=== PATIENT | male | born 1940 | race Caucasian/White ===

== ENCOUNTER 2017-10-28 17:22 | Inpatient (IN) ==
[2017-10-28 17:43] LABS: Basophils # 0.1 K/mm3 (0-0.2); Basophils % 0.8 % (0.1-2.0); Eosinophils # 0.2 K/mm3 (0.0-0.4); Eosinophils % 1.4 % (0.1-12.0); Hematocrit 46.1 % (42.0-52.0); Hemoglobin 15.2 g/dL (14.1-18.0); Lymphocytes # 3.6 K/mm3 (0.7-4.5); Lymphocytes % 32.1 K/mm3 (10-50); Mean Corpuscular Hemoglobin 30.9 pg (27.0-31.2); Mean Corpuscular Volume 93.7 fl (80-94); Mean Platelet Volume 8.3 fl (7.4-10.4); Monocytes # 0.7 K/mm3 (0.1-1.0); Neutrophils # 6.6 K/mm3 (1.8-7.8); Neutrophils % 59.7 % (37.0-80.0); Platelet Count 271 K/mm3 (142-424); Red Blood Count 4.91 M/mm3 (4.60-6.20); Red Cell Distribution Width 12.7 % (11.5-17.5); White Blood Count 11.1 K/mm3 (4.8-10.8)
[2017-10-28 18:14] LABS: Albumin Level 3.7 gm/dL (3.4-5.0); Albumin/Globulin Ratio 1.1 (1.1-1.8); Anion Gap 9.9 mEq/L (5-15); Bilirubin,Total 0.5 mg/dL (0.2-1.0); Calcium 8.4 mg/dL (8.5-10.1); Globulin 3.3 gm/dl (1.3-3.2); Potassium 3.9 mmoL/L (3.5-5.1)
--- NOTE | 2017-10-28 18:57 | Emergency Department Note ---
ED Disposition Clinical Impression: NSTEMI (non-ST elevated myocardial infarction), Hemoptysis, Hypertension, Pulmonary edema cardiac cause Disposition: Still a Patient Condition on Discharge: Fair Referrals: Galindo Cueva [Primary Care Provider] - - Critical Care Critical Care Time: No Attestation: On 10/28/17, the high probability of a clinically significant, sudden or life threatening deterioration of the following system(s) required my full and direct attention, intervention and personal management. The time I documented below is in addition to time spent performing reported procedures but includes the following listed in this critical care notation. Medical Decision Making - Medical Records Medical records reviewed: Yes: I reviewed the patient's medical records. - Bartolo Inquiry Pt receiving controlled substance: No Bartolo was queried for this patient: No Vital Signs: 10/28/17 17:22 Temperature 97.9 F Temperature Source Oral Pulse Rate [Right Brachial] 89 Respiratory Rate 20 Blood Pressure [Right Arm] 105/71 Blood Pressure Mean [Right Arm] 82 Blood Pressure Source [Right Arm] Automatic Cuff Blood Pressure Position [Right Arm] Sitting 02 Sat by Pulse Oximetry 97 Oxygen Delivery Method Room Air - Lab Data Lab Results 10/28/17 17:30: WBC 11.1 H, RBC 4.91, Hgb 15.2, Hct 46.1, MCV 93.7, MCH 30.9, MCHC 33.0, RDW 12.7, Plt Count 271, MPV 8.3, Neut % (Auto) 59.7, Lymph % (Auto) 32.1, Bollinger % (Auto) 6.0, Eos % (Auto) 1.4, Baso % (Auto) 0.8, Neut # (Auto) 6.6 , Lymph # (Auto) 3.6, Bollinger # (Auto) 0.7, Eos # (Auto) 0.2, Baso # (Auto) 0.1 10/28/17 17:30: Sodium 134 L, Potassium 3.9, Chloride 102, Carbon Dioxide 26, Anion Gap 9.9, BUN 20 H, Creatinine 1.02, Estimated Creat Clear 68, Estimated GFR 71, Est GFR ( Amer) 86, Glucose 146 H, Calcium 8.4 L, Total Bilirubin 0.5, AST 33, ALT 29, Alkaline Phosphatase 77, Total Creatine Kinase 183, CK-MB (CK-2) 7.8 H, CK-MB (CK-2) Rel Index 4.3 H, Troponin I 1.14 H, Total Protein 7.0, Albumin 3.7, Globulin 3.3 H, Albumin/Globulin Ratio 1.1 10/28/17 17:30: D-Dimer < 100 Result diagrams: 10/28/17 17:30 10/28/17 17:30 Orders (Tests/Meds): ED MEDICATIONS Generic Name Dose Route Start Last Admin Trade Name Reta PRN Reason Stop Dose Admin Aspirin 81 mg 10/29/17 09:00 Aspirin 81mg Chewable Tablet PO 11/28/17 08:59 DAILY URIAH Nitroglycerin/Dextrose 250 mls @ 1.5 mls/hr 10/28/17 20:15 10/28/17 20:19 Nitroglycerin 50mg/250ml D5w IV 11/27/17 20:14 5 mcg/min .Q24H URIAH 1.5 mls/hr Protocol Administration 5 MCG/MIN Nitroglycerin/Dextrose 250 mls @ 1.5 mls/hr 10/28/17 20:30 Nitroglycerin 50mg/250ml D5w IV 11/27/17 20:29 .Q24H URIAH Protocol 5 MCG/MIN Metoprolol Tartrate 50 mg 10/29/17 21:00 Lopressor 50mg Tablet PO 11/28/17 20:59 BID URIAH Discontinued Medications Generic Name Dose Route Start Last Admin Trade Name Reta PRN Reason Stop Dose Admin Aspirin 243 mg 10/28/17 18:46 10/28/17 18:47 Aspirin 81mg Chewable Tablet PO 10/28/17 18:47 243 mg ONCE ONE Administration Sodium Chloride 500 mls @ 999 mls/hr 10/28/17 19:00 10/28/17 19:05 Sod Chlor 0.9% 1000ml Bag IV 10/28/17 19:30 999 mls/hr .Q31M URIAH Administration Iopamidol 75 ml 10/28/17 20:36 10/28/17 20:37 [id number]; 75ml Vial IV 10/28/17 20:37 75 ml ONCE ONE Administration Metoprolol Tartrate 25 mg 10/29/17 09:00 Lopressor 25mg Tablet PO 11/28/17 08:59 DAILY URIAH Metoprolol Tartrate 25 mg 10/28/17 19:44 Lopressor 50mg Tablet PO 10/28/17 19:45 ONCE ONE Metoprolol Tartrate 50 mg 10/28/17 21:00 Lopressor 50mg Tablet PO 11/27/17 20:59 BID URIAH Metoprolol Tartrate 50 mg 10/28/17 20:26 Lopressor 50mg Tablet PO 10/28/17 20:27 ONCE ONE Sodium Chloride 10 ml 10/28/17 20:36 10/28/17 20:37 Rad-Saline Flush 10ml Syringe IV 10/28/17 20:37 10 ml ONCE ONE Administration Sodium Chloride 50 ml 10/28/17 20:36 10/28/17 20:37 Rad-Ns 50ml Vial IV 10/28/17 20:37 50 ml ONCE ONE Administration Ticagrelor 180 mg 10/28/17 19:00 10/28/17 19:15 Brilinta 90mg Tablet PO 10/28/17 19:01 180 mg ONCE ONE Administration Ticagrelor 90 mg 10/28/17 21:00 Brilinta 90mg Tablet PO 11/27/17 20:59 Q12 URIAH ORDERS Category Date Time Status CT Chest w/PE protocol [CT angio chest] Stat Cat Scan 10/28/17 19:02 Taken - ECG Data Tracing #1 Normal sinus rhythm LVH changes 96/min baseline artifact no ST elevation. I texted to Dr. Tovar for evaluation recommended aspirin Brilinta and Lopressor. ECG initial impression date: 10/28/17 ECG initial impression time: 18:58 Medical Decision Narrative: I called Dr. Tovar who recommended aspirin Brilinta 180 Lopressor 50 twice daily and to be admitted for catheterization in the morning. Prior to transfer to the floor the patient could chest pain 2/[address] Tovar who recommended not to drip. I contacted Dr. Mcneal and the patient was admitted to a stepdown on a nitro drip with a consult to Dr. Tovar. 2039 patient chest pain was down to1/10. She remained hemodynamically stable and communicative with the staff and his . I received a CT report with pulmonary edema most likely secondary to cardiac cause I called Dr. Tovar and discussed with him. The patient will be given morphine IV to help with pulmonary edema. Patient will be admitted to stepdown will obtain another troponin and 2 hours to be called to Dr. Tovar Chest Pain HPI - General Chief Complaint: Chest Pain Stated Complaint: chest pain Time Seen by Provider: 10/28/17 17:30 Mode of Arrival: Ambulatory Limitations: No Limitations Description of Symptoms (Recalled from ER Triage Doc. by RN): Pt reports began having chest pain at 0800 this morning. Pt reports anytime he has tried to do anything strenous today he has felt like wanting to pass out. States a few mins [employer] coughed up blood. Pt also report his BP has been low today - History of Present Illness HPI narrative: 77 years old white male with hypertension and hyperlipidemia. 9 AM this morning , he started experiencing burning pain in the chest, this pain was worse with exertion and relieved by rest. Currently it is 1/10. At 4 PM he had one episode of hemoptysis. He denies shortness of breath or palpitations. MD complaint: chest pain indicative of cardiac Onset (ago): hour(s) (9 hour.) Duration: constant Activity at onset: during rest Pain location: substernal Severity: mild Severity scale (1-10): 1 Quality: other (Burning.) Pain radiation: none Relieving factors: nothing Exacerbating factors: exertion Associated symptoms: other (hemoptysis. ) Risk Factors for CAD: Hypertension, Hypercholesterolemia Treatments prior to or on arrival for Cardiac Chest Pain: aspirin - Related Data Home Medications Medication Instructions Recorded Confirmed Aspirin 81 mg PO DAILY 10/28/17 10/28/17 Lisinopril [Lisinopril 5mg Tablet] 5 mg PO DAILY 10/28/17 10/28/17 Metoprolol Succinate 25 mg PO DAILY 10/28/17 10/28/17 Pravastatin Sodium [Pravachol] 20 mg PO DAILY 10/28/17 10/28/17 Allergies Allergy/AdvReac Type Severity Reaction Status Date / Time Penicillins [PENICILLINS] Allergy Unknown I-RASH Verified 10/28/17 19:[address] [facility] History I have reviewed the patient's past medical history: Yes Medical History: Denies:: Diabetes Mellitus Type 1, Diabetes Mellitus Type 2 Amputation: No - Social History Smoking Status: Former smoker Tobacco Type: cigarettes Alcohol Intake: never - Psychiatric History Expresses thoughts of harming self/others: None Suicide Plan Description: No Plan ROS Obtained: Yes All systems reviewed & no additional complaints Physical Exam - General General appearance: alert, in no apparent distress - Head Head exam: atraumatic, normocephalic, normal inspection - Eye Eye exam: Present: normal appearance, PERRL, EOMI - ENT ENT exam: Present: normal exam, normal oropharynx, mucous membranes moist, TM's normal bilaterally, normal external ear exam - Neck Neck exam: Present: normal inspection, full ROM, trachea midline. Absent: meningismus, lymphadenopathy - Chest Chest inspection: Present: normal inspection, symmetric chest wall rise. Absent : tenderness - Respiratory Respiratory exam: Present: normal lung sounds bilaterally. Absent: respiratory distress - Cardiovascular Cardiovascular exam: Present: regular rate, normal rhythm, systolic murmur. Absent: JVD - Abdominal Exam Abdominal exam: Present: soft, normal bowel sounds. Absent: distention, tenderness, guarding, rebound, rigidity - Extremities Exam Extremities exam: Present: normal inspection, full ROM, normal capillary refill. Absent: calf tenderness - Back Exam Back exam: Present: normal inspection. Absent: tenderness - Neurological Exam Neurological exam: Present: alert, oriented X3, CN II-XII intact, motor sensory deficit, reflexes normal - Psychiatric Psychiatric exam: Present: normal affect, normal mood - Skin Skin exam: Present: warm, dry, intact, normal color - Lymphatic Lymphatic Findings: no adenopathy
[2017-10-29 00:14] LABS: Activated Partial Thrombo Time 29.2 seconds (23.6-34.0); INR 0.99 (0.9-1.1); Prothrombin Time 10.7 seconds (9.4-11.8)
[2017-10-29 06:18] LABS: Basophils # 0.1 K/mm3 (0-0.2); Basophils % 0.7 % (0.1-2.0); Eosinophils # 0.1 K/mm3 (0.0-0.4); Eosinophils % 1.6 % (0.1-12.0); Hematocrit 44.5 % (42.0-52.0); Hemoglobin 14.7 g/dL (14.1-18.0); Lymphocytes # 2.4 K/mm3 (0.7-4.5); Lymphocytes % 27.2 K/mm3 (10-50); Mean Corpuscular HGB Conc 33.1 g/dL (31.8-35.4); Mean Corpuscular Hemoglobin 31.4 pg (27.0-31.2); Mean Corpuscular Volume 95.1 fl (80-94); Mean Platelet Volume 8.4 fl (7.4-10.4); Monocytes # 0.5 K/mm3 (0.1-1.0); Monocytes % 5.3 % (1.7-9.3); Neutrophils # 5.8 K/mm3 (1.8-7.8); Neutrophils % 65.2 % (37.0-80.0); Platelet Count 184 K/mm3 (142-424); Red Blood Count 4.68 M/mm3 (4.60-6.20); White Blood Count 8.9 K/mm3 (4.8-10.8)
[2017-10-29 06:30] LABS: Albumin Level 3.2 gm/dL (3.4-5.0); Anion Gap 13.3 mEq/L (5-15); Bilirubin,Total 0.7 mg/dL (0.2-1.0); Calcium 8.4 mg/dL (8.5-10.1); Chol/HDL Ratio 3.6 (1-3.5); Globulin 3.3 gm/dl (1.3-3.2); Potassium 4.3 mmoL/L (3.5-5.1); Total Protein,Serum 6.5 gm/dL (6.4-8.2)
--- NOTE | 2017-10-29 07:45 | History & Physical Report ---
*Admission Date: 10/28/17 *Chief complaint: Chest pain *History of present illness: 77 [address] old patient of [address] Galindo Cueva in [place], [place], presented to [facility] ER yesterday complaining of a 1 day history of chest pain. The patient describes the pain as burning in the middle of his chest associated with some chest pressure and shortness of breath with any exertion. He took an aspirin yesterday morning at the time of pain onset but did not get relief. Later in the day his spit up some blood. At that point he came to the ER for further evaluation. Patient was evaluated in the ER and found to have an elevated Troponin I, so he was admitted with a non ST elevation NC. Patient's pain persisted despite NTG drip so later in the evening Dr. Tovar took patient to the microbiology lab analyst. 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 Patient has a history of HTN and hyperlipidemia. He had a left heart cath 10 to 15 years ago that was reportedly normal. [facility] History Medical History: Reports:: BPH (followed at Urology clinic), Hyperlipidemia, Hypertension Denies:: Cancer, Diabetes Mellitus Type 1, Diabetes Mellitus Type 2, Lung Disease, MRSA Other Medical History: Reports: Other (impaired fasting glucose) Other Surgeries: Yes: Sinus Surgery, Other (pilonidal cyst removal) Amputation: No Fractures: No - *Social History Educational Level: Completed GED/General Educational Development Smoking Status: Former smoker Tobacco Type: cigarettes Alcohol Intake: never Occupational Status: retired - Psychiatric History Expresses thoughts of harming self/others: None Suicide Plan Description: No Plan *Family Hx:: Diabetes, Heart Attack Review of Systems - Constitutional Denies chills, Denies weight loss - Eyes Denies change in vision - ENT Denies difficulty swallowing - *Respiratory Denies cough - *Gastrointestinal Denies abdominal pain - *Genitourinary Denies painful urination - *Musculoskeletal Denies joint pain - Integumentary/Breasts Denies rash - *Neurologic Denies dizziness - Psychiatric Denies anxiety, Denies depression Meds Home Medications Medication Instructions Recorded Confirmed Type Aspirin 81 mg PO DAILY 10/28/17 10/28/17 History Lisinopril [Lisinopril 5mg Tablet] 5 mg PO DAILY 10/28/17 10/28/17 History Metoprolol Succinate 25 mg PO DAILY 10/28/17 10/28/17 History Pravastatin Sodium [Pravachol] 20 mg PO DAILY 10/28/17 10/28/17 History Allergies Allergy/AdvReac Type Severity Reaction Status Date / Time Penicillins [PENICILLINS] Allergy Unknown I-RASH Verified 10/28/17 19:15 Exam Vital signs and Labs for Last 24 Hours: Temp Pulse Resp BP Pulse Ox 97.4 F L 81 16 105/60 95 10/29/17 04:00 10/29/17 07:05 10/29/17 02:20 10/29/17 07:05 10/29/17 07:05 Vital Signs Temp Pulse Pulse Pulse Resp BP BP 10/29/17 07:05 81 105/60 10/29/17 06:05 81 87/62 10/29/17 05:05 63 108/58 10/29/17 04:35 82 119/65 10/29/17 04:05 80 93/61 10/29/17 04:00 97.4 F L 80 10/29/17 03:35 80 96/50 10/29/17 03:05 81 105/65 10/29/17 02:50 80 102/63 10/29/17 02:35 78 114/58 10/29/17 02:20 97.9 F 80 16 92/60 10/29/17 02:18 90 10/29/17 02:05 88 16 10/29/17 02:00 90 90 18 10/29/17 01:55 92 H 18 10/29/17 01:50 87 18 10/29/17 00:00 80 10/28/17 23:30 76 10/28/17 22:00 67 10/28/17 21:46 10/28/17 21:26 97.5 F L 78 20 10/28/17 21:21 80 10/28/17 21:20 77 10/28/17 21:15 98.4 F 76 18 105/74 10/28/17 17:22 97.9 F 89 20 BP Pulse Ox 10/29/17 07:05 95 10/29/17 06:05 95 10/29/17 05:05 97 10/29/17 04:35 95 10/29/17 04:05 92 L 10/29/17 04:00 96 10/29/17 03:35 92 L 10/29/17 03:05 95 10/29/17 02:50 93 L 10/29/17 02:35 94 L 10/29/17 02:20 90 L 10/29/17 02:18 10/29/17 02:05 105/42 95 10/29/17 02:00 130/49 94 L 10/29/17 01:55 101/64 92 L 10/29/17 01:50 117/61 94 L 10/29/17 00:00 10/28/17 23:30 119/51 93 L 10/28/17 22:00 99/47 95 10/28/17 21:46 97 10/28/17 21:26 107/70 97 10/28/17 21:21 10/28/17 21:20 107/70 96 10/28/17 21:15 10/28/17 17:22 105/71 97 Intake and Output 10/28/17 10/29/17 10/29/17 19:59 03:59 11:59 Intake Total 240 / 240 265 / 265 Output Total 350 / 350 600 / 600 Balance -110 / -110 -335 / -335 Intake: Intake, Oral Amount 240 / 240 240 / 240 Intake, Other Amount 25 / 25 Output: Output, Urine Amount 350 / 350 600 / 600 Other: Number of Voids 1 Number of Bowel Movements 0 Weight 170 lb 175 lb 4 oz 176 lb 6 oz Patient Weight 10/29/17 11:59 Weight 176 lb 6 oz I & O for Last 24 hours: Intake & Output 10/26/17 10/27/17 10/28/17 10/29/17 11:59 11:59 11:59 11:59 Intake Total 505 / 505 Output Total 950 / 950 Balance -445 / -445 Weight 176 lb 6 oz - Constitutional no acute distress - *Routine HEENT Exam Head: Present: normocephalic, atraumatic ENT: Present: mucous membranes moist - *Routine Neck Exam Present: supple - *Routine Respiratory Exam Present: crackles (rare in the bases) - *Routine Cardiovascular Exam Present: RRR. Absent: murmur - *Routine Abdominal Exam Present: soft, normoactive bowel sounds. Absent: tenderness - *Routine Extremities Exam Absent: cyanosis, clubbing, edema H&P: Result - Labs Labs: Short CBC 10/29/17 Range/Units 05:55 WBC 8.9 (4.8-10.8) K/mm3 Hgb 14.7 (14.1-18.0) g/dL Hct 44.5 (42.0-52.0) % Plt Count 184 D (142-424) K/mm3 BMP 10/29/17 05:55 Sodium 137 Potassium 4.3 Chloride 104 Carbon Dioxide 24 BUN 16 Creatinine 0.88 Glucose 101 D Calcium 8.4 L Cardiac Enzymes 10/28/17 Range/Units 23:45 Troponin I 1.09 H (0.00-0.06) ng/ml Liver Function 10/29/17 Range/Units 05:55 Total Bilirubin 0.7 (0.2-1.0) mg/dL AST 32 (15-37) U/L ALT 24 (12-78) U/L Alkaline Phosphatase 70 (46-116) U/L Albumin 3.2 L D (3.4-5.0) gm/dL Laboratory Results - last 24 hr 10/28/17 17:30: WBC 11.1 H, RBC 4.91, Hgb 15.2, Hct 46.1, MCV 93.7, MCH 30.9, MCHC 33.0, RDW 12.7, Plt Count 271, MPV 8.3, Neut % (Auto) 59.7, Lymph % (Auto) 32.1, Henry % (Auto) 6.0, Eos % (Auto) 1.4, Baso % (Auto) 0.8, Neut # (Auto) 6.6 , Lymph # (Auto) 3.6, Henry # (Auto) 0.7, Eos # (Auto) 0.2, Baso # (Auto) 0.1 10/28/17 17:30: Sodium 134 L, Potassium 3.9, Chloride 102, Carbon Dioxide 26, Anion Gap 9.9, BUN 20 H, Creatinine 1.02, Estimated Creat Clear 68, Estimated GFR 71, Est GFR ( Amer) 86, Glucose 146 H, Calcium 8.4 L, Total Bilirubin 0.5, AST 33, ALT 29, Alkaline Phosphatase 77, Total Creatine Kinase 183, CK-MB (CK-2) 7.8 H, CK-MB (CK-2) Rel Index 4.3 H, Troponin I 1.14 H, Total Protein 7.0, Albumin 3.7, Globulin 3.3 H, Albumin/Globulin Ratio 1.1 10/28/17 17:30: D-Dimer < 100 10/28/17 17:30: B-Natriuretic Peptide 417 H 10/28/17 17:30: PT 10.7, INR 0.99, APTT 29.2 10/28/17 20:50: Troponin I 1.16 H 10/28/17 23:45: Troponin I 1.09 H 10/29/17 05:55: WBC 8.9, RBC 4.68, Hgb 14.7, Hct 44.5, MCV 95.1 H, MCH 31.4 H, MCHC 33.1, RDW 13.0, Plt Count 184 D, MPV 8.4, Neut % (Auto) 65.2, Lymph % ( Auto) 27.2, Henry % (Auto) 5.3, Eos % (Auto) 1.6, Baso % (Auto) 0.7, Neut # (Auto ) 5.8, Lymph # (Auto) 2.4, Henry # (Auto) 0.5, Eos # (Auto) 0.1, Baso # (Auto) 0.1 10/29/17 05:55: Sodium 137, Potassium 4.3, Chloride 104, Carbon Dioxide 24, Anion Gap 13.3, BUN 16, Creatinine 0.88, Estimated Creat Clear 72, Estimated GFR 84, Est GFR ( Amer) 102, Glucose 101 D, Calcium 8.4 L, Total Bilirubin 0.7, AST 32, ALT 24, Alkaline Phosphatase 70, Total Protein 6.5, Albumin 3.2 L D, Globulin 3.3 H, Albumin/Globulin Ratio 1.0 L, Triglycerides 119 , Cholesterol 145, LDL Cholesterol 81, VLDL Cholesterol 24, HDL Cholesterol 40, Cholesterol/HDL Ratio 3.6 H - Imaging and Cardiology CT scan - chest Status: Preliminary report (pulmonary edema) Additional comments: Left heart cath report reviewed Assessment and Plan (1) NSTEMI (non-ST elevated myocardial infarction) Current visit: Yes Status: Acute Category: Medical Code(s): I21.4 - Non- ST elevation (NSTEMI) myocardial infarction (2) Non-ischemic cardiomyopathy Current visit: Yes Status: Acute Category: Medical Code(s): I42.8 - Other cardiomyopathies (3) Pulmonary edema cardiac cause Current visit: Yes Status: Acute Category: Medical Code(s): I50.1 - Left ventricular failure, unspecified (4) Hyperlipidemia Current visit: Yes Status: Acute Category: Medical Code(s): E78.5 - Hyperlipidemia, unspecified (5) Hemoptysis Current visit: Yes Status: Acute Category: Medical Code(s): R04.2 - Hemoptysis (6) Hypertension Current visit: Yes Status: Acute Category: Medical Code(s): I10 - Essential (primary) hypertension - Assessment and plan all Dx Assessment and Plan for all problems:: Will continue medical management for non ischemic cardiomyopathy and order ECHO for tomorrow
--- NOTE | 2017-10-29 12:04 | Pharmacy Consult Notes ---
[facility] Pharmacy VTE Monitoring - Patient Demographics Admission date: 10/29/17 Report Date: 10/29/17 Time: 12:04 Allergies/Adverse Reactions: Patient Allergies Penicillins [PENICILLINS] Allergy (Unknown, Verified 10/28/17 19:15) I-RASH Height: 1.78 m Weight: 80.002 kg Patient Problems: Current Active Problems NSTEMI (non-ST elevated myocardial infarction) (Acute) Hemoptysis (Acute) Hypertension (Acute) Pulmonary edema cardiac cause (Acute) Hyperlipidemia (Acute) Non-ischemic cardiomyopathy (Acute) - VTE Risk Labs: VTE Related Lab Results Hgb 14.7 g/dL (14.1-18.0) 10/29/17 05:55 Hct 44.5 % (42.0-52.0) 10/29/17 05:55 Plt Count 184 K/mm3 (142-424) D 10/29/17 05:55 PT 10.7 seconds (9.4-11.8) 10/28/17 17:30 INR 0.99 (0.9-1.1) 10/28/17 17:30 APTT 29.2 seconds (23.6-34.0) 10/28/17 17:30 BUN 16 mg/dL (7-18) 10/29/17 05:55 Creatinine 0.88 mg/dL (0.70-1.30) 10/29/17 05:55 Estimated Creat Clear 72 mL/min (0-300) 10/29/17 05:55 Was VTE Risk Assessment Performed: No VTE Score: 0 VTE Risk Level: Very Low Risk - Prophylaxis Location of Applied Device: Bilateral Lower Extremeties - VTE Diagnosis Confirmed Comment: RASHEEDA WAN ORDERED
[2017-10-30 07:30] LABS: Basophils # 0.1 K/mm3 (0-0.2); Basophils % 0.5 % (0.1-2.0); Eosinophils # 0.1 K/mm3 (0.0-0.4); Eosinophils % 0.7 % (0.1-12.0); Hematocrit 42.2 % (42.0-52.0); Hemoglobin 14.3 g/dL (14.1-18.0); Lymphocytes # 2.1 K/mm3 (0.7-4.5); Lymphocytes % 18.3 K/mm3 (10-50); Mean Corpuscular Hemoglobin 31.7 pg (27.0-31.2); Mean Corpuscular Volume 93.3 fl (80-94); Mean Platelet Volume 8.9 fl (7.4-10.4); Monocytes # 0.9 K/mm3 (0.1-1.0); Monocytes % 7.5 % (1.7-9.3); Neutrophils # 8.3 K/mm3 (1.8-7.8); Neutrophils % 72.9 % (37.0-80.0); Platelet Count 189 K/mm3 (142-424); Red Blood Count 4.52 M/mm3 (4.60-6.20); Red Cell Distribution Width 12.8 % (11.5-17.5); White Blood Count 11.4 K/mm3 (4.8-10.8)
[2017-10-30 08:02] LABS: Albumin Level 3.1 gm/dL (3.4-5.0); Bilirubin,Total 1.1 mg/dL (0.2-1.0); Calcium 8.1 mg/dL (8.5-10.1); Globulin 3.1 gm/dl (1.3-3.2); Total Protein,Serum 6.2 gm/dL (6.4-8.2)
--- NOTE | 2017-10-30 08:56 | Progress Note ---
<Leelee Whalen - Last Filed: 10/30/17 08:52> Internal Medicine - PN: Subj *Date: 10/30/17 *Time: 08:52 Interval history: Patient is hungry and would like something to eat. Biggest complaints are his weakness and coughing up blood. He denies shortness of breath while lying in the bed. He denies chest pain at this point. Denies any melena hematochezia or hematemesis. He does have some nausea. Exam Vital signs and Labs for Last 24 Hours: Temp Pulse Resp BP Pulse Ox 98.6 F 110 H 20 133/76 95 10/30/17 04:00 10/30/17 07:00 10/30/17 07:00 10/30/17 07:00 10/30/17 07:00 Laboratory Results - last 24 hr 10/30/17 07:03: WBC 11.4 H D, RBC 4.52 L, Hgb 14.3, Hct 42.2, MCV 93.3, MCH 31.7 H, MCHC 34.0, RDW 12.8, Plt Count 189, MPV 8.9, Neut % (Auto) 72.9, Lymph % (Auto) 18.3, [place] % (Auto) 7.5, Eos % (Auto) 0.7, Baso % (Auto) 0.5, Neut # ( Auto) 8.3 H, Lymph # (Auto) 2.1, [place] # (Auto) 0.9, Eos # (Auto) 0.1, Baso # ( Auto) 0.1 10/30/17 07:03: Sodium 137, Potassium 4.0, Chloride 102, Carbon Dioxide 23, Anion Gap 16.0 H, BUN 16, Creatinine 0.85, Estimated Creat Clear 70, Estimated GFR 88, Est GFR ( Amer) 106, Glucose 123 H, Calcium 8.1 L, Total Bilirubin 1.1 H, AST 32, ALT 22, Alkaline Phosphatase 66, Total Protein 6.2 L, Albumin 3.1 L, Globulin 3.1, Albumin/Globulin Ratio 1.0 L I & O for Last 24 hours: Intake & Output 10/27/17 10/28/17 10/29/17 10/30/17 11:59 11:59 11:59 11:59 Intake Total 745 / 745 20 / 20 Output Total 950 / 950 1200 / 1200 Balance -205 / -205 -1180 / -1180 Weight 176 lb 6 oz 171 lb 8 oz Radiology Reports for the Last 24 Hours: 10/29/2017 CTA of chest IMPRESSION 1. No pulmonary emboli evident 2. Extensive Bilateral low-density infiltrates. Diffuse groundglass opacities seen throughout the posterior aspect of the lower lobes and upper lobes bilaterally, Also infiltrate throughout the lingula and less evident scattered infiltrates RML. 3. . Clearly enlarged lower mediastinal lymph node.-This paraEsophageal/ Retrocrural node 13 cm diameter x 2.3 cm height 4. Additional soft tissue density right damaris suggesting early developing right hilar adenopathy most evident on right,. Only slight kody enlargement left damaris 5.. Developing Mediastinal adenopathy.: Noting prominent grouping of nodes subcarinal region. Enlarged node or collection collection nodes precarinal. Slight increased number of axillary nodes observed but these are not enlarged by CT criteria. 6. . 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 Absent: tenderness - *Routine Extremities Exam Absent: edema, calf tenderness - *Routine Neurological Exam Present: alert, oriented X3 Assessment and Plan (1) NSTEMI (non-ST elevated myocardial infarction) Current visit: Yes Status: Acute Category: Medical Code(s): I21.4 - Non- ST elevation (NSTEMI) myocardial infarction (2) Non-ischemic cardiomyopathy Current visit: Yes Status: Acute Category: Medical Code(s): I42.8 - Other cardiomyopathies (3) Pulmonary edema cardiac cause Current visit: Yes Status: Acute Category: Medical Code(s): I50.1 - Left ventricular failure, unspecified (4) Hyperlipidemia Current visit: Yes Status: Acute Category: Medical Code(s): E78.5 - Hyperlipidemia, unspecified (5) Hemoptysis Current visit: Yes Status: Acute Category: Medical Code(s): R04.2 - Hemoptysis (6) Hypertension Current visit: Yes Status: Acute Category: Medical Code(s): I10 - Essential (primary) hypertension (7) Mediastinal adenopathy Current visit: Yes Status: Acute Category: Medical Code(s): R59.0 - Localized enlarged lymph nodes - Assessment and plan all Dx Assessment and Plan for all problems:: Has been seen by cardiology today. We will do an echocardiogram. <Pavan Mcneal - Last Filed: 10/30/17 09:21> Internal Medicine - PN: Subj *Date: 10/30/17 *Time: 09:21 Exam Vital signs and Labs for Last 24 Hours: Temp Pulse Resp BP Pulse Ox 98.6 F 110 H 20 133/76 95 10/30/17 04:00 10/30/17 07:00 10/30/17 07:00 10/30/17 07:00 10/30/17 07:00 Laboratory Results - last 24 hr 10/30/17 07:03: WBC 11.4 H D, RBC 4.52 L, Hgb 14.3, Hct 42.2, MCV 93.3, MCH 31.7 H, MCHC 34.0, RDW 12.8, Plt Count 189, MPV 8.9, Neut % (Auto) 72.9, Lymph % (Auto) 18.3, [place] % (Auto) 7.5, Eos % (Auto) 0.7, Baso % (Auto) 0.5, Neut # ( Auto) 8.3 H, Lymph # (Auto) 2.1, [place] # (Auto) 0.9, Eos # (Auto) 0.1, Baso # ( Auto) 0.1 10/30/17 07:03: Sodium 137, Potassium 4.0, Chloride 102, Carbon Dioxide 23, Anion Gap 16.0 H, BUN 16, Creatinine 0.85, Estimated Creat Clear 70, Estimated GFR 88, Est GFR ( Amer) 106, Glucose 123 H, Calcium 8.1 L, Total Bilirubin 1.1 H, AST 32, ALT 22, Alkaline Phosphatase 66, Total Protein 6.2 L, Albumin 3.1 L, Globulin 3.1, Albumin/Globulin Ratio 1.0 L I & O for Last 24 hours: Intake & Output 10/27/17 10/28/17 10/29/17 04/02/18 11:59 11:59 11:59 11:59 Intake Total 745 / 745 Output Total 950 / 950 1200 / 1200 Balance -205 / -205 -1180 / -1180 Weight 176 lb 6 oz 171 lb 8 oz Assessment and Plan (1) NSTEMI (non-ST elevated myocardial infarction) Current visit: Yes Status: Acute Category: Medical Code(s): I21.4 - Non- ST elevation (NSTEMI) myocardial infarction (2) Non-ischemic cardiomyopathy Current visit: Yes Status: Acute Category: Medical Code(s): I42.8 - Other cardiomyopathies (3) Pulmonary edema cardiac cause Current visit: Yes Status: Acute Category: Medical Code(s): I50.1 - Left ventricular failure, unspecified (4) Hyperlipidemia Current visit: Yes Status: Acute Category: Medical Code(s): E78.5 - Hyperlipidemia, unspecified (5) Hemoptysis Current visit: Yes Status: Acute Category: Medical Code(s): R04.2 - Hemoptysis (6) Hypertension Current visit: Yes Status: Acute Category: Medical Code(s): I10 - Essential (primary) hypertension (7) Mediastinal adenopathy Current visit: Yes Status: Acute Category: Medical Code(s): R59.0 - Localized enlarged lymph nodes - Assessment and plan all Dx Assessment and Plan for all problems:: Saw patient, agree with above note.
--- NOTE | 2017-10-30 09:05 | Consult Report ---
History of Present Illness Consult date: 10/29/17 Requesting physician: Pavan Mcneal Consult reason: chest pain Chief complaint: Chest pain Additional Medical History:: 1. Ex-smoker, discontinued approximately 2006. Previously smoked at least a pack a day for about 40 years. 2. History of hypertension, improved after weight loss 3. History of diabetes, discontinued medication after 40 pound weight loss 4. History of nodule in the paraspinal area reportedly stable per patient. Sees a Dr. Mcgraw in [facility] for follow-up with reported CAT scan of the chest last year. History of present illness: 77-year-old white male admitted for recurrent chest pain with elevated troponin. Patient was taken to the cardiac [facility] yesterday with cardiac cath showing [id number] coronary artery disease, reduced ejection fraction of 40% and aortic gradient of 30 mm with concern for aortic stenosis versus evidence of HOCM. Patient's chest burning sensation has improved. Echocardiogram has been performed today results pending at this time. Patient does complain of coughing up some blood. Nursing relates blood-tinged frothy sputum. Patient has had some frequent PVCs and rare couplets and triplets. CT of the chest reveals evidence of pulmonary nodules, emphysema and infiltrates. [facility] History Medical History: Reports:: BPH (followed at Urology clinic), Hyperlipidemia, Hypertension Denies:: Cancer, Diabetes Mellitus Type 1, Diabetes Mellitus Type 2, Lung Disease, MRSA Other Medical History: Reports: Other (impaired fasting glucose) Other Surgeries: Yes: Sinus Surgery, Other (pilonidal cyst removal) Amputation: No Fractures: No - *Social History Educational Level: Completed GED/General Educational Development Smoking Status: Former smoker Tobacco Type: cigarettes Alcohol Intake: never Occupational Status: retired - Psychiatric History Expresses thoughts of harming self/others: None Suicide Plan Description: No Plan *Family Hx:: Diabetes, Heart Attack Meds Home Medications Medication Instructions Recorded Confirmed Type Aspirin 81 mg PO DAILY 10/28/17 10/28/17 History Lisinopril [Lisinopril 5mg Tablet] 5 mg PO DAILY 10/28/17 10/28/17 History Metoprolol Succinate 25 mg PO DAILY 10/28/17 10/28/17 History Pravastatin Sodium [Pravachol] 20 mg PO DAILY 10/28/17 10/28/17 History Allergies Allergy/AdvReac Type Severity Reaction Status Date / Time Penicillins [PENICILLINS] Allergy Unknown I-RASH Verified 10/28/17 19:15 Review of Systems - *Cardiovascular Reports chest pain, Reports shortness of breath - *Respiratory Reports cough, Reports coughing up blood - *Gastrointestinal Denies abdominal pain - *Genitourinary Denies difficulty urinating - *Neurologic Denies dizziness Exam Vital signs and Labs for Last 24 Hours: Temp Pulse Resp BP Pulse Ox 98.6 F 110 H 20 133/76 95 10/30/17 04:00 10/30/17 07:00 10/30/17 07:00 10/30/17 07:00 10/30/17 07:00 Laboratory Results - last 24 hr 10/30/17 07:03: WBC 11.4 H D, RBC 4.52 L, Hgb 14.3, Hct 42.2, MCV 93.3, MCH 31.7 H, MCHC 34.0, RDW 12.8, Plt Count 189, MPV 8.9, Neut % (Auto) 72.9, Lymph % (Auto) 18.3, [place] % (Auto) 7.5, Eos % (Auto) 0.7, Baso % (Auto) 0.5, Neut # ( Auto) 8.3 H, Lymph # (Auto) 2.1, [place] # (Auto) 0.9, Eos # (Auto) 0.1, Baso # ( Auto) 0.1 10/30/17 07:03: Sodium 137, Potassium 4.0, Chloride 102, Carbon Dioxide 23, Anion Gap 16.0 H, BUN 16, Creatinine 0.85, Estimated Creat Clear 70, Estimated GFR 88, Est GFR ( Amer) 106, Glucose 123 H, Calcium 8.1 L, Total Bilirubin 1.1 H, AST 32, ALT 22, Alkaline Phosphatase 66, Total Protein 6.2 L, Albumin 3.1 L, Globulin 3.1, Albumin/Globulin Ratio 1.0 L I & O for Last 24 hours: Intake & Output 10/27/17 10/28/17 10/29/17 10/30/17 11:59 11:59 11:59 11:59 Intake Total 745 / 745 20 Output Total 950 / 950 1200 / 1200 Balance -205 / -205 -1180 / -1180 Weight 176 lb 6 oz 171 lb 8 oz - *Routine Neck Exam Absent: JVD, carotid bruit - *Routine Respiratory Exam Present: decreased breath sounds - *Routine Cardiovascular Exam Present: murmur, gallop, tachycardia Comments: Harsh systolic ejection murmur grade 2/6 to 3/6 best heard at the apex with accentuation upon vagal maneuver. - *Routine Extremities Exam Absent: edema - *Routine Neurological Exam Present: alert, oriented X3, moving all extremities Assessment and Plan (1) NSTEMI (non-ST elevated myocardial infarction) Current visit: Yes Status: Acute Category: Medical Code(s): I21.4 - Non- ST elevation (NSTEMI) myocardial infarction (2) Non-ischemic cardiomyopathy Current visit: Yes Status: Acute Category: Medical Code(s): I42.8 - Other cardiomyopathies (3) Pulmonary edema cardiac cause Current visit: Yes Status: Acute Category: Medical Code(s): I50.1 - Left ventricular failure, unspecified (4) Hyperlipidemia Current visit: Yes Status: Acute Category: Medical Code(s): E78.5 - Hyperlipidemia, unspecified (5) Hemoptysis Current visit: Yes Status: Acute Category: Medical Code(s): R04.2 - Hemoptysis (6) Hypertension Current visit: Yes Status: Acute Category: Medical Code(s): I10 - Essential (primary) hypertension - Assessment and plan all Dx Assessment and Plan for all problems:: 1. Will await echo results but continue Beta elaine therapy. Will increase to 50 mg due to tachycardia. 2. Workup of hemoptysis per Dr. Mcneal.
[2017-10-30 12:12] VITALS: BP 132/61
--- NOTE | 2017-10-30 19:34 | Discharge Summary ---
General - General Admission date: 10/29/17 Discharge date: 10/30/17 HPI HPI: 77 year old patient of Dr. Galindo Cueva in [place], [place], presented to [facility] ER yesterday complaining of a 1 day history of chest pain. The patient describes the pain as burning in the middle of his chest associated with some chest pressure and shortness of breath with any exertion. He took an aspirin yesterday morning at the time of pain onset but did not get relief. Later in the day his spit up some blood. At that point he came to the ER for further evaluation. Patient was evaluated in the ER and found to have an elevated Troponin I, so he was admitted with a non ST elevation GA. Patient's pain persisted despite NTG drip so later in the evening Dr. Tovar took patient to the powerhouse laborer. 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 Patient has a history of HTN and hyperlipidemia. He had a left heart cath 10 to 15 years ago that was reportedly normal. Hospital Course Hospital Course: The patient was started on medical management for non ischemic cardiomyopathy and an ECHO was ordered. His biggest complaints were of weakness and coughing up blood. He had a CTA to r/o a PE. There was no PE, but it did show extensive bilateral low-density infiltrates, diffuse groundglass opacities throughout the posterior aspect of the lower lobes and upper lobes, an enlarged lower mediastinal lymph node, right hilar adenopathy, mediastinal adenopathy, and a right paraspinal mass lesion most likely a neurofibroma or schwannoma at T10-11. The patient had an echo and it showed evidence of critical HOCM. He was transferred to CV surgeon (Dr. Shaw) in [place] for further treatment. Objective Vital signs: Temp Pulse Resp BP Pulse Ox 97.4 F L 128 H 22 132/61 95 10/30/17 12:00 10/30/17 14:00 10/30/17 14:00 10/30/17 12:00 10/30/17 14:00 Narrative: - Constitutional no acute distress - *Routine HEENT Exam Head: Present: normocephalic, atraumatic ENT: Present: mucous membranes moist - *Routine Neck Exam Present: supple - *Routine Respiratory Exam Present: crackles (rare in the bases) - *Routine Cardiovascular Exam Present: RRR. Absent: murmur - *Routine Abdominal Exam Present: soft, normoactive bowel sounds. Absent: tenderness - *Routine Extremities Exam Absent: cyanosis, clubbing, edema Results Labs on day of discharge: Labs from last 24 hours 10/30/17 10/30/17 07:03 07:03 WBC 11.4 H D RBC 4.52 L Hgb 14.3 Hct 42.2 MCV 93.3 MCH 31.7 H MCHC 34.0 RDW 12.8 Plt Count 189 MPV 8.9 Neut % (Auto) 72.9 Lymph % (Auto) 18.3 [place] % (Auto) 7.5 Eos % (Auto) 0.7 Baso % (Auto) 0.5 Neut # (Auto) 8.3 H Lymph # (Auto) 2.1 [place] # (Auto) 0.9 Eos # (Auto) 0.1 Baso # (Auto) 0.1 Sodium 137 Potassium 4.0 Chloride 102 Carbon Dioxide 23 Anion Gap 16.0 H BUN 16 Creatinine 0.85 Estimated Creat Clear 70 Estimated GFR 88 Est GFR ( Amer) 106 Glucose 123 H Calcium 8.1 L Total Bilirubin 1.1 H AST 32 ALT 22 Alkaline Phosphatase 66 Total Protein 6.2 L Albumin 3.1 L Globulin 3.1 Albumin/Globulin Ratio 1.0 L DS: Diagnosis - Discharge Diagnosis (1) HOCM (hypertrophic obstructive cardiomyopathy) Status: Acute (2) Hemoptysis Status: Acute (3) Hyperlipidemia Status: Acute (4) Hypertension Status: Acute (5) Mediastinal adenopathy Status: Acute (6) NSTEMI (non-ST elevated myocardial infarction) Status: Acute (7) Non-ischemic cardiomyopathy Status: Acute (8) Pulmonary edema cardiac cause Status: Acute Discharge Plan - Patient Discharge Instructions ACTIVITY: Continue current activity DIET: continue same diet Patient Instructions: High Triglycerides, Heart Attack, Cardiac Catheterization , Surgical Site Infection, DI for Hemoptysis Forms: Transfer Record - Follow up Plan Disposition: Xfer Short-Term Hosp Home Medications: Home Medications Medication Instructions Recorded Confirmed Type Aspirin 81 mg PO DAILY 10/28/17 10/28/17 History Lisinopril [Lisinopril 5mg Tablet] 5 mg PO DAILY 10/28/17 10/28/17 History Metoprolol Succinate 25 mg PO DAILY 10/28/17 10/28/17 History Pravastatin Sodium [Pravachol] 20 mg PO DAILY 10/28/17 10/28/17 History Prescriptions/Medication Reconciliation: Continue Lisinopril [Lisinopril 5mg Tablet] 5 mg PO DAILY Pravastatin Sodium [Pravachol] 20 mg PO DAILY Metoprolol Succinate 25 mg PO DAILY Aspirin 81 mg PO DAILY
--- NOTE | 2017-10-30 21:27 | Cardiology Report ---
PROCEDURE: 2-D M-mode and color Doppler study INDICATIONS FOR THE TEST: Chest pain X COPD Heart Murmur Tobacco SmokingX Palpitations Fatigue Syncope Edema HypertensionXDiabetes Mellitus Rheumatic Fever SOBXDOE Obesity HyperlipidemiaX Family History HD Additional History NSTEMI,PUL EDEMA,CHF ?HOCM/ ON CATH EF 40% CATH 10/28/17 PATIENT INFORMATION HEIGHT: 70 WEIGHT:176 GENDER: Male B/P:105/60 2-D/M-MODE INTERPRETATION: 2-D MEASUREMENTS OBSERVED VALUES IN CMS Right Ventricular Dimension (RVDd) 1.9 Interventricular Septum (Thickness)(IVsd) 1.0 Left Ventricular Internal Dimensions(LVIDd) 6.2 Left Ventricular Posterior Wall (Thickness)(LVPWd) 1.1 Aortic Root 3.6 Aortic Cusp Separation 2.4 Left Atrial Dimensions (LAD) 3.2 2D 1. Left atrium is qualitatively moderately enlarged, left ventricle is mildly dilated, there is severely reduced left ventricular systolic function, visually estimated ejection fraction of 20-25%, there is marked hypokinesis involving mid to distal septum, anterior, anteroapical wall the basal septum and inferobasal wall hyperdynamic, the basal septum has sigmoid configuration. 2. The right atrium and right ventricle are normal size and contractility. 3. The aortic valve is thickened and is trileaflet continue to display mobility. 4. The mitral valve leaflets are minimally thickened, there is mild systolic anterior motion of the mitral valve leaflets towards the left ventricular outflow tract with septal mitral contact . 5. The tricuspid valve is structurally normal. 6. Pulmonic valve is poorly visualized 7. No significant pericardial effusion noted. DOPPLER INTERROGATION: 1. 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 2. The mitral inflow velocity within normal range, there is no mitral stenosis, there is moderate to severe mitral regurgitation. 3. There is mild tricuspid regurgitation noted tricuspid and jet velocity insufficient for calculation of the right ventricular systolic pressure. CONCLUSION: 1. The left atrium is moderately enlarged, left ventricle is mildly dilated, there is severely reduced left ventricular systolic function visually estimated ejection fraction of 20-25% with multiple segmental wall motion abnormality described above, the basal septum and inferobasal wall hyperdynamic. 2. Systolic anterior motion of the mitral valve leaflets, creating resting gradient of 85 mmHg which increased to 144mm Hg suggestive of dynamic obstruction. There is moderate to severe mitral regurgitation. 3. Mild tricuspid regurgitation 4. No significant pericardial effusion noted.
== END 2017-10-30 15:30 | disposition short-term general hospital (02) ==
LOC: 2ND 17:22 → ER 17:22 → OBSVTOIN 21:24 → 2ND 21:25
PROVIDERS: ADMIT Family Medicine; ATTEND Family Medicine

== ENCOUNTER → 2017-11-30 10:24 | Outpatient (CLI) | payer MEDICARE, SELFPAY ==
--- NOTE | 2017-11-30 10:26 | CA_ITS ---
PROCEDURE: 2-D M-mode and color Doppler study INDICATIONS FOR THE TEST: Chest painx COPD Heart Murmur Tobacco Smokingx Palpitations Fatiguex Syncope Edema HypertensionxDiabetes Mellitus Rheumatic Fever SOB DOExObesity Hyperlipidemiax Family History HD Additional History Dizziness, Hypertrophic Cardiomyopathy, History of 20-25% EF PATIENT INFORMATION HEIGHT: 5'11'' WEIGHT: 172 GENDER: Male B/P: 150/69 2-D/M-MODE INTERPRETATION: 2-D MEASUREMENTS OBSERVED VALUES IN CMS Right Ventricular Dimension (RVDd) 2.2 Interventricular Septum (Thickness)(IVsd) 1.6 Left Ventricular Internal Dimensions(LVIDd) 4.3 Left Ventricular Posterior Wall (Thickness)(LVPWd) 1.4 Aortic Root 2.9 Aortic Cusp Separation 2.1 Left Atrial Dimensions (LAD) 4.1 2D 1. Left atrium is mildly enlarged, left ventricle is normal size, there is mild concentric left ventricular hypertrophy, septum has sigmoid configuration, visually estimated ejection fraction 55% with no obvious regional wall motion abnormality. 2. The right atrium and right ventricle are normal size and contractility. 3. The aortic valve is thickened and calcified leaflet continue to display good mobility, morphologically there is no aortic stenosis. 4. The mitral valve leaflets are minimally thickened, there is mild systolic atrium motion of the mitral valve leaflets seen. 5. The tricuspid valve is grossly normal. 6. The pulmonic valve is poorly visualized. 7. No significant pericardial effusion noted. DOPPLER INTERROGATION: Doppler interrogation of the aortic, mitral and tricuspid valvular presence of mild mitral and tricuspid regurgitation, Doppler evidence of impaired LV relaxation seen, there is no resting gradient or provocable gradient has been recorded in this study. CONCLUSION: 1. Mildly enlarged left atrium, normal left ventricular size, mild concentric left ventricular hypertrophy, septum has sigmoid configuration, visually estimated ejection fraction 55-60% with no obvious regional wall motion abnormality, Doppler evidence of impaired LV relaxation seen. 2. Systolic atrium motion of the mitral valve leaflets, there is no resting or provocable gradient has been recorded in this study. 3. Mild mitral and tricuspid regurgitation.
== END ==
PROVIDERS: Family Provider Family Medicine; PCP Family Medicine; Visit Provider Internal Medicine
DX: I42.8 Other cardiomyopathies; I42.1 Obstructive hypertrophic cardiomyopathy; E78.5 Hyperlipidemia, unspecified; I10 Essential (primary) hypertension
CPT/HCPCS: 93306

== ENCOUNTER → 2019-09-05 09:15 | Outpatient (CLI) | payer MEDICARE, SELFPAY ==
[2019-09-20 19:03] LABS: Miscellaneous Test SEE LABCORP REPORT
== END ==
PROVIDERS: Visit Provider Internal Medicine Medical Oncology
DX: D64.9 Anemia, unspecified (principal)
CPT/HCPCS: 36415

== ENCOUNTER → 2019-09-20 09:11 | Outpatient (CLI) | payer MEDICARE, SELFPAY ==
[2019-09-20 11:24] LABS: Basophils # 0.1 K/mm3 (0-0.2); Basophils % 0.6 % (0.1-2.0); Eosinophils # 0.2 K/mm3 (0.0-0.4); Eosinophils % 0.8 % (0.1-12.0); Hematocrit 44.9 % (42.0-52.0); Hemoglobin 14.3 g/dL (14.1-18.0); Lymphocytes # 17.6 K/mm3 (0.7-4.5); Lymphocytes % 73.5 % (10-50); Mean Corpuscular HGB Conc 31.8 g/dL (31.8-35.4); Mean Corpuscular Hemoglobin 28.6 pg (27.0-31.2); Mean Platelet Volume 8.2 fl (7.4-10.4); Monocytes # 0.6 K/mm3 (0.1-1.0); Monocytes % 2.4 % (1.7-9.3); Neutrophils # 5.4 K/mm3 (1.8-7.8); Neutrophils % 22.7 % (37.0-80.0); Platelet Count 292 K/mm3 (142-424); Red Blood Count 4.99 M/mm3 (4.60-6.20); Red Cell Distribution Width 13.3 % (11.5-17.5); White Blood Count 23.9 K/mm3 (4.8-10.8)
[2019-09-20 11:26] LABS: MANUAL DIFFERENTIAL MANUAL DIFFERENTIAL (MANUAL DIFF)
[2019-09-20 13:51] LABS: Lymphocytes % 69 % (10-50); Monocytes % 6 % (2-9); Neutrophils % 20 % (42-76); Total Cells Counted 100
[2019-09-20 13:52] LABS: Platelet Estimate Normal; RBC Morphology Normal
== END ==
PROVIDERS: Visit Provider Internal Medicine Medical Oncology
DX: D64.9 Anemia, unspecified (principal)
CPT/HCPCS: 36415; 85007; 85025

== ENCOUNTER → 2019-12-26 08:25 | Outpatient (CLI) | payer MEDICARE, SELFPAY ==
[2019-12-26 09:09] LABS: Basophils # 0.1 K/mm3 (0-0.2); Basophils % 0.7 % (0.1-2.0); Eosinophils # 0.3 K/mm3 (0.0-0.4); Hematocrit 39.2 % (42.0-52.0); Hemoglobin 13.4 g/dL (14.1-18.0); Lymphocytes # 8.2 K/mm3 (0.7-4.5); Lymphocytes % 62.1 % (10-50); Mean Corpuscular HGB Conc 34.2 g/dL (31.8-35.4); Mean Corpuscular Hemoglobin 30.5 pg (27.0-31.2); Mean Corpuscular Volume 89.4 fl (80-94); Mean Platelet Volume 8.2 fl (7.4-10.4); Monocytes # 0.6 K/mm3 (0.1-1.0); Monocytes % 4.5 % (1.7-9.3); Neutrophils # 4.1 K/mm3 (1.8-7.8); Neutrophils % 30.7 % (37.0-80.0); Platelet Count 249 K/mm3 (142-424); Red Blood Count 4.38 M/mm3 (4.60-6.20); Red Cell Distribution Width 13.8 % (11.5-17.5); White Blood Count 13.3 K/mm3 (4.8-10.8)
[2019-12-26 09:12] LABS: MANUAL DIFFERENTIAL MANUAL DIFFERENTIAL (MANUAL DIFF)
[2019-12-26 09:46] LABS: Lymphocytes % 52 % (10-50); Monocytes % 2 % (2-9); Neutrophils % 44 % (42-76); Platelet Estimate Normal; RBC Morphology Normal; Total Cells Counted 100
[2019-12-26 10:22] LABS: Chloride 106 mmol/L (98-107); Sodium 140 mmol/L (136-145)
[2019-12-26 10:23] LABS: Potassium 4.5 mmoL/L (3.5-5.1)
[2019-12-26 10:25] LABS: Alanine Aminotransferase 25 U/L (12-78); Albumin Level 3.9 g/dl (3.5-5.0); Albumin/Globulin Ratio 1.3 (1.1-1.8); Alkaline Phosphatase 78 U/L (38-126); Anion Gap 11.5 mEq/L (5-15); Aspartate Amino Transferase 36 U/L (17-59); Bilirubin,Total 0.8 mg/dl (0.2-1.3); Blood Urea Nitrogen 18 mg/dl (9-20); Calcium 8.9 mg/dl (8.4-10.2); Carbon Dioxide 27 mmol/L (22.0-30.0); Estimated Glomerular Filt Rate 82 ml/min (>60); GFR (African American) 99 ML/MIN (>60); Globulin 2.9 g/dL (1.3-3.2); Glucose 87 mg/dl (74-100); Total Protein,Serum 6.8 g/dl (6.3-8.2)
== END ==
PROVIDERS: Visit Provider Internal Medicine Medical Oncology
DX: D64.9 Anemia, unspecified (principal)
CPT/HCPCS: 36415; 80053; 85007; 85025

== ENCOUNTER → 2020-08-26 08:17 | Outpatient (CLI) | payer MEDICARE, SELFPAY ==
[2020-08-26 08:57] LABS: Basophils # 0.3 K/mm3 (0-0.2); Basophils % 0.7 % (0.1-2.0); Eosinophils # 0.3 K/mm3 (0.0-0.4); Eosinophils % 0.6 % (0.1-12.0); Hematocrit 38.2 % (42.0-52.0); Hemoglobin 12.1 g/dL (14.1-18.0); Lymphocytes # 36.8 K/mm3 (0.7-4.5); Lymphocytes % 85.3 % (10-50); Mean Corpuscular HGB Conc 31.6 g/dL (31.8-35.4); Mean Corpuscular Hemoglobin 27.1 pg (27.0-31.2); Mean Corpuscular Volume 85.9 fl (80-94); Mean Platelet Volume 8.4 fl (7.4-10.4); Monocytes # 0.8 K/mm3 (0.1-1.0); Monocytes % 1.8 % (1.7-9.3); Platelet Count 230 K/mm3 (142-424); Red Blood Count 4.45 M/mm3 (4.60-6.20); Red Cell Distribution Width 13.6 % (11.5-17.5)
[2020-08-26 09:26] LABS: Alanine Aminotransferase 22 U/L (12-78); Albumin/Globulin Ratio 1.4 (1.1-1.8); Alkaline Phosphatase 80 U/L (38-126); Anion Gap 13.7 mEq/L (5-15); Aspartate Amino Transferase 33 U/L (17-59); Bilirubin,Total 0.4 mg/dl (0.2-1.3); Blood Urea Nitrogen 17 mg/dl (9-20); Calcium 8.8 mg/dl (8.4-10.2); Carbon Dioxide 25 mmol/L (22.0-30.0); Chloride 103 mmol/L (98-107); Estimated Glomerular Filt Rate 59 ml/min (>60); GFR (African American) 71 ML/MIN (>60); Globulin 2.8 g/dL (1.3-3.2); Glucose 147 mg/dl (74-100); Potassium 4.7 mmoL/L (3.5-5.1); Sodium 137 mmol/L (136-145); Total Protein,Serum 6.8 g/dl (6.3-8.2)
[2020-08-26 09:47] LABS: Neutrophils % 11.5 % (37.0-80.0)
[2020-08-26 09:51] LABS: MANUAL DIFFERENTIAL MANUAL DIFFERENTIAL (MANUAL DIFF)
[2020-08-26 13:04] LABS: Lymphocytes % 58 % (10-50); Monocytes % 4 % (2-9); Neutrophils % 28 % (42-76); Total Cells Counted 100
[2020-08-26 13:06] LABS: RBC Morphology Normal
[2020-08-26 13:07] LABS: Platelet Estimate Normal
[2020-08-28 08:22] LABS: Peripheral Smear Review Scanned Result
== END ==
PROVIDERS: Visit Provider Internal Medicine Medical Oncology
DX: D64.9 Anemia, unspecified (principal)
CPT/HCPCS: 36415; 80053; 85007; 85025

== ENCOUNTER → 2020-09-24 08:12 | Outpatient (CLI) | payer MEDICARE, SELFPAY ==
[2020-09-24 08:41] LABS: Basophils # 0.8 K/mm3 (0-0.2); Basophils % 1.2 % (0.1-2.0); Eosinophils # 0.3 K/mm3 (0.0-0.4); Eosinophils % 0.4 % (0.1-12.0); Hematocrit 38.2 % (42.0-52.0); Lymphocytes # 55.9 K/mm3 (0.7-4.5); Lymphocytes % 89.4 % (10-50); Mean Corpuscular HGB Conc 31.3 g/dL (31.8-35.4); Mean Corpuscular Hemoglobin 26.8 pg (27.0-31.2); Mean Corpuscular Volume 85.5 fl (80-94); Mean Platelet Volume 8.4 fl (7.4-10.4); Monocytes # 0.9 K/mm3 (0.1-1.0); Monocytes % 1.4 % (1.7-9.3); Neutrophils # 4.8 K/mm3 (1.8-7.8); Platelet Count 238 K/mm3 (142-424); Red Blood Count 4.46 M/mm3 (4.60-6.20); Red Cell Distribution Width 14.4 % (11.5-17.5)
[2020-09-24 09:28] LABS: Neutrophils % 7.6 % (37.0-80.0)
[2020-09-24 09:30] LABS: MANUAL DIFFERENTIAL MANUAL DIFFERENTIAL (MANUAL DIFF); White Blood Count 62.6 K/mm3 (4.8-10.8)
[2020-09-24 10:27] LABS: Hypochromasia 1+; Lymphocytes % 72 % (10-50); Monocytes % 1 % (2-9); Neutrophils % 11 % (42-76); Platelet Estimate Normal; Total Cells Counted 100
== END ==
PROVIDERS: Visit Provider Internal Medicine Medical Oncology
DX: C91.10 Chronic lymphocytic leukemia of B-cell type not having achieved remission (principal)
CPT/HCPCS: 36415; 85007; 85025

== ENCOUNTER → 2020-10-15 09:10 | Outpatient (CLI) | payer MEDICARE, SELFPAY ==
[2020-10-15 10:27] LABS: Basophils % 3.3 % (0.1-2.0); Eosinophils # 0.1 K/mm3 (0.0-0.4); Eosinophils % 0.1 % (0.1-12.0); Hematocrit 35.1 % (42.0-52.0); Hemoglobin 11.1 g/dL (14.1-18.0); Lymphocytes # 136.5 K/mm3 (0.7-4.5); Lymphocytes % 88.7 % (10-50); Mean Corpuscular HGB Conc 31.5 g/dL (31.8-35.4); Mean Corpuscular Hemoglobin 26.5 pg (27.0-31.2); Mean Platelet Volume 10.2 fl (7.4-10.4); Monocytes # 1.6 K/mm3 (0.1-1.0); Monocytes % 1.1 % (1.7-9.3); Neutrophils # 10.6 K/mm3 (1.8-7.8); Platelet Count 293 K/mm3 (142-424); Red Blood Count 4.18 M/mm3 (4.60-6.20); Red Cell Distribution Width 14.5 % (11.5-17.5)
[2020-10-15 10:51] LABS: Neutrophils % 6.9 % (37.0-80.0)
[2020-10-15 10:54] LABS: MANUAL DIFFERENTIAL MANUAL DIFFERENTIAL (MANUAL DIFF)
[2020-10-15 10:59] LABS: White Blood Count 153.9 K/mm3 (4.8-10.8)
[2020-10-15 11:05] LABS: Chloride 101 mmol/L (98-107); Sodium 137 mmol/L (136-145)
[2020-10-15 11:06] LABS: Potassium 4.8 mmoL/L (3.5-5.1)
[2020-10-15 11:08] LABS: Alanine Aminotransferase 19 U/L (12-78); Albumin Level 3.5 g/dl (3.5-5.0); Albumin/Globulin Ratio 1.1 (1.1-1.8); Alkaline Phosphatase 74 U/L (38-126); Anion Gap 14.8 mEq/L (5-15); Aspartate Amino Transferase 25 U/L (17-59); Bilirubin,Total 0.7 mg/dl (0.2-1.3); Blood Urea Nitrogen 19 mg/dl (9-20); Calcium 9.3 mg/dl (8.4-10.2); Carbon Dioxide 26 mmol/L (22.0-30.0); Estimated Glomerular Filt Rate 65 ml/min (>60); GFR (African American) 78 ML/MIN (>60); Globulin 3.2 g/dL (1.3-3.2); Glucose 108 mg/dl (74-100); Total Protein,Serum 6.7 g/dl (6.3-8.2)
[2020-10-15 12:46] LABS: Lymphocytes % 87 % (10-50); Monocytes % 2 % (2-9); Neutrophils % 11 % (42-76); Platelet Estimate Normal; RBC Morphology Normal; Total Cells Counted 100
== END ==
PROVIDERS: Visit Provider Internal Medicine Medical Oncology
DX: C91.10 Chronic lymphocytic leukemia of B-cell type not having achieved remission (principal)
CPT/HCPCS: 36415; 80053; 85007; 85025

== ENCOUNTER 2020-10-23 09:17 | Outpatient (CLI) | payer MEDICARE, SELFPAY ==
[2020-10-23] VITALS (11 sets, daily range): BP systolic 122–150; BP diastolic 51–72; PULSE 61–71; RESP 16–18; TEMP 36.3–36.6; O2SAT 96–98; BMI 27.8
[2020-10-23 10:06] LABS: Alanine Aminotransferase 11 U/L (12-78); Albumin Level 3.1 g/dl (3.5-5.0); Albumin/Globulin Ratio 1.1 (1.1-1.8); Alkaline Phosphatase 55 U/L (38-126); Anion Gap 13.6 mEq/L (5-15); Aspartate Amino Transferase 23 U/L (17-59); Bilirubin,Total 0.4 mg/dl (0.2-1.3); Blood Urea Nitrogen 53 mg/dl (9-20); Calcium 8.3 mg/dl (8.4-10.2); Carbon Dioxide 19 mmol/L (22.0-30.0); Chloride 106 mmol/L (98-107); Creatinine Clearance Estimated 76 mL/min (50-200); Estimated Glomerular Filt Rate 72 ml/min (>60); GFR (African American) 87 ML/MIN (>60); Globulin 2.7 g/dL (1.3-3.2); Glucose 140 mg/dl (74-100); Potassium 5.6 mmoL/L (3.5-5.1); Sodium 133 mmol/L (136-145); Total Protein,Serum 5.8 g/dl (6.3-8.2)
[2020-10-23 10:08] LABS: Basophils # 4.7 K/mm3 (0-0.2); Basophils % 2.4 % (0.1-2.0); Eosinophils # 0.1 K/mm3 (0.0-0.4); Lymphocytes # 165.8 K/mm3 (0.7-4.5); Lymphocytes % 86.9 % (10-50); Mean Corpuscular HGB Conc 31.6 g/dL (31.8-35.4); Mean Corpuscular Hemoglobin 26.5 pg (27.0-31.2); Mean Platelet Volume 9.8 fl (7.4-10.4); Monocytes # 2.3 K/mm3 (0.1-1.0); Monocytes % 1.2 % (1.7-9.3); Neutrophils # 18.2 K/mm3 (1.8-7.8); Platelet Count 392 K/mm3 (142-424); Red Blood Count 2.72 M/mm3 (4.60-6.20); Red Cell Distribution Width 15.8 % (11.5-17.5)
[2020-10-23 10:10] LABS: Neutrophils % 9.5 % (37.0-80.0)
[2020-10-23 10:12] LABS: White Blood Count 190.9 K/mm3 (4.8-10.8)
[2020-10-23 10:13] LABS: Hematocrit 22.8 % (42.0-52.0); Hemoglobin 7.2 g/dL (14.1-18.0); MANUAL DIFFERENTIAL MANUAL DIFFERENTIAL (MANUAL DIFF)
[2020-10-23 10:35] LABS: Lymphocytes % 95 % (10-50); Neutrophils % 5 % (42-76); Total Cells Counted 100
[2020-10-23 10:41] LABS: Platelet Estimate Normal
[2020-10-23 10:42] LABS: Hypochromasia 1+
[2020-10-23 10:54] LABS: Lactate Dehydrogenase 138 U/L (313-618); Uric Acid 5.5 mg/dl (3.5-8.5)
--- NOTE | 2020-10-23 13:00 | PC.NURSE ---
1045 Patient receiving 500ml NS IV as ordered per Dr. Rodrigues for elevated BUN 53, creatinine is WNL at 1.00. 1228 Transfusion of one unit PRBC initiated at this time. Resp easy/reg, lungs CTA. IV patent. Vital signs stable. Patient educated regarding s/s of blood transfusion reaction/intolerance, with patient verbalizing understanding of all instruction. 1258 Patient tolerating blood well with no s/s transfusion reaction or problems noted. Denies complaints. Resp easy/reg. Patient talking/laughing with staff. VSS.
--- NOTE | 2020-10-23 14:50 | PC.NURSE ---
1328 Patient continues to tolerate blood well with no s/s transfusion reaction or problems noted. Patient denies complaints. Resp easy/reg. IV patent. VSS. Has dozed at intervals. Up to bathroom. 1428 Patient denies complaints. Tolerating blood well with no problems noted. 1440 Blood complete at this time. VSS. Lungs consistent with baseline assessment. Resp easy/reg. Patient is talkative and pleasant with staff/denies complaints. Up to bathroom. Skin warm/dry to touch. No s/s transfusion reaction or problems noted.
[2020-10-23 15:51] LABS: Hematocrit 25.3 % (42.0-52.0)
[2020-10-23 15:52] LABS: Hemoglobin 8.3 g/dL (14.1-18.0)
--- NOTE | 2020-10-23 15:53 | PC.NURSE ---
1540 One hour post transfusion vital signs stable/ Patient denies complaints. No s/s transfusion reaction or problems noted. Resp easy/reg. One hour post transfusion H&H collected and sent to lab. 1546 Patient discharged home/stable.
[2020-10-24 10:27] LABS: Haptoglobin 245 mg/dL (34-355)
== END 2020-10-23 15:45 | disposition home or self-care (01) ==
LOC: INF 09:17
PROVIDERS: PCP Family Medicine; Visit Provider Internal Medicine Medical Oncology
DX: C91.10 Chronic lymphocytic leukemia of B-cell type not having achieved remission (principal)
CPT/HCPCS: 36415; 36430; 80053; 83010; 83615; 84550; 85007; 85014; 85018; 85025; 86850; P9016

== ENCOUNTER 2020-10-26 10:00 | Outpatient (CLI) | payer MEDICARE, SELFPAY ==
[2020-10-26 09:54] VITALS: BMI 27.8
--- NOTE | 2020-10-26 10:19 | PC.NURSE ---
1005 CBC/CMP drawn per MD order.
[2020-10-26 10:29] LABS: Chloride 107 mmol/L (98-107); Potassium 4.6 mmoL/L (3.5-5.1); Sodium 137 mmol/L (136-145)
[2020-10-26 10:32] LABS: Alanine Aminotransferase 14 U/L (12-78); Albumin Level 3.4 g/dl (3.5-5.0); Albumin/Globulin Ratio 1.2 (1.1-1.8); Alkaline Phosphatase 63 U/L (38-126); Anion Gap 11.6 mEq/L (5-15); Aspartate Amino Transferase 20 U/L (17-59); Bilirubin,Total 0.6 mg/dl (0.2-1.3); Blood Urea Nitrogen 17 mg/dl (9-20); Calcium 8.2 mg/dl (8.4-10.2); Carbon Dioxide 23 mmol/L (22.0-30.0); Creatinine Clearance Estimated 76 mL/min (50-200); Estimated Glomerular Filt Rate 72 ml/min (>60); GFR (African American) 87 ML/MIN (>60); Globulin 2.9 g/dL (1.3-3.2); Glucose 136 mg/dl (74-100); Total Protein,Serum 6.3 g/dl (6.3-8.2)
[2020-10-26 10:39] LABS: Basophils # 2.7 K/mm3 (0-0.2); Basophils % 1.8 % (0.1-2.0); Eosinophils # 0.1 K/mm3 (0.0-0.4); Eosinophils % 0.1 % (0.1-12.0); Hematocrit 26.3 % (42.0-52.0); Hemoglobin 8.3 g/dL (14.1-18.0); Lymphocytes # 136.7 K/mm3 (0.7-4.5); Lymphocytes % 90.3 % (10-50); Mean Corpuscular HGB Conc 31.4 g/dL (31.8-35.4); Mean Corpuscular Hemoglobin 27.3 pg (27.0-31.2); Mean Corpuscular Volume 87.1 fl (80-94); Mean Platelet Volume 9.9 fl (7.4-10.4); Monocytes # 1.3 K/mm3 (0.1-1.0); Monocytes % 0.9 % (1.7-9.3); Neutrophils # 10.6 K/mm3 (1.8-7.8); Platelet Count 304 K/mm3 (142-424); Red Blood Count 3.02 M/mm3 (4.60-6.20)
[2020-10-26 10:44] LABS: White Blood Count 151.4 K/mm3 (4.8-10.8)
[2020-10-26 10:45] LABS: MANUAL DIFFERENTIAL MANUAL DIFFERENTIAL (MANUAL DIFF)
[2020-10-26 11:20] LABS: Lymphocytes % 70 % (10-50); Monocytes % 3 % (2-9); Neutrophils % 12 % (42-76); Total Cells Counted 100
[2020-10-26 11:21] LABS: Anisocytosis 1+; Hypochromasia 2+; Platelet Estimate Normal
== END 2020-10-26 10:15 | disposition home or self-care (01) ==
LOC: INF 10:00
PROVIDERS: Visit Provider Internal Medicine Medical Oncology
DX: C91.10 Chronic lymphocytic leukemia of B-cell type not having achieved remission (principal)
CPT/HCPCS: 80053; 85007; 85025

== ENCOUNTER 2020-10-27 08:31 | Outpatient (CLI) | payer MEDICARE, SELFPAY ==
[2020-10-27] VITALS (11 sets, daily range): BP systolic 120–156; BP diastolic 46–75; PULSE 63–77; RESP 18; TEMP 36.1–36.5; O2SAT 99–100; BMI 27.8
[2020-10-27 13:27] LABS: Hematocrit 25.7 % (42.0-52.0); Hemoglobin 8.4 g/dL (14.1-18.0)
== END 2020-10-27 13:20 | disposition home or self-care (01) ==
LOC: INF 08:31
PROVIDERS: Visit Provider Internal Medicine Medical Oncology
DX: D64.9 Anemia, unspecified (principal); C91.10 Chronic lymphocytic leukemia of B-cell type not having achieved remission
CPT/HCPCS: 36430; 85014; 85018; 86850; P9016

== ENCOUNTER 2020-10-29 14:16 | Outpatient (CLI) | payer MEDICARE, SELFPAY ==
[2020-10-29 14:18] VITALS: BMI 27.9
--- NOTE | 2020-10-29 14:30 | PC.NURSE ---
pt seen in outpt infusion to have blood drawn for labs. blood drawn via butterfly needle via venipuncture to rt ac. site secured with 2x2 gauze and coban after needle withdrawn. pt sent back to oncology clinic to see
[2020-10-29 14:32] LABS: Basophils # 0.7 K/mm3 (0-0.2); Basophils % 0.5 % (0.1-2.0); Eosinophils # 0.1 K/mm3 (0.0-0.4); Eosinophils % 0.1 % (0.1-12.0); Hematocrit 27.6 % (42.0-52.0); Hemoglobin 8.8 g/dL (14.1-18.0); Lymphocytes # 117.5 K/mm3 (0.7-4.5); Lymphocytes % 89.1 % (10-50); Mean Corpuscular HGB Conc 31.9 g/dL (31.8-35.4); Mean Corpuscular Volume 84.5 fl (80-94); Mean Platelet Volume 10.5 fl (7.4-10.4); Monocytes # 1.5 K/mm3 (0.1-1.0); Monocytes % 1.1 % (1.7-9.3); Neutrophils # 12.9 K/mm3 (1.8-7.8); Platelet Count 255 K/mm3 (142-424); Red Blood Count 3.26 M/mm3 (4.60-6.20); Red Cell Distribution Width 17.8 % (11.5-17.5)
[2020-10-29 14:33] LABS: Neutrophils % 9.7 % (37.0-80.0)
[2020-10-29 14:34] LABS: MANUAL DIFFERENTIAL MANUAL DIFFERENTIAL (MANUAL DIFF); White Blood Count 132.1 K/mm3 (4.8-10.8)
[2020-10-29 14:35] LABS: Chloride 107 mmol/L (98-107); Potassium 4.2 mmoL/L (3.5-5.1); Sodium 136 mmol/L (136-145)
[2020-10-29 14:37] LABS: Blood Urea Nitrogen 11 mg/dl (9-20); Creatinine Clearance Estimated 76 mL/min (50-200); Estimated Glomerular Filt Rate 109 ml/min (>60); GFR (African American) 132 ML/MIN (>60)
[2020-10-29 14:38] LABS: Alanine Aminotransferase 17 U/L (12-78); Albumin Level 3.4 g/dl (3.5-5.0); Albumin/Globulin Ratio 1.2 (1.1-1.8); Alkaline Phosphatase 70 U/L (38-126); Anion Gap 11.2 mEq/L (5-15); Aspartate Amino Transferase 22 U/L (17-59); Bilirubin,Total 0.5 mg/dl (0.2-1.3); Calcium 8.2 mg/dl (8.4-10.2); Carbon Dioxide 22 mmol/L (22.0-30.0); Globulin 2.8 g/dL (1.3-3.2); Glucose 202 mg/dl (74-100); Total Protein,Serum 6.2 g/dl (6.3-8.2)
[2020-10-29 14:44] LABS: Hypochromasia 1+; Lymphocytes % 85 % (10-50); Monocytes % 2 % (2-9); Neutrophils % 13 % (42-76); Platelet Estimate Normal; Total Cells Counted 100
== END 2020-10-29 14:30 | disposition still patient (30) ==
LOC: INF 14:16
PROVIDERS: PCP Family Medicine; Visit Provider Internal Medicine Medical Oncology
DX: C91.10 Chronic lymphocytic leukemia of B-cell type not having achieved remission
CPT/HCPCS: 80053; 85007; 85025; G0463

== ENCOUNTER 2020-11-05 12:25 | Outpatient (CLI) | payer MEDICARE, SELFPAY ==
[2020-11-05 12:28] VITALS: BMI 27.9
--- NOTE | 2020-11-05 12:35 | PC.NURSE ---
1235-pt here for lab draw cbc and cmp; pt to md lyons
[2020-11-05 12:44] LABS: Eosinophils % 0.3 % (0.1-12.0); Monocytes % 1.6 % (1.7-9.3)
[2020-11-05 12:48] LABS: Basophils # 1.2 K/mm3 (0-0.2); Basophils % 1.6 % (0.1-2.0); Chloride 106 mmol/L (98-107); Eosinophils # 0.3 K/mm3 (0.0-0.4); Hematocrit 25.7 % (42.0-52.0); Hemoglobin 8.1 g/dL (14.1-18.0); Lymphocytes % 87.6 % (10-50); Mean Corpuscular HGB Conc 31.7 g/dL (31.8-35.4); Mean Corpuscular Hemoglobin 26.6 pg (27.0-31.2); Mean Platelet Volume 8.8 fl (7.4-10.4); Monocytes # 1.2 K/mm3 (0.1-1.0); Neutrophils # 6.9 K/mm3 (1.8-7.8); Platelet Count 326 K/mm3 (142-424); Potassium 4.4 mmoL/L (3.5-5.1); Red Blood Count 3.06 M/mm3 (4.60-6.20); Red Cell Distribution Width 16.9 % (11.5-17.5); Sodium 135 mmol/L (136-145)
[2020-11-05 12:49] LABS: Neutrophils % 8.9 % (37.0-80.0)
[2020-11-05 12:50] LABS: Alanine Aminotransferase 18 U/L (12-78); Aspartate Amino Transferase 31 U/L (17-59); Blood Urea Nitrogen 12 mg/dl (9-20); Creatinine Clearance Estimated 76 mL/min (50-200); Estimated Glomerular Filt Rate 93 ml/min (>60); GFR (African American) 113 ML/MIN (>60); White Blood Count 77.6 K/mm3 (4.8-10.8)
[2020-11-05 12:51] LABS: Albumin Level 3.5 g/dl (3.5-5.0); Albumin/Globulin Ratio 1.3 (1.1-1.8); Alkaline Phosphatase 87 U/L (38-126); Anion Gap 11.4 mEq/L (5-15); Bilirubin,Total 0.5 mg/dl (0.2-1.3); Calcium 8.3 mg/dl (8.4-10.2); Carbon Dioxide 22 mmol/L (22.0-30.0); Globulin 2.7 g/dL (1.3-3.2); Glucose 115 mg/dl (74-100); MANUAL DIFFERENTIAL MANUAL DIFFERENTIAL (MANUAL DIFF); Total Protein,Serum 6.2 g/dl (6.3-8.2)
[2020-11-05 12:55] LABS: Hypochromasia 2+; Lymphocytes % 91 % (10-50); Monocytes % 1 % (2-9); Neutrophils % 8 % (42-76); Platelet Estimate Normal; Total Cells Counted 100
== END 2020-11-05 12:37 | disposition home or self-care (01) ==
LOC: INF 12:49
PROVIDERS: PCP Family Medicine; Visit Provider Internal Medicine Medical Oncology
DX: C91.10 Chronic lymphocytic leukemia of B-cell type not having achieved remission (principal)
CPT/HCPCS: 80053; 85007; 85025

== ENCOUNTER 2020-11-10 10:31 | Outpatient (CLI) | payer MEDICARE, SELFPAY ==
[2020-11-10 10:33] VITALS: BMI 28.7
--- NOTE | 2020-11-10 10:38 | PC.NURSE ---
1038-collected labs per md mendieta
[2020-11-10 10:56] LABS: Basophils # 0.9 K/mm3 (0-0.2); Basophils % 1.4 % (0.1-2.0); Eosinophils # 0.2 K/mm3 (0.0-0.4); Eosinophils % 0.3 % (0.1-12.0); Hematocrit 29.2 % (42.0-52.0); Hemoglobin 8.9 g/dL (14.1-18.0); Lymphocytes % 85.2 % (10-50); Mean Corpuscular HGB Conc 30.6 g/dL (31.8-35.4); Mean Corpuscular Hemoglobin 26.5 pg (27.0-31.2); Mean Corpuscular Volume 86.5 fl (80-94); Mean Platelet Volume 8.4 fl (7.4-10.4); Monocytes # 0.8 K/mm3 (0.1-1.0); Monocytes % 1.4 % (1.7-9.3); Neutrophils # 7.3 K/mm3 (1.8-7.8); Platelet Count 330 K/mm3 (142-424); Red Blood Count 3.37 M/mm3 (4.60-6.20); Red Cell Distribution Width 18.3 % (11.5-17.5)
[2020-11-10 11:02] LABS: Chloride 103 mmol/L (98-107)
[2020-11-10 11:03] LABS: Potassium 4.3 mmoL/L (3.5-5.1); Sodium 135 mmol/L (136-145)
[2020-11-10 11:05] LABS: Alanine Aminotransferase 18 U/L (12-78); Aspartate Amino Transferase 28 U/L (17-59); Blood Urea Nitrogen 12 mg/dl (9-20); Creatinine Clearance Estimated 78 mL/min (50-200); Estimated Glomerular Filt Rate 93 ml/min (>60); GFR (African American) 113 ML/MIN (>60); Neutrophils % 11.7 % (37.0-80.0)
[2020-11-10 11:06] LABS: Albumin Level 3.6 g/dl (3.5-5.0); Albumin/Globulin Ratio 1.3 (1.1-1.8); Alkaline Phosphatase 84 U/L (38-126); Anion Gap 14.3 mEq/L (5-15); Bilirubin,Total 0.5 mg/dl (0.2-1.3); Calcium 8.4 mg/dl (8.4-10.2); Carbon Dioxide 22 mmol/L (22.0-30.0); Globulin 2.8 g/dL (1.3-3.2); Glucose 186 mg/dl (74-100); Iron 31 ug/dL (49-181); Total Protein,Serum 6.4 g/dl (6.3-8.2); White Blood Count 62.2 K/mm3 (4.8-10.8)
[2020-11-10 11:09] LABS: MANUAL DIFFERENTIAL MANUAL DIFFERENTIAL (MANUAL DIFF)
[2020-11-10 11:15] LABS: Total Iron Binding Capacity 440 ug/dL (261-462)
--- NOTE | 2020-11-10 11:15 | PC.NURSE ---
1115-pt in infusion for lab check to make sure he didn't need a blood transfusion; hgb 8.9 hct 29.2; per standing order pt doesn;t need blood transfusion unless hgb <8; pt to return for md appointment on 11/12/20
[2020-11-10 11:44] LABS: Ferritin 39.7 ng/ml (17.9-464)
[2020-11-10 12:07] LABS: Anisocytosis 1+; Hypochromasia 2+; Lymphocytes % 66 % (10-50); Macrocytosis 1+; Monocytes % 6 % (2-9); Neutrophils % 18 % (42-76); Total Cells Counted 100
[2020-11-10 12:08] LABS: Platelet Estimate Normal
== END 2020-11-10 11:15 | disposition home or self-care (01) ==
LOC: INF 10:31
PROVIDERS: PCP Family Medicine; Visit Provider Internal Medicine Medical Oncology
DX: C91.10 Chronic lymphocytic leukemia of B-cell type not having achieved remission (principal)
CPT/HCPCS: 80053; 82728; 83540; 83550; 85007; 85025

== ENCOUNTER 2020-11-19 13:02 | Outpatient (CLI) | payer MEDICARE, SELFPAY ==
[2020-11-19 13:05] VITALS: BMI 28.4
[2020-11-19 13:26] LABS: Basophils # 0.5 K/mm3 (0-0.2); Basophils % 1.2 % (0.1-2.0); Eosinophils # 0.2 K/mm3 (0.0-0.4); Eosinophils % 0.4 % (0.1-12.0); Hematocrit 36.2 % (42.0-52.0); Hemoglobin 11.1 g/dL (14.1-18.0); Lymphocytes # 37.8 K/mm3 (0.7-4.5); Lymphocytes % 83.6 % (10-50); Mean Corpuscular HGB Conc 30.6 g/dL (31.8-35.4); Mean Corpuscular Hemoglobin 27.5 pg (27.0-31.2); Monocytes # 0.7 K/mm3 (0.1-1.0); Monocytes % 1.5 % (1.7-9.3); Platelet Count 281 K/mm3 (142-424); Red Blood Count 4.02 M/mm3 (4.60-6.20); Red Cell Distribution Width 18.7 % (11.5-17.5)
[2020-11-19 13:28] LABS: Neutrophils % 13.3 % (37.0-80.0)
[2020-11-19 13:29] LABS: White Blood Count 45.2 K/mm3 (4.8-10.8)
[2020-11-19 13:30] LABS: MANUAL DIFFERENTIAL MANUAL DIFFERENTIAL (MANUAL DIFF)
[2020-11-19 13:34] LABS: Alanine Aminotransferase 18 U/L (12-78); Albumin Level 3.8 g/dl (3.5-5.0); Albumin/Globulin Ratio 1.4 (1.1-1.8); Alkaline Phosphatase 79 U/L (38-126); Anion Gap 14.7 mEq/L (5-15); Aspartate Amino Transferase 29 U/L (17-59); Bilirubin,Total 0.2 mg/dl (0.2-1.3); Blood Urea Nitrogen 16 mg/dl (9-20); Calcium 8.6 mg/dl (8.4-10.2); Carbon Dioxide 20 mmol/L (22.0-30.0); Chloride 105 mmol/L (98-107); Creatinine Clearance Estimated 70 mL/min (50-200); Estimated Glomerular Filt Rate 65 ml/min (>60); GFR (African American) 78 ML/MIN (>60); Globulin 2.7 g/dL (1.3-3.2); Glucose 242 mg/dl (74-100); Lactate Dehydrogenase 164 U/L (313-618); Potassium 4.7 mmoL/L (3.5-5.1); Sodium 135 mmol/L (136-145); Total Protein,Serum 6.5 g/dl (6.3-8.2)
[2020-11-19 13:36] LABS: Eosinophils % 2 % (0-3); Hypochromasia 1+; Lymphocytes % 80 % (10-50); Monocytes % 2 % (2-9); Neutrophils % 16 % (42-76); Platelet Estimate Normal; Total Cells Counted 100
== END 2020-11-19 15:30 | disposition home or self-care (01) ==
LOC: INF 13:02
PROVIDERS: Visit Provider Internal Medicine Medical Oncology
DX: C92.10 Chronic myeloid leukemia, BCR/ABL-positive, not having achieved remission (principal)
CPT/HCPCS: 80053; 83615; 84550; 85007; 85025

== ENCOUNTER 2020-11-27 12:14 | Outpatient (CLI) | payer MEDICARE, SELFPAY ==
[2020-11-27 12:14] VITALS: BMI 28.5
[2020-11-27 12:32] LABS: Basophils # 0.3 K/mm3 (0-0.2); Eosinophils # 0.2 K/mm3 (0.0-0.4); Eosinophils % 0.7 % (0.1-12.0); Hematocrit 36.1 % (42.0-52.0); Hemoglobin 11.5 g/dL (14.1-18.0); Lymphocytes # 23.9 K/mm3 (0.7-4.5); Lymphocytes % 79.3 % (10-50); Mean Corpuscular HGB Conc 31.9 g/dL (31.8-35.4); Mean Corpuscular Volume 87.7 fl (80-94); Mean Platelet Volume 8.3 fl (7.4-10.4); Monocytes # 0.8 K/mm3 (0.1-1.0); Monocytes % 2.6 % (1.7-9.3); Neutrophils % 16.4 % (37.0-80.0); Platelet Count 203 K/mm3 (142-424); Red Blood Count 4.12 M/mm3 (4.60-6.20); Red Cell Distribution Width 17.6 % (11.5-17.5); White Blood Count 30.1 K/mm3 (4.8-10.8)
[2020-11-27 12:33] LABS: MANUAL DIFFERENTIAL MANUAL DIFFERENTIAL (MANUAL DIFF)
[2020-11-27 12:38] LABS: Chloride 105 mmol/L (98-107); Sodium 134 mmol/L (136-145)
--- NOTE | 2020-11-27 12:40 | PC.NURSE ---
11/27/20-1230, pt here today for oncologist appt with Dr. Rodrigues. pt came to outpt unit for bloodwork/labs as ordered per md. accessed pt's lt ac through venipuncture/butterfly needle, blood drawn and 2x2 gauze and coban applied once needle is withdrawn.
[2020-11-27 12:41] LABS: Alanine Aminotransferase 19 U/L (12-78); Albumin Level 3.6 g/dl (3.5-5.0); Albumin/Globulin Ratio 1.3 (1.1-1.8); Alkaline Phosphatase 72 U/L (38-126); Aspartate Amino Transferase 31 U/L (17-59); Bilirubin,Total 0.5 mg/dl (0.2-1.3); Blood Urea Nitrogen 14 mg/dl (9-20); Calcium 8.6 mg/dl (8.4-10.2); Carbon Dioxide 23 mmol/L (22.0-30.0); Creatinine Clearance Estimated 78 mL/min (50-200); Estimated Glomerular Filt Rate 93 ml/min (>60); GFR (African American) 113 ML/MIN (>60); Globulin 2.7 g/dL (1.3-3.2); Glucose 166 mg/dl (74-100); Total Protein,Serum 6.3 g/dl (6.3-8.2)
[2020-11-27 12:42] LABS: Lymphocytes % 83 % (10-50); Monocytes % 3 % (2-9); Neutrophils % 14 % (42-76); Platelet Estimate Normal; RBC Morphology Normal; Total Cells Counted 100
== END 2020-11-27 12:15 | disposition home or self-care (01) ==
LOC: INF 12:14
PROVIDERS: Visit Provider Internal Medicine Medical Oncology
DX: C91.10 Chronic lymphocytic leukemia of B-cell type not having achieved remission (principal)
CPT/HCPCS: 80053; 85007; 85025

== ENCOUNTER 2020-12-10 11:44 | Outpatient (CLI) | payer MEDICARE, SELFPAY ==
[2020-12-10 11:46] VITALS: BMI 29.0
[2020-12-10 11:55] LABS: Basophils # 0.3 K/mm3 (0-0.2); Eosinophils # 0.3 K/mm3 (0.0-0.4); Eosinophils % 1.2 % (0.1-12.0); Hematocrit 38.9 % (42.0-52.0); Hemoglobin 12.4 g/dL (14.1-18.0); Lymphocytes # 21.3 K/mm3 (0.7-4.5); Lymphocytes % 75.5 % (10-50); Mean Corpuscular HGB Conc 31.8 g/dL (31.8-35.4); Mean Corpuscular Hemoglobin 27.6 pg (27.0-31.2); Mean Platelet Volume 8.4 fl (7.4-10.4); Monocytes # 0.7 K/mm3 (0.1-1.0); Monocytes % 2.6 % (1.7-9.3); Neutrophils # 5.5 K/mm3 (1.8-7.8); Neutrophils % 19.7 % (37.0-80.0); Platelet Count 223 K/mm3 (142-424); Red Blood Count 4.47 M/mm3 (4.60-6.20); Red Cell Distribution Width 16.5 % (11.5-17.5); White Blood Count 28.2 K/mm3 (4.8-10.8)
[2020-12-10 12:01] LABS: MANUAL DIFFERENTIAL MANUAL DIFFERENTIAL (MANUAL DIFF)
[2020-12-10 12:10] LABS: Chloride 104 mmol/L (98-107); Potassium 4.2 mmoL/L (3.5-5.1); Sodium 136 mmol/L (136-145)
[2020-12-10 12:12] LABS: Blood Urea Nitrogen 12 mg/dl (9-20); Creatinine Clearance Estimated 79 mL/min (50-200); Estimated Glomerular Filt Rate 82 ml/min (>60); GFR (African American) 99 ML/MIN (>60)
[2020-12-10 12:13] LABS: Alanine Aminotransferase 23 U/L (12-78); Albumin/Globulin Ratio 1.4 (1.1-1.8); Alkaline Phosphatase 76 U/L (38-126); Anion Gap 12.2 mEq/L (5-15); Aspartate Amino Transferase 42 U/L (17-59); Bilirubin,Total 0.5 mg/dl (0.2-1.3); Calcium 8.9 mg/dl (8.4-10.2); Carbon Dioxide 24 mmol/L (22.0-30.0); Globulin 2.9 g/dL (1.3-3.2); Glucose 158 mg/dl (74-100); Total Protein,Serum 6.9 g/dl (6.3-8.2)
[2020-12-10 12:33] LABS: Lymphocytes % 65 % (10-50); Monocytes % 3 % (2-9); Neutrophils % 32 % (42-76); Total Cells Counted 100
[2020-12-10 12:34] LABS: Microcytosis 1+; Platelet Estimate Normal
== END 2020-12-10 11:51 | disposition home or self-care (01) ==
LOC: INF 11:44
PROVIDERS: Visit Provider Internal Medicine Medical Oncology
DX: C91.10 Chronic lymphocytic leukemia of B-cell type not having achieved remission (principal)
CPT/HCPCS: 80053; 85007; 85025

== ENCOUNTER 2020-12-31 08:58 | Outpatient (CLI) | payer MEDICARE, SELFPAY ==
[2020-12-31 09:10] VITALS: BP 140/74; PULSE 61; RESP 17; TEMP 36.4; O2SAT 97; BMI 23.0
[2020-12-31 09:41] LABS: Chloride 105 mmol/L (98-107); Potassium 4.7 mmoL/L (3.5-5.1); Sodium 136 mmol/L (136-145)
[2020-12-31 09:43] LABS: Alanine Aminotransferase 29 U/L (12-78); Aspartate Amino Transferase 50 U/L (17-59); Blood Urea Nitrogen 15 mg/dl (9-20); Creatinine Clearance Estimated 63 mL/min (50-200); Estimated Glomerular Filt Rate 72 ml/min (>60); GFR (African American) 87 ML/MIN (>60)
[2020-12-31 09:44] LABS: Albumin/Globulin Ratio 1.4 (1.1-1.8); Alkaline Phosphatase 73 U/L (38-126); Anion Gap 12.7 mEq/L (5-15); Bilirubin,Total 0.5 mg/dl (0.2-1.3); Calcium 8.6 mg/dl (8.4-10.2); Carbon Dioxide 23 mmol/L (22.0-30.0); Globulin 2.9 g/dL (1.3-3.2); Glucose 121 mg/dl (74-100); Total Protein,Serum 6.9 g/dl (6.3-8.2)
[2020-12-31 09:45] LABS: Basophils # 0.3 K/mm3 (0-0.2); Basophils % 1.1 % (0.1-2.0); Eosinophils # 0.3 K/mm3 (0.0-0.4); Eosinophils % 1.2 % (0.1-12.0); Hematocrit 37.1 % (42.0-52.0); Hemoglobin 12.5 g/dL (14.1-18.0); Lymphocytes # 21.7 K/mm3 (0.7-4.5); Lymphocytes % 77.9 % (10-50); Mean Corpuscular HGB Conc 33.7 g/dL (31.8-35.4); Mean Corpuscular Hemoglobin 27.8 pg (27.0-31.2); Mean Corpuscular Volume 82.4 fl (80-94); Mean Platelet Volume 8.3 fl (7.4-10.4); Monocytes # 0.7 K/mm3 (0.1-1.0); Monocytes % 2.4 % (1.7-9.3); Neutrophils # 4.9 K/mm3 (1.8-7.8); Neutrophils % 17.5 % (37.0-80.0); Platelet Count 246 K/mm3 (142-424); Red Cell Distribution Width 15.4 % (11.5-17.5); White Blood Count 27.8 K/mm3 (4.8-10.8)
[2020-12-31 09:47] LABS: MANUAL DIFFERENTIAL MANUAL DIFFERENTIAL (MANUAL DIFF)
--- NOTE | 2020-12-31 09:52 | PC.NURSE ---
0907- pt labs drawn per order with a butterfly needle to the Left AC. pt tolerated well.
[2020-12-31 10:08] LABS: Lymphocytes % 66 % (10-50); Monocytes % 2 % (2-9); Neutrophils % 32 % (42-76); Platelet Estimate Normal; RBC Morphology Normal; Total Cells Counted 100
== END 2020-12-31 09:11 | disposition home or self-care (01) ==
LOC: INF 08:58
PROVIDERS: Visit Provider Internal Medicine Medical Oncology
DX: C91.10 Chronic lymphocytic leukemia of B-cell type not having achieved remission (principal)
CPT/HCPCS: 80053; 85007; 85025

== ENCOUNTER 2021-01-22 08:31 | Outpatient (CLI) | payer MEDICARE, SELFPAY ==
[2021-01-22 08:32] VITALS: BMI 27.5
[2021-01-22 08:48] LABS: Basophils # 0.3 K/mm3 (0-0.2); Eosinophils # 0.5 K/mm3 (0.0-0.4); Eosinophils % 1.5 % (0.1-12.0); Hematocrit 34.8 % (42.0-52.0); Hemoglobin 11.6 g/dL (14.1-18.0); Lymphocytes # 24.7 K/mm3 (0.7-4.5); Lymphocytes % 79.9 % (10-50); Mean Corpuscular HGB Conc 33.2 g/dL (31.8-35.4); Mean Corpuscular Hemoglobin 27.2 pg (27.0-31.2); Mean Corpuscular Volume 81.9 fl (80-94); Mean Platelet Volume 8.6 fl (7.4-10.4); Monocytes # 0.6 K/mm3 (0.1-1.0); Neutrophils # 4.8 K/mm3 (1.8-7.8); Neutrophils % 15.5 % (37.0-80.0); Platelet Count 229 K/mm3 (142-424); Red Blood Count 4.25 M/mm3 (4.60-6.20); Red Cell Distribution Width 15.6 % (11.5-17.5); White Blood Count 30.9 K/mm3 (4.8-10.8)
[2021-01-22 08:50] LABS: MANUAL DIFFERENTIAL MANUAL DIFFERENTIAL (MANUAL DIFF)
[2021-01-22 08:57] LABS: Lymphocytes % 73 % (10-50); Monocytes % 3 % (2-9); Neutrophils % 24 % (42-76); Platelet Estimate Normal; RBC Morphology Normal; Total Cells Counted 100
[2021-01-22 08:59] LABS: Chloride 106 mmol/L (98-107)
[2021-01-22 09:00] LABS: Potassium 4.4 mmoL/L (3.5-5.1); Sodium 139 mmol/L (136-145)
[2021-01-22 09:02] LABS: Alanine Aminotransferase 22 U/L (12-78); Alkaline Phosphatase 74 U/L (38-126); Aspartate Amino Transferase 39 U/L (17-59); Bilirubin,Total 0.5 mg/dl (0.2-1.3); Blood Urea Nitrogen 12 mg/dl (9-20); Creatinine Clearance Estimated 75 mL/min (50-200); Estimated Glomerular Filt Rate 82 ml/min (>60); GFR (African American) 99 ML/MIN (>60)
[2021-01-22 09:03] LABS: Albumin Level 3.9 g/dl (3.5-5.0); Albumin/Globulin Ratio 1.3 (1.1-1.8); Anion Gap 12.4 mEq/L (5-15); Calcium 8.6 mg/dl (8.4-10.2); Carbon Dioxide 25 mmol/L (22.0-30.0); Globulin 2.9 g/dL (1.3-3.2); Glucose 113 mg/dl (74-100); Total Protein,Serum 6.8 g/dl (6.3-8.2)
== END 2021-01-22 10:30 | disposition home or self-care (01) ==
LOC: INF 08:31
PROVIDERS: Visit Provider Internal Medicine Medical Oncology
DX: C91.10 Chronic lymphocytic leukemia of B-cell type not having achieved remission (principal)
CPT/HCPCS: 80053; 85007; 85025

== ENCOUNTER 2021-01-28 08:15 | Outpatient (CLI) | payer MEDICARE, OTHER, SELFPAY ==
[2021-01-28] VITALS (17 sets, daily range): BP systolic 112–167; BP diastolic 46–104; PULSE 56–86; RESP 16–18; TEMP 35.8; BMI 28.1
[2021-01-29 11:33] LABS: Hep A Ab, IgM Negative (Negative); Hepatitis B Core Antibody IgM Negative (Negative); Hepatitis B Surface Antigen Negative (Negative); Hepatitis C Antibody <0.1 s/co ratio (0.0-0.9)
--- NOTE | 2021-01-29 14:28 | DIET.NUTRFU ---
Pt contacted for nutrition counseling rt receiving first dose chemotherapy. Pt states he is doing well and did not have any nutritional side effects from his first infusion and does not report any cancer related nutritional concerns. He did report he is working towards a more balanced diet with goals of weight loss and lowering his cholesterol. Diet education provided for balanced diet and oncology nutrition. Pt made aware of nutritional services available and encouraged to reach out with questions/concerns at any time.
== END 2021-01-28 14:00 | disposition home or self-care (01) ==
LOC: INF 08:28
PROVIDERS: Visit Provider Internal Medicine Medical Oncology
DX: Z51.11 Encounter for antineoplastic chemotherapy (principal); C91.10 Chronic lymphocytic leukemia of B-cell type not having achieved remission; R53.83 Other fatigue
CPT/HCPCS: 80074; 96413; 96415; J9312

== ENCOUNTER 2021-02-04 08:15 | Outpatient (CLI) | payer MEDICARE, OTHER, SELFPAY ==
[2021-02-04] VITALS (13 sets, daily range): BP systolic 113–144; BP diastolic 49–65; PULSE 58–77; RESP 16–18; TEMP 35.9; O2SAT 98; BMI 28.1
[2021-02-04 08:50] LABS: Basophils # 0.1 K/mm3 (0-0.2); Basophils % 1.2 % (0.1-2.0); Eosinophils # 0.3 K/mm3 (0.0-0.4); Eosinophils % 3.7 % (0.1-12.0); Hematocrit 36.4 % (42.0-52.0); Hemoglobin 12.1 g/dL (14.1-18.0); Lymphocytes # 3.7 K/mm3 (0.7-4.5); Lymphocytes % 41.2 % (10-50); Mean Corpuscular HGB Conc 33.3 g/dL (31.8-35.4); Mean Corpuscular Hemoglobin 26.8 pg (27.0-31.2); Mean Corpuscular Volume 80.3 fl (80-94); Mean Platelet Volume 8.8 fl (7.4-10.4); Monocytes # 0.5 K/mm3 (0.1-1.0); Monocytes % 6.1 % (1.7-9.3); Neutrophils # 4.2 K/mm3 (1.8-7.8); Neutrophils % 47.7 % (37.0-80.0); Platelet Count 216 K/mm3 (142-424); Red Blood Count 4.53 M/mm3 (4.60-6.20); Red Cell Distribution Width 15.2 % (11.5-17.5); White Blood Count 8.9 K/mm3 (4.8-10.8)
[2021-02-04 08:56] LABS: Chloride 105 mmol/L (98-107); Potassium 4.6 mmoL/L (3.5-5.1); Sodium 138 mmol/L (136-145)
[2021-02-04 08:58] LABS: Blood Urea Nitrogen 17 mg/dl (9-20); Creatinine Clearance Estimated 77 mL/min (50-200); Estimated Glomerular Filt Rate 72 ml/min (>60); GFR (African American) 87 ML/MIN (>60)
[2021-02-04 08:59] LABS: Alanine Aminotransferase 24 U/L (12-78); Albumin Level 4.1 g/dl (3.5-5.0); Albumin/Globulin Ratio 1.5 (1.1-1.8); Alkaline Phosphatase 76 U/L (38-126); Anion Gap 14.6 mEq/L (5-15); Aspartate Amino Transferase 37 U/L (17-59); Bilirubin,Total 0.5 mg/dl (0.2-1.3); Calcium 8.5 mg/dl (8.4-10.2); Carbon Dioxide 23 mmol/L (22.0-30.0); Globulin 2.8 g/dL (1.3-3.2); Glucose 158 mg/dl (74-100); Total Protein,Serum 6.9 g/dl (6.3-8.2)
== END 2021-02-04 13:50 | disposition home or self-care (01) ==
LOC: INF 08:21
PROVIDERS: Visit Provider Internal Medicine Medical Oncology
DX: Z51.11 Encounter for antineoplastic chemotherapy (principal); C91.10 Chronic lymphocytic leukemia of B-cell type not having achieved remission
CPT/HCPCS: 80053; 85025; 96413; 96415; J9312

== ENCOUNTER 2021-02-10 08:50 | Outpatient (CLI) | payer MEDICARE, OTHER, SELFPAY ==
[2021-02-10] VITALS (11 sets, daily range): BP systolic 114–138; BP diastolic 51–68; PULSE 54–78; RESP 18; TEMP 36.4; O2SAT 96–97
== END 2021-02-10 13:07 | disposition home or self-care (01) ==
LOC: INF 08:59
PROVIDERS: Visit Provider Internal Medicine Medical Oncology
DX: C91.10 Chronic lymphocytic leukemia of B-cell type not having achieved remission (principal); Z51.11 Encounter for antineoplastic chemotherapy
CPT/HCPCS: 96413; 96415; J9312

== ENCOUNTER 2021-02-18 08:16 | Outpatient (CLI) | payer MEDICARE, OTHER, SELFPAY ==
[2021-02-18] VITALS (11 sets, daily range): BP systolic 107–136; BP diastolic 53–62; PULSE 61–69; RESP 18; TEMP 36.6; O2SAT 97–99; BMI 28.0
[2021-02-18 08:34] LABS: Basophils # 0.2 K/mm3 (0-0.2); Basophils % 1.5 % (0.1-2.0); Eosinophils # 0.3 K/mm3 (0.0-0.4); Eosinophils % 2.6 % (0.1-12.0); Hematocrit 33.4 % (42.0-52.0); Hemoglobin 10.9 g/dL (14.1-18.0); Lymphocytes % 28.8 % (10-50); Mean Corpuscular HGB Conc 32.6 g/dL (31.8-35.4); Mean Corpuscular Hemoglobin 26.4 pg (27.0-31.2); Mean Corpuscular Volume 80.8 fl (80-94); Mean Platelet Volume 9.2 fl (7.4-10.4); Monocytes # 0.7 K/mm3 (0.1-1.0); Monocytes % 6.3 % (1.7-9.3); Neutrophils # 6.4 K/mm3 (1.8-7.8); Neutrophils % 60.7 % (37.0-80.0); Platelet Count 208 K/mm3 (142-424); Red Blood Count 4.13 M/mm3 (4.60-6.20); Red Cell Distribution Width 16.6 % (11.5-17.5); White Blood Count 10.5 K/mm3 (4.8-10.8)
[2021-02-18 08:39] LABS: Alanine Aminotransferase 20 U/L (12-78); Albumin Level 3.7 g/dl (3.5-5.0); Albumin/Globulin Ratio 1.4 (1.1-1.8); Alkaline Phosphatase 67 U/L (38-126); Anion Gap 11.5 mEq/L (5-15); Aspartate Amino Transferase 26 U/L (17-59); Bilirubin,Total 0.6 mg/dl (0.2-1.3); Blood Urea Nitrogen 13 mg/dl (9-20); Calcium 8.2 mg/dl (8.4-10.2); Carbon Dioxide 25 mmol/L (22.0-30.0); Chloride 105 mmol/L (98-107); Creatinine Clearance Estimated 69 mL/min (50-200); Estimated Glomerular Filt Rate 65 ml/min (>60); GFR (African American) 78 ML/MIN (>60); Globulin 2.6 g/dL (1.3-3.2); Glucose 120 mg/dl (74-100); Potassium 4.5 mmoL/L (3.5-5.1); Sodium 137 mmol/L (136-145); Total Protein,Serum 6.3 g/dl (6.3-8.2)
== END 2021-02-18 13:18 | disposition home or self-care (01) ==
LOC: INF 08:16
PROVIDERS: Visit Provider Internal Medicine Medical Oncology
DX: C91.10 Chronic lymphocytic leukemia of B-cell type not having achieved remission (principal)
CPT/HCPCS: 80053; 85025; 96413; 96415; J9312

== ENCOUNTER 2021-02-19 09:49 | Observation (INO) | payer MEDICARE, SELFPAY ==
[2021-02-19] VITALS (33 sets, daily range): BP systolic 80–142; BP diastolic 43–74; PULSE 73–110; RESP 14–20; TEMP 36.3–37.3; O2SAT 91–99; BMI 27.9; BMI 27.3; BMI 27.8
[2021-02-19 09:23] LABS: Basophils # 0.1 K/mm3 (0-0.2); Basophils % 0.4 % (0.1-2.0); Lymphocytes # 7.8 K/mm3 (0.7-4.5); Lymphocytes % 32.4 % (10-50); Mean Corpuscular HGB Conc 31.9 g/dL (31.8-35.4); Mean Corpuscular Hemoglobin 26.8 pg (27.0-31.2); Mean Corpuscular Volume 84.1 fl (80-94); Mean Platelet Volume 9.3 fl (7.4-10.4); Monocytes % 4.3 % (1.7-9.3); Neutrophils # 15.2 K/mm3 (1.8-7.8); Platelet Count 292 K/mm3 (142-424); Red Cell Distribution Width 17.1 % (11.5-17.5); White Blood Count 24.1 K/mm3 (4.8-10.8)
[2021-02-19 09:32] LABS: Hematocrit 23.5 % (42.0-52.0); Hemoglobin 7.5 g/dL (14.1-18.0)
[2021-02-19 09:34] LABS: MANUAL DIFFERENTIAL MANUAL DIFFERENTIAL (MANUAL DIFF)
[2021-02-19 09:42] LABS: Lymphocytes % 32 % (10-50); Monocytes % 2 % (2-9); Neutrophils % 66 % (42-76); Total Cells Counted 100
[2021-02-19 09:43] LABS: Anisocytosis 1+; Hypochromasia 2+; Microcytosis 1+; Platelet Estimate Normal
--- NOTE | 2021-02-19 10:25 | PC.NURSE ---
COVID swab being sent to lab by Kyra Peoples RN
--- NOTE | 2021-02-19 10:26 | HMH.EDGENADL ---
ED Disposition Clinical Impression: Acute on chronic anemia, Lower GI bleed, CLL (chronic lymphocytic leukemia) Disposition: Admitted As Inpatient Condition on Discharge: Fair Referrals: Galindo Cueva [Primary Care Provider] - - Critical Care Critical Care Time: No Attestation: On 02/19/21, the high probability of a clinically significant, sudden or life threatening deterioration of the following system(s) required my full and direct attention, intervention and personal management. The time I documented below is in addition to time spent performing reported procedures but includes the following listed in this critical care notation. Medical Decision Making - Medical Records Medical records reviewed: Yes: I reviewed the patient's medical records. - [place] Inquiry Pt receiving controlled substance: No Vital Signs: 02/19/21 09:50 02/19/21 10:00 02/19/21 10:30 Temperature 98.1 F Temperature Source Oral Pulse Rate 90 91 H Pulse Rate [Right] 91 H Respiratory Rate 18 17 19 Blood Pressure 120/60 125/61 Blood Pressure [Right Arm] 120/60 Blood Pressure Mean 67 70 Blood Pressure Mean [Right Arm] 80 02 Sat by Pulse Oximetry 97 98 96 Oxygen Delivery Method Room Air 02/19/21 11:00 02/19/21 11:30 Temperature Temperature Source Pulse Rate 93 H Pulse Rate [Right] Respiratory Rate 18 14 Blood Pressure 110/54 L 124/62 Blood Pressure [Right Arm] Blood Pressure Mean 64 82 Blood Pressure Mean [Right Arm] 02 Sat by Pulse Oximetry 94 L 94 L Oxygen Delivery Method - Lab Data Lab Results 02/19/21 09:52: WBC 26.7 H*, RBC 2.77 L, Hgb 7.4 L*, Hct 23.1 L*, MCV 83.6, MCH 26.9 L, MCHC 32.1, RDW 17.1, Plt Count 291, MPV 9.3, Neut % (Auto) 67.7, Lymph % (Auto) 27.0, [place] % (Auto) 4.8, Eos % (Auto) 0.0 L, Baso % (Auto) 0.5, Neut # (Auto) 18.1 H, Lymph # (Auto) 7.2 H, [place] # (Auto) 1.3 H, Eos # (Auto) 0.0, Baso # (Auto) 0.1 02/19/21 09:52: PT 12.3, INR 1.05, APTT 20.5 L 02/19/21 09:52: Sodium 137, Potassium 5.0, Chloride 107, Carbon Dioxide 21 L, Anion Gap 14.0, BUN 52 H D, Creatinine 1.00, Estimated Creat Clear 75, Estimated GFR 72, Est GFR ( Amer) 87, Glucose 280 H, Calcium 8.1 L, Total Bilirubin 0.3, AST 19 D, ALT 18, Alkaline Phosphatase 47, Total Protein 5.4 L, Albumin 3.0 L D, Globulin 2.4, Albumin/Globulin Ratio 1.3, Lipase 39 02/19/21 10:23: SARS-CoV-2 (PCR) Not detected, Influenza A Untype (PCR) Not detected, Influenza Type B (PCR) Not detected 02/19/21 10:29: Urine Color Yellow, Urine Appearance Clear, Urine pH 5.0, Ur Specific [place] >= 1.030, Urine Protein Negative, Urine Glucose (UA) 1+, Urine Ketones Trace, Urine Blood Negative, Urine Nitrate Negative, Urine Bilirubin Negative, Urine Urobilinogen 0.2, Ur Leukocyte Esterase Negative, Urine RBC None, Urine WBC 3-5, Ur Squamous Epith Cells 3-5, Urine Bacteria None Result diagrams: 02/19/21 09:52 02/19/21 09:52 - Reevaluation(s) Time: 11:39 Reevaluation #1: Patient does have evidence of low hemoglobin. He was occult positive. Patient does take Plavix. Concern for occult GI bleed. Gastroenterology was notified. Patient will require endoscopy. Admitted to hospital for further evaluation and treatment. Medical Decision Narrative: 80-year-old male presenting with some abdominal cramping and weakness. Patient has had some dark stools. Apparently patient's hemoglobin was 7 earlier today. Work-up will be initiated. General Adult HPI - General Chief complaint: Weakness Stated complaint: Weakness Time Seen by Provider: 02/19/21 10:00 Mode of Arrival: Family Vehicle Limitations: No Limitations Description of Symptoms (Recalled from ER Triage Doc. by RN): Patient c/o general weakness since 0300 this AM. Patient sent from chemo infusion clinic due to patient report of two episodes of black tarry stools this AM. Chemo infusion nurse reports lowered hemoglobin. Patient denies any pain but reports nausea. - History of Present Illn
[2021-02-19 10:32] LABS: Coronavirus 19, PCR Not Detected (NotDetected); Influenza A, PCR Not Detected (NotDetected); Influenza B, PCR Not Detected (NotDetected)
[2021-02-19 10:35] LABS: Basophils # 0.1 K/mm3 (0-0.2); Basophils % 0.5 % (0.1-2.0); Lymphocytes # 7.2 K/mm3 (0.7-4.5); Mean Corpuscular HGB Conc 32.1 g/dL (31.8-35.4); Mean Corpuscular Hemoglobin 26.9 pg (27.0-31.2); Mean Corpuscular Volume 83.6 fl (80-94); Mean Platelet Volume 9.3 fl (7.4-10.4); Monocytes # 1.3 K/mm3 (0.1-1.0); Monocytes % 4.8 % (1.7-9.3); Neutrophils # 18.1 K/mm3 (1.8-7.8); Neutrophils % 67.7 % (37.0-80.0); Platelet Count 291 K/mm3 (142-424); Red Blood Count 2.77 M/mm3 (4.60-6.20); Red Cell Distribution Width 17.1 % (11.5-17.5); White Blood Count 26.7 K/mm3 (4.8-10.8)
[2021-02-19 10:36] LABS: Microscopic, Urine URINE MICROSCOPIC (MICROSCOPIC)
[2021-02-19 10:37] LABS: Chloride 107 mmol/L (98-107); Sodium 137 mmol/L (136-145)
[2021-02-19 10:38] LABS: Appearance,Urine CLEAR (Clear); Bilirubin,Urine Negative (Negative); Blood, Urine Negative (Negative); Color,Urine YELLOW (Yellow); Glucose,Urine (UA) 1+ (Negative); Ketones,Urine TRACE (Negative); Leukocyte Esterase,Urine Negative (Negative); Nitrate,Urine Negative (Negative); Protein,Urine Negative (Negative); Specific Gravity, Urine >= 1.030 (1.005-1.030); Urobilinogen,Urine 0.2 EU/dl (0.2)
[2021-02-19 10:40] LABS: Alanine Aminotransferase 18 U/L (12-78); Albumin/Globulin Ratio 1.3 (1.1-1.8); Alkaline Phosphatase 47 U/L (38-126); Aspartate Amino Transferase 19 U/L (17-59); Bilirubin,Total 0.3 mg/dl (0.2-1.3); Blood Urea Nitrogen 52 mg/dl (9-20); Calcium 8.1 mg/dl (8.4-10.2); Carbon Dioxide 21 mmol/L (22.0-30.0); Creatinine Clearance Estimated 75 mL/min (50-200); Estimated Glomerular Filt Rate 72 ml/min (>60); GFR (African American) 87 ML/MIN (>60); Globulin 2.4 g/dL (1.3-3.2); Glucose 280 mg/dl (74-100); Hematocrit 23.1 % (42.0-52.0); Hemoglobin 7.4 g/dL (14.1-18.0); Lipase 39 U/L (23-300); Total Protein,Serum 5.4 g/dl (6.3-8.2)
[2021-02-19 10:42] LABS: Prothrombin Time 12.3 seconds (10.1-12.5)
--- NOTE | 2021-02-19 10:43 | PC.NURSE ---
Took Critical lab values: WBC 26.7, Hemoglobin 7.4, Hemat 23.1
[2021-02-19 10:52] LABS: INR 1.05 (0.9-1.1)
[2021-02-19 11:10] LABS: Activated Partial Thrombo Time 20.5 seconds (22.8-30.6)
--- NOTE | 2021-02-19 11:13 | PC.NURSE ---
Called for lab to come down and do type and screen.
--- NOTE | 2021-02-19 11:23 | PC.NURSE ---
speaking with Syeda at this time.
--- NOTE | 2021-02-19 11:37 | PC.NURSE ---
speaking with Dr Jiang at this time.
--- NOTE | 2021-02-19 11:42 | PC.NURSE ---
notified care management of admission, spoke with derrick
--- NOTE | 2021-02-19 11:49 | PC.NURSE ---
notified registration of admission staff
--- NOTE | 2021-02-19 12:13 | PC.NURSE ---
Surgery packet complete to the extent of ER nurse capability. Patient will be admitted to floor prior to going to get colonoscopy.
--- NOTE | 2021-02-19 12:16 | PC.NURSE ---
patient placed his belongings in a patient belonging bag in anticipation of admission
--- NOTE | 2021-02-19 12:29 | HMH.PHAVTE ---
[facility] Pharmacy VTE Monitoring - Patient Demographics Admission date: 02/19/21 Report Date: 02/19/21 Time: 12:29 Allergies/Adverse Reactions: Patient Allergies Penicillins [PENICILLINS] Allergy (Unknown, Verified 02/18/21 09:03) I-RASH Height: 1.78 m Weight: 86.581 kg Patient Problems: Current Active Problems CLL (chronic lymphocytic leukemia) (Acute) Acute on chronic anemia (Acute) Lower GI bleed (Acute) - VTE Risk Labs: VTE Related Lab Results Hgb 7.4 g/dL (14.1-18.0) L* 02/19/21 09:52 Hct 23.1 % (42.0-52.0) L* 02/19/21 09:52 Plt Count 291 K/mm3 (142-424) 02/19/21 09:52 PT 12.3 seconds (10.1-12.5) 02/19/21 09:52 INR 1.05 (0.9-1.1) 02/19/21 09:52 APTT 20.5 seconds (22.8-30.6) L 02/19/21 09:52 BUN 52 mg/dl (9-20) H D 02/19/21 09:52 Creatinine 1.00 mg/dl (0.66-1.25) 02/19/21 09:52 Estimated Creat Clear 75 mL/min (50-200) 02/19/21 09:52 Clinical Trial Participant: No - Prophylaxis VTE Prophylaxis Ordered?: Yes Types of VTE Prophylaxis: TEDS Knee High
--- NOTE | 2021-02-19 12:33 | PC.NURSE ---
Pre-op called and stated they are ready for patient to come to pre-op. Report called to second floor RNMartha at this time
--- NOTE | 2021-02-19 12:47 | PC.NURSE ---
0929- Brit Shah from lab called a critical lab values to this nurse on Yogesh Matson 44. pt hgb is 7.5 and his hct is 23.5. pt information repeated and verified at this time. lab report printed and placed in critical lab folder at this time
--- NOTE | 2021-02-19 12:53 | PC.NURSE ---
0932- reported critical lab values to GAYE Mccormack who reported them to Dr. Rodrigues.
--- NOTE | 2021-02-19 12:57 | PC.NURSE ---
0933- per pt is to go to the ER for further evaluation.
--- NOTE | 2021-02-19 12:57 | PC.NURSE ---
0935- pt transported to ER at this time via wheelchair. report given to GAYE Feldman
[2021-02-19 13:25] LABS: POC Glucose,Bedside 277 (70-110)
--- NOTE | 2021-02-19 13:35 | HMH.HP ---
*Admission Date: 02/19/21 *Chief complaint: anemia, GI bleed *History of present illness: Mr. Matson is a 80-year-old gentleman who present to the ER due to having a melenic stool and dizziness when going to the bathroom this morning. Bowel movement was approximately 3 AM the second episode at 7 AM. When he got up after his bowel movement he felt fatigued, short of breath, dizzy. Came to the ER for further assessment. On arrival remarked for marked weakness, malaise, dizziness. On arrival he was noted to have hemoglobin of 7.5, positive guaiac stool, and leukocytosis consistent with his history of CLL. Currently on Plavix and aspirin along with taking NSAIDs yesterday after his chemotherapy infusion. Admitted to medicine for further management. On assessment this afternoon, patient denies any abdominal pain. Feeling better after initiating blood transfusion. GI consulted, assisting in management of patient. No further melenic or bright red stools. Denies any vomiting or bloody emesis. [facility] History I have reviewed the patient's past medical history: Yes Medical History: Reports:: BPH, Cancer, Cardiomyopathy, Coronary Artery Disease, Diabetes Mellitus Type 2, Heart Murmur, Hyperlipidemia, Hypertension, Myocardial Infarction Denies:: Diabetes Mellitus Type 1, Lung Disease, MRSA *Have you ever received a pneumonia vaccine?: Yes *Have you received a flu vaccine this season?: Yes Other Medical History: Reports: Chemotherapy, Sinus Problems, Other Other Surgeries: Yes: Cardiac Catheterization, Colonoscopy, Sinus Surgery, Other Amputation: No Fractures: No - *Social History Smoking Status: Former smoker Tobacco Type: cigarettes Alcohol Intake: never Alcohol Intake Frequency:: other Substance Use Type: denies use *Occupational Status:: retired Housing: house Household Members: significant other *Travel in the last 8 weeks: None Family Hx:: Diabetes Review of Systems - Review of Systems Review of systems:: pertinent systems reviewed and negative unless documented below (Systems) - *Neurologic Reports weakness, Denies headache(s) Meds Home Medications Medication Instructions Recorded Confirmed Type Metoprolol Tartrate [Lopressor 100 100 mg PO BID 09/04/19 02/19/21 History mg Tablets] Omeprazole [Omeprazole 40mg 40 mg PO DAILY 09/04/19 02/19/21 History Capsule] amlodipine 10 mg tablet 10 mg PO DAILY 09/05/19 02/19/21 History clopidogrel 75 mg tablet 75 mg PO DAILY 12/27/19 02/19/21 History losartan 25 mg tablet 25 mg PO DAILY 12/27/19 02/19/21 History metformin 500 mg tablet 500 mg PO BID 12/27/19 02/19/21 History rosuvastatin 10 mg tablet 5 mg PO DAILY 12/27/19 02/19/21 History ezetimibe 10 mg tablet 10 mg PO DAILY 08/27/20 02/19/21 History docusate sodium 250 mg capsule 250 mg PO DAILY 09/25/20 02/19/21 History Aspirin [Adult Aspirin Regimen] 81 mg PO Q48H PRN 01/28/21 02/19/21 History Rituximab [Rituxan] See Protocol IV DIRECTED 02/19/21 02/19/21 History Allergies Allergy/AdvReac Type Severity Reaction Status Date / Time Penicillins [PENICILLINS] Allergy Unknown I-RASH Verified 02/18/21 09:03 Exam Vital signs and Labs for Last 24 Hours: Temp Pulse Resp BP Pulse Ox 98.1 F 96 H 20 109/51 L 96 02/19/21 12:15 02/19/21 12:30 02/19/21 12:30 02/19/21 12:30 02/19/21 12:30 Laboratory Results - last 24 hr 02/19/21 09:01: WBC 24.1 H* D, RBC 2.80 L D, Hgb 7.5 L*, Hct 23.5 L*, MCV 84.1, MCH 26.8 L, MCHC 31.9, RDW 17.1, Plt Count 292 D, MPV 9.3, Neut % (Auto) 63.0, Lymph % (Auto) 32.4, [place] % (Auto) 4.3, Eos % (Auto) 0.0 L, Baso % (Auto) 0.4, Neut # (Auto) 15.2 H, Lymph # (Auto) 7.8 H, [place] # (Auto) 1.0, Eos # (Auto) 0.0, Baso # (Auto) 0.1, Total Counted 100, Neutrophils % (Manual) 66, Lymphocytes % (Manual) 32, Monocytes % (Manual) 2, Platelet Estimate Normal, Hypochromasia 2+, Anisocytosis 1+, Microcytosis 1+ 02/19/21 09:52: WBC 26.7 H*, RBC 2.77 L, Hgb 7.4 L*, Hct 23.1 L*, MCV 83.6, MCH 26.9
--- NOTE | 2021-02-19 13:49 | PC.NURSE ---
0801- pt arrived at infusion department complaining of SOA,weakness, dizziness and reported tarry looking stool last night during two bowel movements.pt denies any cough or chest pain at this time. on assessment pt was a&o x 4, slightly pale in color and was able to transfer from wheelchair to chair x 1 assist. pt had normal respirations and vitals were as follows BP 147/76 HR 83 O2 Sat 96% on room air. CBC to be drawn per Dr. Rodrigues/GAYE Mccormack (telephone order)
--- NOTE | 2021-02-19 14:15 | HMH.PROC ---
[facility] Procedure Note Procedure Note:: Upper Endoscopy Procedure Report: Esophagogastroduodenoscopy with cold biopsies Endoscopost: Linus Landa II, MD Referring Physician: Galindo Cueva MD/Irineo Jiang MD Date of Procedure: February 19, 2021 Equipment: Olympus GIF 190 standard upper endoscope Sedation: MAC sedation Indications: Mr. Matson is a 80-year-old gentleman who presents with melanotic stools that occurred 1 time at 3 AM and a second time at 7 AM. The patient did come to the emergency department he has had significant weakness, malaise and lightheadedness. His hemoglobin was 7.5 and hematocrit 23.5. The patient's white blood cell count was 24.1. He does have chronic lymphocytic leukemia. He is on Plavix and aspirin. He was given Aleve yesterday. He also is on Rituxan. He does state that he had a prior EGD at the [facility] in 2018. He had a colonoscopy with ks around 5 years ago. He reports no abdominal pain. Procedure: Prior to the procedure, a history and physical exam was performed, and patient's medications and allergies were reviewed. The risks, benefits and alternatives of the sedation and procedure were discussed with the patient. All questions were answered and informed consent was obtained. The patient was brought to the procedure room. Patient identification and proposed procedure were verified by the physician and the nurse. The patient was placed in a left lateral decubitus position and the scope was passed under direct vision. Throughout the procedure, the patient's blood pressure, pulse, and oxygen saturations were monitored continuously. The upper GI endoscopy was accomplished without difficulty. The patient tolerated the procedure well. Findings: The scope was passed directly into the upper esophagus and advanced to the third portion of the duodenum. The post bulbar duodenum and duodenal bulb were normal with normal mucosa and conniventes. The scope was withdrawn through a normal duodenal bulb and pylorus into the stomach. There was a marked amount of greenish-brown liquid and solid exudate. The entire fundus and most of the body the stomach was full of solid food content impairing visualization. Some of the liquid was suctioned. There was no evidence of any fresh or old blood (no bright red blood or maroon blood or coffee ground). Biopsies were taken along the lesser curvature to rule out H. pylori. The antrum did not show any ulcerations or erosions. There were no ulcerations along the lesser curvature. Upon retroflexion there was a small 2 cm hiatal hernia. The scope was then withdrawn into the esophagus. There was no Maria Ines-Valderrama tear. There was no evidence of reflux esophagitis or Cartwright's. There were no esophageal varices. The remainder of the esophageal mucosa was normal. Impression: 1. No active upper GI tract bleeding but endoscopic study impaired because of a marked amount of solid food content within the body and fundus of the stomach impairing visualization Plan: There is no bleeding from the distal esophagus, lower stomach and duodenum. There is no active bleeding in the body or fundus of the stomach. The study was marred by the amount of digestive solid content within the stomach. I would continue n.p.o. today with advancement to clear liquids for 24 hours. I would recommend IV PPI therapy. If he shows continued signs of bleeding I would consider doing repeat an EGD through the weekend. He will likely remain stable. If indeed he does continue to remain hemodynamically stable, we could repeat EGD on Monday or just treat empirically. I will follow-up the biopsies. Certainly if the bleeding is ongoing but he remains hemodynamically stable, we will need to look again and possibly do RBC tagged bleeding scan.
[2021-02-20] VITALS (9 sets, daily range): BP systolic 117–139; BP diastolic 50–68; PULSE 64–88; RESP 16–18; TEMP 36.5–37; O2SAT 94–98; BMI 27.2
--- NOTE | 2021-02-20 02:49 | PC.NURSE ---
shift summary pt is alert and oriented X4. lung sounds are clear with sats maintained 90% or above on room air. pt received a unit of blood this shift and tolerated it well. pt voids per bedside urinal urine is clear and yellow in color. pt has had no complaints and has rested comfortably for most of the night. pt denies any pain, nausea, vomiting, or diarrhea. no acute changes will continue to monitor.
[2021-02-20 02:54] LABS: Hemoglobin 8.8 g/dL (14.1-18.0)
[2021-02-20 07:12] LABS: Basophils # 0.1 K/mm3 (0-0.2); Eosinophils # 0.1 K/mm3 (0.0-0.4); Eosinophils % 0.4 % (0.1-12.0); Hematocrit 26.5 % (42.0-52.0); Hemoglobin 8.8 g/dL (14.1-18.0); Lymphocytes # 2.8 K/mm3 (0.7-4.5); Lymphocytes % 23.9 % (10-50); Mean Corpuscular HGB Conc 33.1 g/dL (31.8-35.4); Mean Corpuscular Hemoglobin 27.6 pg (27.0-31.2); Mean Corpuscular Volume 83.6 fl (80-94); Mean Platelet Volume 9.1 fl (7.4-10.4); Monocytes # 0.6 K/mm3 (0.1-1.0); Monocytes % 5.3 % (1.7-9.3); Neutrophils # 8.2 K/mm3 (1.8-7.8); Neutrophils % 69.4 % (37.0-80.0); Platelet Count 172 K/mm3 (142-424); Red Blood Count 3.17 M/mm3 (4.60-6.20); White Blood Count 11.8 K/mm3 (4.8-10.8)
[2021-02-20 07:31] LABS: Alanine Aminotransferase 14 U/L (12-78); Albumin Level 2.8 g/dl (3.5-5.0); Albumin/Globulin Ratio 1.2 (1.1-1.8); Alkaline Phosphatase 46 U/L (38-126); Anion Gap 8.2 mEq/L (5-15); Aspartate Amino Transferase 20 U/L (17-59); Bilirubin,Total 0.6 mg/dl (0.2-1.3); Blood Urea Nitrogen 33 mg/dl (9-20); Calcium 7.8 mg/dl (8.4-10.2); Carbon Dioxide 24 mmol/L (22.0-30.0); Chloride 109 mmol/L (98-107); Creatinine Clearance Estimated 74 mL/min (50-200); Estimated Glomerular Filt Rate 93 ml/min (>60); GFR (African American) 113 ML/MIN (>60); Globulin 2.3 g/dL (1.3-3.2); Glucose 130 mg/dl (74-100); Potassium 4.2 mmoL/L (3.5-5.1); Sodium 137 mmol/L (136-145); Total Protein,Serum 5.1 g/dl (6.3-8.2)
--- NOTE | 2021-02-20 09:06 | HMH.ACPN2 ---
Internal Medicine - PN: Subj *Date: 02/20/21 *Time: 09:57 Interval history: Patient did well overnight. Tolerating regular diet. Complains of some mild nausea this morning but no significant abdominal pain. Had 1 bowel movement this morning that is still dark, no vomiting however. Afebrile, hemodynamically stable. Received transfusion last night, hemoglobin after transfusion was 8.8, repeat hemoglobin this morning 8.8. Showing stability at this time. Discussed plan of care with patient this morning on rounds. Sitting upright in bed on interview. Exam Vital signs and Labs for Last 24 Hours: Temp Pulse Resp BP Pulse Ox 98.3 F 64 16 128/65 95 02/20/21 07:45 02/20/21 07:45 02/20/21 07:45 02/20/21 07:45 02/20/21 07:45 Laboratory Results - last 24 hr 02/19/21 09:01: WBC 24.1 H* D, RBC 2.80 L D, Hgb 7.5 L*, Hct 23.5 L*, MCV 84.1, MCH 26.8 L, MCHC 31.9, RDW 17.1, Plt Count 292 D, MPV 9.3, Neut % (Auto) 63.0, Lymph % (Auto) 32.4, [place] % (Auto) 4.3, Eos % (Auto) 0.0 L, Baso % (Auto) 0.4, Neut # (Auto) 15.2 H, Lymph # (Auto) 7.8 H, [place] # (Auto) 1.0, Eos # (Auto) 0.0, Baso # (Auto) 0.1, Total Counted 100, Neutrophils % (Manual) 66, Lymphocytes % (Manual) 32, Monocytes % (Manual) 2, Platelet Estimate Normal, Hypochromasia 2+, Anisocytosis 1+, Microcytosis 1+ 02/19/21 09:52: WBC 26.7 H*, RBC 2.77 L, Hgb 7.4 L*, Hct 23.1 L*, MCV 83.6, MCH 26.9 L, MCHC 32.1, RDW 17.1, Plt Count 291, MPV 9.3, Neut % (Auto) 67.7, Lymph % (Auto) 27.0, [place] % (Auto) 4.8, Eos % (Auto) 0.0 L, Baso % (Auto) 0.5, Neut # (Auto) 18.1 H, Lymph # (Auto) 7.2 H, [place] # (Auto) 1.3 H, Eos # (Auto) 0.0, Baso # (Auto) 0.1 02/19/21 09:52: PT 12.3, INR 1.05, APTT 20.5 L 02/19/21 09:52: Sodium 137, Potassium 5.0, Chloride 107, Carbon Dioxide 21 L, Anion Gap 14.0, BUN 52 H D, Creatinine 1.00, Estimated Creat Clear 75, Estimated GFR 72, Est GFR ( Amer) 87, Glucose 280 H, Calcium 8.1 L, Total Bilirubin 0.3, AST 19 D, ALT 18, Alkaline Phosphatase 47, Total Protein 5.4 L, Albumin 3.0 L D, Globulin 2.4, Albumin/Globulin Ratio 1.3, Lipase 39 02/19/21 10:23: SARS-CoV-2 (PCR) Not detected, Influenza A Untype (PCR) Not detected, Influenza Type B (PCR) Not detected 02/19/21 10:29: Urine Color Yellow, Urine Appearance Clear, Urine pH 5.0, Ur Specific [place] >= 1.030, Urine Protein Negative, Urine Glucose (UA) 1+, Urine Ketones Trace, Urine Blood Negative, Urine Nitrate Negative, Urine Bilirubin Negative, Urine Urobilinogen 0.2, Ur Leukocyte Esterase Negative, Urine RBC None, Urine WBC 3-5, Ur Squamous Epith Cells 3-5, Urine Bacteria None 02/19/21 12:49: Blood Type A Negative, Antibody Screen Negative, Crossmatch (AHG) See Detail 02/19/21 13:16: POC Glucose 277 H 02/20/21 02:30: Hgb 8.8 L D, Hct 26.0 L 02/20/21 06:53: WBC 11.8 H D, RBC 3.17 L, Hgb 8.8 L, Hct 26.5 L, MCV 83.6, MCH 27.6, MCHC 33.1, RDW 17.0, Plt Count 172 D, MPV 9.1, Neut % (Auto) 69.4, Lymph % (Auto) 23.9, [place] % (Auto) 5.3, Eos % (Auto) 0.4, Baso % (Auto) 1.0, Neut # (Auto) 8.2 H, Lymph # (Auto) 2.8, [place] # (Auto) 0.6, Eos # (Auto) 0.1, Baso # (Auto) 0.1 02/20/21 06:53: Sodium 137, Potassium 4.2, Chloride 109 H, Carbon Dioxide 24, Anion Gap 8.2, BUN 33 H D, Creatinine 0.80, Estimated Creat Clear 74, Estimated GFR 93, Est GFR ( Amer) 113 D, Glucose 130 H D, Calcium 7.8 L, Total Bilirubin 0.6, AST 20, ALT 14, Alkaline Phosphatase 46, Total Protein 5.1 L, Albumin 2.8 L, Globulin 2.3, Albumin/Globulin Ratio 1.2 I & O for Last 24 hours: Intake & Output 02/17/21 02/18/21 02/19/21 02/20/21 23:59 23:59 23:59 23:59 Intake Total 250 / 250 730 / 730 Output Total 450 / 1450 1700 / 1700 Balance -200 / -1200 -970 / -970 Weight 88.054 kg 86.353 kg Narrative: - Constitutional no acute distress - *Routine HEENT Exam Head: Present: normocephalic Eye: Present: EOMI, PERRL ENT: Present: mucous membranes moist - *Routine Neck Exam Present: supple. Absent: lymphadenopathy - *Routine Respiratory E
--- NOTE | 2021-02-20 11:00 | P.CONPHA_ITS ---
[facility] Pharmacy VTE Monitoring - Patient Demographics Admission date: 02/20/21 Report Date: 02/20/21 Time: 11:00 Allergies/Adverse Reactions: Patient Allergies Penicillins [PENICILLINS] Allergy (Unknown, Verified 02/18/21 09:03) I-RASH Height: 1.78 m Weight: 86.353 kg Patient Problems: Current Active Problems CLL (chronic lymphocytic leukemia) (Chronic) Acute on chronic anemia (Acute) Lower GI bleed (Acute) Hypertension (Chronic) - VTE Risk Labs: VTE Related Lab Results Hgb 8.8 g/dL (14.1-18.0) L 02/20/21 06:53 Hct 26.5 % (42.0-52.0) L 02/20/21 06:53 Plt Count 172 K/mm3 (142-424) D 02/20/21 06:53 PT 12.3 seconds (10.1-12.5) 02/19/21 09:52 INR 1.05 (0.9-1.1) 02/19/21 09:52 APTT 20.5 seconds (22.8-30.6) L 02/19/21 09:52 BUN 33 mg/dl (9-20) H D 02/20/21 06:53 Creatinine 0.80 mg/dl (0.66-1.25) 02/20/21 06:53 Estimated Creat Clear 74 mL/min (50-200) 02/20/21 06:53 VTE Score: 4 VTE Risk Level: Low Risk Clinical Trial Participant: No - Prophylaxis Types of VTE Prophylaxis: TEDS Knee High (RASHEEDA HOSE ORDERED)
--- NOTE | 2021-02-20 14:02 | HMH.DCSUM ---
General - General Admission date:: 02/19/21 Discharge date: 02/21/21 HPI HPI: Mr. Matson is a 80-year-old gentleman who present to the ER due to having a melenic stool and dizziness when going to the bathroom this morning. Bowel movement was approximately 3 AM the second episode at 7 AM. When he got up after his bowel movement he felt fatigued, short of breath, dizzy. Came to the ER for further assessment. On arrival remarked for marked weakness, malaise, dizziness. On arrival he was noted to have hemoglobin of 7.5, positive guaiac stool, and leukocytosis consistent with his history of CLL. Currently on Plavix and aspirin along with taking NSAIDs yesterday after his chemotherapy infusion. Admitted to medicine for further management. On assessment this afternoon, patient denies any abdominal pain. Feeling better after initiating blood transfusion. GI consulted, assisting in management of patient. No further melenic or bright red stools. Denies any vomiting or bloody emesis. Hospital Course Hospital Course: 80-year-old male with history of CLL, chronic anticoagulation, chronic anemia, who presents with suspected GI bleed and acute on chronic anemia. GI consulted, patient taken for EGD, no overt bleeding identified. No further bleeding during hospitalization. Hemoglobin remained stable after transfusion of 1 unit of red blood cells.. Required no further transfusions. Stools transition to brown. Treated with Protonix IV during admission. Will transition to oral Protonix at discharge in place of his home omeprazole. Anticoagulation held during hospitalization. We will continue to hold Plavix and aspirin. Has been at least a year since his last stent, per our hospital records last stent I can identify was in 2018. He will need to discuss resumption with his primary care after getting home. Medically stable for discharge home. Examined on day of discharge. Patient still feeling weak but overall feeling better. No overt bleeding, hematemesis, melenic stools, nausea or vomiting. Objective Vital signs: Temp Pulse Resp BP Pulse Ox 98.3 F 64 16 128/65 95 02/20/21 07:45 02/20/21 07:45 02/20/21 07:45 02/20/21 07:45 02/20/21 07:45 Narrative: - Constitutional no acute distress on RA - *Routine HEENT Exam Head: Present: normocephalic Eye: Present: EOMI, PERRL ENT: Present: mucous membranes moist - *Routine Neck Exam Present: supple. Absent: lymphadenopathy - *Routine Respiratory Exam Present: CTA bilaterally - *Routine Cardiovascular Exam Present: RRR, 2+ systolic murmur - *Routine Abdominal Exam Present: soft, normoactive bowel sounds. Absent: tenderness - *Routine Extremities Exam Present: edema (trace to knees). Absent: cyanosis, clubbing - *Routine Skin Exam Present: pallor, warm. Absent: rash - *Routine Neurological Exam Present: alert, oriented X3 Results Labs on day of discharge: Labs from last 24 hours 02/20/21 02/20/21 02/20/21 06:53 06:53 02:30 WBC 11.8 H D RBC 3.17 L Hgb 8.8 L 8.8 L D Hct 26.5 L 26.0 L MCV 83.6 MCH 27.6 MCHC 33.1 RDW 17.0 Plt Count 172 D MPV 9.1 Neut % (Auto) 69.4 Lymph % (Auto) 23.9 [place] % (Auto) 5.3 Eos % (Auto) 0.4 Baso % (Auto) 1.0 Neut # (Auto) 8.2 H Lymph # (Auto) 2.8 [place] # (Auto) 0.6 Eos # (Auto) 0.1 Baso # (Auto) 0.1 Sodium 137 Potassium 4.2 Chloride 109 H Carbon Dioxide 24 Anion Gap 8.2 BUN 33 H D Creatinine 0.80 Estimated Creat Clear 74 Estimated GFR 93 Est GFR ( Amer) 113 D Glucose 130 H D Calcium 7.8 L Total Bilirubin 0.6 AST 20 ALT 14 Alkaline Phosphatase 46 Total Protein 5.1 L Albumin 2.8 L Globulin 2.3 Albumin/Globulin Ratio 1.2 Blood Type Antibody Screen Crossmatch (AH) 02/19/21 12:49 WBC RBC Hgb Hct MCV MCH MCHC RDW Plt Count
--- NOTE | 2021-02-20 17:51 | PC.NURSE ---
Pt has done well this shift. No c/o pain or N/V. Pt did report x1 loose black stool this shift. Pt has ambulated to and from the restroom multiple times this shift w/ steady gait and balance. No other acute changes or complaints at this time. Will continue to monitor.
--- NOTE | 2021-02-21 03:45 | PC.NURSE ---
shift summary pt is alert and oriented X4. lung sounds are clear with sats maintained 90% or above on room air. pt voids per bedside urinal urine is clear and yellow in color. pt is able to ambulate around his room unassisted with no issues. pt has had no complaints and has rested comfortably for most of the night. pt denies any pain, nausea, vomiting, or diarrhea. no acute changes will continue to monitor.
[2021-02-21 04:00] VITALS: BP 135/90; PULSE 84; RESP 18; TEMP 37.2; O2SAT 96
[2021-02-21 07:38] LABS: Basophils # 0.1 K/mm3 (0-0.2); Basophils % 0.7 % (0.1-2.0); Eosinophils # 0.1 K/mm3 (0.0-0.4); Eosinophils % 0.9 % (0.1-12.0); Hematocrit 26.4 % (42.0-52.0); Hemoglobin 9.2 g/dL (14.1-18.0); Lymphocytes # 2.6 K/mm3 (0.7-4.5); Lymphocytes % 26.2 % (10-50); Mean Corpuscular Hemoglobin 28.6 pg (27.0-31.2); Mean Corpuscular Volume 81.8 fl (80-94); Mean Platelet Volume 9.2 fl (7.4-10.4); Monocytes # 0.5 K/mm3 (0.1-1.0); Monocytes % 5.5 % (1.7-9.3); Neutrophils # 6.6 K/mm3 (1.8-7.8); Neutrophils % 66.7 % (37.0-80.0); Platelet Count 169 K/mm3 (142-424); Red Blood Count 3.23 M/mm3 (4.60-6.20); Red Cell Distribution Width 17.4 % (11.5-17.5); White Blood Count 9.9 K/mm3 (4.8-10.8)
[2021-02-21 07:47] LABS: Alanine Aminotransferase 13 U/L (12-78); Albumin Level 3.2 g/dl (3.5-5.0); Albumin/Globulin Ratio 1.3 (1.1-1.8); Alkaline Phosphatase 55 U/L (38-126); Anion Gap 9.9 mEq/L (5-15); Aspartate Amino Transferase 20 U/L (17-59); Bilirubin,Total 0.6 mg/dl (0.2-1.3); Blood Urea Nitrogen 12 mg/dl (9-20); Calcium 7.9 mg/dl (8.4-10.2); Carbon Dioxide 24 mmol/L (22.0-30.0); Chloride 106 mmol/L (98-107); Creatinine Clearance Estimated 74 mL/min (50-200); Estimated Glomerular Filt Rate 109 ml/min (>60); GFR (African American) 132 ML/MIN (>60); Globulin 2.4 g/dL (1.3-3.2); Glucose 166 mg/dl (74-100); Magnesium 1.6 mg/dl (1.6-2.3); Potassium 3.9 mmoL/L (3.5-5.1); Sodium 136 mmol/L (136-145); Total Protein,Serum 5.6 g/dl (6.3-8.2)
[2021-02-21 08:00] VITALS: BP 133/76; PULSE 93; RESP 18; TEMP 36.4; O2SAT 96
== END 2021-02-21 10:49 | disposition home or self-care (01) ==
LOC: ER 11:41 → 2ND 12:24
PROVIDERS: Internal Medicine Gastroenterology; Internal Medicine Medical Oncology; Admitting Provider Internal Medicine Adolescent Medicine; Emergency Provider Emergency Medicine; PCP Family Medicine; Visit Provider Internal Medicine Adolescent Medicine
PROC: 0DJ08ZZ Inspection of Upper Intestinal Tract, Via Natural or Artificial Opening Endoscopic (ICD-10-PCS; CPT 43235; principal; 2021-02-19 13:30)
DX: K92.1 Melena (principal); C91.10 Chronic lymphocytic leukemia of B-cell type not having achieved remission; D64.9 Anemia, unspecified; I10 Essential (primary) hypertension; Z79.01 Long term (current) use of anticoagulants; Z87.891 Personal history of nicotine dependence; Z79.84 Long term (current) use of oral hypoglycemic drugs; Z79.82 Long term (current) use of aspirin; I42.9 Cardiomyopathy, unspecified; N40.0 Benign prostatic hyperplasia without lower urinary tract symptoms; I25.10 Atherosclerotic heart disease of native coronary artery without angina pectoris; E11.9 Type 2 diabetes mellitus without complications; E78.5 Hyperlipidemia, unspecified; I25.2 Old myocardial infarction; Z20.822 Contact with and (suspected) exposure to COVID-19
CPT/HCPCS: 43239; 36415; 80053; 81001; 82962; 83690; 83735; 85007; 85014; 85018; 85025; 85610; 85730; 86850; 88305; 96413; 96415; 99284; G0378; J9312; P9016; U0003

== ENCOUNTER 2021-03-12 08:20 | Outpatient (CLI) | payer MEDICARE, SELFPAY ==
[2021-03-12 08:24] VITALS: BMI 27.3
[2021-03-12 08:43] LABS: Basophils # 0.1 K/mm3 (0-0.2); Basophils % 1.7 % (0.1-2.0); Eosinophils # 0.1 K/mm3 (0.0-0.4); Eosinophils % 1.8 % (0.1-12.0); Hematocrit 35.3 % (42.0-52.0); Hemoglobin 11.5 g/dL (14.1-18.0); Lymphocytes # 2.3 K/mm3 (0.7-4.5); Lymphocytes % 33.4 % (10-50); Mean Corpuscular HGB Conc 32.5 g/dL (31.8-35.4); Mean Corpuscular Hemoglobin 28.8 pg (27.0-31.2); Mean Corpuscular Volume 88.6 fl (80-94); Mean Platelet Volume 9.1 fl (7.4-10.4); Monocytes # 0.5 K/mm3 (0.1-1.0); Monocytes % 6.9 % (1.7-9.3); Neutrophils # 3.9 K/mm3 (1.8-7.8); Neutrophils % 56.3 % (37.0-80.0); Platelet Count 241 K/mm3 (142-424); Red Blood Count 3.98 M/mm3 (4.60-6.20); Red Cell Distribution Width 17.5 % (11.5-17.5); White Blood Count 6.9 K/mm3 (4.8-10.8)
[2021-03-12 08:50] LABS: Chloride 108 mmol/L (98-107)
[2021-03-12 08:51] LABS: Potassium 4.5 mmoL/L (3.5-5.1); Sodium 138 mmol/L (136-145)
[2021-03-12 08:53] LABS: Alanine Aminotransferase 20 U/L (12-78); Alkaline Phosphatase 66 U/L (38-126); Anion Gap 13.5 mEq/L (5-15); Aspartate Amino Transferase 27 U/L (17-59); Bilirubin,Total 0.5 mg/dl (0.2-1.3); Blood Urea Nitrogen 15 mg/dl (9-20); Carbon Dioxide 21 mmol/L (22.0-30.0); Creatinine Clearance Estimated 75 mL/min (50-200); Estimated Glomerular Filt Rate 82 ml/min (>60); GFR (African American) 99 ML/MIN (>60)
[2021-03-12 08:54] LABS: Albumin Level 3.8 g/dl (3.5-5.0); Albumin/Globulin Ratio 1.5 (1.1-1.8); Calcium 8.4 mg/dl (8.4-10.2); Globulin 2.6 g/dL (1.3-3.2); Glucose 175 mg/dl (74-100); Total Protein,Serum 6.4 g/dl (6.3-8.2)
== END 2021-03-12 08:30 | disposition home or self-care (01) ==
LOC: INF 08:24
PROVIDERS: Visit Provider Internal Medicine Medical Oncology
DX: C91.10 Chronic lymphocytic leukemia of B-cell type not having achieved remission (principal); Z45.2 Encounter for adjustment and management of vascular access device
CPT/HCPCS: 80053; 85025

== ENCOUNTER → 2021-04-15 08:05 | Outpatient (CLI) | payer MEDICARE, SELFPAY ==
[2021-04-15 08:14] VITALS: BMI 27.5
[2021-04-15 08:28] LABS: Basophils # 0.1 K/mm3 (0-0.2); Basophils % 1.5 % (0.1-2.0); Eosinophils # 0.2 K/mm3 (0.0-0.4); Eosinophils % 3.1 % (0.1-12.0); Hematocrit 37.3 % (42.0-52.0); Hemoglobin 12.1 g/dL (14.1-18.0); Lymphocytes # 1.7 K/mm3 (0.7-4.5); Lymphocytes % 31.6 % (10-50); Mean Corpuscular HGB Conc 32.6 g/dL (31.8-35.4); Mean Corpuscular Hemoglobin 31.5 pg (27.0-31.2); Mean Corpuscular Volume 96.7 fl (80-94); Mean Platelet Volume 9.2 fl (7.4-10.4); Monocytes # 0.4 K/mm3 (0.1-1.0); Monocytes % 6.6 % (1.7-9.3); Neutrophils % 57.2 % (37.0-80.0); Platelet Count 213 K/mm3 (142-424); Red Blood Count 3.86 M/mm3 (4.60-6.20); Red Cell Distribution Width 14.8 % (11.5-17.5); White Blood Count 5.3 K/mm3 (4.8-10.8)
[2021-04-15 08:33] LABS: Chloride 105 mmol/L (98-107); Sodium 139 mmol/L (136-145)
[2021-04-15 08:34] LABS: Potassium 4.3 mmoL/L (3.5-5.1)
[2021-04-15 08:36] LABS: Alanine Aminotransferase 19 U/L (12-78); Alkaline Phosphatase 67 U/L (38-126); Aspartate Amino Transferase 32 U/L (17-59); Bilirubin,Total 0.3 mg/dl (0.2-1.3); Blood Urea Nitrogen 16 mg/dl (9-20); Creatinine Clearance Estimated 75 mL/min (50-200); Estimated Glomerular Filt Rate 82 ml/min (>60); GFR (African American) 99 ML/MIN (>60)
[2021-04-15 08:37] LABS: Albumin/Globulin Ratio 1.5 (1.1-1.8); Anion Gap 14.3 mEq/L (5-15); Calcium 8.5 mg/dl (8.4-10.2); Carbon Dioxide 24 mmol/L (22.0-30.0); Globulin 2.6 g/dL (1.3-3.2); Glucose 111 mg/dl (74-100); Total Protein,Serum 6.6 g/dl (6.3-8.2)
== END ==
PROVIDERS: PCP Family Medicine; Visit Provider Internal Medicine Medical Oncology
DX: C91.10 Chronic lymphocytic leukemia of B-cell type not having achieved remission (principal); Z45.2 Encounter for adjustment and management of vascular access device
CPT/HCPCS: 80053; 85025

== ENCOUNTER 2021-05-27 08:03 | Outpatient (CLI) | payer MEDICARE, SELFPAY ==
[2021-05-27 08:10] VITALS: BMI 28.1
[2021-05-27 08:29] LABS: Basophils # 0.1 K/mm3 (0-0.2); Basophils % 1.2 % (0.1-2.0); Eosinophils # 0.2 K/mm3 (0.0-0.4); Eosinophils % 1.5 % (0.1-12.0); Hematocrit 43.3 % (42.0-52.0); Hemoglobin 14.2 g/dL (14.1-18.0); Lymphocytes % 37.3 % (10-50); Mean Corpuscular HGB Conc 32.8 g/dL (31.8-35.4); Mean Corpuscular Volume 94.3 fl (80-94); Mean Platelet Volume 8.8 fl (7.4-10.4); Monocytes # 0.7 K/mm3 (0.1-1.0); Monocytes % 6.2 % (1.7-9.3); Neutrophils # 5.8 K/mm3 (1.8-7.8); Neutrophils % 53.8 % (37.0-80.0); Platelet Count 218 K/mm3 (142-424); Red Blood Count 4.59 M/mm3 (4.60-6.20); Red Cell Distribution Width 13.5 % (11.5-17.5); White Blood Count 10.7 K/mm3 (4.8-10.8)
[2021-05-27 08:33] LABS: Chloride 103 mmol/L (98-107); Potassium 4.4 mmoL/L (3.5-5.1); Sodium 139 mmol/L (136-145)
[2021-05-27 08:36] LABS: Alanine Aminotransferase 25 U/L (12-78); Albumin Level 3.8 g/dl (3.5-5.0); Albumin/Globulin Ratio 1.5 (1.1-1.8); Alkaline Phosphatase 68 U/L (38-126); Anion Gap 14.4 mEq/L (5-15); Aspartate Amino Transferase 32 U/L (17-59); Bilirubin,Total 0.3 mg/dl (0.2-1.3); Blood Urea Nitrogen 15 mg/dl (9-20); Calcium 8.4 mg/dl (8.4-10.2); Carbon Dioxide 26 mmol/L (22.0-30.0); Creatinine Clearance Estimated 75 mL/min (50-200); Estimated Glomerular Filt Rate 72 ml/min (>60); GFR (African American) 87 ML/MIN (>60); Globulin 2.6 g/dL (1.3-3.2); Glucose 237 mg/dl (74-100); Total Protein,Serum 6.4 g/dl (6.3-8.2)
== END 2021-05-27 08:12 | disposition home or self-care (01) ==
LOC: INF 08:05
PROVIDERS: PCP Family Medicine; Visit Provider Internal Medicine Medical Oncology
DX: C91.10 Chronic lymphocytic leukemia of B-cell type not having achieved remission (principal); Z45.2 Encounter for adjustment and management of vascular access device
CPT/HCPCS: 80053; 85025

== ENCOUNTER 2021-06-21 07:54 | Outpatient (CLI) | payer MEDICARE, SELFPAY ==
[2021-06-21 08:04] VITALS: BMI 28.5
--- NOTE | 2021-06-21 08:10 | PC.NURSE ---
0805-collected labs via peripheral stick; pt to oncology appointment.
[2021-06-21 08:16] LABS: Basophils # 0.2 K/mm3 (0-0.2); Basophils % 1.4 % (0.1-2.0); Eosinophils # 0.2 K/mm3 (0.0-0.4); Eosinophils % 1.7 % (0.1-12.0); Hematocrit 42.6 % (42.0-52.0); Hemoglobin 14.7 g/dL (14.1-18.0); Lymphocytes # 5.2 K/mm3 (0.7-4.5); Lymphocytes % 47.5 % (10-50); Mean Corpuscular HGB Conc 34.4 g/dL (31.8-35.4); Mean Corpuscular Hemoglobin 30.6 pg (27.0-31.2); Mean Corpuscular Volume 89.1 fl (80-94); Mean Platelet Volume 9.3 fl (7.4-10.4); Monocytes # 0.5 K/mm3 (0.1-1.0); Monocytes % 4.4 % (1.7-9.3); Neutrophils # 4.9 K/mm3 (1.8-7.8); Neutrophils % 45.1 % (37.0-80.0); Platelet Count 214 K/mm3 (142-424); Red Blood Count 4.78 M/mm3 (4.60-6.20); Red Cell Distribution Width 13.7 % (11.5-17.5); White Blood Count 10.9 K/mm3 (4.8-10.8)
[2021-06-21 08:30] LABS: Alanine Aminotransferase 24 U/L (12-78); Albumin Level 4.2 g/dl (3.5-5.0); Albumin/Globulin Ratio 1.6 (1.1-1.8); Alkaline Phosphatase 58 U/L (38-126); Anion Gap 8.5 mEq/L (5-15); Aspartate Amino Transferase 35 U/L (17-59); Bilirubin,Total 0.5 mg/dl (0.2-1.3); Blood Urea Nitrogen 11 mg/dl (9-20); Carbon Dioxide 32 mmol/L (22.0-30.0); Chloride 104 mmol/L (98-107); Creatinine Clearance Estimated 76 mL/min (50-200); Estimated Glomerular Filt Rate 72 ml/min (>60); GFR (African American) 87 ML/MIN (>60); Globulin 2.7 g/dL (1.3-3.2); Glucose 123 mg/dl (74-100); Potassium 4.5 mmoL/L (3.5-5.1); Sodium 140 mmol/L (136-145); Total Protein,Serum 6.9 g/dl (6.3-8.2)
== END 2021-06-21 08:10 | disposition home or self-care (01) ==
LOC: INF 07:55
PROVIDERS: PCP Family Medicine; Visit Provider Internal Medicine Medical Oncology
DX: C91.10 Chronic lymphocytic leukemia of B-cell type not having achieved remission (principal)
CPT/HCPCS: 80053; 85025

== ENCOUNTER 2021-07-22 07:51 | Outpatient (CLI) | payer MEDICARE, SELFPAY ==
[2021-07-22 08:12] VITALS: BMI 28.4
[2021-07-22 08:25] LABS: Basophils # 0.2 K/mm3 (0-0.2); Eosinophils # 0.2 K/mm3 (0.0-0.4); Eosinophils % 1.4 % (0.1-12.0); Hematocrit 42.7 % (42.0-52.0); Hemoglobin 14.1 g/dL (14.1-18.0); Lymphocytes # 8.5 K/mm3 (0.7-4.5); Lymphocytes % 56.9 % (10-50); Mean Corpuscular HGB Conc 33.1 g/dL (31.8-35.4); Mean Corpuscular Hemoglobin 30.6 pg (27.0-31.2); Mean Corpuscular Volume 92.5 fl (80-94); Mean Platelet Volume 8.6 fl (7.4-10.4); Monocytes # 0.5 K/mm3 (0.1-1.0); Monocytes % 3.4 % (1.7-9.3); Neutrophils # 5.6 K/mm3 (1.8-7.8); Neutrophils % 37.3 % (37.0-80.0); Platelet Count 202 K/mm3 (142-424); Red Blood Count 4.62 M/mm3 (4.60-6.20); Red Cell Distribution Width 13.7 % (11.5-17.5)
[2021-07-22 08:31] LABS: MANUAL DIFFERENTIAL MANUAL DIFFERENTIAL (MANUAL DIFF)
[2021-07-22 08:32] LABS: Chloride 103 mmol/L (98-107)
[2021-07-22 08:33] LABS: Potassium 4.5 mmoL/L (3.5-5.1); Sodium 137 mmol/L (136-145)
[2021-07-22 08:35] LABS: Alanine Aminotransferase 31 U/L (12-78); Alkaline Phosphatase 57 U/L (38-126); Aspartate Amino Transferase 42 U/L (17-59); Bilirubin,Total 0.6 mg/dl (0.2-1.3); Blood Urea Nitrogen 17 mg/dl (9-20); Creatinine Clearance Estimated 76 mL/min (50-200); Estimated Glomerular Filt Rate 72 ml/min (>60); GFR (African American) 87 ML/MIN (>60)
[2021-07-22 08:36] LABS: Albumin Level 3.9 g/dl (3.5-5.0); Albumin/Globulin Ratio 1.5 (1.1-1.8); Anion Gap 9.5 mEq/L (5-15); Calcium 8.4 mg/dl (8.4-10.2); Carbon Dioxide 29 mmol/L (22.0-30.0); Globulin 2.6 g/dL (1.3-3.2); Glucose 125 mg/dl (74-100); Total Protein,Serum 6.5 g/dl (6.3-8.2)
[2021-07-22 08:50] LABS: Eosinophils % 3 % (0-3); Lymphocytes % 60 % (10-50); Monocytes % 1 % (2-9); Neutrophils % 36 % (42-76); Total Cells Counted 100
[2021-07-22 08:51] LABS: Platelet Estimate Normal; RBC Morphology Normal
--- NOTE | 2021-07-22 12:25 | PC.NURSE ---
0816 CBC/CMP drawn per peripheral stick to L AC. Patient has appointment with Dr. Rodrigues/Maikol this am.
== END 2021-07-22 09:20 | disposition home or self-care (01) ==
LOC: INF 07:52
PROVIDERS: PCP Family Medicine; Visit Provider Internal Medicine Medical Oncology
DX: C92.10 Chronic myeloid leukemia, BCR/ABL-positive, not having achieved remission (principal)
CPT/HCPCS: 80053; 85007; 85025

== ENCOUNTER 2021-08-23 07:48 | Outpatient (CLI) | payer MEDICARE, SELFPAY ==
[2021-08-23 08:10] VITALS: BMI 28.7
[2021-08-23 08:32] LABS: Basophils # 0.2 K/mm3 (0-0.2); Eosinophils # 0.2 K/mm3 (0.0-0.4); Eosinophils % 1.2 % (0.1-12.0); Hematocrit 43.2 % (42.0-52.0); Hemoglobin 14.3 g/dL (14.1-18.0); Lymphocytes # 11.4 K/mm3 (0.7-4.5); Lymphocytes % 62.3 % (10-50); Mean Corpuscular Hemoglobin 30.6 pg (27.0-31.2); Mean Corpuscular Volume 92.6 fl (80-94); Monocytes # 0.6 K/mm3 (0.1-1.0); Monocytes % 3.3 % (1.7-9.3); Neutrophils # 5.9 K/mm3 (1.8-7.8); Neutrophils % 32.1 % (37.0-80.0); Platelet Count 239 K/mm3 (142-424); Red Blood Count 4.67 M/mm3 (4.60-6.20); Red Cell Distribution Width 13.9 % (11.5-17.5); White Blood Count 18.2 K/mm3 (4.8-10.8)
[2021-08-23 08:38] LABS: Chloride 103 mmol/L (98-107)
[2021-08-23 08:39] LABS: Potassium 4.3 mmoL/L (3.5-5.1); Sodium 138 mmol/L (136-145)
[2021-08-23 08:41] LABS: Alanine Aminotransferase 30 U/L (12-78); Albumin Level 4.1 g/dl (3.5-5.0); Albumin/Globulin Ratio 1.5 (1.1-1.8); Alkaline Phosphatase 62 U/L (38-126); Anion Gap 11.3 mEq/L (5-15); Aspartate Amino Transferase 48 U/L (17-59); Bilirubin,Total 0.8 mg/dl (0.2-1.3); Blood Urea Nitrogen 17 mg/dl (9-20); Calcium 8.7 mg/dl (8.4-10.2); Carbon Dioxide 28 mmol/L (22.0-30.0); Creatinine Clearance Estimated 77 mL/min (50-200); Estimated Glomerular Filt Rate 72 ml/min (>60); GFR (African American) 87 ML/MIN (>60); Globulin 2.7 g/dL (1.3-3.2); Glucose 132 mg/dl (74-100); Total Protein,Serum 6.8 g/dl (6.3-8.2)
[2021-08-23 08:46] LABS: MANUAL DIFFERENTIAL MANUAL DIFFERENTIAL (MANUAL DIFF)
--- NOTE | 2021-08-23 08:49 | PC.NURSE ---
0810 CBC/CMP collected via L AC x1 stick. Patient has appointment this am with Dr. Rodrigues.
[2021-08-23 09:14] LABS: Eosinophils % 3 % (0-3); Lymphocytes % 58 % (10-50); Monocytes % 5 % (2-9); Neutrophils % 34 % (42-76); Total Cells Counted 100
[2021-08-23 09:15] LABS: Platelet Estimate Normal; RBC Morphology Normal
== END 2021-08-23 09:30 | disposition home or self-care (01) ==
LOC: INF 07:49
PROVIDERS: PCP Family Medicine; Visit Provider Internal Medicine Medical Oncology
DX: C91.10 Chronic lymphocytic leukemia of B-cell type not having achieved remission (principal)
CPT/HCPCS: 80053; 85007; 85025

== ENCOUNTER 2021-09-17 07:48 | Outpatient (CLI) | payer MEDICARE, SELFPAY ==
[2021-09-17 08:07] VITALS: BMI 28.8
[2021-09-17 08:32] LABS: Basophils # 0.2 K/mm3 (0-0.2); Basophils % 1.1 % (0.1-2.0); Eosinophils # 0.2 K/mm3 (0.0-0.4); Eosinophils % 0.9 % (0.1-12.0); Hematocrit 39.4 % (42.0-52.0); Hemoglobin 13.2 g/dL (14.1-18.0); Lymphocytes # 12.3 K/mm3 (0.7-4.5); Lymphocytes % 66.9 % (10-50); Mean Corpuscular HGB Conc 33.5 g/dL (31.8-35.4); Mean Corpuscular Hemoglobin 30.7 pg (27.0-31.2); Mean Corpuscular Volume 91.7 fl (80-94); Mean Platelet Volume 8.4 fl (7.4-10.4); Monocytes # 0.5 K/mm3 (0.1-1.0); Monocytes % 2.9 % (1.7-9.3); Neutrophils # 5.2 K/mm3 (1.8-7.8); Neutrophils % 28.3 % (37.0-80.0); Platelet Count 205 K/mm3 (142-424); White Blood Count 18.3 K/mm3 (4.8-10.8)
[2021-09-17 08:33] LABS: Chloride 104 mmol/L (98-107); Potassium 4.6 mmoL/L (3.5-5.1); Sodium 133 mmol/L (136-145)
--- NOTE | 2021-09-17 08:35 | PC.NURSE ---
0812 CBC/CMP collected per MD order/L AC x1 stick. Patient has appointment this am with Dr. Rodrigues.
[2021-09-17 08:36] LABS: Alanine Aminotransferase 33 U/L (12-78); Albumin/Globulin Ratio 1.6 (1.1-1.8); Alkaline Phosphatase 64 U/L (38-126); Anion Gap 8.6 mEq/L (5-15); Aspartate Amino Transferase 55 U/L (17-59); Bilirubin,Total 0.9 mg/dl (0.2-1.3); Blood Urea Nitrogen 15 mg/dl (9-20); Carbon Dioxide 25 mmol/L (22.0-30.0); Creatinine Clearance Estimated 77 mL/min (50-200); Estimated Glomerular Filt Rate 72 ml/min (>60); GFR (African American) 87 ML/MIN (>60); Globulin 2.5 g/dL (1.3-3.2); Total Protein,Serum 6.5 g/dl (6.3-8.2)
[2021-09-17 08:37] LABS: Glucose 118 mg/dl (74-100); MANUAL DIFFERENTIAL MANUAL DIFFERENTIAL (MANUAL DIFF)
[2021-09-17 09:17] LABS: Hypochromasia 1+; Lymphocytes % 62 % (10-50); Macrocytosis 1+; Monocytes % 7 % (2-9); Neutrophils % 31 % (42-76); Platelet Estimate Normal; Total Cells Counted 100
== END 2021-09-17 09:20 | disposition home or self-care (01) ==
LOC: INF 07:49
PROVIDERS: PCP Family Medicine; Visit Provider Internal Medicine Medical Oncology
DX: C91.10 Chronic lymphocytic leukemia of B-cell type not having achieved remission (principal)
CPT/HCPCS: 80053; 85007; 85025

== ENCOUNTER 2021-10-15 08:13 | Outpatient (CLI) | payer MEDICARE, SELFPAY ==
[2021-10-15 08:18] VITALS: BMI 29.0
[2021-10-15 08:36] LABS: Basophils # 0.3 K/mm3 (0-0.2); Basophils % 0.9 % (0.1-2.0); Eosinophils # 0.2 K/mm3 (0.0-0.4); Eosinophils % 0.8 % (0.1-12.0); Hematocrit 40.8 % (42.0-52.0); Hemoglobin 13.4 g/dL (14.1-18.0); Lymphocytes % 74.6 % (10-50); Mean Corpuscular HGB Conc 32.9 g/dL (31.8-35.4); Mean Corpuscular Hemoglobin 30.8 pg (27.0-31.2); Mean Corpuscular Volume 93.5 fl (80-94); Mean Platelet Volume 8.7 fl (7.4-10.4); Monocytes # 0.5 K/mm3 (0.1-1.0); Monocytes % 1.9 % (1.7-9.3); Neutrophils # 5.8 K/mm3 (1.8-7.8); Neutrophils % 21.7 % (37.0-80.0); Platelet Count 228 K/mm3 (142-424); Red Blood Count 4.36 M/mm3 (4.60-6.20); Red Cell Distribution Width 14.4 % (11.5-17.5); White Blood Count 26.8 K/mm3 (4.8-10.8)
[2021-10-15 08:46] LABS: MANUAL DIFFERENTIAL MANUAL DIFFERENTIAL (MANUAL DIFF)
[2021-10-15 08:48] LABS: Alanine Aminotransferase 31 U/L (12-78); Albumin Level 4.2 g/dl (3.5-5.0); Albumin/Globulin Ratio 1.5 (1.1-1.8); Alkaline Phosphatase 66 U/L (38-126); Anion Gap 12.2 mEq/L (5-15); Aspartate Amino Transferase 44 U/L (17-59); Bilirubin,Total 0.9 mg/dl (0.2-1.3); Blood Urea Nitrogen 10 mg/dl (9-20); Calcium 8.5 mg/dl (8.4-10.2); Carbon Dioxide 25 mmol/L (22.0-30.0); Chloride 105 mmol/L (98-107); Creatinine Clearance Estimated 78 mL/min (50-200); Estimated Glomerular Filt Rate 93 ml/min (>60); GFR (African American) 113 ML/MIN (>60); Globulin 2.8 g/dL (1.3-3.2); Glucose 130 mg/dl (74-100); Potassium 4.2 mmoL/L (3.5-5.1); Sodium 138 mmol/L (136-145)
[2021-10-15 09:51] LABS: Lymphocytes % 81 % (10-50); Monocytes % 4 % (2-9); Neutrophils % 15 % (42-76); Nucleated Red Blood Cells 2; Platelet Estimate Normal; Total Cells Counted 100
== END 2021-10-15 08:26 | disposition home or self-care (01) ==
LOC: INF 08:14
PROVIDERS: PCP Family Medicine; Visit Provider Internal Medicine Medical Oncology
DX: C91.10 Chronic lymphocytic leukemia of B-cell type not having achieved remission (principal)
CPT/HCPCS: 80053; 85007; 85025

== ENCOUNTER 2021-11-01 07:35 | Outpatient (CLI) | payer MEDICARE, SELFPAY ==
[2021-11-01 08:07] VITALS: BMI 29.0
--- NOTE | 2021-11-01 08:10 | PC.NURSE ---
0810-pt here for lab draw via peripheral stick; pt to oncology appointment.
[2021-11-01 08:24] LABS: Basophils # 0.6 K/mm3 (0-0.2); Basophils % 1.8 % (0.1-2.0); Eosinophils # 0.2 K/mm3 (0.0-0.4); Eosinophils % 0.7 % (0.1-12.0); Hematocrit 41.5 % (42.0-52.0); Hemoglobin 13.7 g/dL (14.1-18.0); Lymphocytes # 24.8 K/mm3 (0.7-4.5); Lymphocytes % 76.6 % (10-50); Mean Corpuscular HGB Conc 33.1 g/dL (31.8-35.4); Mean Corpuscular Hemoglobin 31.1 pg (27.0-31.2); Mean Corpuscular Volume 93.8 fl (80-94); Mean Platelet Volume 8.7 fl (7.4-10.4); Monocytes # 0.6 K/mm3 (0.1-1.0); Monocytes % 1.8 % (1.7-9.3); Neutrophils # 6.2 K/mm3 (1.8-7.8); Neutrophils % 19.1 % (37.0-80.0); Platelet Count 224 K/mm3 (142-424); Red Blood Count 4.42 M/mm3 (4.60-6.20); White Blood Count 32.4 K/mm3 (4.8-10.8)
[2021-11-01 08:32] LABS: Chloride 105 mmol/L (98-107); Potassium 4.5 mmoL/L (3.5-5.1); Sodium 137 mmol/L (136-145)
[2021-11-01 08:34] LABS: Blood Urea Nitrogen 14 mg/dl (9-20); Creatinine Clearance Estimated 78 mL/min (50-200); Estimated Glomerular Filt Rate 72 ml/min (>60); GFR (African American) 87 ML/MIN (>60); MANUAL DIFFERENTIAL MANUAL DIFFERENTIAL (MANUAL DIFF)
[2021-11-01 08:35] LABS: Alanine Aminotransferase 26 U/L (12-78); Albumin Level 3.8 g/dl (3.5-5.0); Albumin/Globulin Ratio 1.6 (1.1-1.8); Alkaline Phosphatase 65 U/L (38-126); Anion Gap 9.5 mEq/L (5-15); Aspartate Amino Transferase 44 U/L (17-59); Bilirubin,Total 0.8 mg/dl (0.2-1.3); Calcium 8.1 mg/dl (8.4-10.2); Carbon Dioxide 27 mmol/L (22.0-30.0); Globulin 2.4 g/dL (1.3-3.2); Glucose 131 mg/dl (74-100); Total Protein,Serum 6.2 g/dl (6.3-8.2)
[2021-11-01 08:58] LABS: Lymphocytes % 69 % (10-50); Monocytes % 2 % (2-9); Neutrophils % 25 % (42-76); Total Cells Counted 100
[2021-11-01 09:02] LABS: Platelet Estimate Normal; RBC Morphology Normal
== END 2021-11-01 08:15 | disposition home or self-care (01) ==
LOC: INF 07:36
PROVIDERS: PCP Family Medicine; Visit Provider Internal Medicine Medical Oncology
DX: C91.10 Chronic lymphocytic leukemia of B-cell type not having achieved remission (principal)
CPT/HCPCS: 80053; 85007; 85025

== ENCOUNTER 2021-11-18 07:58 | Outpatient (CLI) | payer MEDICARE, SELFPAY ==
[2021-11-18 08:13] VITALS: BMI 28.7
--- NOTE | 2021-11-18 08:28 | PC.NURSE ---
0820 CBC/CMP drawn per L AC x 1 stick/ patient here only for appointment with Dr. Rodrigues this am.
[2021-11-18 08:33] LABS: Basophils # 0.7 K/mm3 (0-0.2); Basophils % 2.4 % (0.1-2.0); Eosinophils # 0.2 K/mm3 (0.0-0.4); Eosinophils % 0.5 % (0.1-12.0); Hemoglobin 13.9 g/dL (14.1-18.0); Lymphocytes # 21.7 K/mm3 (0.7-4.5); Lymphocytes % 76.9 % (10-50); Mean Corpuscular HGB Conc 32.3 g/dL (31.8-35.4); Mean Corpuscular Hemoglobin 31.5 pg (27.0-31.2); Mean Corpuscular Volume 97.5 fl (80-94); Mean Platelet Volume 9.5 fl (7.4-10.4); Monocytes # 0.7 K/mm3 (0.1-1.0); Monocytes % 2.3 % (1.7-9.3); Neutrophils # 5.1 K/mm3 (1.8-7.8); Neutrophils % 17.9 % (37.0-80.0); Platelet Count 202 K/mm3 (142-424); Red Blood Count 4.41 M/mm3 (4.60-6.20); Red Cell Distribution Width 14.2 % (11.5-17.5); White Blood Count 28.3 K/mm3 (4.8-10.8)
[2021-11-18 08:34] LABS: Chloride 105 mmol/L (98-107); Potassium 4.1 mmoL/L (3.5-5.1); Sodium 137 mmol/L (136-145)
[2021-11-18 08:37] LABS: Alanine Aminotransferase 25 U/L (12-78); Albumin Level 3.7 g/dl (3.5-5.0); Albumin/Globulin Ratio 1.5 (1.1-1.8); Alkaline Phosphatase 62 U/L (38-126); Anion Gap 9.1 mEq/L (5-15); Aspartate Amino Transferase 37 U/L (17-59); Bilirubin,Total 0.8 mg/dl (0.2-1.3); Blood Urea Nitrogen 12 mg/dl (9-20); Calcium 7.8 mg/dl (8.4-10.2); Carbon Dioxide 27 mmol/L (22.0-30.0); Creatinine Clearance Estimated 77 mL/min (50-200); Estimated Glomerular Filt Rate 81 ml/min (>60); GFR (African American) 98 ML/MIN (>60); Globulin 2.4 g/dL (1.3-3.2); Glucose 117 mg/dl (74-100); Total Protein,Serum 6.1 g/dl (6.3-8.2)
[2021-11-18 08:45] LABS: MANUAL DIFFERENTIAL MANUAL DIFFERENTIAL (MANUAL DIFF)
[2021-11-18 09:12] LABS: Lymphocytes % 79 % (10-50); Macrocytosis 1+; Monocytes % 3 % (2-9); Neutrophils % 18 % (42-76); Platelet Estimate Normal; Total Cells Counted 100
== END 2021-11-18 08:40 | disposition home or self-care (01) ==
LOC: INF 07:59
PROVIDERS: PCP Family Medicine; Visit Provider Internal Medicine Medical Oncology
DX: C91.10 Chronic lymphocytic leukemia of B-cell type not having achieved remission (principal); D64.9 Anemia, unspecified
CPT/HCPCS: 80053; 85007; 85025

== ENCOUNTER 2021-12-02 11:31 | Outpatient (CLI) | payer MEDICARE, SELFPAY ==
[2021-12-02 11:35] VITALS: BMI 28.4
--- NOTE | 2021-12-02 11:37 | PC.NURSE ---
pt presents to day as an add on visit for Dr. Rodrigues in oncology clinic. Pt here to have blood drawn for labs as ordered prior to appt. Pt accessed per venipuncture by Lucila De La Torre RN to [facility] with a butterfly needle. Blood obtained for specimens needed-spec sent to lab for analysis. Site secured with 2x2 gauze and coban after needle withdrawl. pt sent to oncology clinic for appt.
[2021-12-02 11:49] LABS: Basophils # 0.6 K/mm3 (0-0.2); Basophils % 1.8 % (0.1-2.0); Eosinophils # 0.2 K/mm3 (0.0-0.4); Eosinophils % 0.7 % (0.1-12.0); Hematocrit 42.4 % (42.0-52.0); Hemoglobin 14.4 g/dL (14.1-18.0); Lymphocytes # 27.6 K/mm3 (0.7-4.5); Lymphocytes % 75.9 % (10-50); Mean Corpuscular Hemoglobin 31.7 pg (27.0-31.2); Mean Corpuscular Volume 93.3 fl (80-94); Mean Platelet Volume 8.9 fl (7.4-10.4); Monocytes # 0.6 K/mm3 (0.1-1.0); Monocytes % 1.6 % (1.7-9.3); Neutrophils # 7.3 K/mm3 (1.8-7.8); Neutrophils % 20.1 % (37.0-80.0); Platelet Count 222 K/mm3 (142-424); Red Blood Count 4.54 M/mm3 (4.60-6.20); Red Cell Distribution Width 14.2 % (11.5-17.5); White Blood Count 36.4 K/mm3 (4.8-10.8)
[2021-12-02 11:51] LABS: MANUAL DIFFERENTIAL MANUAL DIFFERENTIAL (MANUAL DIFF)
[2021-12-02 11:54] LABS: Chloride 107 mmol/L (98-107); Potassium 4.5 mmoL/L (3.5-5.1); Sodium 137 mmol/L (136-145)
[2021-12-02 11:57] LABS: Alanine Aminotransferase 32 U/L (12-78); Albumin Level 3.8 g/dl (3.5-5.0); Albumin/Globulin Ratio 1.5 (1.1-1.8); Alkaline Phosphatase 60 U/L (38-126); Anion Gap 11.5 mEq/L (5-15); Aspartate Amino Transferase 43 U/L (17-59); Bilirubin,Total 0.7 mg/dl (0.2-1.3); Blood Urea Nitrogen 17 mg/dl (9-20); Calcium 9.2 mg/dl (8.4-10.2); Carbon Dioxide 23 mmol/L (22.0-30.0); Creatinine Clearance Estimated 76 mL/min (50-200); Estimated Glomerular Filt Rate 81 ml/min (>60); GFR (African American) 98 ML/MIN (>60); Globulin 2.5 g/dL (1.3-3.2); Glucose 120 mg/dl (74-100); Total Protein,Serum 6.3 g/dl (6.3-8.2)
[2021-12-02 12:17] LABS: Lymphocytes % 77 % (10-50); Monocytes % 1 % (2-9); Neutrophils % 19 % (42-76); Total Cells Counted 100
[2021-12-02 12:20] LABS: Platelet Estimate Normal; RBC Morphology Normal
[2021-12-02 13:50] VITALS: BP 127/62; PULSE 60; RESP 16; O2SAT 99
[2021-12-02 14:09] VITALS: BP 131/64; PULSE 62; O2SAT 99
== END 2021-12-02 14:09 | disposition home or self-care (01) ==
LOC: INF 11:32
PROVIDERS: PCP Family Medicine; Visit Provider Internal Medicine Medical Oncology
DX: C91.10 Chronic lymphocytic leukemia of B-cell type not having achieved remission (principal)
CPT/HCPCS: 80053; 85007; 85025; 96360; 96374; J2405

== ENCOUNTER 2021-12-16 08:48 | Outpatient (CLI) | payer MEDICARE, SELFPAY ==
[2021-12-16 09:03] VITALS: BMI 27.8
--- NOTE | 2021-12-16 09:08 | PC.NURSE ---
0908-collected labs via peripheral stick; pt to oncology appointment.
[2021-12-16 09:16] LABS: Basophils # 0.9 K/mm3 (0-0.2); Basophils % 1.9 % (0.1-2.0); Eosinophils # 0.3 K/mm3 (0.0-0.4); Eosinophils % 0.6 % (0.1-12.0); Hematocrit 42.7 % (42.0-52.0); Hemoglobin 14.5 g/dL (14.1-18.0); Lymphocytes # 39.3 K/mm3 (0.7-4.5); Lymphocytes % 83.8 % (10-50); Mean Corpuscular Hemoglobin 31.4 pg (27.0-31.2); Mean Corpuscular Volume 92.4 fl (80-94); Mean Platelet Volume 9.1 fl (7.4-10.4); Monocytes # 0.7 K/mm3 (0.1-1.0); Monocytes % 1.5 % (1.7-9.3); Neutrophils # 5.7 K/mm3 (1.8-7.8); Platelet Count 223 K/mm3 (142-424); Red Blood Count 4.62 M/mm3 (4.60-6.20); Red Cell Distribution Width 14.1 % (11.5-17.5)
[2021-12-16 09:17] LABS: Chloride 106 mmol/L (98-107); Neutrophils % 12.1 % (37.0-80.0); Sodium 135 mmol/L (136-145); White Blood Count 46.8 K/mm3 (4.8-10.8)
[2021-12-16 09:18] LABS: MANUAL DIFFERENTIAL MANUAL DIFFERENTIAL (MANUAL DIFF); Potassium 5.3 mmoL/L (3.5-5.1)
--- NOTE | 2021-12-16 09:19 | PC.NURSE ---
0917 Katelyn Syed called GAYE Edmond at 0917 to report WBC 46.8. RN repeated and verified patient name, date of , and lab value. Result called to Dr. Rodrigues and now new orders received at this time/patient to see Dr. Rodrigues this am.
[2021-12-16 09:20] LABS: Alanine Aminotransferase 29 U/L (12-78); Albumin Level 3.9 g/dl (3.5-5.0); Albumin/Globulin Ratio 1.6 (1.1-1.8); Alkaline Phosphatase 65 U/L (38-126); Anion Gap 12.3 mEq/L (5-15); Aspartate Amino Transferase 42 U/L (17-59); Bilirubin,Total 0.7 mg/dl (0.2-1.3); Blood Urea Nitrogen 17 mg/dl (9-20); Calcium 8.9 mg/dl (8.4-10.2); Carbon Dioxide 22 mmol/L (22.0-30.0); Creatinine Clearance Estimated 57 mL/min (50-200); Estimated Glomerular Filt Rate 53 ml/min (>60); GFR (African American) 64 ML/MIN (>60); Globulin 2.5 g/dL (1.3-3.2); Glucose 143 mg/dl (74-100); Total Protein,Serum 6.4 g/dl (6.3-8.2)
[2021-12-16 09:33] LABS: Lymphocytes % 70 % (10-50); Monocytes % 6 % (2-9); Neutrophils % 24 % (42-76); Total Cells Counted 100
[2021-12-16 09:34] LABS: Platelet Estimate Normal; RBC Morphology Normal
== END 2021-12-16 09:10 | disposition home or self-care (01) ==
LOC: INF 08:49
PROVIDERS: PCP Family Medicine; Visit Provider Internal Medicine Medical Oncology
DX: C91.10 Chronic lymphocytic leukemia of B-cell type not having achieved remission (principal)
CPT/HCPCS: 36415; 80053; 85007; 85025

== ENCOUNTER 2021-12-20 07:42 | Outpatient (CLI) | payer MEDICARE, SELFPAY ==
[2021-12-20] VITALS (16 sets, daily range): BP systolic 134–167; BP diastolic 52–73; PULSE 51–79; RESP 18; TEMP 35.6; O2SAT 97
== END 2021-12-20 12:45 | disposition home or self-care (01) ==
LOC: INF 07:43
PROVIDERS: PCP Family Medicine; Visit Provider Internal Medicine Medical Oncology
DX: Z51.11 Encounter for antineoplastic chemotherapy (principal); C91.10 Chronic lymphocytic leukemia of B-cell type not having achieved remission
CPT/HCPCS: 96413; 96415; J9312

== ENCOUNTER 2021-12-27 22:51 | Emergency (ER) | payer MEDICARE, SELFPAY ==
--- NOTE | 2021-12-27 22:57 | ECG_ITS ---
APPROVED REPORT Exam: Resting ECG HR:87 bpm ECG Measurements Heart Rate 87 AXES MN 187 P 66 QRSd 105 QRS -8 QT 368 T 87 QTc 413 Conclusion SINUS RHYTHM LEFT VENTRICULAR HYPERTROPHY AND ST-T CHANGE [VOLTAGE CRITERIA PLUS ST/T ABNORMALITY] ABNORMAL ECG UNCONFIRMED REPORT Electronically signed by : Gil Millan MD 12/28/2021 21:13:30
[2021-12-27 23:02] VITALS: BP 166/84; PULSE 87; RESP 10; O2SAT 89
[2021-12-27 23:06] VITALS: BP 178/82; PULSE 90; RESP 18; TEMP 36.3; O2SAT 97; BMI 27.5
--- NOTE | 2021-12-27 23:15 | XR_ITS ---
PROCEDURE INFORMATION: Exam: XR Chest Exam date and time: 12/27/2021 11:28 PM Age: 81 years old Clinical indication: Shortness of breath; Additional info: SOA TECHNIQUE: Imaging protocol: XR of the chest. Views: 2 views. COMPARISON: CR XR CHEST PORTABLE 09/04/2019 6:31 AM FINDINGS: Lungs: Coarse interstitial lung markings likely chronic. No consolidation. Pleural spaces: Unremarkable. No pleural effusion. No pneumothorax. Heart/Mediastinum: Unremarkable. No cardiomegaly. Bones/joints: Unremarkable. IMPRESSION: No acute findings.
[2021-12-27 23:26] LABS: Basophils # 0.4 K/mm3 (0-0.2); Basophils % 1.9 % (0.1-2.0); Eosinophils # 0.3 K/mm3 (0.0-0.4); Eosinophils % 1.3 % (0.1-12.0); Hematocrit 47.1 % (42.0-52.0); Hemoglobin 16.4 g/dL (14.1-18.0); Lymphocytes # 11.4 K/mm3 (0.7-4.5); Lymphocytes % 54.3 % (10-50); Mean Corpuscular HGB Conc 34.9 g/dL (31.8-35.4); Mean Corpuscular Hemoglobin 31.3 pg (27.0-31.2); Mean Corpuscular Volume 89.8 fl (80-94); Mean Platelet Volume 8.8 fl (7.4-10.4); Monocytes # 0.9 K/mm3 (0.1-1.0); Monocytes % 4.5 % (1.7-9.3); Platelet Count 252 K/mm3 (142-424); Red Blood Count 5.24 M/mm3 (4.60-6.20)
[2021-12-27 23:27] LABS: MANUAL DIFFERENTIAL MANUAL DIFFERENTIAL (MANUAL DIFF)
[2021-12-27 23:30] VITALS: BP 145/62; PULSE 77; RESP 9; O2SAT 91
[2021-12-27 23:30] LABS: Anion Gap 13.4 mEq/L (5-15); Blood Urea Nitrogen 25 mg/dl (9-20); Calcium 9.1 mg/dl (8.4-10.2); Carbon Dioxide 23 mmol/L (22.0-30.0); Chloride 105 mmol/L (98-107); Creatinine Clearance Estimated 74 mL/min (50-200); Estimated Glomerular Filt Rate 72 ml/min (>60); GFR (African American) 87 ML/MIN (>60); Glucose 150 mg/dl (74-100); Magnesium 1.5 mg/dl (1.6-2.3); Potassium 4.4 mmoL/L (3.5-5.1); Sodium 137 mmol/L (136-145)
[2021-12-27 23:35] LABS: C-Reactive Protein 0.7 mg/L (0-4)
--- NOTE | 2021-12-27 23:41 | HMH.EDSOB ---
ED Disposition Clinical Impression: CLL (chronic lymphocytic leukemia) Dyspnea Qualifiers: Dyspnea type: unspecified Qualified Code(s): R06.00 - Dyspnea, unspecified Disposition: Home, Self-Care Condition on Discharge: Good Instructions: DI for Shortness of Breath Additional Instructions: fluids and see pcp for follow up Referrals: Galindo Cueva [Primary Care Provider] - - Critical Care Critical Care Time: No Attestation: On 12/27/21, the high probability of a clinically significant, sudden or life threatening deterioration of the following system(s) required my full and direct attention, intervention and personal management. The time I documented below is in addition to time spent performing reported procedures but includes the following listed in this critical care notation. Medical Decision Making - Medical Records Medical records reviewed: Yes: I reviewed the patient's medical records. - Bartolo Inquiry Pt receiving controlled substance: No Vital Signs: 12/27/21 23:06 Temperature 97.4 F L Temperature Source Oral Pulse Rate [Apical] 90 Respiratory Rate 18 Blood Pressure [Right Arm] 178/82 H Blood Pressure Mean [Right Arm] 114 Blood Pressure Source [Right Arm] Automatic Cuff Blood Pressure Position [Right Arm] Sitting 02 Sat by Pulse Oximetry 97 Oxygen Delivery Method Room Air - Lab Data Lab results reviewed: Yes: I reviewed the patient's lab results. Lab Results 12/27/21 23:04: WBC 21.0 H*, RBC 5.24, Hgb 16.4, Hct 47.1, MCV 89.8, MCH 31.3 H, MCHC 34.9, RDW 14.0, Plt Count 252, MPV 8.8, Neut % (Auto) 38.0, Lymph % (Auto) 54.3 H, [place] % (Auto) 4.5, Eos % (Auto) 1.3, Baso % (Auto) 1.9, Neut # (Auto) 8.0 H, Lymph # (Auto) 11.4 H, [place] # (Auto) 0.9, Eos # (Auto) 0.3, Baso # (Auto) 0.4 H, Total Counted 100, Neutrophils % (Manual) 41 L, Lymphocytes % (Manual) 56 H, Monocytes % (Manual) 2, Eosinophils % (Manual) 1, Platelet Estimate Normal, RBC Morphology Normal, ESR 4 12/27/21 23:04: Sodium 137, Potassium 4.4, Chloride 105, Carbon Dioxide 23, Anion Gap 13.4, BUN 25 H, Creatinine 1.00, Estimated Creat Clear 74, Estimated GFR 72, Est GFR ( Amer) 87, Glucose 150 H, Calcium 9.1, Magnesium 1.5 L, Troponin I < 0.01, C-Reactive Protein 0.7, Procalcitonin 0.095 Result diagrams: 12/27/21 23:04 12/27/21 23:04 Orders (Tests/Meds): ED MEDICATIONS Generic Name Dose Route Start Last Admin Trade Name Freq PRN Reason Stop Dose Admin Sodium Chloride 1,000 mls @ 999 mls/hr 12/27/21 23:30 12/27/21 23:19 Sod Chlor 0.9% 1000ml Bag IV 12/28/21 00:30 999 mls/hr .Q1H1M URIAH Administration Discontinued Medications Generic Name Dose Route Start Last Admin Trade Name Freq PRN Reason Stop Dose Admin Ondansetron HCl 4 mg 12/27/21 23:17 12/27/21 23:19 Ondansetron 4mg/2ml Vial IV 12/27/21 23:18 4 mg ONCE ONE Administration ORDERS Category Date Time Status Troponin I Q3H Lab 12/28/21 02:30 Ordered Troponin I Q3H Lab 12/28/21 05:30 Ordered - Radiology Data #1 Image(s): Chest Image Reviewed: Yes I have reviewed radiologist's interpretation Preliminary Findings: Normal/NAD - ECG Data Tracing #1 Normal Sinus Rhythm: Yes Ischemic changes: non-specific ST-T wave changes Medical Decision Narrative: has stable exam and labs and will call pcp and crd in am Resp/SOB HPI - General Chief Complaint: Shortness of Breath/Dyspnea Stated Complaint: SOB.Luekemia Time Seen by Provider: 12/27/21 23:41 Mode of Arrival: Ambulatory Source of Information: Patient, Medical Record Limitations: No Limitations Description of Symptoms (Recalled from ER Triage Doc. by RN): Patient c/o soa with nausea and feeling flush for the prior two days. Denies any vomiting or diarrhea. - History of Present Illness pt with feeling flush and sob over the last 2 days - hx of cll- no chest pain MD Complaint: shortness of breath Onset (ago): day(s) Severity: moderate Known history of: o
[2021-12-27 23:44] LABS: Troponin I < 0.01 ng/ml (0.00-0.034)
[2021-12-27 23:49] LABS: Procalcitonin 0.095 ng/mL (0.0-2.0)
[2021-12-27 23:50] LABS: Erythrocyte Sedimentation Rate 4 mm/hr (0-20)
[2021-12-28] VITALS: BP 145/65; PULSE 76; RESP 10; O2SAT 95
[2021-12-28 00:02] LABS: Eosinophils % 1 % (0-3); Lymphocytes % 56 % (10-50); Monocytes % 2 % (2-9); Neutrophils % 41 % (42-76); Total Cells Counted 100
[2021-12-28 00:03] LABS: Platelet Estimate Normal; RBC Morphology Normal
[2021-12-28 00:30] VITALS: BP 128/63; PULSE 73; RESP 13; O2SAT 95
[2021-12-28 01:06] VITALS: BP 123/67; PULSE 83; RESP 16; TEMP 36.7; O2SAT 95
== END 2021-12-28 01:13 | disposition home or self-care (01) ==
PROVIDERS: Emergency Provider Emergency Medicine; PCP Family Medicine
DX: R06.02 Shortness of breath (principal); R11.0 Nausea; I10 Essential (primary) hypertension; I25.2 Old myocardial infarction; I25.10 Atherosclerotic heart disease of native coronary artery without angina pectoris; R01.1 Cardiac murmur, unspecified; E11.9 Type 2 diabetes mellitus without complications; E78.5 Hyperlipidemia, unspecified; M19.90 Unspecified osteoarthritis, unspecified site; N40.0 Benign prostatic hyperplasia without lower urinary tract symptoms; Z79.84 Long term (current) use of oral hypoglycemic drugs; Z79.899 Other long term (current) drug therapy; Z88.0 Allergy status to penicillin; Z85.6 Personal history of leukemia; Z92.21 Personal history of antineoplastic chemotherapy; Z87.891 Personal history of nicotine dependence
CPT/HCPCS: 71046; 80048; 83735; 84145; 84484; 85007; 85025; 85651; 86140; 93005; 96361; 96374; 99285; J2405

== ENCOUNTER 2021-12-28 07:54 | Outpatient (CLI) | payer MEDICARE, SELFPAY ==
[2021-12-28] VITALS (15 sets, daily range): BP systolic 126–165; BP diastolic 57–85; PULSE 55–80; RESP 18; TEMP 36.6; O2SAT 97; BMI 27.9
--- NOTE | 2021-12-28 08:39 | PC.NURSE ---
0839-notified md about pt's er visit yesterday for hypotension and dyspnea; md ok to continue with treatment.
== END 2021-12-28 13:50 | disposition home or self-care (01) ==
LOC: INF 07:56
PROVIDERS: PCP Family Medicine; Visit Provider Internal Medicine Medical Oncology
DX: C91.10 Chronic lymphocytic leukemia of B-cell type not having achieved remission (principal); Z51.11 Encounter for antineoplastic chemotherapy; R06.00 Dyspnea, unspecified
CPT/HCPCS: 96413; 96415; J9312

== ENCOUNTER 2022-01-06 09:40 | Outpatient (CLI) | payer MEDICARE, SELFPAY ==
[2022-01-06 09:47] VITALS: BMI 27.5
[2022-01-06 10:11] LABS: Chloride 105 mmol/L (98-107); Potassium 4.4 mmoL/L (3.5-5.1); Sodium 136 mmol/L (136-145)
[2022-01-06 10:14] LABS: Alanine Aminotransferase 37 U/L (12-78); Albumin Level 3.6 g/dl (3.5-5.0); Albumin/Globulin Ratio 1.2 (1.1-1.8); Alkaline Phosphatase 68 U/L (38-126); Anion Gap 12.4 mEq/L (5-15); Aspartate Amino Transferase 36 U/L (17-59); Bilirubin,Total 0.6 mg/dl (0.2-1.3); Blood Urea Nitrogen 50 mg/dl (9-20); Calcium 8.8 mg/dl (8.4-10.2); Carbon Dioxide 23 mmol/L (22.0-30.0); Creatinine Clearance Estimated 61 mL/min (50-200); Estimated Glomerular Filt Rate 58 ml/min (>60); GFR (African American) 71 ML/MIN (>60); Globulin 2.9 g/dL (1.3-3.2); Glucose 181 mg/dl (74-100); Total Protein,Serum 6.5 g/dl (6.3-8.2)
[2022-01-06 10:15] LABS: Basophils # 0.2 K/mm3 (0-0.2); Basophils % 1.2 % (0.1-2.0); Eosinophils # 0.1 K/mm3 (0.0-0.4); Eosinophils % 0.7 % (0.1-12.0); Hematocrit 37.9 % (42.0-52.0); Hemoglobin 12.6 g/dL (14.1-18.0); Lymphocytes # 11.2 K/mm3 (0.7-4.5); Lymphocytes % 61.7 % (10-50); Mean Corpuscular HGB Conc 33.1 g/dL (31.8-35.4); Mean Corpuscular Hemoglobin 30.9 pg (27.0-31.2); Mean Corpuscular Volume 93.5 fl (80-94); Mean Platelet Volume 9.4 fl (7.4-10.4); Monocytes # 0.5 K/mm3 (0.1-1.0); Monocytes % 2.7 % (1.7-9.3); Neutrophils # 6.1 K/mm3 (1.8-7.8); Neutrophils % 33.7 % (37.0-80.0); Platelet Count 257 K/mm3 (142-424); Red Blood Count 4.06 M/mm3 (4.60-6.20); Red Cell Distribution Width 13.9 % (11.5-17.5); White Blood Count 18.1 K/mm3 (4.8-10.8)
[2022-01-06 10:17] LABS: MANUAL DIFFERENTIAL MANUAL DIFFERENTIAL (MANUAL DIFF)
[2022-01-06 10:33] LABS: Eosinophils % 1 % (0-3); Lymphocytes % 60 % (10-50); Monocytes % 2 % (2-9); Neutrophils % 37 % (42-76); Total Cells Counted 100
[2022-01-06 10:34] LABS: Platelet Estimate Normal
== END 2022-01-06 12:02 | disposition home or self-care (01) ==
LOC: INF 09:41
PROVIDERS: PCP Family Medicine; Visit Provider Internal Medicine Medical Oncology
DX: C91.10 Chronic lymphocytic leukemia of B-cell type not having achieved remission (principal)
CPT/HCPCS: 36415; 80053; 85007; 85025

== ENCOUNTER 2022-01-07 07:11 | Inpatient (IN) | payer MEDICARE, SELFPAY ==
[2022-01-07] VITALS (42 sets, daily range): BP systolic 88–157; BP diastolic 21–97; PULSE 82–136; RESP 14–22; TEMP 36.1–37.1; O2SAT 91–100; BMI 27.9; BMI 29.9
--- NOTE | 2022-01-07 07:06 | ECG_ITS ---
APPROVED REPORT Exam: Resting ECG HR:110 bpm ECG Measurements Heart Rate 110 AXES NE 164 P 61 QRSd 100 QRS -14 QT 321 T 136 QTc 386 Conclusion SINUS TACHYCARDIA LEFT VENTRICULAR HYPERTROPHY AND ST-T CHANGE [VOLTAGE CRITERIA PLUS ST/T ABNORMALITY] ABNORMAL ECG UNCONFIRMED REPORT Electronically signed by : Gil Millan MD 01/08/2022 20:20:27
--- NOTE | 2022-01-07 07:12 | XR_ITS ---
FINAL REPORT CLINICAL HISTORY: WEAKNESS COMPARISON: 12/27/2021 FINDINGS: A single view of the chest was obtained. The heart is normal in size. The mediastinum is unremarkable. There are worsening right base opacities which may represent atelectasis or pneumonia. There is no pleural effusion. There is no pneumothorax. There is no acute osseous abnormality. IMPRESSION: Worsening right base opacities may represent atelectasis or pneumonia. Reviewed, Interpreted and Dictated by Jasiel Whittaker III, MD Transcribed by Perla Anderson Authenticated and [facility]
[2022-01-07 07:31] LABS: Basophils # 0.4 K/mm3 (0-0.2); Basophils % 1.1 % (0.1-2.0); Eosinophils # 0.1 K/mm3 (0.0-0.4); Eosinophils % 0.2 % (0.1-12.0); Hematocrit 27.8 % (42.0-52.0); Lymphocytes # 23.3 K/mm3 (0.7-4.5); Lymphocytes % 67.9 % (10-50); Mean Corpuscular HGB Conc 33.6 g/dL (31.8-35.4); Mean Corpuscular Hemoglobin 31.4 pg (27.0-31.2); Mean Corpuscular Volume 93.4 fl (80-94); Mean Platelet Volume 9.7 fl (7.4-10.4); Monocytes # 0.7 K/mm3 (0.1-1.0); Monocytes % 1.9 % (1.7-9.3); Platelet Count 326 K/mm3 (142-424); Red Blood Count 2.98 M/mm3 (4.60-6.20); Red Cell Distribution Width 13.9 % (11.5-17.5); White Blood Count 34.4 K/mm3 (4.8-10.8)
[2022-01-07 07:35] LABS: MANUAL DIFFERENTIAL MANUAL DIFFERENTIAL (MANUAL DIFF)
[2022-01-07 07:36] LABS: Hemoglobin 9.4 g/dL (14.1-18.0)
[2022-01-07 07:37] LABS: Chloride 106 mmol/L (98-107); Potassium 4.8 mmoL/L (3.5-5.1); Sodium 137 mmol/L (136-145)
[2022-01-07 07:39] LABS: Blood Urea Nitrogen 70 mg/dl (9-20); Creatinine Clearance Estimated 75 mL/min (50-200); Estimated Glomerular Filt Rate 72 ml/min (>60); GFR (African American) 87 ML/MIN (>60)
[2022-01-07 07:40] LABS: Alanine Aminotransferase 31 U/L (12-78); Albumin Level 3.2 g/dl (3.5-5.0); Albumin/Globulin Ratio 1.3 (1.1-1.8); Alkaline Phosphatase 48 U/L (38-126); Anion Gap 16.8 mEq/L (5-15); Aspartate Amino Transferase 30 U/L (17-59); Bilirubin,Total 0.4 mg/dl (0.2-1.3); Calcium 8.5 mg/dl (8.4-10.2); Carbon Dioxide 19 mmol/L (22.0-30.0); Globulin 2.5 g/dL (1.3-3.2); Glucose 239 mg/dl (74-100); Total Protein,Serum 5.7 g/dl (6.3-8.2)
[2022-01-07 07:42] LABS: POC Glucose,Bedside 241 (70-110)
[2022-01-07 07:52] LABS: Troponin I < 0.01 ng/ml (0.00-0.034)
[2022-01-07 08:00] LABS: Lymphocytes % 71 % (10-50); Monocytes % 4 % (2-9); Neutrophils % 25 % (42-76); Total Cells Counted 100
[2022-01-07 08:01] LABS: Microcytosis 1+; Platelet Estimate Normal
--- NOTE | 2022-01-07 08:25 | PC.NURSE ---
Dr. Deidre ricardo. Waiting on callback
--- NOTE | 2022-01-07 08:27 | HMH.EDGENADL ---
ED Disposition Clinical Impression: Acute blood loss anemia GI bleed Qualifiers: GI bleed type/associated pathology: melena Qualified Code(s): K92.1 - Melena Disposition: Admitted As Inpatient Condition on Discharge: Good - Critical Care Critical Care Time: No Attestation: On 01/07/22, the high probability of a clinically significant, sudden or life threatening deterioration of the following system(s) required my full and direct attention, intervention and personal management. The time I documented below is in addition to time spent performing reported procedures but includes the following listed in this critical care notation. Medical Decision Making - Bartolo Inquiry Pt receiving controlled substance: No Vital Signs: 01/07/22 06:53 Temperature 98 F Temperature Source Oral Pulse Rate [Radial] 129 H Respiratory Rate 20 Blood Pressure [Right Arm] 116/65 Blood Pressure Mean [Right Arm] 82 Blood Pressure Position [Right Arm] Sitting 02 Sat by Pulse Oximetry 99 Oxygen Delivery Method Room Air - Lab Data Lab Results 01/07/22 07:00: Crossmatch (AHG) See Detail 01/07/22 07:15: WBC 34.4 H* D, RBC 2.98 L D, Hgb 9.4 L D, Hct 27.8 L, MCV 93.4, MCH 31.4 H, MCHC 33.6, RDW 13.9, Plt Count 326 D, MPV 9.7, Neut % (Auto) 29.0 L, Lymph % (Auto) 67.9 H, [place] % (Auto) 1.9, Eos % (Auto) 0.2, Baso % (Auto) 1.1, Neut # (Auto) 10.0 H, Lymph # (Auto) 23.3 H, [place] # (Auto) 0.7, Eos # (Auto) 0.1, Baso # (Auto) 0.4 H, Total Counted 100, Neutrophils % (Manual) 25 L, Lymphocytes % (Manual) 71 H, Monocytes % (Manual) 4, Differential Comment , Platelet Estimate Normal, RBC Morphology Not Reportable, Microcytosis 1+ 01/07/22 07:15: Sodium 137, Potassium 4.8, Chloride 106, Carbon Dioxide 19 L, Anion Gap 16.8 H, BUN 70 H D, Creatinine 1.00, Estimated Creat Clear 75, Estimated GFR 72, Est GFR ( Amer) 87 D, Glucose 239 H D, Calcium 8.5, Total Bilirubin 0.4, AST 30, ALT 31, Alkaline Phosphatase 48, Troponin I < 0.01, Total Protein 5.7 L, Albumin 3.2 L D, Globulin 2.5, Albumin/Globulin Ratio 1.3 01/07/22 07:35: POC Glucose 241 H Result diagrams: 01/07/22 07:15 01/07/22 07:15 Orders (Tests/Meds): ED MEDICATIONS Generic Name Dose Route Start Last Admin Trade Name Freq PRN Reason Stop Dose Admin Pantoprazole Sodium 40 mg 01/07/22 09:00 01/07/22 08:37 Pantoprazole 40mg Vial IV 02/06/22 08:59 40 mg BID URIAH Administration Sodium Chloride 10 ml 01/07/22 08:32 01/07/22 08:38 Sodium Chloride 0.9% 10ml Flush Syringe IV 02/06/22 08:31 10 ml BIDP PRN Administration to Dilute Pantoprazole inj Discontinued Medications Generic Name Dose Route Start Last Admin Trade Name Freq PRN Reason Stop Dose Admin Lactated Ringer's 1,000 mls @ 999 mls/hr 01/07/22 07:15 01/07/22 07:27 Lactated Ringer's 1000 Ml Bag IV 01/07/22 08:15 999 mls/hr .Q1H1M URIAH Administration ORDERS Category Date Time Status PRBC [Red Blood Cells] Stat K 01/07/22 07:00 Ordered Type and Screen Stat K 01/07/22 07:00 Ordered Rapid PCR Covid and Flu A/B Stat Lab 01/07/22 08:36 Received Troponin I Q3H Lab 01/07/22 10:15 Ordered Troponin I Q3H Lab 01/07/22 13:15 Ordered Medical Decision Narrative: The patient is a 81 year old male with a history of CLL, GI bleed, CAD who presents to the ED with generalized weakness and melena. On arrival he is awake and alert. He is tachycardic to the 110s and his normotensive (SBP 100s). Labs including CBC, CMP, troponin were obtained as well as CXR. EKG shows sinus tachycardia, no evidence of ischemia - troponin negative and patient has had negative cath recently. Hemoglobin was 9.6 down from 12.4 yesterday - otherwise unremarkable. Likely with GI bleed. Type and screen was ordered and he was crossmatched for 2 units. CXR showed opacities - atelectasis vs infeciton - patient without fever or productive cough so will hold off on abx at the moment. WBC 34 which is consistent with CLL. Pat
[2022-01-07 08:41] LABS: Coronavirus 19, PCR Not Detected (NotDetected); Influenza A, PCR Not Detected (NotDetected); Influenza B, PCR Not Detected (NotDetected)
--- NOTE | 2022-01-07 08:45 | PC.NURSE ---
PT SITTING ON SIDE OF BED TO URINATE. PT C/O WEAKNESS, SOB WHILE SITTING UP. PT PALE, HR 136 PT LAID BACK IN BED STATES FEELING IMPROVED
--- NOTE | 2022-01-07 08:46 | PC.NURSE ---
Dr Joshi paged Dr Leos on phone with him.
--- NOTE | 2022-01-07 08:49 | PC.NURSE ---
notified care managment of admission, spoke with barb joseph, states pt is an obs admit
--- NOTE | 2022-01-07 09:29 | PC.NURSE ---
spoke with lab staff at this time, she was calling to confirm that pt will need irradiated PRBCs. confirmed with AG KESSLER, yes pt does need irradiated PRBCs r/t pt is on chemo. Lab staff states she will order blood products, they will have to come from AG celis MD notified
--- NOTE | 2022-01-07 09:47 | PC.NURSE ---
ATTEMPTED TO CALL REPORT
--- NOTE | 2022-01-07 10:09 | HMH.PHAINT ---
MEDICATION RECONCILIATION COMPLETED ON PATIENT USING EXTERNAL FILL HISTORY FROM PHARMACY. -NATHALY SANDY, KIMD
[2022-01-07 10:12] LABS: INR 1.03 (0.9-1.1); Prothrombin Time 11.6 seconds (10.1-12.5)
[2022-01-07 10:20] LABS: Hematocrit 25.4 % (42.0-52.0)
--- NOTE | 2022-01-07 10:20 | PC.NURSE ---
Veronique HUIZAR helping to pt to restroom
--- NOTE | 2022-01-07 10:27 | PC.NURSE ---
REPORT CALLED TO FLOOR
--- NOTE | 2022-01-07 10:32 | PC.NURSE ---
transported pt via wheelchair to second floor at this time
[2022-01-07 10:33] LABS: Troponin I < 0.01 ng/ml (0.00-0.034)
[2022-01-07 10:34] LABS: Hemoglobin 8.4 g/dL (14.1-18.0)
--- NOTE | 2022-01-07 10:58 | HMH.GSCON ---
*Admission Date: 01/07/22 *Reason for consult:: Anemia; melena *History of present illness: This is a 81-year-old gentleman with a known history of CLL who presented to the emergency department after an episode of significant black stool . Laboratory evaluation earlier this morning revealed a hemoglobin of 9.4. Hemoglobin repeated 1 hour ago noted to be 8.4. Baseline labs had been drawn yesterday as part of his ongoing follow-up with regard to history of CLL. Hemoglobin yesterday was 12.6. No hematemesis. No bright red blood per rectum. On February 19 of last year the patient underwent an esophagogastroduodenoscopy by Dr. Linus Ladna secondary to concerns for anemia/melena. No active source of bleeding was noted; however, the procedure was limited secondary to food particles within the gastric lumen. Review of Systems - Constitutional Denies chills - *Cardiovascular Denies chest pain - *Respiratory Denies cough - *Gastrointestinal Reports black, tarry stools - *Neurologic Reports weakness, Denies abnormal walking, Denies unsteadiness, Denies dizziness, Denies headache(s) [facility] History Medical History: Reports:: BPH, Cancer, Cardiomyopathy, Coronary Artery Disease, Diabetes Mellitus Type 2, Heart Murmur, Hyperlipidemia, Hypertension, Myocardial Infarction Denies:: Diabetes Mellitus Type 1, Lung Disease, MRSA *Have you ever received a pneumonia vaccine?: Yes *Have you received a flu vaccine this season?: Yes Other Medical History: Reports: Anemia, Chemotherapy, Sinus Problems, Other Other Surgeries: Yes: Cardiac Catheterization, Colonoscopy, Sinus Surgery, Other Amputation: No Fractures: No - *Social History Smoking Status: Former smoker Tobacco Type: cigarettes Alcohol Intake: never Alcohol Intake Frequency:: other Substance Use Type: denies use *Occupational Status:: retired Housing: house Household Members: significant other *Travel in the last 8 weeks: None Family Hx:: No significant family history Meds Home Medications Medication Instructions Recorded Confirmed Type Metoprolol Tartrate [Lopressor 100 100 mg PO BID 09/04/19 01/07/22 History mg Tablets] ezetimibe 10 mg tablet 10 mg PO DAILY 08/27/20 01/07/22 History Metformin HCl 500 mg PO BIDWMEAL 02/20/21 01/07/22 History Rosuvastatin Calcium 5 mg PO DAILY 02/20/21 01/07/22 History isosorbide mononitrate 60 mg 60 mg PO DAILY tab 11/18/21 01/07/22 History tablet,extended release 24 hr Pantoprazole Sodium [Protonix 40mg 40 mg PO DAILY 12/02/21 01/07/22 History tablet] NIFEdipine [Nifedipine ER] 60 mg PO HS 12/27/21 01/07/22 History losartan 100 mg tablet 100 mg PO HS tab 01/06/22 01/07/22 History nitroglycerin 0.4 mg sublingual 0.4 mg SL Q5MINP PRN tab 01/06/22 01/07/22 History tablet Allergies Allergy/AdvReac Type Severity Reaction Status Date / Time Penicillins [PENICILLINS] Allergy Unknown I-RASH Verified 01/06/22 12:02 Exam Vital signs and Labs for Last 24 Hours: Temp Pulse Resp BP Pulse Ox 98 F 116 H 20 141/63 H 98 01/07/22 06:53 01/07/22 09:50 01/07/22 09:50 01/07/22 09:50 01/07/22 09:50 Laboratory Results - last 24 hr 01/07/22 07:15: WBC 34.4 H* D, RBC 2.98 L D, Hgb 9.4 L D, Hct 27.8 L, MCV 93.4, MCH 31.4 H, MCHC 33.6, RDW 13.9, Plt Count 326 D, MPV 9.7, Neut % (Auto) 29.0 L, Lymph % (Auto) 67.9 H, [place] % (Auto) 1.9, Eos % (Auto) 0.2, Baso % (Auto) 1.1, Neut # (Auto) 10.0 H, Lymph # (Auto) 23.3 H, [place] # (Auto) 0.7, Eos # (Auto) 0.1, Baso # (Auto) 0.4 H, Total Counted 100, Neutrophils % (Manual) 25 L, Lymphocytes % (Manual) 71 H, Monocytes % (Manual) 4, Differential Comment , Platelet Estimate Normal, RBC Morphology Not Reportable, Microcytosis 1+ 01/07/22 07:15: Sodium 137, Potassium 4.8, Chloride 106, Carbon Dioxide 19 L, Anion Gap 16.8 H, BUN 70 H D, Creatinine 1.00, Estimated Creat Clear 75, Estimated GFR 72, Est GFR ( Amer) 87 D, Glucose 239 H D, Calcium 8.5, Total Bilirubin 0.4, AST 30, AL
--- NOTE | 2022-01-07 11:18 | P.CONPHA_ITS ---
[facility] Pharmacy VTE Monitoring - Patient Demographics Admission date: 01/07/22 Report Date: 01/07/22 Time: 11:18 Allergies/Adverse Reactions: Patient Allergies Penicillins [PENICILLINS] Allergy (Unknown, Verified 01/06/22 12:02) I-RASH Height: 1.78 m Weight: 88.451 kg Patient Problems: Current Active Problems Acute on chronic anemia (Acute) GI bleed (Acute) Acute blood loss anemia (Acute) Melena (Acute) - VTE Risk Labs: VTE Related Lab Results Hgb 8.4 g/dL (14.1-18.0) L D 01/07/22 10:00 Hct 25.4 % (42.0-52.0) L 01/07/22 10:00 Plt Count 326 K/mm3 (142-424) D 01/07/22 07:15 PT 11.6 seconds (10.1-12.5) 01/07/22 07:15 INR 1.03 (0.9-1.1) 01/07/22 07:15 BUN 70 mg/dl (9-20) H D 01/07/22 07:15 Creatinine 1.00 mg/dl (0.66-1.25) 01/07/22 07:15 Estimated Creat Clear 75 mL/min (50-200) 01/07/22 07:15 - Prophylaxis VTE Prophylaxis Ordered?: Yes Types of VTE Prophylaxis: TEDS Knee High Location of Applied Device: Bilateral Lower Extremeties
--- NOTE | 2022-01-07 11:24 | PC.NURSE ---
Pt ulises at this time for surgery
--- NOTE | 2022-01-07 11:47 | P.PN_ITS ---
[facility] [place] Anesthesia Checklist - Patient Identification Patient Identification: Arm Band - Structural Data Admitted From: Inpatient Planned Operative Procedure/s: EGD Consent for Planned Operative Procedure(s) Verified: Yes - NPO Status Verified Time NPO: 00:00 - Airway Assessment C-Spine Mobility Assessed: Yes TMJ Mobility Assessed: Yes Dentition: Poor Dentition - Neurological Assessment Level of Consciousness: Awake Hx Seizures: No Numbness or tingling in extremities: No - Anesthesia Plan Anesthesia Risk discussed: Yes Anesthesia Plan: Verified ASA Class: III Anesthesia Type: MAC [facility] [place] History Medical History: Reports:: BPH, Cancer, Cardiomyopathy, Coronary Artery Disease, Diabetes Mellitus Type 2, Heart Murmur, Hyperlipidemia, Hypertension, Myocardial Infarction Denies:: Diabetes Mellitus Type 1, Lung Disease, MRSA *Have you ever received a pneumonia vaccine?: Yes *Have you received a flu vaccine this season?: Yes Other Medical History: Reports: Anemia, Chemotherapy, Sinus Problems, Other Anesthesia experience/problems:: None Other Surgeries: Yes: Cardiac Catheterization, Colonoscopy, Sinus Surgery, Other Amputation: No Fractures: No - *Social History Smoking Status: Former smoker Tobacco Type: cigarettes Alcohol Intake: never Alcohol Intake Frequency:: other Substance Use Type: denies use *Occupational Status:: retired Housing: house Household Members: significant other *Travel in the last 8 weeks: None Family Hx:: No significant family history
--- NOTE | 2022-01-07 12:38 | XR_ITS ---
FINAL REPORT CLINICAL HISTORY: Possible aspiration COMPARISON: 5 hours earlier FINDINGS: A single portable view of the chest was obtained. The heart size and pulmonary vascularity are within normal limits. The mediastinum is within normal limits. There is mild left base atelectasis or pneumonia. The bony thorax is intact. IMPRESSION: Mild left base atelectasis or pneumonia. Reviewed, Interpreted and Dictated by Jasiel Whittaker III, MD Transcribed by Madai Jones Authenticated and [facility]
--- NOTE | 2022-01-07 12:46 | P.PCN_ITS ---
- Procedure: Date: 01/07/22 Patient Date of :: 1940 Procedure Performed:: Esophagogastroduodenoscopy with Hemoclip placement and epinephrine injection Indications:: Upper gastrointestinal hemorrhage Performing Provider:: James Malhotra MD Referring Provider:: Dr. Jiang Sedation:: Monitored anesthesia care Procedure:: After informed consent was obtained the patient was taken to the endoscopy suite. Sedation ensued after the patient was transferred to the left lateral decubitus position. Pulse, blood pressure, and oxygen saturation were monitored throughout the procedure. The endoscope was advanced beyond the duodenal bulb. Retroflexion within the gastric lumen was accomplished. The gastroscope was carefully removed and the patient was transferred to recovery in stable condition. Please see findings and specimens below for detail. Findings:: Large volume of blood clot throughout gastric lumen with increased volume at gastroesophageal junction and gastric cardia Sanguinous ooze from gastric cardia (Pj lesion vs. Dieulafoy lesion) - visualization limited secondary to blood clot Epinephrine injection (19 mL) and Hemoclip placement at site of sanguinous ooze Sanguinous ooze with apparent control after clip/epinephrine Specimens:: None Recommendations:: Continue proton pump inhibition Clear liquids (NPO p MN for possible repeat EGD) Continue transfusions as necessary Continue serial hemoglobin/hematocrit Consider transfer to tertiary care center secondary to patient's need for specialized blood products and limited resources Consider transfer to tertiary care center where large-volume gastric clot evacuation available Complications:: No immediate Estimated blood obtained (mL): 0 Comment:: Blood loss from procedure is 0; however, ongoing sanguinous ooze noted
--- NOTE | 2022-01-07 13:14 | PC.NURSE ---
Pt arrived back from at this time
--- NOTE | 2022-01-07 17:35 | HMH.HP ---
*Admission Date: 01/07/22 *Chief complaint: melenic stool, weakness *History of present illness: Mr. Matson is a 81-year-old gentleman who presented to the ER for waking up this morning drenched in sweat states he felt fatigued, and weak. He went to the bathroom soon thereafter and had very large melenic stool. Denies any jacky syncope. No nausea or vomiting. No coffee-ground emesis. He had a similar episode last year about the same time. This prompted him to go to the emergency room. On arrival he was found to be tachycardic, afebrile, alert and oriented. Labs obtained showing hemoglobin in the 9 range. Of note yesterday on labs his hemoglobin was approximately 12. 10 days ago his hemoglobin was 16. He notes having been admitted this past weekend at [facility] where he had a left heart cath. No stents were placed. No new anticoagulants were started however he does take aspirin daily. Of note he has marked leukocytosis on labs consistent with his history of CLL. Surgery consulted for EGD. Blood transfusion ordered. Patient admitted to medicine for further management. On evaluation this afternoon after arriving to the floor, he states he is feeling quite fatigued. He is dizzy when he stands. Short of breath with any exertion. Denies any abdominal pain, emesis, chest pain. Has already gone to the OR for an EGD. No further bowel movements though he states he feels like he needs to have one at this time. Is pleasant and oriented. Remains tachycardic. [facility] History I have reviewed the patient's past medical history: Yes Medical History: Reports:: BPH, Cancer, Cardiomyopathy, Coronary Artery Disease, Diabetes Mellitus Type 2, Heart Murmur, Hyperlipidemia, Hypertension, Myocardial Infarction Denies:: Diabetes Mellitus Type 1, Lung Disease, MRSA, Seizures *Have you ever received a pneumonia vaccine?: Yes *Have you received a flu vaccine this season?: Yes Other Medical History: Reports: Anemia, Chemotherapy, Sinus Problems, Other Anesthesia experience/problems:: None Other Surgeries: Yes: Cardiac Catheterization, Colonoscopy, Sinus Surgery, Other Amputation: No Fractures: No - *Social History Smoking Status: Former smoker Tobacco Type: cigarettes Alcohol Intake: never Alcohol Intake Frequency:: other Substance Use Type: denies use *Occupational Status:: retired Housing: house Household Members: significant other *Travel in the last 8 weeks: None Family Hx:: No significant family history Review of Systems - Review of Systems Review of systems:: pertinent systems reviewed and negative unless documented below (14 point review of systems performed, pertinent positives and negatives as per HPI) - *Neurologic Reports weakness, Denies abnormal walking, Denies unsteadiness, Denies dizziness, Denies headache(s) Meds Home Medications Medication Instructions Recorded Confirmed Type Metoprolol Tartrate [Lopressor 100 100 mg PO BID 09/04/19 01/07/22 History mg Tablets] ezetimibe 10 mg tablet 10 mg PO DAILY 08/27/20 01/07/22 History Metformin HCl 500 mg PO BIDWMEAL 02/20/21 01/07/22 History Rosuvastatin Calcium 5 mg PO DAILY 02/20/21 01/07/22 History isosorbide mononitrate 60 mg 60 mg PO DAILY tab 11/18/21 01/07/22 History tablet,extended release 24 hr Pantoprazole Sodium [Protonix 40mg 40 mg PO DAILY 12/02/21 01/07/22 History tablet] NIFEdipine [Nifedipine ER] 60 mg PO HS 12/27/21 01/07/22 History losartan 100 mg tablet 100 mg PO HS tab 01/06/22 01/07/22 History nitroglycerin 0.4 mg sublingual 0.4 mg SL Q5MINP PRN tab 01/06/22 01/07/22 History tablet Allergies Allergy/AdvReac Type Severity Reaction Status Date / Time Penicillins [PENICILLINS] Allergy Unknown I-RASH Verified 01/06/22 12:02 Exam Vital signs and Labs for Last 24 Hours: Temp Pulse Resp BP Pulse Ox 97 F L 111 H 20 124/62 94 L 01/07/22 13:10 01/07/22 13:10 01/07/22 13:10 01/07/22 13:10 01/07/22 13:10 Laboratory Res
[2022-01-07 17:44] LABS: POC Glucose,Bedside 272 (70-110)
[2022-01-07 18:22] LABS: Hematocrit 25.6 % (42.0-52.0); Hemoglobin 8.9 g/dL (14.1-18.0)
--- NOTE | 2022-01-07 18:34 | PC.NURSE ---
patient heart rate 122-137 provider notified and gave v.o. order for Metoprolol Tartrate 100mg BID starting at 1745
[2022-01-07 22:29] LABS: POC Glucose,Bedside 172 (70-110)
[2022-01-08] VITALS (16 sets, daily range): BP systolic 98–146; BP diastolic 52–77; PULSE 86–109; RESP 14–20; TEMP 36.4–37.2; O2SAT 91–100
[2022-01-08 00:49] LABS: Hematocrit 24.9 % (42.0-52.0); Hemoglobin 8.7 g/dL (14.1-18.0)
--- NOTE | 2022-01-08 03:18 | PC.NURSE ---
Spoke with MD wine consultant regarding 2 hour post H & H. MD orders to give 2nd bag of blood that is ordered.
[2022-01-08 06:36] LABS: POC Glucose,Bedside 159 (70-110)
--- NOTE | 2022-01-08 07:40 | HMH.ACPN2 ---
Internal Medicine - PN: Subj *Date: 01/08/22 *Time: 12:02 Interval history: Mr. Matson did well overnight. Had a single melenic stool. Minimal abdominal discomfort this morning. No significant shortness of breath. No oxygen requirement. No fever. Still dizzy when he gets up. Receiving second unit of packed red blood cells on exam this morning. Hemoglobin remained stable. No vomiting or hematemesis. Tolerating clear liquids. Surgery has seen him this morning, no plans for further EGD. Exam Vital signs and Labs for Last 24 Hours: Temp Pulse Resp BP Pulse Ox 97.9 F 98 H 14 116/64 100 01/08/22 06:30 01/08/22 06:30 01/08/22 06:30 01/08/22 06:30 01/08/22 06:30 Laboratory Results - last 24 hr 01/07/22 07:15: Total Counted 100, Neutrophils % (Manual) 25 L, Lymphocytes % (Manual) 71 H, Monocytes % (Manual) 4, Differential Comment , Platelet Estimate Normal, RBC Morphology Not Reportable, Microcytosis 1+ 01/07/22 07:15: Carbon Dioxide 19 L, Anion Gap 16.8 H, BUN 70 H D, Creatinine 1.00, Estimated Creat Clear 75, Estimated GFR 72, Est GFR ( Amer) 87 D, Glucose 239 H D, Calcium 8.5, Total Bilirubin 0.4, AST 30, ALT 31, Alkaline Phosphatase 48, Troponin I < 0.01, Total Protein 5.7 L, Albumin 3.2 L D, Globulin 2.5, Albumin/Globulin Ratio 1.3 01/07/22 07:15: PT 11.6, INR 1.03 01/07/22 07:35: POC Glucose 241 H 01/07/22 08:36: SARS-CoV-2 (PCR) Not detected, Influenza A Untype (PCR) Not detected, Influenza Type B (PCR) Not detected 01/07/22 08:55: Blood Type A Negative, Antibody Screen Negative, Crossmatch (AHG) See Detail 01/07/22 10:00: Troponin I < 0.01 01/07/22 10:00: Hgb 8.4 L D, Hct 25.4 L 01/07/22 17:20: POC Glucose 272 H 01/07/22 18:15: Hgb 8.9 L, Hct 25.6 L 01/07/22 22:13: POC Glucose 172 H 01/08/22 00:26: Hgb 8.7 L, Hct 24.9 L 01/08/22 06:02: POC Glucose 159 H I & O for Last 24 hours: Intake & Output 01/05/22 01/06/22 01/07/22 01/08/22 23:59 23:59 23:59 23:59 Intake Total 1330 / 1330 0 / 0 Output Total 600 / 600 150 / 150 Balance 730 / 730 -150 / -150 Weight 88.45 kg Narrative: - Constitutional NAD on RA, average body habitus - *Routine HEENT Exam Head: Present: normocephalic Eye: Present: EOMI, PERRL ENT: Present: mucous membranes moist - *Routine Neck Exam Present: supple. Absent: lymphadenopathy - *Routine Respiratory Exam Present: CTA bilaterally - *Routine Cardiovascular Exam Present: tachycardia - *Routine Abdominal Exam Present: soft, normoactive bowel sounds. No tenderness - *Routine Extremities Exam Absent: cyanosis, clubbing, edema - *Routine Skin Exam Present: pallor, warm. Absent: rash - *Routine Neurological Exam Present: alert, oriented X3 Assessment and Plan (1) GI bleed Status: Acute Qualifiers: GI bleed type/associated pathology: melena Qualified Code(s): K92.1 - Melena Category: Medical Code(s): K92.2 - Gastrointestinal hemorrhage, unspecified (2) Melena Status: Acute Category: Medical Code(s): K92.1 - Melena (3) Acute blood loss anemia Status: Acute Category: Medical Code(s): D62 - Acute posthemorrhagic anemia (4) Acute on chronic anemia Status: Acute Category: Medical Code(s): D64.9 - Anemia, unspecified (5) CLL (chronic lymphocytic leukemia) Status: Chronic Category: Medical Code(s): C91.10 - Chronic lymphocytic leukemia of B-cell type not having achieved remission (6) Hypertension Status: Chronic Qualifiers: Hypertension type: essential hypertension Category: Medical Code(s): I10 - Essential (primary) hypertension - Assessment and plan all Dx Assessment and Plan for all problems:: 81-year-old male with history of coronary artery disease, hypertension, CLL. Presented to the ER with upper GI bleed. Significant change in hemoglobin over the past week and a half, and noted change just in the past few days. EGD performed urgently after admission, noted to have sig
[2022-01-08 07:41] LABS: Chloride 108 mmol/L (98-107); Sodium 137 mmol/L (136-145)
[2022-01-08 07:42] LABS: Potassium 3.8 mmoL/L (3.5-5.1)
[2022-01-08 07:44] LABS: Alanine Aminotransferase 25 U/L (12-78); Albumin Level 2.9 g/dl (3.5-5.0); Albumin/Globulin Ratio 1.2 (1.1-1.8); Alkaline Phosphatase 48 U/L (38-126); Anion Gap 10.8 mEq/L (5-15); Aspartate Amino Transferase 30 U/L (17-59); Bilirubin,Total 0.8 mg/dl (0.2-1.3); Blood Urea Nitrogen 33 mg/dl (9-20); Calcium 8.4 mg/dl (8.4-10.2); Carbon Dioxide 22 mmol/L (22.0-30.0); Creatinine Clearance Estimated 75 mL/min (50-200); Estimated Glomerular Filt Rate 109 ml/min (>60); GFR (African American) 132 ML/MIN (>60); Globulin 2.5 g/dL (1.3-3.2); Glucose 160 mg/dl (74-100); Total Protein,Serum 5.4 g/dl (6.3-8.2)
--- NOTE | 2022-01-08 07:44 | HMH.GSPN ---
Subjective Narrative: Mr. Matson is a 81-year-old male with GI bleed. Underwent EGD approximately 24 hours ago. Isolated lesion responsible for bleeding identified. Injected with epinephrine and Hemoclip placement. This morning, reports feeling relatively well. Small amount of melena evening prior. Transfusion and process; additional unit currently infusing. Progress Note: A&P (1) GI bleed Status: Acute (2) Melena Status: Acute (3) Acute blood loss anemia Status: Acute (4) Acute on chronic anemia Status: Acute (5) CLL (chronic lymphocytic leukemia) Status: Chronic (6) Hypertension Status: Chronic Assessment and Plan for All Diagnoses:: 1. Upper GI bleeding. Melena reported. Not unexpected. Currently NPO. Advance to clear liquids. Additional EGD not immediately indicated. Await further hemoglobin trend. Occasional melena over the next 48 to 72 hours as expected. Exam Vital signs and Labs for Last 24 Hours: Temp Pulse Resp BP Pulse Ox 97.9 F 98 H 14 116/64 100 01/08/22 06:30 01/08/22 06:30 01/08/22 06:30 01/08/22 06:30 01/08/22 06:30 Laboratory Results - last 24 hr 01/07/22 07:15: Total Counted 100, Neutrophils % (Manual) 25 L, Lymphocytes % (Manual) 71 H, Monocytes % (Manual) 4, Differential Comment , Platelet Estimate Normal, RBC Morphology Not Reportable, Microcytosis 1+ 01/07/22 07:15: Troponin I < 0.01 01/07/22 07:15: PT 11.6, INR 1.03 01/07/22 08:36: SARS-CoV-2 (PCR) Not detected, Influenza A Untype (PCR) Not detected, Influenza Type B (PCR) Not detected 01/07/22 08:55: Blood Type A Negative, Antibody Screen Negative, Crossmatch (AHG) See Detail 01/07/22 10:00: Troponin I < 0.01 01/07/22 10:00: Hgb 8.4 L D, Hct 25.4 L 01/07/22 17:20: POC Glucose 272 H 01/07/22 18:15: Hgb 8.9 L, Hct 25.6 L 01/07/22 22:13: POC Glucose 172 H 01/08/22 00:26: Hgb 8.7 L, Hct 24.9 L 01/08/22 06:02: POC Glucose 159 H 01/08/22 06:30: Sodium 137, Potassium 3.8 D, Chloride 108 H I & O for Last 24 hours: Intake & Output 01/05/22 01/06/22 01/07/22 01/08/22 11:59 11:59 11:59 11:59 Intake Total 1330 / 1330 Output Total 750 / 750 Balance 580 / 580 Weight 94.517 kg 88.45 kg - *Routine Abdominal Exam Present: soft
[2022-01-08 08:02] LABS: Basophils # 0.2 K/mm3 (0-0.2); Basophils % 1.2 % (0.1-2.0); Eosinophils # 0.1 K/mm3 (0.0-0.4); Eosinophils % 0.4 % (0.1-12.0); Hematocrit 25.5 % (42.0-52.0); Hemoglobin 8.8 g/dL (14.1-18.0); Lymphocytes # 7.2 K/mm3 (0.7-4.5); Lymphocytes % 46.4 % (10-50); Mean Corpuscular HGB Conc 34.4 g/dL (31.8-35.4); Mean Corpuscular Hemoglobin 30.2 pg (27.0-31.2); Mean Corpuscular Volume 87.7 fl (80-94); Mean Platelet Volume 9.9 fl (7.4-10.4); Monocytes # 0.5 K/mm3 (0.1-1.0); Neutrophils # 7.5 K/mm3 (1.8-7.8); Neutrophils % 48.9 % (37.0-80.0); Platelet Count 186 K/mm3 (142-424); Red Blood Count 2.91 M/mm3 (4.60-6.20); Red Cell Distribution Width 15.9 % (11.5-17.5); White Blood Count 15.4 K/mm3 (4.8-10.8)
[2022-01-08 08:06] LABS: MANUAL DIFFERENTIAL MANUAL DIFFERENTIAL (MANUAL DIFF)
[2022-01-08 11:27] LABS: Eosinophils % 1 % (0-3); Lymphocytes % 18 % (10-50); Monocytes % 2 % (2-9); Neutrophils % 79 % (42-76); Platelet Estimate Normal; Total Cells Counted 100
[2022-01-08 11:29] LABS: RBC Morphology Normal
--- NOTE | 2022-01-08 16:18 | PC.NURSE ---
No change since last assessment. Will continue to monitor.
[2022-01-08 17:16] LABS: POC Glucose,Bedside 136 (70-110)
[2022-01-08 18:11] LABS: Hematocrit 26.7 % (42.0-52.0); Hemoglobin 9.3 g/dL (14.1-18.0)
[2022-01-08 21:45] LABS: POC Glucose,Bedside 150 (70-110)
[2022-01-09 04:00] VITALS: BP 140/62; PULSE 78; RESP 20; TEMP 36.6; O2SAT 94
[2022-01-09 05:36] LABS: POC Glucose,Bedside 154 (70-110)
--- NOTE | 2022-01-09 06:34 | PC.NURSE ---
Pt rested intermittently t/o shift. Pt voiced no c/o of pain, N/V. Pt's HR has been 78-93. Pt remains on room air with O2 sats 94-97%. Pt reports no BM's this shift.
[2022-01-09 08:00] VITALS: BP 129/61; PULSE 84; RESP 12; TEMP 36.9; O2SAT 96
[2022-01-09 08:24] LABS: Basophils # 0.1 K/mm3 (0-0.2); Basophils % 0.7 % (0.1-2.0); Eosinophils # 0.1 K/mm3 (0.0-0.4); Eosinophils % 0.8 % (0.1-12.0); Hematocrit 26.2 % (42.0-52.0); Hemoglobin 9.3 g/dL (14.1-18.0); Lymphocytes # 7.4 K/mm3 (0.7-4.5); Lymphocytes % 53.6 % (10-50); Mean Corpuscular HGB Conc 35.6 g/dL (31.8-35.4); Mean Corpuscular Hemoglobin 30.4 pg (27.0-31.2); Mean Corpuscular Volume 85.5 fl (80-94); Mean Platelet Volume 9.6 fl (7.4-10.4); Monocytes # 0.5 K/mm3 (0.1-1.0); Monocytes % 3.2 % (1.7-9.3); Neutrophils # 5.8 K/mm3 (1.8-7.8); Neutrophils % 41.7 % (37.0-80.0); Platelet Count 169 K/mm3 (142-424); Red Blood Count 3.06 M/mm3 (4.60-6.20); Red Cell Distribution Width 16.5 % (11.5-17.5); White Blood Count 13.8 K/mm3 (4.8-10.8)
[2022-01-09 08:27] LABS: MANUAL DIFFERENTIAL MANUAL DIFFERENTIAL (MANUAL DIFF)
[2022-01-09 08:32] LABS: Chloride 107 mmol/L (98-107)
[2022-01-09 08:33] LABS: Potassium 3.8 mmoL/L (3.5-5.1); Sodium 134 mmol/L (136-145)
[2022-01-09 08:35] LABS: Alanine Aminotransferase 26 U/L (12-78); Anion Gap 8.8 mEq/L (5-15); Aspartate Amino Transferase 33 U/L (17-59); Carbon Dioxide 22 mmol/L (22.0-30.0)
[2022-01-09 08:36] LABS: Albumin Level 2.8 g/dl (3.5-5.0); Albumin/Globulin Ratio 1.1 (1.1-1.8); Alkaline Phosphatase 49 U/L (38-126); Bilirubin,Total 0.7 mg/dl (0.2-1.3); Calcium 8.1 mg/dl (8.4-10.2); Globulin 2.5 g/dL (1.3-3.2); Glucose 173 mg/dl (74-100); Magnesium 1.4 mg/dl (1.6-2.3); Total Protein,Serum 5.3 g/dl (6.3-8.2)
[2022-01-09 08:41] LABS: Blood Urea Nitrogen 12 mg/dl (9-20); Creatinine Clearance Estimated 75 mL/min (50-200); Estimated Glomerular Filt Rate 109 ml/min (>60); GFR (African American) 132 ML/MIN (>60)
--- NOTE | 2022-01-09 09:35 | HMH.ACPN2 ---
Internal Medicine - PN: Subj *Date: 01/09/22 *Time: 11:14 Interval history: Patient did well overnight acute events. Feeling somewhat better after receiving transfusions. Remains afebrile and hemodynamically stable. No active bleeding or bright red blood per rectum. Did have another dark stool yesterday. Tolerating clear liquids. Labs reviewed this morning, hemoglobin stable. Exam Vital signs and Labs for Last 24 Hours: Temp Pulse Resp BP Pulse Ox 98.4 F 84 12 129/61 96 01/09/22 08:00 01/09/22 08:00 01/09/22 08:00 01/09/22 08:00 01/09/22 08:00 Laboratory Results - last 24 hr 01/07/22 08:55: Crossmatch (AHG) See Detail 01/08/22 06:30: Total Counted 100, Neutrophils % (Manual) 79 H, Lymphocytes % (Manual) 18, Monocytes % (Manual) 2, Eosinophils % (Manual) 1, Differential Comment , Platelet Estimate Normal, RBC Morphology Normal 01/08/22 17:01: POC Glucose 136 H 01/08/22 18:00: Hgb 9.3 L, Hct 26.7 L 01/08/22 19:55: POC Glucose 150 H 01/09/22 05:26: POC Glucose 154 H 01/09/22 08:00: WBC 13.8 H, RBC 3.06 L, Hgb 9.3 L, Hct 26.2 L, MCV 85.5, MCH 30.4, MCHC 35.6 H, RDW 16.5, Plt Count 169, MPV 9.6, Neut % (Auto) 41.7, Lymph % (Auto) 53.6 H, [place] % (Auto) 3.2, Eos % (Auto) 0.8, Baso % (Auto) 0.7, Neut # (Auto) 5.8, Lymph # (Auto) 7.4 H, [place] # (Auto) 0.5, Eos # (Auto) 0.1, Baso # (Auto) 0.1 01/09/22 08:00: Sodium 134 L, Potassium 3.8, Chloride 107, Carbon Dioxide 22, Anion Gap 8.8, BUN 12 D, Creatinine 0.70, Estimated Creat Clear 75, Estimated GFR 109, Est GFR ( Amer) 132, Glucose 173 H, Calcium 8.1 L, Magnesium 1.4 L, Total Bilirubin 0.7, AST 33, ALT 26, Alkaline Phosphatase 49, Total Protein 5.3 L, Albumin 2.8 L, Globulin 2.5, Albumin/Globulin Ratio 1.1 I & O for Last 24 hours: Intake & Output 01/06/22 01/07/22 01/08/22 01/09/22 23:59 23:59 23:59 23:59 Intake Total 1330 / 1330 1810 / 1810 300 / 300 Output Total 600 / 600 150 / 150 200 / 200 Balance 730 / 730 1660 / 1660 100 / 100 Weight 88.45 kg Narrative: - Constitutional NAD on RA, average body habitus - *Routine HEENT Exam Head: Present: normocephalic Eye: Present: EOMI, PERRL ENT: Present: mucous membranes moist - *Routine Neck Exam Present: supple. Absent: lymphadenopathy - *Routine Respiratory Exam Present: CTA bilaterally - *Routine Cardiovascular Exam Present: RRR, no murmur - *Routine Abdominal Exam Present: soft, normoactive bowel sounds. No tenderness - *Routine Extremities Exam Absent: cyanosis, clubbing, edema - *Routine Skin Exam Present: pallor, warm. Absent: rash - *Routine Neurological Exam Present: alert, oriented X3 Assessment and Plan (1) GI bleed Status: Acute Qualifiers: GI bleed type/associated pathology: melena Qualified Code(s): K92.1 - Melena Category: Medical Code(s): K92.2 - Gastrointestinal hemorrhage, unspecified (2) Melena Status: Acute Category: Medical Code(s): K92.1 - Melena (3) Acute blood loss anemia Status: Acute Category: Medical Code(s): D62 - Acute posthemorrhagic anemia (4) Acute on chronic anemia Status: Acute Category: Medical Code(s): D64.9 - Anemia, unspecified (5) CLL (chronic lymphocytic leukemia) Status: Chronic Category: Medical Code(s): C91.10 - Chronic lymphocytic leukemia of B-cell type not having achieved remission (6) Hypertension Status: Chronic Qualifiers: Hypertension type: essential hypertension Category: Medical Code(s): I10 - Essential (primary) hypertension - Assessment and plan all Dx Assessment and Plan for all problems:: 81-year-old male with history of coronary artery disease, hypertension, CLL. Presented to the ER with upper GI bleed. Significant change in hemoglobin over the past week and a half, and noted change just in the past few days. EGD performed urgently after admission, noted to have significant clot in his stomach and visible source of bleed. Surgery placed
[2022-01-09 10:40] LABS: Lymphocytes % 36 % (10-50); Monocytes % 1 % (2-9); Neutrophils % 63 % (42-76); Platelet Estimate Normal; Total Cells Counted 100
[2022-01-09 10:41] LABS: RBC Morphology Normal
[2022-01-09 12:13] LABS: POC Glucose,Bedside 210 (70-110)
[2022-01-09 16:00] VITALS: BP 147/60; PULSE 73; RESP 14; TEMP 36.7; O2SAT 95
--- NOTE | 2022-01-09 17:30 | PC.NURSE ---
Pt has not changed from last assessment. Will continue to monitor.
[2022-01-09 18:46] LABS: POC Glucose,Bedside 143 (70-110)
--- NOTE | 2022-01-09 19:39 | HMH.GSPN ---
Subjective Narrative: Mr. Matson is a 81-year-old male with GI bleed. Underwent EGD with Hemoclip placement and epinephrine injection. Continues to do well. Two episodes of melena yesterday. Normal bowel movement earlier this morning. No abdominal pain. Overall, doing well. Hemoglobin hematocrit have remained stable. Progress Note: A&P (1) GI bleed Status: Acute (2) Melena Status: Acute (3) Acute blood loss anemia Status: Acute (4) Acute on chronic anemia Status: Acute (5) CLL (chronic lymphocytic leukemia) Status: Chronic (6) Hypertension Status: Chronic Assessment and Plan for All Diagnoses:: 1. Upper GI bleed. Hemoglobin and hematocrit stable. Melena reported yesterday. However, no further hematochezia or melena today. Diet as tolerated. No further endoscopic intervention indicated. Exam Vital signs and Labs for Last 24 Hours: Temp Pulse Resp BP Pulse Ox 98.0 F 73 14 147/60 H 95 01/09/22 16:00 01/09/22 16:00 01/09/22 16:00 01/09/22 16:00 01/09/22 16:00 Laboratory Results - last 24 hr 01/08/22 19:55: POC Glucose 150 H 01/09/22 05:26: POC Glucose 154 H 01/09/22 08:00: WBC 13.8 H, RBC 3.06 L, Hgb 9.3 L, Hct 26.2 L, MCV 85.5, MCH 30.4, MCHC 35.6 H, RDW 16.5, Plt Count 169, MPV 9.6, Neut % (Auto) 41.7, Lymph % (Auto) 53.6 H, [place] % (Auto) 3.2, Eos % (Auto) 0.8, Baso % (Auto) 0.7, Neut # (Auto) 5.8, Lymph # (Auto) 7.4 H, [place] # (Auto) 0.5, Eos # (Auto) 0.1, Baso # (Auto) 0.1, Total Counted 100, Neutrophils % (Manual) 63, Lymphocytes % (Manual) 36, Monocytes % (Manual) 1 L, Differential Comment , Platelet Estimate Normal, RBC Morphology Normal 01/09/22 08:00: Sodium 134 L, Potassium 3.8, Chloride 107, Carbon Dioxide 22, Anion Gap 8.8, BUN 12 D, Creatinine 0.70, Estimated Creat Clear 75, Estimated GFR 109, Est GFR ( Amer) 132, Glucose 173 H, Calcium 8.1 L, Magnesium 1.4 L, Total Bilirubin 0.7, AST 33, ALT 26, Alkaline Phosphatase 49, Total Protein 5.3 L, Albumin 2.8 L, Globulin 2.5, Albumin/Globulin Ratio 1.1 01/09/22 11:48: POC Glucose 210 H 01/09/22 17:07: POC Glucose 143 H I & O for Last 24 hours: Intake & Output 01/07/22 01/08/22 01/09/22 01/10/22 11:59 11:59 11:59 11:59 Intake Total 2180 / 2180 1260 / 1260 320 / 320 Output Total 750 / 750 200 / 200 Balance 1430 / 1430 1060 / 1060 320 / 320 Weight 94.517 kg 88.45 kg - Constitutional no acute distress - *Routine Respiratory Exam Present: CTA bilaterally - *Routine Abdominal Exam Comments: Soft. Nontender. Nondistended.
[2022-01-09 20:00] VITALS: BP 155/78; PULSE 100; PULSE 95; RESP 20; TEMP 36.6; O2SAT 94
[2022-01-09 20:17] LABS: POC Glucose,Bedside 193 (70-110)
[2022-01-10] VITALS: PULSE 70
[2022-01-10 03:06] VITALS: BP 146/73; PULSE 78; RESP 18; TEMP 36.8; O2SAT 93
[2022-01-10 04:00] VITALS: PULSE 80
--- NOTE | 2022-01-10 04:01 | PC.NURSE ---
No acute changes. Pt voiced no c/o of pain. Remains on room air with O2 sats >90%. Pt uses urinal independently. Pt has tolerated advanced diet, reports no BM this shift.
[2022-01-10 04:50] VITALS: BMI 29.3
[2022-01-10 05:19] LABS: POC Glucose,Bedside 158 (70-110)
[2022-01-10 07:01] LABS: Basophils # 0.1 K/mm3 (0-0.2); Basophils % 0.6 % (0.1-2.0); Eosinophils # 0.3 K/mm3 (0.0-0.4); Eosinophils % 1.6 % (0.1-12.0); Hematocrit 26.9 % (42.0-52.0); Hemoglobin 9.4 g/dL (14.1-18.0); Lymphocytes # 8.6 K/mm3 (0.7-4.5); Lymphocytes % 56.5 % (10-50); Mean Corpuscular HGB Conc 34.8 g/dL (31.8-35.4); Mean Corpuscular Hemoglobin 28.8 pg (27.0-31.2); Mean Corpuscular Volume 82.8 fl (80-94); Mean Platelet Volume 8.7 fl (7.4-10.4); Monocytes # 0.5 K/mm3 (0.1-1.0); Monocytes % 3.1 % (1.7-9.3); Neutrophils # 5.8 K/mm3 (1.8-7.8); Neutrophils % 38.1 % (37.0-80.0); Platelet Count 207 K/mm3 (142-424); Red Blood Count 3.25 M/mm3 (4.60-6.20); Red Cell Distribution Width 16.4 % (11.5-17.5); White Blood Count 15.2 K/mm3 (4.8-10.8)
[2022-01-10 07:03] LABS: MANUAL DIFFERENTIAL MANUAL DIFFERENTIAL (MANUAL DIFF)
[2022-01-10 07:05] LABS: Chloride 105 mmol/L (98-107); Potassium 3.7 mmoL/L (3.5-5.1); Sodium 135 mmol/L (136-145)
[2022-01-10 07:08] LABS: Anion Gap 9.7 mEq/L (5-15); Blood Urea Nitrogen 9 mg/dl (9-20); Carbon Dioxide 24 mmol/L (22.0-30.0); Creatinine Clearance Estimated 79 mL/min (50-200); Estimated Glomerular Filt Rate 93 ml/min (>60); GFR (African American) 113 ML/MIN (>60)
[2022-01-10 07:09] LABS: Calcium 8.2 mg/dl (8.4-10.2); Glucose 147 mg/dl (74-100)
[2022-01-10 07:42] LABS: Anisocytosis 1+; Eosinophils % 1 % (0-3); Lymphocytes % 28 % (10-50); Monocytes % 7 % (2-9); Neutrophils % 64 % (42-76); Platelet Estimate Normal; Poikilocytosis 1+; Total Cells Counted 100
[2022-01-10 08:00] VITALS: BP 137/70; PULSE 97; RESP 16; TEMP 36.4; O2SAT 98
--- NOTE | 2022-01-10 08:03 | HMH.DCSUM ---
General - General Admission date:: 01/07/22 Discharge date: 01/10/22 HPI HPI: Mr. Matson is a 81-year-old gentleman who presented to the ER for waking up this morning drenched in sweat states he felt fatigued, and weak. He went to the bathroom soon thereafter and had very large melenic stool. Denies any jacky syncope. No nausea or vomiting. No coffee-ground emesis. He had a similar episode last year about the same time. This prompted him to go to the emergency room. On arrival he was found to be tachycardic, afebrile, alert and oriented. Labs obtained showing hemoglobin in the 9 range. Of note yesterday on labs his hemoglobin was approximately 12. 10 days ago his hemoglobin was 16. He notes having been admitted this past weekend at [facility] where he had a left heart cath. No stents were placed. No new anticoagulants were started however he does take aspirin daily. Of note he has marked leukocytosis on labs consistent with his history of CLL. Surgery consulted for EGD. Blood transfusion ordered. Patient admitted to medicine for further management. On evaluation this afternoon after arriving to the floor, he states he is feeling quite fatigued. He is dizzy when he stands. Short of breath with any exertion. Denies any abdominal pain, emesis, chest pain. Has already gone to the OR for an EGD. No further bowel movements though he states he feels like he needs to have one at this time. Is pleasant and oriented. Remains tachycardic. Hospital Course Hospital Course: Patient was admitted, found to have significant GI bleeding. Surgery performed endoscopy, found to have bleeding site which was successfully clipped and treated with epinephrine. Patient did well with the procedure, and stabilized very nicely. His hemoglobin did not drop further, in fact has risen slightly up to 9.4 g this morning. Has had no clinical stigmata of upper GI bleeding. He is done well in regards to his cardiac medications and has had no angina or dyspnea. This morning he was feeling well, ate a full diet without swallowing problems or esophagitis type symptoms. Plan will be to discharge home on aggressive proton pump inhibitor. We will also use Carafate therapy. We have instructed him to stay off aspirin, which is certainly unfortunate given his cardiac disease but in the face of a couple of GI bleed episodes this seems to be the best of some bad options. He will see his snow maker Dr. Rodrigues here at [facility] in the next week or 2. He will see his coin purse framer Dr. Valencia as scheduled, and he will follow-up with surgery in the next 3 to 4 weeks for repeat endoscopy evaluation. Objective Vital signs: Temp Pulse Resp BP Pulse Ox 98.2 F 80 18 146/73 H 93 L 01/10/22 03:06 01/10/22 04:00 01/10/22 03:06 01/10/22 03:06 01/10/22 03:06 no acute distress - *Routine HEENT Exam Head: Present: normocephalic Eye: Present: EOMI, PERRL ENT: Present: mucous membranes moist - *Routine Neck Exam Present: supple - *Routine Respiratory Exam Present: CTA bilaterally - *Routine Cardiovascular Exam Present: RRR - *Routine Abdominal Exam Present: soft, normoactive bowel sounds. Absent: tenderness - *Routine Extremities Exam Absent: cyanosis, clubbing, edema - *Routine Skin Exam Present: warm. Absent: rash - Detailed Eye Exam Eyelids: Bilateral normal inspection Results Labs on day of discharge: Labs from last 24 hours 01/10/22 01/10/22 01/10/22 06:41 06:41 05:02 WBC 15.2 H RBC 3.25 L Hgb 9.4 L Hct 26.9 L MCV 82.8 MCH 28.8 MCHC 34.8 RDW 16.4 Plt Count 207 MPV 8.7 Neut % (Auto) 38.1 Lymph % (Auto) 56.5 H [place] % (Auto) 3.1 Eos % (Auto) 1.6 Baso % (Auto) 0.6 Neut # (Auto) 5.8 Lymph # (Auto) 8.6 H [place] # (Auto) 0.5 Eos # (Auto) 0.3 Baso # (Auto) 0.1 Total Counted 100 Neutrophils % (Manual) 64 Lymphocytes %
--- NOTE | 2022-01-10 09:15 | HMH.PHAINT ---
DISCHARGE MEDICATION COUNSELING COMPLETE. DISCUSSED WITH THE PATIENT THE CHANGE ON THE PROTONIX FROM DAILY TO BID, DISCUSSED TO TAKE IN THE MORNING AND EVENING. ALSO DISCUSSED THE NEW SUCRALFATE PRESCRIPTION AND HOW TO TAKE (BEFORE MEALS AND AT BEDTIME), TAKE WITH WATER AND WATCH FOR CONSTIPATION. THE PATIENT ASKED IF THIS WAS TAKEN FOUR TIMES A DAY, WHICH I EXPLAINED TO HIM IT WAS AND THAT THIS MEDICATION WAS USED TO PROTECT HIS STOMACH AND ALLOW IT TO HEAL FROM THE ULCERATION. PATIENT ENDORSED NO FURTHER QUESTIONS AT THIS TIME.
--- NOTE | 2022-01-11 17:17 | CARE MANAGER ---
Spoke with patient for post-discharge phone interview, he states that he is doing well and having some trouble with his medication I offered some home health for medication management and he declines at this time. I did give him my number to call if he changes his mind.
== END 2022-01-10 09:15 | disposition home or self-care (01) | DRG 378 ==
LOC: ER 08:07 → 2ND 08:58
PROVIDERS: Emergency Medicine; Surgery; Admitting Provider Internal Medicine Adolescent Medicine; Emergency Provider Emergency Medicine; PCP Family Medicine; Visit Provider Internal Medicine Adolescent Medicine
PROC: 0DJ08ZZ Inspection of Upper Intestinal Tract, Via Natural or Artificial Opening Endoscopic (ICD-10-PCS; CPT 43235; principal; 2022-01-07 11:00)
DX: K31.82 Dieulafoy lesion (hemorrhagic) of stomach and duodenum (principal); D62 Acute posthemorrhagic anemia; I42.9 Cardiomyopathy, unspecified; C91.10 Chronic lymphocytic leukemia of B-cell type not having achieved remission; I25.10 Atherosclerotic heart disease of native coronary artery without angina pectoris; N40.0 Benign prostatic hyperplasia without lower urinary tract symptoms; E11.9 Type 2 diabetes mellitus without complications; E78.5 Hyperlipidemia, unspecified; I10 Essential (primary) hypertension; Z87.891 Personal history of nicotine dependence; Z79.84 Long term (current) use of oral hypoglycemic drugs; Z20.822 Contact with and (suspected) exposure to COVID-19
CPT/HCPCS: 43255; 36415; 71045; 80048; 80053; 82962; 83735; 84484; 85007; 85014; 85018; 85025; 85610; 86850; 93005; 99285; C9803; J2405; J2704; P9016; U0003; U0005

== ENCOUNTER 2022-01-12 11:59 | Outpatient (CLI) | payer MEDICARE, SELFPAY ==
[2022-01-12 12:04] VITALS: BMI 27.9
[2022-01-12 12:20] LABS: Basophils # 0.2 K/mm3 (0-0.2); Basophils % 0.9 % (0.1-2.0); Eosinophils # 0.2 K/mm3 (0.0-0.4); Eosinophils % 0.9 % (0.1-12.0); Hematocrit 30.7 % (42.0-52.0); Hemoglobin 10.4 g/dL (14.1-18.0); Lymphocytes % 60.2 % (10-50); Mean Corpuscular HGB Conc 33.7 g/dL (31.8-35.4); Mean Corpuscular Hemoglobin 29.7 pg (27.0-31.2); Mean Corpuscular Volume 87.9 fl (80-94); Mean Platelet Volume 9.2 fl (7.4-10.4); Monocytes # 0.8 K/mm3 (0.1-1.0); Monocytes % 3.2 % (1.7-9.3); Neutrophils # 8.6 K/mm3 (1.8-7.8); Neutrophils % 34.7 % (37.0-80.0); Platelet Count 348 K/mm3 (142-424); Red Blood Count 3.49 M/mm3 (4.60-6.20); Red Cell Distribution Width 16.5 % (11.5-17.5); White Blood Count 24.8 K/mm3 (4.8-10.8)
[2022-01-12 12:22] LABS: MANUAL DIFFERENTIAL MANUAL DIFFERENTIAL (MANUAL DIFF)
[2022-01-12 12:50] LABS: Eosinophils % 1 % (0-3); Lymphocytes % 62 % (10-50); Monocytes % 6 % (2-9); Neutrophils % 30 % (42-76); Total Cells Counted 100
[2022-01-12 12:53] LABS: Platelet Estimate Normal; RBC Morphology Normal
== END 2022-01-12 12:04 | disposition home or self-care (01) ==
LOC: INF 12:00
PROVIDERS: PCP Family Medicine; Visit Provider Family Medicine
DX: C91.10 Chronic lymphocytic leukemia of B-cell type not having achieved remission (principal); D64.9 Anemia, unspecified; K92.2 Gastrointestinal hemorrhage, unspecified
CPT/HCPCS: 36415; 85007; 85025

== ENCOUNTER 2022-01-14 08:37 | Outpatient (CLI) | payer MEDICARE, SELFPAY ==
[2022-01-14 08:37] VITALS: BMI 27.9
[2022-01-14 09:06] LABS: Eosinophils % 0.7 % (0.1-12.0); Hematocrit 30.5 % (42.0-52.0); Hemoglobin 10.2 g/dL (14.1-18.0); Lymphocytes # 12.3 K/mm3 (0.7-4.5); Lymphocytes % 62.2 % (10-50); Mean Corpuscular HGB Conc 33.5 g/dL (31.8-35.4); Mean Corpuscular Hemoglobin 30.3 pg (27.0-31.2); Mean Corpuscular Volume 90.3 fl (80-94); Mean Platelet Volume 8.9 fl (7.4-10.4); Neutrophils # 6.5 K/mm3 (1.8-7.8); Platelet Count 362 K/mm3 (142-424); Red Blood Count 3.38 M/mm3 (4.60-6.20); Red Cell Distribution Width 16.4 % (11.5-17.5); White Blood Count 19.7 K/mm3 (4.8-10.8)
[2022-01-14 09:07] LABS: Basophils # 0.2 K/mm3 (0-0.2); Eosinophils # 0.2 K/mm3 (0.0-0.4); Monocytes # 0.6 K/mm3 (0.1-1.0)
[2022-01-14 09:11] LABS: MANUAL DIFFERENTIAL MANUAL DIFFERENTIAL (MANUAL DIFF)
[2022-01-14 09:30] LABS: Lymphocytes % 67 % (10-50); Monocytes % 1 % (2-9); Neutrophils % 32 % (42-76); Total Cells Counted 100
[2022-01-14 09:32] LABS: Giant Platelets 1+; Hypochromasia 1+; Platelet Estimate Normal
[2022-01-14 09:39] VITALS: BP 168/78; PULSE 68; RESP 20; TEMP 36.1; O2SAT 95
== END 2022-01-14 09:47 | disposition home or self-care (01) ==
LOC: INF 08:37
PROVIDERS: PCP Family Medicine; Visit Provider Family Medicine
DX: C91.10 Chronic lymphocytic leukemia of B-cell type not having achieved remission (principal)
CPT/HCPCS: 36415; 85007; 85025

== ENCOUNTER 2022-01-17 08:44 | Outpatient (CLI) | payer MEDICARE, SELFPAY ==
[2022-01-17 08:49] VITALS: BMI 27.9
--- NOTE | 2022-01-17 08:58 | PC.NURSE ---
pt here to day for lab check. pt s/p recovery from gi bleed 2 weeks ago. venipuncture performed using butterfly needle to lt ac, blood obtained for cbc as ordered per md. needle withdrawn and site secured with 2x2 gauze and coban. pt will await results of labs and determine next step in poc.
[2022-01-17 09:03] LABS: Basophils # 0.2 K/mm3 (0-0.2); Basophils % 0.9 % (0.1-2.0); Eosinophils # 0.3 K/mm3 (0.0-0.4); Eosinophils % 1.2 % (0.1-12.0); Hematocrit 31.4 % (42.0-52.0); Hemoglobin 10.6 g/dL (14.1-18.0); Lymphocytes # 17.1 K/mm3 (0.7-4.5); Lymphocytes % 67.6 % (10-50); Mean Corpuscular HGB Conc 33.7 g/dL (31.8-35.4); Mean Corpuscular Hemoglobin 30.1 pg (27.0-31.2); Mean Corpuscular Volume 89.2 fl (80-94); Monocytes # 0.6 K/mm3 (0.1-1.0); Monocytes % 2.5 % (1.7-9.3); Neutrophils % 27.9 % (37.0-80.0); Platelet Count 488 K/mm3 (142-424); Red Blood Count 3.52 M/mm3 (4.60-6.20); Red Cell Distribution Width 16.4 % (11.5-17.5); White Blood Count 25.3 K/mm3 (4.8-10.8)
[2022-01-17 09:05] LABS: MANUAL DIFFERENTIAL MANUAL DIFFERENTIAL (MANUAL DIFF)
[2022-01-17 09:30] LABS: Anisocytosis 1+; Hypochromasia 1+; Lymphocytes % 71 % (10-50); Monocytes % 4 % (2-9); Neutrophils % 25 % (42-76); Ovalocytes 1+; Total Cells Counted 100
[2022-01-17 09:31] LABS: Differential Comment Y; Platelet Estimate Slight Increase; Polychromasia 1+
== END 2022-01-17 09:13 | disposition home or self-care (01) ==
LOC: INF 08:45
PROVIDERS: PCP Family Medicine; Visit Provider Family Medicine
DX: C91.10 Chronic lymphocytic leukemia of B-cell type not having achieved remission (principal)
CPT/HCPCS: 36415; 85007; 85025

== ENCOUNTER 2022-01-20 08:13 | Outpatient (CLI) | payer MEDICARE, SELFPAY ==
[2022-01-20 08:16] VITALS: BMI 27.9
--- NOTE | 2022-01-20 08:22 | PC.NURSE ---
0810 Labs obtained as ordered/x1 stick L AC. Patient has appointment with this morning.
[2022-01-20 08:27] LABS: Chloride 105 mmol/L (98-107); Potassium 4.1 mmoL/L (3.5-5.1); Sodium 139 mmol/L (136-145)
[2022-01-20 08:29] LABS: Alanine Aminotransferase 22 U/L (12-78); Aspartate Amino Transferase 26 U/L (17-59); Blood Urea Nitrogen 13 mg/dl (9-20); Creatinine Clearance Estimated 62 mL/min (50-200); Estimated Glomerular Filt Rate 58 ml/min (>60); GFR (African American) 71 ML/MIN (>60)
[2022-01-20 08:30] LABS: Albumin Level 3.7 g/dl (3.5-5.0); Albumin/Globulin Ratio 1.3 (1.1-1.8); Alkaline Phosphatase 68 U/L (38-126); Anion Gap 15.1 mEq/L (5-15); Bilirubin,Total 0.8 mg/dl (0.2-1.3); Calcium 8.4 mg/dl (8.4-10.2); Carbon Dioxide 23 mmol/L (22.0-30.0); Globulin 2.8 g/dL (1.3-3.2); Glucose 198 mg/dl (74-100); Total Protein,Serum 6.5 g/dl (6.3-8.2)
[2022-01-20 09:02] LABS: Basophils # 0.4 K/mm3 (0-0.2); Basophils % 1.3 % (0.1-2.0); Eosinophils # 0.1 K/mm3 (0.0-0.4); Eosinophils % 0.5 % (0.1-12.0); Hematocrit 35.2 % (42.0-52.0); Hemoglobin 11.6 g/dL (14.1-18.0); Lymphocytes # 18.3 K/mm3 (0.7-4.5); Mean Corpuscular HGB Conc 32.8 g/dL (31.8-35.4); Mean Corpuscular Volume 91.5 fl (80-94); Mean Platelet Volume 8.9 fl (7.4-10.4); Monocytes # 0.7 K/mm3 (0.1-1.0); Monocytes % 2.7 % (1.7-9.3); Neutrophils # 7.4 K/mm3 (1.8-7.8); Neutrophils % 27.4 % (37.0-80.0); Platelet Count 484 K/mm3 (142-424); Red Blood Count 3.85 M/mm3 (4.60-6.20); Red Cell Distribution Width 16.4 % (11.5-17.5); White Blood Count 26.8 K/mm3 (4.8-10.8)
[2022-01-20 09:05] LABS: MANUAL DIFFERENTIAL MANUAL DIFFERENTIAL (MANUAL DIFF)
[2022-01-20 09:31] LABS: Eosinophils % 1 % (0-3); Lymphocytes % 59 % (10-50); Monocytes % 1 % (2-9); Neutrophils % 39 % (42-76); Total Cells Counted 100
[2022-01-20 09:36] LABS: Platelet Estimate Normal; RBC Morphology Normal
== END 2022-01-20 09:41 | disposition home or self-care (01) ==
LOC: INF 08:14
PROVIDERS: Visit Provider Internal Medicine Medical Oncology
DX: C91.10 Chronic lymphocytic leukemia of B-cell type not having achieved remission (principal)
CPT/HCPCS: 36415; 80053; 85007; 85025

== ENCOUNTER → 2022-01-26 09:32 | Outpatient (CLI) | payer MEDICARE, SELFPAY ==
[2022-01-26 10:20] LABS: Hematocrit 34.5 % (42.0-52.0); Hemoglobin 11.5 g/dL (14.1-18.0)
== END ==
PROVIDERS: PCP Family Medicine; Visit Provider Surgery
DX: D64.9 Anemia, unspecified (principal)
CPT/HCPCS: 36415; 85014; 85018

== ENCOUNTER → 2022-01-28 07:28 | Outpatient (CLI) | payer MEDICARE, SELFPAY ==
[2022-01-28 07:54] LABS: Basophils # 0.1 K/mm3 (0-0.2); Basophils % 0.7 % (0.1-2.0); Eosinophils # 0.1 K/mm3 (0.0-0.4); Eosinophils % 0.7 % (0.1-12.0); Hematocrit 37.6 % (42.0-52.0); Hemoglobin 12.4 g/dL (14.1-18.0); Lymphocytes # 13.6 K/mm3 (0.7-4.5); Lymphocytes % 64.7 % (10-50); Mean Corpuscular HGB Conc 33.1 g/dL (31.8-35.4); Mean Corpuscular Hemoglobin 29.2 pg (27.0-31.2); Mean Corpuscular Volume 88.3 fl (80-94); Monocytes # 0.7 K/mm3 (0.1-1.0); Monocytes % 3.4 % (1.7-9.3); Neutrophils # 6.4 K/mm3 (1.8-7.8); Neutrophils % 30.6 % (37.0-80.0); Platelet Count 287 K/mm3 (142-424); Red Blood Count 4.25 M/mm3 (4.60-6.20); Red Cell Distribution Width 14.9 % (11.5-17.5); White Blood Count 20.9 K/mm3 (4.8-10.8)
[2022-01-28 07:56] LABS: MANUAL DIFFERENTIAL MANUAL DIFFERENTIAL (MANUAL DIFF)
--- NOTE | 2022-01-28 07:56 | CT_ITS ---
FINAL REPORT TECHNIQUE: Axial images through the chest were performed by computed tomography before and after the administration of IV contrast. This study was performed with techniques to keep radiation doses as low as reasonably achievable, (ALARA). Individualized dose reduction techniques using automated exposure control or adjustment of mA and/or kV according to the patient's size were employed. CLINICAL HISTORY: LEUKEMIA COMPARISON: October 28, 2017 FINDINGS: There are multiple small borderline size mediastinal lymph nodes. One of the larger nodes in the right subcarinal area measures 21 mm and previously was 25 mm. There are multiple borderline sized and mildly enlarged axillary lymph nodes which appear similar to the prior exam. There is no hilar adenopathy. The heart size is normal. There is no pericardial or pleural effusion. Limited images of the upper abdomen are unremarkable. No suspicious infiltrate or nodule identified. There are mild changes of emphysema and mild pulmonary scarring. 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 IMPRESSION: Widespread mild adenopathy. No new abnormality. Reviewed, Interpreted and Dictated by Jasiel Whittaker III, MD Transcribed by Sabrina Beltran Authenticated and [facility]
--- NOTE | 2022-01-28 07:56 | CT_ITS ---
FINAL REPORT TECHNIQUE: Axial CT images of the abdomen and pelvis were obtained before and after the administration of IV contrast. Oral contrast was administered.This study was performed with techniques to keep radiation doses as low as reasonably achievable (ALARA). Individualized dose reduction techniques using automated exposure control or adjustment of mA and/or kV according to the patient''s size were employed. CLINICAL HISTORY: LEUKEMIA FINDINGS: Abdomen: The lung bases are clear. The heart is normal in size. The liver has an unremarkable appearance, without evidence of mass or biliary duct dilatation. The gallbladder is present. The spleen is mildly enlarged measuring 12.9 cm in length. No adrenal masses present. The pancreas has an unremarkable appearance. The kidneys enhance normally. The aorta is normal in caliber. There is no free fluid or adenopathy. No mass or abnormal fluid collection is seen. There are moderate vascular calcifications. Precontrast images demonstrate no evidence of nephrolithiasis. Pelvis: The appendix is normal. The urinary bladder is unremarkable. There is sigmoid diverticulosis without evidence of diverticulitis. There are bilateral inguinal hernias containing fat. There are borderline sized bilateral inguinal lymph nodes, nonspecific. There is no evidence of mass or adenopathy. There is no evidence of bowel obstruction. IMPRESSION: No evidence of acute intra-abdominal process. Reviewed, Interpreted and Dictated by Jasiel Whittaker III, MD Transcribed by Sabrina Beltran Authenticated and [facility]
[2022-01-28 08:03] LABS: Alanine Aminotransferase 24 U/L (12-78); Albumin Level 3.8 g/dl (3.5-5.0); Albumin/Globulin Ratio 1.3 (1.1-1.8); Alkaline Phosphatase 74 U/L (38-126); Anion Gap 12.2 mEq/L (5-15); Aspartate Amino Transferase 30 U/L (17-59); Bilirubin,Total 0.5 mg/dl (0.2-1.3); Blood Urea Nitrogen 13 mg/dl (9-20); Carbon Dioxide 26 mmol/L (22.0-30.0); Chloride 102 mmol/L (98-107); Estimated Glomerular Filt Rate 65 ml/min (>60); GFR (African American) 78 ML/MIN (>60); Globulin 2.9 g/dL (1.3-3.2); Glucose 141 mg/dl (74-100); Potassium 4.2 mmoL/L (3.5-5.1); Sodium 136 mmol/L (136-145); Total Protein,Serum 6.7 g/dl (6.3-8.2)
[2022-01-28 08:12] LABS: Lymphocytes % 68 % (10-50); Monocytes % 2 % (2-9); Neutrophils % 30 % (42-76); Total Cells Counted 100
[2022-01-28 08:13] LABS: Platelet Estimate Normal; RBC Morphology Normal
== END ==
PROVIDERS: PCP Family Medicine; Visit Provider Internal Medicine Medical Oncology
DX: C91.10 Chronic lymphocytic leukemia of B-cell type not having achieved remission (principal)
CPT/HCPCS: 36415; 71270; 74178; 80053; 85007; 85025; Q9967

== ENCOUNTER 2022-02-03 09:38 | Outpatient (CLI) | payer MEDICARE, SELFPAY ==
[2022-02-03] VITALS (14 sets, daily range): BP systolic 100–158; BP diastolic 49–67; PULSE 58–84; RESP 16–18; TEMP 36–36.5; O2SAT 98–100
== END 2022-02-03 14:15 | disposition home or self-care (01) ==
LOC: INF 09:40
PROVIDERS: PCP Internal Medicine; Visit Provider Internal Medicine Medical Oncology
DX: Z51.11 Encounter for antineoplastic chemotherapy (principal); C91.10 Chronic lymphocytic leukemia of B-cell type not having achieved remission
CPT/HCPCS: 96413; 96415; J9312

== ENCOUNTER → 2022-02-12 08:00 | Outpatient (CLI) | payer MEDICARE, SELFPAY | PROVIDERS: PCP Family Medicine; Visit Provider Surgery | DX: Z01.812 Encounter for preprocedural laboratory examination (principal); Z20.822 Contact with and (suspected) exposure to COVID-19; Z13.810 Encounter for screening for upper gastrointestinal disorder; D64.9 Anemia, unspecified | CPT/HCPCS: C9803; U0003; U0005 ==

== ENCOUNTER 2022-02-15 07:06 | Day surgery (SDC) | payer MEDICARE, SELFPAY ==
[2022-02-15 07:16] VITALS: BMI 27.2
[2022-02-15 07:29] VITALS: BP 155/70; PULSE 68; RESP 20; TEMP 36.5; O2SAT 94
[2022-02-15 07:37] LABS: POC Glucose,Bedside 122 (70-110)
--- NOTE | 2022-02-15 07:59 | HMH.ANESCL ---
[facility] Anesthesia Checklist - Patient Identification Patient Identification: Arm Band, Verbal (Name & ) - Structural Data Admitted From: Home Planned Operative Procedure/s: EGD Consent for Planned Operative Procedure(s) Verified: Yes Verified Documents: Surgical Consent - NPO Status Verified Time NPO: 00:00 - Airway Assessment C-Spine Mobility Assessed: Yes TMJ Mobility Assessed: Yes - Neurological Assessment Level of Consciousness: Awake, Alert, Appropriate - Anesthesia Plan Anesthesia Risk discussed: Yes ASA Class: III Anesthesia Type: MAC [facility] History I have reviewed the patient's past medical history: Yes Medical History: Reports:: BPH, Cancer (Leukemia), Cardiomyopathy, Coronary Artery Disease, Diabetes Mellitus Type 2, Heart Murmur, Hyperlipidemia, Hypertension, Myocardial Infarction (NSTEMI) Denies:: Diabetes Mellitus Type 1, Internal Pacemaker, Lung Disease, MRSA, Seizures *Have you ever received a pneumonia vaccine?: Yes *Have you received a flu vaccine this season?: Yes Other Medical History: Reports: Anemia, Chemotherapy, Sinus Problems, Other Anesthesia experience/problems:: none Other Surgeries: Yes: Cardiac Catheterization, Colonoscopy, Coronary Stent, EGD, Sinus Surgery, Other. No: Pacemaker Amputation: No Fractures: No - *Social History Last grade of school completed: High school graduate Smoking Status: Never smoker Tobacco Type: cigarettes Alcohol Intake: never Alcohol Intake Frequency:: other Substance Use Type: denies use *Occupational Status:: retired Housing: house Household Members: significant other *Travel in the last 8 weeks: None Family Hx:: Cancer, Diabetes
[2022-02-15 08:03] VITALS: O2SAT 94
[2022-02-15 08:19] VITALS: BP 83/47; PULSE 61; RESP 18; TEMP 36.1; O2SAT 92
--- NOTE | 2022-02-15 08:23 | HMH.SCOPE ---
- Procedure: Date: 02/15/22 Patient Date of :: 1940 Procedure Performed:: Esophagogastroduodenoscopy with biopsy Indications:: Recent gastrointestinal hemorrhage. NOTE: Recent inpatient esophagogastroduodenoscopy somewhat complicated by large volume of blood clot throughout gastric lumen. An area of sanguinous ooze in the gastric cardia was controlled with epinephrine injection and clip placement. He now returns for repeat esophagogastroduodenoscopy. Performing Provider:: James Malhotra MD Referring Provider:: . Sedation:: Monitored anesthesia care Procedure:: After informed consent was obtained the patient was taken to the endoscopy suite. Sedation ensued after the patient was transferred to the left lateral decubitus position. Pulse, blood pressure, and oxygen saturation were monitored throughout the procedure. The endoscope was advanced beyond the duodenal bulb. Retroflexion within the gastric lumen was accomplished. The gastroscope was carefully removed and the patient was transferred to recovery in stable condition. Please see findings and specimens below for detail. Findings:: Small sliding hiatal hernia No sign of active or recent hemorrhage Clip in good position and gastric cardia. Some inflammatory response at clip placement site but no sign of hemorrhage. Mild streaking gastritis distally Specimens:: Antral biopsy Recommendations:: Continue proton pump inhibition Likely repeat EGD in 3-6 months Note: Although other etiologies remain a possibility, the patient's lesion (site of clip placement for hemorrhage control) is most likely a Dieulafoy lesion. Although lesion (clip) located in the cardia, the overall small size of the patient's hiatal hernia makes Pj lesion less likely. Complications:: No immediate Estimated blood obtained (mL): 1
[2022-02-15 08:29] VITALS: BP 87/50; PULSE 56; RESP 18; O2SAT 93
[2022-02-15 08:39] VITALS: BP 104/55; PULSE 59; RESP 18; O2SAT 93
[2022-02-15 08:49] VITALS: BP 105/63; PULSE 59; RESP 18; O2SAT 94
== END 2022-02-15 08:49 | disposition home or self-care (01) ==
LOC: OUTP 07:07
PROVIDERS: PCP Internal Medicine; Visit Provider Surgery
PROC: 0DJ08ZZ Inspection of Upper Intestinal Tract, Via Natural or Artificial Opening Endoscopic (ICD-10-PCS; CPT 43235; principal; 2022-02-15 08:30)
DX: K92.2 Gastrointestinal hemorrhage, unspecified (principal); D64.9 Anemia, unspecified; E11.9 Type 2 diabetes mellitus without complications; I42.9 Cardiomyopathy, unspecified; E78.5 Hyperlipidemia, unspecified; I10 Essential (primary) hypertension; I25.2 Old myocardial infarction; I25.10 Atherosclerotic heart disease of native coronary artery without angina pectoris; Z79.84 Long term (current) use of oral hypoglycemic drugs; Z79.899 Other long term (current) drug therapy
CPT/HCPCS: 43239; 82962; 88305

== ENCOUNTER 2022-02-16 07:49 | Outpatient (CLI) | payer MEDICARE, SELFPAY ==
[2022-02-16] VITALS (16 sets, daily range): BP systolic 127–174; BP diastolic 49–81; PULSE 57–76; RESP 18; O2SAT 95–98; BMI 26.9
[2022-02-16 08:28] LABS: Basophils # 0.1 K/mm3 (0-0.2); Basophils % 1.1 % (0.1-2.0); Eosinophils # 0.1 K/mm3 (0.0-0.4); Eosinophils % 1.1 % (0.1-12.0); Hematocrit 37.7 % (42.0-52.0); Hemoglobin 12.8 g/dL (14.1-18.0); Lymphocytes # 6.2 K/mm3 (0.7-4.5); Lymphocytes % 49.8 % (10-50); Mean Corpuscular HGB Conc 34.1 g/dL (31.8-35.4); Mean Corpuscular Hemoglobin 30.1 pg (27.0-31.2); Mean Corpuscular Volume 88.2 fl (80-94); Mean Platelet Volume 8.2 fl (7.4-10.4); Monocytes # 0.5 K/mm3 (0.1-1.0); Monocytes % 3.7 % (1.7-9.3); Neutrophils # 5.5 K/mm3 (1.8-7.8); Neutrophils % 44.2 % (37.0-80.0); Platelet Count 222 K/mm3 (142-424); Red Blood Count 4.27 M/mm3 (4.60-6.20); Red Cell Distribution Width 14.5 % (11.5-17.5); White Blood Count 12.4 K/mm3 (4.8-10.8)
[2022-02-16 08:38] LABS: Alanine Aminotransferase 22 U/L (12-78); Albumin Level 3.5 g/dl (3.5-5.0); Albumin/Globulin Ratio 1.4 (1.1-1.8); Alkaline Phosphatase 55 U/L (38-126); Anion Gap 9.9 mEq/L (5-15); Aspartate Amino Transferase 29 U/L (17-59); Bilirubin,Total 0.4 mg/dl (0.2-1.3); Blood Urea Nitrogen 10 mg/dl (9-20); Calcium 8.2 mg/dl (8.4-10.2); Carbon Dioxide 25 mmol/L (22.0-30.0); Chloride 106 mmol/L (98-107); Creatinine Clearance Estimated 72 mL/min (50-200); Estimated Glomerular Filt Rate 81 ml/min (>60); GFR (African American) 98 ML/MIN (>60); Globulin 2.5 g/dL (1.3-3.2); Glucose 199 mg/dl (74-100); Potassium 3.9 mmoL/L (3.5-5.1); Sodium 137 mmol/L (136-145)
== END 2022-02-16 13:30 | disposition home or self-care (01) ==
LOC: INF 07:50
PROVIDERS: PCP Family Medicine; Visit Provider Internal Medicine Medical Oncology
DX: C91.10 Chronic lymphocytic leukemia of B-cell type not having achieved remission (principal); Z51.11 Encounter for antineoplastic chemotherapy
CPT/HCPCS: 80053; 85025; 96413; 96415; J9312

== ENCOUNTER 2022-03-03 08:57 | Outpatient (CLI) | payer MEDICARE, SELFPAY ==
[2022-03-03 09:02] VITALS: BMI 27.2
--- NOTE | 2022-03-03 09:08 | PC.NURSE ---
0908-collected cbc and cmp via peripheral stick;pt to oncology appointment;labs taken to lab.
[2022-03-03 09:19] LABS: Basophils # 0.2 K/mm3 (0-0.2); Basophils % 1.3 % (0.1-2.0); Eosinophils # 0.3 K/mm3 (0.0-0.4); Eosinophils % 2.3 % (0.1-12.0); Hematocrit 40.4 % (42.0-52.0); Hemoglobin 12.7 g/dL (14.1-18.0); Lymphocytes # 4.6 K/mm3 (0.7-4.5); Lymphocytes % 38.1 % (10-50); Mean Corpuscular HGB Conc 31.5 g/dL (31.8-35.4); Mean Corpuscular Hemoglobin 29.2 pg (27.0-31.2); Mean Platelet Volume 9.2 fl (7.4-10.4); Monocytes # 0.8 K/mm3 (0.1-1.0); Monocytes % 6.3 % (1.7-9.3); Neutrophils # 6.3 K/mm3 (1.8-7.8); Platelet Count 246 K/mm3 (142-424); Red Blood Count 4.34 M/mm3 (4.60-6.20); Red Cell Distribution Width 15.1 % (11.5-17.5); White Blood Count 12.1 K/mm3 (4.8-10.8)
[2022-03-03 09:33] LABS: Alanine Aminotransferase 23 U/L (12-78); Albumin Level 3.9 g/dl (3.5-5.0); Albumin/Globulin Ratio 1.5 (1.1-1.8); Alkaline Phosphatase 70 U/L (38-126); Anion Gap 13.7 mEq/L (5-15); Aspartate Amino Transferase 35 U/L (17-59); Bilirubin,Total 0.5 mg/dl (0.2-1.3); Blood Urea Nitrogen 13 mg/dl (9-20); Calcium 8.5 mg/dl (8.4-10.2); Carbon Dioxide 22 mmol/L (22.0-30.0); Chloride 107 mmol/L (98-107); Creatinine Clearance Estimated 66 mL/min (50-200); Estimated Glomerular Filt Rate 65 ml/min (>60); GFR (African American) 78 ML/MIN (>60); Globulin 2.6 g/dL (1.3-3.2); Glucose 109 mg/dl (74-100); Potassium 4.7 mmoL/L (3.5-5.1); Sodium 138 mmol/L (136-145); Total Protein,Serum 6.5 g/dl (6.3-8.2)
== END 2022-03-03 09:10 | disposition home or self-care (01) ==
LOC: INF 08:58
PROVIDERS: PCP Family Medicine; Visit Provider Internal Medicine Medical Oncology
DX: C91.10 Chronic lymphocytic leukemia of B-cell type not having achieved remission (principal)
CPT/HCPCS: 36415; 80053; 85025

== ENCOUNTER 2022-03-31 11:34 | Outpatient (CLI) | payer MEDICARE, SELFPAY ==
[2022-03-31 11:39] VITALS: BMI 27.5
[2022-03-31 11:52] LABS: Basophils # 0.2 K/mm3 (0-0.2); Basophils % 1.7 % (0.1-2.0); Eosinophils # 0.3 K/mm3 (0.0-0.4); Eosinophils % 3.7 % (0.1-12.0); Hematocrit 39.4 % (42.0-52.0); Hemoglobin 12.9 g/dL (14.1-18.0); Lymphocytes # 2.8 K/mm3 (0.7-4.5); Lymphocytes % 31.5 % (10-50); Mean Corpuscular HGB Conc 32.6 g/dL (31.8-35.4); Mean Corpuscular Hemoglobin 30.1 pg (27.0-31.2); Mean Corpuscular Volume 92.1 fl (80-94); Mean Platelet Volume 9.3 fl (7.4-10.4); Monocytes # 0.6 K/mm3 (0.1-1.0); Monocytes % 6.9 % (1.7-9.3); Neutrophils % 56.3 % (37.0-80.0); Platelet Count 236 K/mm3 (142-424); Red Blood Count 4.28 M/mm3 (4.60-6.20); Red Cell Distribution Width 14.4 % (11.5-17.5); White Blood Count 8.8 K/mm3 (4.8-10.8)
[2022-03-31 11:56] LABS: Chloride 110 mmol/L (98-107); Potassium 4.2 mmoL/L (3.5-5.1); Sodium 142 mmol/L (136-145)
[2022-03-31 11:59] LABS: Alanine Aminotransferase 23 U/L (12-78); Albumin Level 3.8 g/dl (3.5-5.0); Albumin/Globulin Ratio 1.4 (1.1-1.8); Alkaline Phosphatase 73 U/L (38-126); Anion Gap 12.2 mEq/L (5-15); Aspartate Amino Transferase 37 U/L (17-59); Bilirubin,Total 0.2 mg/dl (0.2-1.3); Blood Urea Nitrogen 18 mg/dl (9-20); Calcium 8.3 mg/dl (8.4-10.2); Carbon Dioxide 24 mmol/L (22.0-30.0); Creatinine Clearance Estimated 61 mL/min (50-200); Estimated Glomerular Filt Rate 58 ml/min (>60); GFR (African American) 71 ML/MIN (>60); Globulin 2.7 g/dL (1.3-3.2); Glucose 148 mg/dl (74-100); Total Protein,Serum 6.5 g/dl (6.3-8.2)
--- NOTE | 2022-03-31 12:12 | PC.NURSE ---
1140-BLOOD DRAWN USING BUTTERFLY NEEDLE TO CHECK LABS FOR DR SEALS APPT TOMORROW.
== END 2022-03-31 11:45 | disposition home or self-care (01) ==
LOC: INF 11:36
PROVIDERS: PCP Internal Medicine; Visit Provider Internal Medicine Medical Oncology
DX: C91.10 Chronic lymphocytic leukemia of B-cell type not having achieved remission (principal)
CPT/HCPCS: 36415; 80053; 85025

== ENCOUNTER 2022-04-27 10:03 | Outpatient (CLI) | payer MEDICARE, SELFPAY ==
[2022-04-27 10:08] VITALS: BMI 27.5
[2022-04-27 10:24] LABS: Basophils # 0.2 K/mm3 (0-0.2); Basophils % 1.8 % (0.1-2.0); Eosinophils # 0.3 K/mm3 (0.0-0.4); Eosinophils % 1.9 % (0.1-12.0); Hematocrit 44.7 % (42.0-52.0); Hemoglobin 14.8 g/dL (14.1-18.0); Lymphocytes # 6.5 K/mm3 (0.7-4.5); Lymphocytes % 49.7 % (10-50); Mean Corpuscular HGB Conc 33.2 g/dL (31.8-35.4); Mean Corpuscular Hemoglobin 29.4 pg (27.0-31.2); Mean Corpuscular Volume 88.5 fl (80-94); Mean Platelet Volume 9.1 fl (7.4-10.4); Monocytes # 0.7 K/mm3 (0.1-1.0); Monocytes % 5.1 % (1.7-9.3); Neutrophils # 5.4 K/mm3 (1.8-7.8); Neutrophils % 41.5 % (37.0-80.0); Platelet Count 227 K/mm3 (142-424); Red Blood Count 5.05 M/mm3 (4.60-6.20); Red Cell Distribution Width 14.4 % (11.5-17.5)
[2022-04-27 10:31] LABS: Alanine Aminotransferase 24 U/L (12-78); Albumin Level 3.9 g/dl (3.5-5.0); Albumin/Globulin Ratio 1.4 (1.1-1.8); Alkaline Phosphatase 76 U/L (38-126); Aspartate Amino Transferase 33 U/L (17-59); Bilirubin,Total 0.2 mg/dl (0.2-1.3); Blood Urea Nitrogen 20 mg/dl (9-20); Calcium 8.1 mg/dl (8.4-10.2); Carbon Dioxide 27 mmol/L (22.0-30.0); Chloride 103 mmol/L (98-107); Creatinine Clearance Estimated 74 mL/min (50-200); Estimated Glomerular Filt Rate 72 ml/min (>60); GFR (African American) 87 ML/MIN (>60); Globulin 2.8 g/dL (1.3-3.2); Glucose 116 mg/dl (74-100); Sodium 138 mmol/L (136-145); Total Protein,Serum 6.7 g/dl (6.3-8.2)
--- NOTE | 2022-04-27 11:19 | PC.NURSE ---
1010-pt here today to have blood taken to test labs as ordered per md prior to md appt tomorrow. venipuncture performed on pt to lt ac per butterfly needle-blood obtained for labs. specimen sent to lab for analysis. once needle withdrawn, site secured with 2x2 gauze and coban.
== END 2022-04-27 10:15 | disposition home or self-care (01) ==
LOC: INF 10:04
PROVIDERS: PCP Internal Medicine; Visit Provider Internal Medicine Medical Oncology
DX: C91.10 Chronic lymphocytic leukemia of B-cell type not having achieved remission (principal)
CPT/HCPCS: 36415; 80053; 85025

== ENCOUNTER 2022-05-20 07:57 | Outpatient (CLI) | payer MEDICARE, SELFPAY ==
[2022-05-20 08:10] VITALS: BMI 27.2
[2022-05-20 08:26] LABS: Basophils # 0.2 K/mm3 (0-0.2); Basophils % 1.5 % (0.1-2.0); Eosinophils # 0.2 K/mm3 (0.0-0.4); Eosinophils % 1.3 % (0.1-12.0); Hematocrit 43.2 % (42.0-52.0); Hemoglobin 14.5 g/dL (14.1-18.0); Lymphocytes # 7.7 K/mm3 (0.7-4.5); Lymphocytes % 55.7 % (10-50); Mean Corpuscular HGB Conc 33.5 g/dL (31.8-35.4); Mean Corpuscular Hemoglobin 29.5 pg (27.0-31.2); Mean Platelet Volume 8.9 fl (7.4-10.4); Monocytes # 0.5 K/mm3 (0.1-1.0); Monocytes % 3.9 % (1.7-9.3); Neutrophils # 5.2 K/mm3 (1.8-7.8); Neutrophils % 37.4 % (37.0-80.0); Platelet Count 225 K/mm3 (142-424); Red Blood Count 4.91 M/mm3 (4.60-6.20); Red Cell Distribution Width 14.6 % (11.5-17.5); White Blood Count 13.8 K/mm3 (4.8-10.8)
[2022-05-20 08:27] LABS: MANUAL DIFFERENTIAL MANUAL DIFFERENTIAL (MANUAL DIFF)
[2022-05-20 08:35] LABS: Lymphocytes % 49 % (10-50); Monocytes % 8 % (2-9); Neutrophils % 43 % (42-76); Platelet Estimate Normal; RBC Morphology Normal; Total Cells Counted 100
[2022-05-20 08:37] LABS: Alanine Aminotransferase 23 U/L (12-78); Albumin Level 3.9 g/dl (3.5-5.0); Albumin/Globulin Ratio 1.3 (1.1-1.8); Alkaline Phosphatase 74 U/L (38-126); Anion Gap 14.6 mEq/L (5-15); Aspartate Amino Transferase 32 U/L (17-59); Bilirubin,Total 0.5 mg/dl (0.2-1.3); Blood Urea Nitrogen 27 mg/dl (9-20); Calcium 8.6 mg/dl (8.4-10.2); Carbon Dioxide 29 mmol/L (22.0-30.0); Chloride 101 mmol/L (98-107); Creatinine Clearance Estimated 55 mL/min (50-200); Estimated Glomerular Filt Rate 53 ml/min (>60); GFR (African American) 64 ML/MIN (>60); Globulin 2.9 g/dL (1.3-3.2); Glucose 105 mg/dl (74-100); Potassium 4.6 mmoL/L (3.5-5.1); Sodium 140 mmol/L (136-145); Total Protein,Serum 6.8 g/dl (6.3-8.2)
--- NOTE | 2022-05-20 08:45 | PC.NURSE ---
0815 CBC/CMP collected via L AC x 1 stick with butterfly needle. Patient only here for labs prior to appointment with Dr. Rodrigues this am.
== END 2022-05-20 10:15 | disposition home or self-care (01) ==
LOC: RAD 07:58 → INF 08:12
PROVIDERS: PCP Internal Medicine; Visit Provider Internal Medicine Medical Oncology
DX: C91.10 Chronic lymphocytic leukemia of B-cell type not having achieved remission (principal)
CPT/HCPCS: 36415; 80053; 85007; 85025

== ENCOUNTER 2022-06-17 07:42 | Outpatient (CLI) | payer MEDICARE, SELFPAY ==
[2022-06-17 08:09] VITALS: BMI 27.2
--- NOTE | 2022-06-17 08:11 | PC.NURSE ---
0811-collected labs via peripheral stick; pt to oncology appointment at this time.
[2022-06-17 08:23] LABS: Basophils # 0.2 K/mm3 (0-0.2); Basophils % 1.1 % (0.1-2.0); Eosinophils # 0.2 K/mm3 (0.0-0.4); Eosinophils % 0.9 % (0.1-12.0); Hematocrit 41.3 % (42.0-52.0); Hemoglobin 13.4 g/dL (14.1-18.0); Lymphocytes # 8.9 K/mm3 (0.7-4.5); Lymphocytes % 55.9 % (10-50); Mean Corpuscular HGB Conc 32.4 g/dL (31.8-35.4); Mean Corpuscular Hemoglobin 29.7 pg (27.0-31.2); Mean Corpuscular Volume 91.6 fl (80-94); Mean Platelet Volume 9.1 fl (7.4-10.4); Monocytes # 0.6 K/mm3 (0.1-1.0); Monocytes % 3.8 % (1.7-9.3); Neutrophils # 6.1 K/mm3 (1.8-7.8); Neutrophils % 38.2 % (37.0-80.0); Platelet Count 221 K/mm3 (142-424); Red Blood Count 4.51 M/mm3 (4.60-6.20); White Blood Count 15.9 K/mm3 (4.8-10.8)
[2022-06-17 08:29] LABS: MANUAL DIFFERENTIAL MANUAL DIFFERENTIAL (MANUAL DIFF)
[2022-06-17 08:35] LABS: Alanine Aminotransferase 25 U/L (12-78); Albumin/Globulin Ratio 1.6 (1.1-1.8); Alkaline Phosphatase 70 U/L (38-126); Anion Gap 15.2 mEq/L (5-15); Aspartate Amino Transferase 32 U/L (17-59); Bilirubin,Total 0.5 mg/dl (0.2-1.3); Blood Urea Nitrogen 21 mg/dl (9-20); Calcium 8.6 mg/dl (8.4-10.2); Carbon Dioxide 25 mmol/L (22.0-30.0); Chloride 107 mmol/L (98-107); Creatinine Clearance Estimated 55 mL/min (50-200); Estimated Glomerular Filt Rate 53 ml/min (>60); GFR (African American) 64 ML/MIN (>60); Globulin 2.5 g/dL (1.3-3.2); Glucose 190 mg/dl (74-100); Potassium 4.2 mmoL/L (3.5-5.1); Sodium 143 mmol/L (136-145); Total Protein,Serum 6.5 g/dl (6.3-8.2)
[2022-06-17 09:30] LABS: Lymphocytes % 55 % (10-50); Monocytes % 4 % (2-9); Neutrophils % 38 % (42-76); Total Cells Counted 100
[2022-06-17 09:32] LABS: Platelet Estimate Normal; RBC Morphology Normal
== END 2022-06-17 08:20 | disposition home or self-care (01) ==
LOC: INF 07:43
PROVIDERS: PCP Internal Medicine; Visit Provider Internal Medicine Medical Oncology
DX: C91.10 Chronic lymphocytic leukemia of B-cell type not having achieved remission (principal)
CPT/HCPCS: 36415; 80053; 85007; 85025

== ENCOUNTER 2022-07-02 15:52 | Emergency (ER) | payer MEDICARE, SELFPAY ==
[2022-07-02 17:25] VITALS: BP 130/76; PULSE 77; RESP 16; TEMP 36.9; O2SAT 95; BMI 26.5
--- NOTE | 2022-07-02 17:29 | EXP.UTC ---
Discharge Plan Disposition Patient Disposition: Home, Self-Care Condition: Good Prescriptions Prescriptions: New azithromycin [Zithromax] 250 mg tablet 250 mg PO UD DOSE PK Qty: 6 0RF Rx Instructions: Take two (2) tablets today, then one (1) tablet days #2 thru #5 benzonatate [benzonatate] 100 mg capsule 100 mg PO TIDP PRN (Reason: Cough) Qty: 30 0RF oseltamivir [Tamiflu] 75 mg capsule 75 mg PO BID Qty: 10 0RF No Action ezetimibe [Zetia] 10 mg tablet 10 mg PO DAILY nitroglycerin 0.4 mg tablet, sublingual 0.4 mg SL Q5MINP PRN (Reason: Chest Pain) losartan 100 mg tablet 100 mg PO HS isosorbide mononitrate 30 mg tablet extended release 24 hr 30 mg PO DAILY Label Comments: TAKE 1 TABLET BY MOUTH ONCE DAILY metoprolol tartrate 100 MG tablet 100 mg PO BID metformin 500 MG tablet 500 mg PO BIDWMEAL rosuvastatin 5 MG tablet 5 mg PO DAILY pantoprazole 40 MG tablet,delayed release (DR/EC) 40 mg PO DAILY nifedipine 60 MG tablet extended release 24 hr 60 mg PO HS Referrals Follow up/Referrals: Marcelino Cueva [Primary Care Provider] - See instructions Activity Restrictions/Add. Instructions Additional Instructions/Restrictions: Drink plenty of fluids. Take tylenol or ibuprofen for pain or fever. Take the medications as directed. Follow up with your regular doctor. GO TO THE ER FOR ANY WORSENING SYMPTOMS Clinical Impressions Clinical Impression: Influenza A Instructions Patient Instructions: DI for Influenza -- Adult, Oseltamivir Discharge ED Provider: Irineo Iyer [facility] General Stated complaint: cough congestion Time Seen by Provider: 07/02/22 17:29 History of Present Illness Provider Complaint: For the past 2 days he has had cough, congestion, body aches, chills, and malaise. Related Data Home Medications Medication Instructions Recorded Confirmed metoprolol tartrate 100 mg tablet 100 mg PO BID Hypertension 09/04/19 06/17/22 ezetimibe 10 mg tablet (Zetia) 10 mg PO DAILY Cholesterol 08/27/20 06/17/22 metformin 500 mg tablet 500 mg PO BIDWMEAL Diabetes 02/20/21 06/17/22 rosuvastatin 5 mg tablet 5 mg PO DAILY Cholesterol 02/20/21 06/17/22 nifedipine 60 mg tablet,extended 60 mg PO HS Hypertension 12/27/21 06/17/22 release 24 hr losartan 100 mg tablet 100 mg PO HS Hypertension 01/06/22 06/17/22 nitroglycerin 0.4 mg sublingual 0.4 mg sublingual Q5MINP PRN Chest 01/06/22 06/17/22 tablet Pain isosorbide mononitrate 30 mg 30 mg PO DAILY BP 03/03/22 06/17/22 tablet,extended release 24 hr pantoprazole 40 mg tablet,delayed 40 mg PO DAILY Petic ulcer disease 05/20/22 06/17/22 release Previous Rx's Medication Instructions Recorded azithromycin 250 mg tablet 250 mg PO UD DOSE PK #6 tabs 07/02/22 (Zithromax) benzonatate 100 mg capsule 100 mg PO TIDP PRN Cough #30 caps 07/02/22 oseltamivir 75 mg capsule (Tamiflu) 75 mg PO BID #10 caps 07/02/22 Allergies Allergy/AdvReac Type Severity Reaction Status Date / Time Penicillins [PENICILLINS] Allergy Unknown I-RASH Verified 07/02/22 17:43 [facility] Disclaimer: The information contained in this section may have been updated after the patient was seen, as this information can be updated by other users. Medical History Anemia BPH (benign prostatic hyperplasia) BPH (benign prostatic hyperplasia) CAD (coronary artery disease) Cancer Cardiomegaly Cardiomyopathy CLL (chronic lymphocytic leukemia) Diabetes DM type 2 (diabetes mellitus, type 2) GI bleed Heart murmur Heart murmur Hyperlipidemia Hypertension Myocardial infarction Sinus problem Surgical History History of colonoscopy Hx of cardiac cath Family History Other Cancer Diabetes Social History (Reviewed 07/03/22 @ 22:
[2022-07-02 17:40] LABS: UTC Influenza A Antigen Positive (Negative); UTC Influenza B Antigen Negative (Negative)
[2022-07-02 18:08] VITALS: BP 130/76; PULSE 77; RESP 16; TEMP 36.9
== END 2022-07-02 18:08 | disposition home or self-care (01) ==
PROVIDERS: Emergency Provider Nurse Practitioner Family; PCP Internal Medicine
DX: J10.1 Influenza due to other identified influenza virus with other respiratory manifestations (principal); R07.9 Chest pain, unspecified; R50.9 Fever, unspecified; R53.81 Other malaise; M79.10 Myalgia, unspecified site; I11.0 Hypertensive heart disease with heart failure; I42.9 Cardiomyopathy, unspecified; I25.10 Atherosclerotic heart disease of native coronary artery without angina pectoris; I25.2 Old myocardial infarction; R01.1 Cardiac murmur, unspecified; E78.5 Hyperlipidemia, unspecified; E11.9 Type 2 diabetes mellitus without complications; N40.0 Benign prostatic hyperplasia without lower urinary tract symptoms; C91.10 Chronic lymphocytic leukemia of B-cell type not having achieved remission; Z79.84 Long term (current) use of oral hypoglycemic drugs; Z79.899 Other long term (current) drug therapy; Z88.0 Allergy status to penicillin; Z87.891 Personal history of nicotine dependence; Z82.49 Family history of ischemic heart disease and other diseases of the circulatory system; Z80.9 Family history of malignant neoplasm, unspecified
CPT/HCPCS: 87804; 99213; G0463

== ENCOUNTER 2022-07-12 13:13 | Day surgery (SDC) | payer MEDICARE, SELFPAY ==
[2022-07-08 17:42] VITALS: BMI 27.2
[2022-07-12 13:37] VITALS: BP 161/70; PULSE 75; RESP 16; TEMP 36.6; O2SAT 98
[2022-07-12 13:44] LABS: POC Glucose,Bedside 98 (70-110)
--- NOTE | 2022-07-12 14:43 | EXP.ANES.CKL ---
[facility] Disclaimer: The information contained in this section may have been updated after the patient was seen, as this information can be updated by other users. Medical History Anemia Basal cell carcinoma (BCC) of face BPH (benign prostatic hyperplasia) BPH (benign prostatic hyperplasia) CAD (coronary artery disease) Cancer Cardiomegaly Cardiomyopathy CLL (chronic lymphocytic leukemia) Diabetes DM type 2 (diabetes mellitus, type 2) GI bleed Heart murmur Heart murmur Hyperlipidemia Hypertension Myocardial infarction Sinus problem Surgical History History of colonoscopy Hx of cardiac cath Family History Other Cancer Diabetes Social History Smoking Status: Former smoker second hand exposure: No alcohol intake: never substance use type: denies use current occupational status: retired Travel in the last 8 weeks: None household members: significant other housing: house current occupational exposures/hazards: No caffeine: Yes [facility] Anesthesia Checklist Patient Identification Patient Identification: Arm Band and Verbal (Name & ) Structural Data Admitted From: Home Planned Operative Procedure/s: EGD Consent for Planned Operative Procedure(s) Verified: Yes NPO Status Verified Time NPO: 00:00 Airway Assessment C-Spine Mobility Assessed: Yes TMJ Mobility Assessed: Yes Dentition: Poor Dentition Neurological Assessment Level of Consciousness: Awake Hx Seizures: No Numbness or tingling in extremities: No Anesthesia Plan Anesthesia Risk discussed: Yes Anesthesia Plan: Verified ASA Class: IV Anesthesia Type: MAC
[2022-07-12 14:46] VITALS: O2SAT 98
[2022-07-12 14:59] VITALS: BP 84/47; PULSE 73; RESP 12; TEMP 36.6; O2SAT 90
--- NOTE | 2022-07-12 15:01 | HMH.SCOPE ---
Procedure: Date: 07/12/22 Patient Date of :: 1940 Procedure Performed:: Esophagogastroduodenoscopy with biopsy Indications:: Dieulafoy lesion Performing Provider:: James Malhotra MD Referring Provider:: . Sedation:: Monitored anesthesia care Procedure:: After informed consent was obtained the patient was taken to the endoscopy suite. Sedation ensued after the patient was transferred to the left lateral decubitus position. Pulse, blood pressure, and oxygen saturation were monitored throughout the procedure. The endoscope was advanced beyond the duodenal bulb. Retroflexion within the gastric lumen was accomplished. The gastroscope was carefully removed and the patient was transferred to recovery in stable condition. Please see findings and specimens below for detail. Findings:: Gastroesophageal junction displaced at 36 cm Unchanged sliding hiatal hernia No significant inflammatory changes noted in esophagus, stomach or proximal small bowel No sign of active/recent hemorrhage Clip placed at prior procedure no longer visible (sloughed) Specimens:: Antral biopsy Recommendations:: Continue PPI Complications:: No immediate Estimated blood obtained (mL): 1
[2022-07-12 15:09] VITALS: BP 90/50; PULSE 71; RESP 14; O2SAT 94
[2022-07-12 15:19] VITALS: BP 103/61; PULSE 72; RESP 15; O2SAT 94
[2022-07-12 15:40] VITALS: BP 100/61; PULSE 71; RESP 16; O2SAT 95
== END 2022-07-12 15:38 | disposition home or self-care (01) ==
PROVIDERS: PCP Internal Medicine; Visit Provider Surgery
PROC: 0DJ08ZZ Inspection of Upper Intestinal Tract, Via Natural or Artificial Opening Endoscopic (ICD-10-PCS; CPT 43235; principal; 2022-07-12 14:30)
DX: K31.9 Disease of stomach and duodenum, unspecified (principal); K44.9 Diaphragmatic hernia without obstruction or gangrene; Z79.899 Other long term (current) drug therapy; E11.9 Type 2 diabetes mellitus without complications
CPT/HCPCS: 43239; 82962; 88305

== ENCOUNTER 2022-07-14 09:57 | Outpatient (CLI) | payer MEDICARE, SELFPAY ==
[2022-07-14 10:00] VITALS: BMI 27.6
[2022-07-14 10:14] LABS: Basophils # 0.4 K/mm3 (0-0.2); Basophils % 1.3 % (0.1-2.0); Eosinophils # 0.2 K/mm3 (0.0-0.4); Eosinophils % 0.6 % (0.1-12.0); Hematocrit 41.8 % (42.0-52.0); Hemoglobin 13.8 g/dL (14.1-18.0); Lymphocytes # 18.7 K/mm3 (0.7-4.5); Lymphocytes % 63.1 % (10-50); Mean Corpuscular HGB Conc 33.2 g/dL (31.8-35.4); Mean Corpuscular Hemoglobin 30.2 pg (27.0-31.2); Mean Corpuscular Volume 91.2 fl (80-94); Mean Platelet Volume 8.3 fl (7.4-10.4); Monocytes # 0.9 K/mm3 (0.1-1.0); Neutrophils # 9.5 K/mm3 (1.8-7.8); Neutrophils % 31.9 % (37.0-80.0); Platelet Count 373 K/mm3 (142-424); Red Blood Count 4.58 M/mm3 (4.60-6.20); Red Cell Distribution Width 14.5 % (11.5-17.5); White Blood Count 29.6 K/mm3 (4.8-10.8)
[2022-07-14 10:18] LABS: MANUAL DIFFERENTIAL MANUAL DIFFERENTIAL (MANUAL DIFF)
[2022-07-14 10:23] LABS: Chloride 106 mmol/L (98-107); Sodium 141 mmol/L (136-145)
[2022-07-14 10:24] LABS: Potassium 4.2 mmoL/L (3.5-5.1)
[2022-07-14 10:26] LABS: Alanine Aminotransferase 29 U/L (12-78); Alkaline Phosphatase 64 U/L (38-126); Aspartate Amino Transferase 36 U/L (17-59); Bilirubin,Total 0.4 mg/dl (0.2-1.3); Blood Urea Nitrogen 22 mg/dl (9-20); Creatinine Clearance Estimated 52 mL/min (50-200); Estimated Glomerular Filt Rate 49 ml/min (>60); GFR (African American) 59 ML/MIN (>60)
[2022-07-14 10:27] LABS: Albumin Level 3.9 g/dl (3.5-5.0); Albumin/Globulin Ratio 1.4 (1.1-1.8); Anion Gap 13.2 mEq/L (5-15); Calcium 8.8 mg/dl (8.4-10.2); Carbon Dioxide 26 mmol/L (22.0-30.0); Globulin 2.7 g/dL (1.3-3.2); Glucose 110 mg/dl (74-100); Total Protein,Serum 6.6 g/dl (6.3-8.2)
[2022-07-14 10:36] LABS: Corrected White Blood Count 27.9 K/mm3 (4.8-10.8); Lymphocytes % 59 % (10-50); Monocytes % 4 % (2-9); Neutrophils % 37 % (42-76); Nucleated Red Blood Cells 6; Platelet Estimate Normal; RBC Morphology Normal; Total Cells Counted 100
== END 2022-07-14 10:15 | disposition home or self-care (01) ==
LOC: INF 09:58
PROVIDERS: PCP Internal Medicine; Visit Provider Internal Medicine Medical Oncology
DX: C91.10 Chronic lymphocytic leukemia of B-cell type not having achieved remission (principal)
CPT/HCPCS: 36415; 80053; 85007; 85025

== ENCOUNTER → 2022-08-11 08:08 | Outpatient (CLI) | payer MEDICARE, OTHER, SELFPAY ==
[2022-08-11 08:16] VITALS: BMI 27.2
[2022-08-11 08:31] LABS: Basophils # 0.6 K/mm3 (0-0.2); Basophils % 1.6 % (0.1-2.0); Eosinophils # 0.3 K/mm3 (0.0-0.4); Eosinophils % 0.7 % (0.1-12.0); Hematocrit 44.4 % (42.0-52.0); Hemoglobin 14.1 g/dL (14.1-18.0); Lymphocytes # 26.3 K/mm3 (0.7-4.5); Lymphocytes % 75.6 % (10-50); Mean Corpuscular HGB Conc 31.7 g/dL (31.8-35.4); Mean Corpuscular Hemoglobin 30.4 pg (27.0-31.2); Mean Platelet Volume 9.2 fl (7.4-10.4); Monocytes # 0.7 K/mm3 (0.1-1.0); Neutrophils % 20.1 % (37.0-80.0); Platelet Count 262 K/mm3 (142-424); Red Blood Count 4.62 M/mm3 (4.60-6.20); Red Cell Distribution Width 14.9 % (11.5-17.5); White Blood Count 34.8 K/mm3 (4.8-10.8)
[2022-08-11 08:35] LABS: MANUAL DIFFERENTIAL MANUAL DIFFERENTIAL (MANUAL DIFF)
[2022-08-11 08:40] LABS: Alanine Aminotransferase 27 U/L (12-78); Albumin Level 4.2 g/dl (3.5-5.0); Albumin/Globulin Ratio 1.4 (1.1-1.8); Alkaline Phosphatase 62 U/L (38-126); Anion Gap 15.4 mEq/L (5-15); Aspartate Amino Transferase 36 U/L (17-59); Bilirubin,Total 0.6 mg/dl (0.2-1.3); Blood Urea Nitrogen 28 mg/dl (9-20); Calcium 8.3 mg/dl (8.4-10.2); Carbon Dioxide 22 mmol/L (22.0-30.0); Chloride 106 mmol/L (98-107); Creatinine Clearance Estimated 48 mL/min (50-200); Estimated Glomerular Filt Rate 45 ml/min (>60); GFR (African American) 54 ML/MIN (>60); Globulin 2.9 g/dL (1.3-3.2); Glucose 144 mg/dl (74-100); Potassium 4.4 mmoL/L (3.5-5.1); Sodium 139 mmol/L (136-145); Total Protein,Serum 7.1 g/dl (6.3-8.2)
[2022-08-11 08:54] LABS: Lymphocytes % 55 % (10-50); Monocytes % 2 % (2-9); Neutrophils % 43 % (42-76); Total Cells Counted 100
[2022-08-11 08:55] LABS: Platelet Estimate Normal; RBC Morphology Normal
== END ==
PROVIDERS: PCP Internal Medicine; Visit Provider Internal Medicine Medical Oncology
DX: C91.10 Chronic lymphocytic leukemia of B-cell type not having achieved remission (principal)
CPT/HCPCS: 36415; 80053; 85007; 85025

== ENCOUNTER 2022-09-07 10:19 | Outpatient (CLI) | payer MEDICARE, OTHER, SELFPAY ==
[2022-09-07 10:25] VITALS: BMI 27.9
[2022-09-07 10:38] LABS: Basophils # 0.4 K/mm3 (0-0.2); Basophils % 1.5 % (0.1-2.0); Eosinophils # 0.1 K/mm3 (0.0-0.4); Eosinophils % 0.5 % (0.1-12.0); Hematocrit 36.5 % (42.0-52.0); Hemoglobin 14.1 g/dL (14.1-18.0); Lymphocytes # 18.7 K/mm3 (0.7-4.5); Mean Corpuscular HGB Conc 38.5 g/dL (31.8-35.4); Mean Corpuscular Hemoglobin 35.9 pg (27.0-31.2); Mean Corpuscular Volume 93.3 fl (80-94); Mean Platelet Volume 9.1 fl (7.4-10.4); Monocytes # 1.1 K/mm3 (0.1-1.0); Monocytes % 3.9 % (1.7-9.3); Neutrophils # 6.8 K/mm3 (1.8-7.8); Platelet Count 215 K/mm3 (142-424); Red Blood Count 3.92 M/mm3 (4.60-6.20); Red Cell Distribution Width 14.1 % (11.5-17.5); White Blood Count 27.1 K/mm3 (4.8-10.8)
[2022-09-07 10:46] LABS: Chloride 105 mmol/L (98-107); Sodium 140 mmol/L (136-145)
[2022-09-07 10:47] LABS: MANUAL DIFFERENTIAL MANUAL DIFFERENTIAL (MANUAL DIFF); Potassium 4.7 mmoL/L (3.5-5.1)
[2022-09-07 10:49] LABS: Alanine Aminotransferase 27 U/L (12-78); Albumin Level 4.3 g/dl (3.5-5.0); Albumin/Globulin Ratio 1.5 (1.1-1.8); Alkaline Phosphatase 64 U/L (38-126); Anion Gap 12.7 mEq/L (5-15); Aspartate Amino Transferase 38 U/L (17-59); Bilirubin,Total 0.6 mg/dl (0.2-1.3); Blood Urea Nitrogen 19 mg/dl (9-20); Carbon Dioxide 27 mmol/L (22.0-30.0); Creatinine Clearance Estimated 61 mL/min (50-200); Estimated Glomerular Filt Rate 58 ml/min (>60); GFR (African American) 70 ML/MIN (>60); Globulin 2.9 g/dL (1.3-3.2); Total Protein,Serum 7.2 g/dl (6.3-8.2)
[2022-09-07 10:50] LABS: Calcium 8.4 mg/dl (8.4-10.2); Glucose 133 mg/dl (74-100)
--- NOTE | 2022-09-07 10:50 | PC.NURSE ---
1025 - BLOOD DRAWN FROM LEFT AC USING BUTTERFLY NEEDLE TO CHECK CBC AND CMP AT THIS TIME.
[2022-09-07 12:14] LABS: Lymphocytes % 69 % (10-50); Monocytes % 3 % (2-9); Neutrophils % 28 % (42-76); Total Cells Counted 100
[2022-09-07 12:15] LABS: Platelet Estimate Normal; RBC Morphology Normal
== END 2022-09-07 10:30 | disposition home or self-care (01) ==
LOC: INF 10:20
PROVIDERS: PCP Internal Medicine; Visit Provider Internal Medicine Medical Oncology
DX: C91.10 Chronic lymphocytic leukemia of B-cell type not having achieved remission (principal)
CPT/HCPCS: 36415; 80053; 85007; 85025

== ENCOUNTER 2022-10-05 11:51 | Outpatient (CLI) | payer MEDICARE, OTHER, SELFPAY ==
[2022-10-05 12:00] VITALS: BMI 27.8
--- NOTE | 2022-10-05 12:03 | PC.NURSE ---
1203-collected labs via peripheral stick; pt d/c home
[2022-10-05 12:25] LABS: Chloride 103 mmol/L (98-107)
[2022-10-05 12:26] LABS: Potassium 5.1 mmoL/L (3.5-5.1); Sodium 136 mmol/L (136-145)
[2022-10-05 12:28] LABS: Alanine Aminotransferase 25 U/L (12-78); Aspartate Amino Transferase 40 U/L (17-59); Blood Urea Nitrogen 30 mg/dl (9-20); Creatinine Clearance Estimated 46 mL/min (50-200); Estimated Glomerular Filt Rate 42 ml/min (>60); GFR (African American) 51 ML/MIN (>60)
[2022-10-05 12:29] LABS: Albumin Level 4.4 g/dl (3.5-5.0); Albumin/Globulin Ratio 1.5 (1.1-1.8); Alkaline Phosphatase 61 U/L (38-126); Anion Gap 13.1 mEq/L (5-15); Basophils # 0.8 K/mm3 (0-0.2); Basophils % 1.8 % (0.1-2.0); Bilirubin,Total 0.8 mg/dl (0.2-1.3); Calcium 8.5 mg/dl (8.4-10.2); Carbon Dioxide 25 mmol/L (22.0-30.0); Eosinophils # 0.2 K/mm3 (0.0-0.4); Eosinophils % 0.5 % (0.1-12.0); Glucose 120 mg/dl (74-100); Hematocrit 42.8 % (42.0-52.0); Hemoglobin 14.2 g/dL (14.1-18.0); Lymphocytes % 78.4 % (10-50); Mean Corpuscular HGB Conc 33.2 g/dL (31.8-35.4); Mean Corpuscular Hemoglobin 30.4 pg (27.0-31.2); Mean Corpuscular Volume 91.5 fl (80-94); Mean Platelet Volume 9.3 fl (7.4-10.4); Monocytes # 0.8 K/mm3 (0.1-1.0); Monocytes % 1.8 % (1.7-9.3); Neutrophils # 7.6 K/mm3 (1.8-7.8); Neutrophils % 17.5 % (37.0-80.0); Platelet Count 218 K/mm3 (142-424); Red Blood Count 4.68 M/mm3 (4.60-6.20); Red Cell Distribution Width 13.8 % (11.5-17.5); Total Protein,Serum 7.4 g/dl (6.3-8.2)
[2022-10-05 12:34] LABS: White Blood Count 43.3 K/mm3 (4.8-10.8)
[2022-10-05 12:36] LABS: MANUAL DIFFERENTIAL MANUAL DIFFERENTIAL (MANUAL DIFF)
[2022-10-05 12:49] LABS: Lymphocytes % 64 % (10-50); Monocytes % 4 % (2-9); Neutrophils % 32 % (42-76); Platelet Estimate Normal; RBC Morphology Normal; Total Cells Counted 100
--- NOTE | 2022-10-05 15:12 | PC.NURSE ---
at 1233, Richelle Cardenas from lab called RN to report critical lab results of WBC 43.3. name, and lab results verified and read back by RN. Lilia MD notified and no new orders given.
== END 2022-10-05 12:04 | disposition home or self-care (01) ==
LOC: INF 11:53
PROVIDERS: PCP Internal Medicine; Visit Provider Internal Medicine Medical Oncology
DX: C91.10 Chronic lymphocytic leukemia of B-cell type not having achieved remission (principal)
CPT/HCPCS: 36415; 80053; 85007; 85025

== ENCOUNTER 2022-10-20 11:11 | Outpatient (CLI) | payer MEDICARE, SELFPAY ==
[2022-10-20 11:15] VITALS: BMI 27.9
--- NOTE | 2022-10-20 11:35 | PC.NURSE ---
1120-USED BUTTERFLY NEEDLE TO DRAW BLOOD FROM LEFT AC FOR CBC AND CMP PRIOR TO DR SEALS APPOINTMENT TOMORROW.
[2022-10-20 11:38] LABS: Basophils # 0.2 K/mm3 (0-0.2); Basophils % 0.6 % (0.1-2.0); Eosinophils # 0.2 K/mm3 (0.0-0.4); Eosinophils % 0.7 % (0.1-12.0); Hematocrit 39.2 % (42.0-52.0); Hemoglobin 13.1 g/dL (14.1-18.0); Lymphocytes % 73.7 % (10-50); Mean Corpuscular HGB Conc 33.3 g/dL (31.8-35.4); Mean Corpuscular Volume 92.9 fl (80-94); Mean Platelet Volume 9.3 fl (7.4-10.4); Monocytes # 0.7 K/mm3 (0.1-1.0); Monocytes % 2.6 % (1.7-9.3); Neutrophils # 6.4 K/mm3 (1.8-7.8); Neutrophils % 22.4 % (37.0-80.0); Platelet Count 210 K/mm3 (142-424); Red Blood Count 4.22 M/mm3 (4.60-6.20); Red Cell Distribution Width 13.9 % (11.5-17.5); White Blood Count 28.5 K/mm3 (4.8-10.8)
[2022-10-20 11:46] LABS: MANUAL DIFFERENTIAL MANUAL DIFFERENTIAL (MANUAL DIFF)
[2022-10-20 12:05] LABS: Alanine Aminotransferase 30 U/L (12-78); Albumin/Globulin Ratio 1.5 (1.1-1.8); Alkaline Phosphatase 62 U/L (38-126); Anion Gap 12.6 mEq/L (5-15); Aspartate Amino Transferase 40 U/L (17-59); Bilirubin,Total 0.5 mg/dl (0.2-1.3); Blood Urea Nitrogen 22 mg/dl (9-20); Calcium 7.9 mg/dl (8.4-10.2); Carbon Dioxide 25 mmol/L (22.0-30.0); Chloride 106 mmol/L (98-107); Creatinine Clearance Estimated 57 mL/min (50-200); Estimated Glomerular Filt Rate 53 ml/min (>60); GFR (African American) 64 ML/MIN (>60); Globulin 2.6 g/dL (1.3-3.2); Glucose 121 mg/dl (74-100); Potassium 4.6 mmoL/L (3.5-5.1); Sodium 139 mmol/L (136-145); Total Protein,Serum 6.6 g/dl (6.3-8.2)
[2022-10-20 12:11] LABS: Eosinophils % 1 % (0-3); Lymphocytes % 45 % (10-50); Monocytes % 3 % (2-9); Neutrophils % 47 % (42-76); Platelet Estimate Normal; RBC Morphology Normal; Total Cells Counted 100
== END 2022-10-20 11:25 | disposition home or self-care (01) ==
LOC: INF 11:13
PROVIDERS: Internal Medicine Medical Oncology; PCP Internal Medicine; Visit Provider Internal Medicine
DX: C91.10 Chronic lymphocytic leukemia of B-cell type not having achieved remission (principal)
CPT/HCPCS: 36415; 80053; 85007; 85025

== ENCOUNTER 2022-11-17 08:44 | Outpatient (CLI) | payer MEDICARE, SELFPAY ==
[2022-11-17 08:49] VITALS: BMI 28.4
[2022-11-17 09:10] LABS: Chloride 105 mmol/L (98-107); Sodium 135 mmol/L (136-145)
[2022-11-17 09:11] LABS: Potassium 4.6 mmoL/L (3.5-5.1)
[2022-11-17 09:13] LABS: Alanine Aminotransferase 27 U/L (12-78); Albumin Level 3.9 g/dl (3.5-5.0); Albumin/Globulin Ratio 1.4 (1.1-1.8); Alkaline Phosphatase 57 U/L (38-126); Anion Gap 11.6 mEq/L (5-15); Aspartate Amino Transferase 42 U/L (17-59); Bilirubin,Total 0.6 mg/dl (0.2-1.3); Blood Urea Nitrogen 17 mg/dl (9-20); Calcium 8.4 mg/dl (8.4-10.2); Carbon Dioxide 23 mmol/L (22.0-30.0); Creatinine Clearance Estimated 62 mL/min (50-200); Estimated Glomerular Filt Rate 58 ml/min (>60); GFR (African American) 70 ML/MIN (>60); Globulin 2.8 g/dL (1.3-3.2); Glucose 116 mg/dl (74-100); Total Protein,Serum 6.7 g/dl (6.3-8.2)
[2022-11-17 09:16] LABS: Basophils # 0.2 K/mm3 (0-0.2); Basophils % 0.5 % (0.1-2.0); Eosinophils # 0.2 K/mm3 (0.0-0.4); Eosinophils % 0.4 % (0.1-12.0); Hematocrit 42.8 % (42.0-52.0); Hemoglobin 13.6 g/dL (14.1-18.0); Lymphocytes # 32.8 K/mm3 (0.7-4.5); Lymphocytes % 78.7 % (10-50); Mean Corpuscular HGB Conc 31.8 g/dL (31.8-35.4); Mean Corpuscular Hemoglobin 29.8 pg (27.0-31.2); Mean Corpuscular Volume 93.6 fl (80-94); Mean Platelet Volume 8.8 fl (7.4-10.4); Monocytes # 0.8 K/mm3 (0.1-1.0); Neutrophils # 7.7 K/mm3 (1.8-7.8); Neutrophils % 18.4 % (37.0-80.0); Platelet Count 239 K/mm3 (142-424); Red Blood Count 4.57 M/mm3 (4.60-6.20); Red Cell Distribution Width 13.5 % (11.5-17.5)
[2022-11-17 09:22] LABS: White Blood Count 41.7 K/mm3 (4.8-10.8)
[2022-11-17 09:23] LABS: MANUAL DIFFERENTIAL MANUAL DIFFERENTIAL (MANUAL DIFF)
--- NOTE | 2022-11-17 09:25 | PC.NURSE ---
at 0850, labs drawn via butterfly from left ac. needle removed and coban placed over area. pt tolerated well.
--- NOTE | 2022-11-17 09:27 | PC.NURSE ---
0920, Richelle Landon called critical WBC of 41.7 to RN. name, and lab result verified and read back by RN. Mitul Diego RN notified for Dr. Rodrigues and no new orders given at this time. Pt has oncology appt tomorrow.
[2022-11-17 09:46] LABS: Lymphocytes % 68 % (10-50); Monocytes % 2 % (2-9); Neutrophils % 30 % (42-76); Platelet Estimate Normal; RBC Morphology Normal; Total Cells Counted 100
== END 2022-11-17 09:00 | disposition home or self-care (01) ==
LOC: INF 08:45
PROVIDERS: PCP Internal Medicine; Visit Provider Internal Medicine Medical Oncology
DX: C91.10 Chronic lymphocytic leukemia of B-cell type not having achieved remission (principal)
CPT/HCPCS: 36415; 80053; 85007; 85025

== ENCOUNTER 2022-11-30 08:32 | Outpatient (CLI) | payer MEDICARE, OTHER, SELFPAY ==
[2022-11-30 08:38] VITALS: BMI 27.8
[2022-11-30 08:49] LABS: Basophils # 0.2 K/mm3 (0-0.2); Basophils % 0.4 % (0.1-2.0); Eosinophils # 0.2 K/mm3 (0.0-0.4); Eosinophils % 0.4 % (0.1-12.0); Hematocrit 42.7 % (42.0-52.0); Hemoglobin 13.8 g/dL (14.1-18.0); Lymphocytes # 35.9 K/mm3 (0.7-4.5); Lymphocytes % 82.2 % (10-50); Mean Corpuscular HGB Conc 32.3 g/dL (31.8-35.4); Mean Corpuscular Hemoglobin 29.5 pg (27.0-31.2); Mean Corpuscular Volume 91.1 fl (80-94); Mean Platelet Volume 8.9 fl (7.4-10.4); Monocytes # 0.7 K/mm3 (0.1-1.0); Monocytes % 1.7 % (1.7-9.3); Neutrophils # 6.7 K/mm3 (1.8-7.8); Neutrophils % 15.3 % (37.0-80.0); Platelet Count 221 K/mm3 (142-424); Red Blood Count 4.68 M/mm3 (4.60-6.20); Red Cell Distribution Width 13.8 % (11.5-17.5)
[2022-11-30 08:56] LABS: MANUAL DIFFERENTIAL MANUAL DIFFERENTIAL (MANUAL DIFF); White Blood Count 43.7 K/mm3 (4.8-10.8)
--- NOTE | 2022-11-30 09:04 | PC.NURSE ---
Katelyn Givens called critical lab results at 0856 to this RN. WBC of 43.7. Pt name, and lab result repeated and verified by RN. notified and no new orders at this time. Pt has MD appt tomorrow.
[2022-11-30 09:06] LABS: Lymphocytes % 82 % (10-50); Neutrophils % 18 % (42-76); Platelet Estimate Normal; RBC Morphology Normal; Total Cells Counted 100
== END 2022-11-30 08:50 | disposition home or self-care (01) ==
LOC: INF 08:33
PROVIDERS: PCP Internal Medicine; Visit Provider Internal Medicine Medical Oncology
DX: C91.10 Chronic lymphocytic leukemia of B-cell type not having achieved remission (principal)
CPT/HCPCS: 36415; 85007; 85025

== ENCOUNTER 2023-01-04 08:28 | Outpatient (CLI) | payer MEDICARE, SELFPAY ==
[2023-01-04 08:29] VITALS: BMI 27.8
[2023-01-04 08:55] LABS: Basophils # 0.4 K/mm3 (0-0.2); Basophils % 0.9 % (0.1-2.0); Eosinophils # 0.2 K/mm3 (0.0-0.4); Eosinophils % 0.3 % (0.1-12.0); Hematocrit 42.7 % (42.0-52.0); Hemoglobin 14.1 g/dL (14.1-18.0); Lymphocytes # 38.8 K/mm3 (0.7-4.5); Lymphocytes % 81.3 % (10-50); Mean Corpuscular HGB Conc 32.9 g/dL (31.8-35.4); Mean Corpuscular Hemoglobin 29.7 pg (27.0-31.2); Mean Corpuscular Volume 90.3 fl (80-94); Mean Platelet Volume 9.2 fl (7.4-10.4); Monocytes # 0.8 K/mm3 (0.1-1.0); Monocytes % 1.8 % (1.7-9.3); Neutrophils # 7.5 K/mm3 (1.8-7.8); Neutrophils % 15.7 % (37.0-80.0); Platelet Count 196 K/mm3 (142-424); Red Blood Count 4.73 M/mm3 (4.60-6.20); Red Cell Distribution Width 13.8 % (11.5-17.5)
[2023-01-04 08:56] LABS: Chloride 102 mmol/L (98-107); Potassium 4.2 mmoL/L (3.5-5.1); Sodium 136 mmol/L (136-145)
[2023-01-04 08:57] LABS: MANUAL DIFFERENTIAL MANUAL DIFFERENTIAL (MANUAL DIFF); White Blood Count 47.7 K/mm3 (4.8-10.8)
[2023-01-04 08:59] LABS: Alanine Aminotransferase 31 U/L (12-78); Albumin Level 4.1 g/dl (3.5-5.0); Albumin/Globulin Ratio 1.4 (1.1-1.8); Alkaline Phosphatase 68 U/L (38-126); Anion Gap 16.2 mEq/L (5-15); Aspartate Amino Transferase 39 U/L (17-59); Bilirubin,Total 0.9 mg/dl (0.2-1.3); Blood Urea Nitrogen 15 mg/dl (9-20); Calcium 8.6 mg/dl (8.4-10.2); Carbon Dioxide 22 mmol/L (22.0-30.0); Creatinine Clearance Estimated 61 mL/min (50-200); Estimated Glomerular Filt Rate 58 ml/min (>60); GFR (African American) 70 ML/MIN (>60); Globulin 2.9 g/dL (1.3-3.2); Glucose 231 mg/dl (74-100)
--- NOTE | 2023-01-04 09:05 | PC.NURSE ---
Katelyn Syed called Fabiola Mcmanus RN at 0856 to report wbc-47.7. RN repeated and verified pt name, , and lab value. Result called to Dr. Rodrigues, no new orders noted. Pt will see md in clinic for an appt tomorrow.
[2023-01-04 09:35] LABS: Lymphocytes % 72 % (10-50); Monocytes % 1 % (2-9); Neutrophils % 27 % (42-76); Total Cells Counted 100
[2023-01-04 09:36] LABS: Platelet Estimate Normal; RBC Morphology Normal
== END 2023-01-04 08:35 | disposition home or self-care (01) ==
PROVIDERS: PCP Internal Medicine; Visit Provider Internal Medicine Medical Oncology
DX: C91.10 Chronic lymphocytic leukemia of B-cell type not having achieved remission (principal)
CPT/HCPCS: 36415; 80053; 85007; 85025

== ENCOUNTER 2023-02-08 08:34 | Outpatient (CLI) | payer MEDICARE, SELFPAY ==
[2023-02-08 08:37] VITALS: BMI 28.1
--- NOTE | 2023-02-08 08:43 | PC.NURSE ---
0843-collected labs via venipuncture stick in left ac; pt d/c home
[2023-02-08 08:59] LABS: Alanine Aminotransferase 29 U/L (12-78); Albumin Level 3.9 g/dl (3.5-5.0); Albumin/Globulin Ratio 1.5 (1.1-1.8); Alkaline Phosphatase 62 U/L (38-126); Anion Gap 11.4 mEq/L (5-15); Aspartate Amino Transferase 43 U/L (17-59); Bilirubin,Total 0.5 mg/dl (0.2-1.3); Blood Urea Nitrogen 16 mg/dl (9-20); Calcium 8.3 mg/dl (8.4-10.2); Carbon Dioxide 23 mmol/L (22.0-30.0); Chloride 109 mmol/L (98-107); Creatinine Clearance Estimated 62 mL/min (50-200); Estimated Glomerular Filt Rate 58 ml/min (>60); GFR (African American) 70 ML/MIN (>60); Globulin 2.6 g/dL (1.3-3.2); Glucose 156 mg/dl (74-100); Potassium 4.4 mmoL/L (3.5-5.1); Sodium 139 mmol/L (136-145); Total Protein,Serum 6.5 g/dl (6.3-8.2)
[2023-02-08 09:01] LABS: Basophils # 0.5 K/mm3 (0-0.2); Basophils % 1.1 % (0.1-2.0); Eosinophils # 0.3 K/mm3 (0.0-0.4); Eosinophils % 0.6 % (0.1-12.0); Hematocrit 40.4 % (42.0-52.0); Hemoglobin 12.9 g/dL (14.1-18.0); Lymphocytes # 36.2 K/mm3 (0.7-4.5); Lymphocytes % 84.3 % (10-50); Mean Corpuscular Hemoglobin 28.8 pg (27.0-31.2); Mean Platelet Volume 8.8 fl (7.4-10.4); Monocytes # 0.9 K/mm3 (0.1-1.0); Neutrophils # 5.2 K/mm3 (1.8-7.8); Platelet Count 171 K/mm3 (142-424); Red Blood Count 4.49 M/mm3 (4.60-6.20); Red Cell Distribution Width 13.8 % (11.5-17.5)
--- NOTE | 2023-02-08 09:07 | PC.NURSE ---
0907-sammie lutz notified rn of critical lab value wbc 43. Rn repeated and verified name, , and lab value. rn notified md with lab results, no new orders received.
[2023-02-08 09:09] LABS: MANUAL DIFFERENTIAL MANUAL DIFFERENTIAL (MANUAL DIFF)
[2023-02-08 09:29] LABS: Lymphocytes % 79 % (10-50); Monocytes % 2 % (2-9); Neutrophils % 19 % (42-76); Total Cells Counted 100
[2023-02-08 09:30] LABS: Platelet Estimate Normal; RBC Morphology Normal
== END 2023-02-08 08:44 | disposition home or self-care (01) ==
LOC: INF 08:35
PROVIDERS: PCP Internal Medicine; Visit Provider Internal Medicine Medical Oncology
DX: C91.10 Chronic lymphocytic leukemia of B-cell type not having achieved remission (principal)
CPT/HCPCS: 36415; 80053; 85007; 85025

== ENCOUNTER 2023-03-09 08:04 | Outpatient (CLI) | payer MEDICARE, SELFPAY ==
[2023-03-09 08:08] VITALS: BMI 28.3
--- NOTE | 2023-03-09 08:26 | PC.NURSE ---
0810 - BLOOD DRAWN FROM LEFT AC USING BUTTERFLY NEEDLE TO CHECK LABS FOR DR SEALS.
[2023-03-09 08:29] LABS: Basophils # 1.6 K/mm3 (0-0.2); Basophils % 2.9 % (0.1-2.0); Eosinophils # 0.2 K/mm3 (0.0-0.4); Eosinophils % 0.4 % (0.1-12.0); Hematocrit 40.5 % (42.0-52.0); Hemoglobin 13.2 g/dL (14.1-18.0); Lymphocytes # 45.7 K/mm3 (0.7-4.5); Lymphocytes % 83.5 % (10-50); Mean Corpuscular HGB Conc 32.6 g/dL (31.8-35.4); Mean Corpuscular Hemoglobin 29.3 pg (27.0-31.2); Mean Corpuscular Volume 89.8 fl (80-94); Mean Platelet Volume 9.5 fl (7.4-10.4); Monocytes # 0.9 K/mm3 (0.1-1.0); Monocytes % 1.6 % (1.7-9.3); Neutrophils # 6.4 K/mm3 (1.8-7.8); Platelet Count 187 K/mm3 (142-424); Red Blood Count 4.51 M/mm3 (4.60-6.20); Red Cell Distribution Width 14.3 % (11.5-17.5)
[2023-03-09 08:31] LABS: Neutrophils % 11.6 % (37.0-80.0)
[2023-03-09 08:32] LABS: White Blood Count 54.7 K/mm3 (4.8-10.8)
[2023-03-09 08:33] LABS: MANUAL DIFFERENTIAL MANUAL DIFFERENTIAL (MANUAL DIFF)
[2023-03-09 08:37] LABS: Chloride 106 mmol/L (98-107); Potassium 5.8 mmoL/L (3.5-5.1); Sodium 138 mmol/L (136-145)
[2023-03-09 08:40] LABS: Alanine Aminotransferase 28 U/L (12-78); Albumin Level 3.7 g/dl (3.5-5.0); Albumin/Globulin Ratio 1.4 (1.1-1.8); Alkaline Phosphatase 53 U/L (38-126); Anion Gap 14.8 mEq/L (5-15); Aspartate Amino Transferase 55 U/L (17-59); Bilirubin,Total 0.5 mg/dl (0.2-1.3); Blood Urea Nitrogen 17 mg/dl (9-20); Carbon Dioxide 23 mmol/L (22.0-30.0); Creatinine Clearance Estimated 74 mL/min (50-200); Estimated Glomerular Filt Rate 72 ml/min (>60); GFR (African American) 87 ML/MIN (>60); Globulin 2.6 g/dL (1.3-3.2); Total Protein,Serum 6.3 g/dl (6.3-8.2)
[2023-03-09 08:41] LABS: Calcium 8.6 mg/dl (8.4-10.2); Glucose 131 mg/dl (74-100)
[2023-03-09 08:53] LABS: Lymphocytes % 74 % (10-50); Monocytes % 3 % (2-9); Neutrophils % 23 % (42-76); Platelet Estimate Normal; RBC Morphology Normal; Total Cells Counted 100
--- NOTE | 2023-03-09 09:22 | PC.NURSE ---
0831-Richelle Landon from lab called critical lab results of WBC 54.7 to RN. pt name, and lab result verified and read back. MD Lilia notified and no new orders given. pt has f/u appt with Lilia tomorrow.
== END 2023-03-09 08:15 | disposition home or self-care (01) ==
LOC: INF 08:04
PROVIDERS: PCP Internal Medicine; Visit Provider Internal Medicine Medical Oncology
DX: C91.10 Chronic lymphocytic leukemia of B-cell type not having achieved remission (principal)
CPT/HCPCS: 36415; 80053; 85007; 85025

== ENCOUNTER 2023-03-29 08:38 | Outpatient (CLI) | payer MEDICARE, SELFPAY ==
[2023-03-29 08:45] VITALS: BMI 28.7
[2023-03-29 09:17] LABS: Basophils # 2.6 K/mm3 (0-0.2); Basophils % 2.7 % (0.1-2.0); Eosinophils # 0.1 K/mm3 (0.0-0.4); Eosinophils % 0.1 % (0.1-12.0); Hematocrit 41.3 % (42.0-52.0); Hemoglobin 13.7 g/dL (14.1-18.0); Lymphocytes # 84.6 K/mm3 (0.7-4.5); Mean Corpuscular HGB Conc 33.2 g/dL (31.8-35.4); Mean Corpuscular Hemoglobin 30.4 pg (27.0-31.2); Mean Corpuscular Volume 91.5 fl (80-94); Platelet Count 185 K/mm3 (142-424); Red Blood Count 4.52 M/mm3 (4.60-6.20)
[2023-03-29 09:19] LABS: Alanine Aminotransferase 25 U/L (12-78); Albumin Level 3.7 g/dl (3.5-5.0); Albumin/Globulin Ratio 1.2 (1.1-1.8); Alkaline Phosphatase 67 U/L (38-126); Anion Gap 16.9 mEq/L (5-15); Aspartate Amino Transferase 30 U/L (17-59); Bilirubin,Total 0.7 mg/dl (0.2-1.3); Blood Urea Nitrogen 17 mg/dl (9-20); Calcium 8.5 mg/dl (8.4-10.2); Carbon Dioxide 20 mmol/L (22.0-30.0); Chloride 105 mmol/L (98-107); Creatinine Clearance Estimated 69 mL/min (50-200); Estimated Glomerular Filt Rate 64 ml/min (>60); GFR (African American) 78 ML/MIN (>60); Globulin 3.2 g/dL (1.3-3.2); Glucose 199 mg/dl (74-100); Potassium 3.9 mmoL/L (3.5-5.1); Sodium 138 mmol/L (136-145); Total Protein,Serum 6.9 g/dl (6.3-8.2)
[2023-03-29 09:20] LABS: Neutrophils % 10.1 % (37.0-80.0); White Blood Count 98.2 K/mm3 (4.8-10.8)
[2023-03-29 09:22] LABS: MANUAL DIFFERENTIAL MANUAL DIFFERENTIAL (MANUAL DIFF)
--- NOTE | 2023-03-29 09:25 | PC.NURSE ---
RUDY OSBORNE CALLED ANDRES TEIXEIRA RN AT 0920 TO REPORT WBC LEVEL 98.2. RN REPEATED AND VERIFIED PT NAME, , AND LAB VALUE. RESULT CALLED TO DR SEALS AND NO NEW ORDERS RECEIVED. PT HAS ONCOLOGY APPOINTMENT TOMORROW.
--- NOTE | 2023-03-29 09:31 | PC.NURSE ---
0850 - BLOOD DRAWN WITH BUTTERFLY NEEDLE TO CHECK LABS ORDERED BY DR SEALS.
[2023-03-29 09:44] LABS: Lymphocytes % 86 % (10-50); Monocytes % 2 % (2-9); Neutrophils % 12 % (42-76); Total Cells Counted 100
[2023-03-29 09:47] LABS: Platelet Estimate Normal; RBC Morphology Normal
== END 2023-03-29 08:55 | disposition home or self-care (01) ==
LOC: INF 08:41
PROVIDERS: PCP Internal Medicine; Visit Provider Internal Medicine Medical Oncology
DX: C91.10 Chronic lymphocytic leukemia of B-cell type not having achieved remission (principal)
CPT/HCPCS: 36415; 80053; 85007; 85025

== ENCOUNTER 2023-04-05 08:38 | Outpatient (CLI) | payer MEDICARE, SELFPAY ==
[2023-04-05 08:42] VITALS: BMI 26.9
[2023-04-05 08:59] LABS: Basophils # 3.2 K/mm3 (0-0.2); Basophils % 2.9 % (0.1-2.0); Eosinophils # 0.2 K/mm3 (0.0-0.4); Eosinophils % 0.2 % (0.1-12.0); Hematocrit 39.4 % (42.0-52.0); Hemoglobin 12.7 g/dL (14.1-18.0); Lymphocytes # 99.3 K/mm3 (0.7-4.5); Lymphocytes % 88.5 % (10-50); Mean Corpuscular HGB Conc 32.1 g/dL (31.8-35.4); Mean Corpuscular Hemoglobin 29.8 pg (27.0-31.2); Mean Corpuscular Volume 92.9 fl (80-94); Mean Platelet Volume 9.5 fl (7.4-10.4); Monocytes % 0.8 % (1.7-9.3); Neutrophils # 8.5 K/mm3 (1.8-7.8); Platelet Count 250 K/mm3 (142-424); Red Blood Count 4.24 M/mm3 (4.60-6.20); Red Cell Distribution Width 14.2 % (11.5-17.5)
--- NOTE | 2023-04-05 09:00 | PC.NURSE ---
0847- cbc, cmp, phos, uric acid drawn via butterfly in left ac. needle removed and coban applied.
[2023-04-05 09:12] LABS: Alanine Aminotransferase 23 U/L (12-78); Albumin Level 3.7 g/dl (3.5-5.0); Albumin/Globulin Ratio 1.2 (1.1-1.8); Alkaline Phosphatase 68 U/L (38-126); Aspartate Amino Transferase 36 U/L (17-59); Bilirubin,Total 0.5 mg/dl (0.2-1.3); Blood Urea Nitrogen 17 mg/dl (9-20); Calcium 8.1 mg/dl (8.4-10.2); Carbon Dioxide 19 mmol/L (22.0-30.0); Chloride 106 mmol/L (98-107); Creatinine Clearance Estimated 71 mL/min (50-200); Estimated Glomerular Filt Rate 81 ml/min (>60); GFR (African American) 98 ML/MIN (>60); Globulin 3.1 g/dL (1.3-3.2); Glucose 226 mg/dl (74-100); Phosphorous 3.5 mg/dl (2.5-4.5); Sodium 136 mmol/L (136-145); Total Protein,Serum 6.8 g/dl (6.3-8.2); Uric Acid 5.6 mg/dl (3.5-8.5)
[2023-04-05 09:31] LABS: Neutrophils % 7.6 % (37.0-80.0)
[2023-04-05 09:32] LABS: White Blood Count 112.2 K/mm3 (4.8-10.8)
[2023-04-05 09:33] LABS: MANUAL DIFFERENTIAL MANUAL DIFFERENTIAL (MANUAL DIFF)
--- NOTE | 2023-04-05 09:51 | PC.NURSE ---
0932- Richelle kimball called critical lab results of WBC 112.2 to Lucila De La Torre RN. pt name, and lab results verified and read back by RN. notified and no new orders, pt has MD appt tomorrow to discuss results.
[2023-04-05 10:14] LABS: Lymphocytes % 98 % (10-50); Neutrophils % 2 % (42-76); Platelet Estimate Normal; RBC Morphology Normal; Total Cells Counted 100
== END 2023-04-05 08:55 | disposition home or self-care (01) ==
LOC: INF 08:39
PROVIDERS: PCP Internal Medicine; Visit Provider Internal Medicine Medical Oncology
DX: C91.10 Chronic lymphocytic leukemia of B-cell type not having achieved remission (principal)
CPT/HCPCS: 36415; 80053; 84100; 84550; 85007; 85025

== ENCOUNTER 2023-04-12 08:31 | Outpatient (CLI) | payer MEDICARE, SELFPAY ==
[2023-04-12 08:35] VITALS: BMI 27.8
[2023-04-12 08:56] LABS: Basophils # 3.2 K/mm3 (0-0.2); Basophils % 2.7 % (0.1-2.0); Eosinophils # 0.2 K/mm3 (0.0-0.4); Eosinophils % 0.2 % (0.1-12.0); Hematocrit 40.7 % (42.0-52.0); Hemoglobin 13.1 g/dL (14.1-18.0); Lymphocytes # 105.3 K/mm3 (0.7-4.5); Lymphocytes % 88.3 % (10-50); Mean Corpuscular HGB Conc 32.1 g/dL (31.8-35.4); Mean Corpuscular Hemoglobin 29.3 pg (27.0-31.2); Mean Corpuscular Volume 91.1 fl (80-94); Mean Platelet Volume 9.6 fl (7.4-10.4); Monocytes # 0.9 K/mm3 (0.1-1.0); Monocytes % 0.7 % (1.7-9.3); Neutrophils # 9.6 K/mm3 (1.8-7.8); Platelet Count 272 K/mm3 (142-424); Red Blood Count 4.47 M/mm3 (4.60-6.20); Red Cell Distribution Width 14.4 % (11.5-17.5)
[2023-04-12 09:04] LABS: White Blood Count 119.2 K/mm3 (4.8-10.8)
[2023-04-12 09:05] LABS: Alanine Aminotransferase 19 U/L (12-78); Albumin Level 3.7 g/dl (3.5-5.0); Albumin/Globulin Ratio 1.3 (1.1-1.8); Alkaline Phosphatase 62 U/L (38-126); Anion Gap 14.8 mEq/L (5-15); Aspartate Amino Transferase 26 U/L (17-59); Bilirubin,Total 0.4 mg/dl (0.2-1.3); Blood Urea Nitrogen 15 mg/dl (9-20); Calcium 8.4 mg/dl (8.4-10.2); Carbon Dioxide 25 mmol/L (22.0-30.0); Chloride 107 mmol/L (98-107); Creatinine Clearance Estimated 61 mL/min (50-200); Estimated Glomerular Filt Rate 58 ml/min (>60); GFR (African American) 70 ML/MIN (>60); Globulin 2.9 g/dL (1.3-3.2); Glucose 157 mg/dl (74-100); MANUAL DIFFERENTIAL MANUAL DIFFERENTIAL (MANUAL DIFF); Potassium 4.8 mmoL/L (3.5-5.1); Sodium 142 mmol/L (136-145); Total Protein,Serum 6.6 g/dl (6.3-8.2); Uric Acid 6.2 mg/dl (3.5-8.5)
--- NOTE | 2023-04-12 09:26 | PC.NURSE ---
0845 - BLOOD DRAWN FROM LEFT AC USING BUTTERFLY NEEDLE TO CHECK LABS ORDERED BY DR SEALS.
[2023-04-12 09:31] LABS: Lymphocytes % 90 % (10-50); Neutrophils % 10 % (42-76); Total Cells Counted 100
[2023-04-12 09:34] LABS: RBC Morphology Normal
[2023-04-12 09:35] LABS: Giant Platelets 1+
[2023-04-12 09:36] LABS: Platelet Estimate Normal
== END 2023-04-12 08:50 | disposition home or self-care (01) ==
LOC: INF 08:31
PROVIDERS: PCP Internal Medicine; Visit Provider Internal Medicine Medical Oncology
DX: C91.10 Chronic lymphocytic leukemia of B-cell type not having achieved remission (principal)
CPT/HCPCS: 36415; 80053; 84550; 85007; 85025

== ENCOUNTER 2023-04-19 08:02 | Outpatient (CLI) | payer MEDICARE, SELFPAY ==
[2023-04-19 08:17] VITALS: BMI 27.8
[2023-04-19 08:41] LABS: Basophils # 5.6 K/mm3 (0-0.2); Basophils % 3.6 % (0.1-2.0); Eosinophils # 0.2 K/mm3 (0.0-0.4); Eosinophils % 0.1 % (0.1-12.0); Hematocrit 42.1 % (42.0-52.0); Hemoglobin 13.3 g/dL (14.1-18.0); Lymphocytes # 144.2 K/mm3 (0.7-4.5); Lymphocytes % 93.3 % (10-50); Mean Corpuscular HGB Conc 31.6 g/dL (31.8-35.4); Mean Corpuscular Hemoglobin 29.2 pg (27.0-31.2); Mean Corpuscular Volume 92.6 fl (80-94); Mean Platelet Volume 9.7 fl (7.4-10.4); Monocytes # 1.1 K/mm3 (0.1-1.0); Monocytes % 0.7 % (1.7-9.3); Neutrophils # 9.1 K/mm3 (1.8-7.8); Platelet Count 216 K/mm3 (142-424); Red Blood Count 4.54 M/mm3 (4.60-6.20); Red Cell Distribution Width 14.6 % (11.5-17.5)
[2023-04-19 08:44] LABS: White Blood Count 154.6 K/mm3 (4.8-10.8)
[2023-04-19 08:45] LABS: Neutrophils % 5.9 % (37.0-80.0)
[2023-04-19 08:47] LABS: MANUAL DIFFERENTIAL MANUAL DIFFERENTIAL (MANUAL DIFF)
--- NOTE | 2023-04-19 08:57 | PC.NURSE ---
Ted Mojica called RN at 0842 to report wbc-154.6. RN repeated and verified pt name, , and lab value. Result called to Dr. Arabella Rodrigues, no new orders noted at this time. Pt has scheduled appt to see MD in clinic tomorrow.
[2023-04-19 09:02] LABS: Alanine Aminotransferase 24 U/L (12-78); Albumin Level 4.1 g/dl (3.5-5.0); Albumin/Globulin Ratio 1.4 (1.1-1.8); Alkaline Phosphatase 72 U/L (38-126); Anion Gap 14.5 mEq/L (5-15); Aspartate Amino Transferase 34 U/L (17-59); Bilirubin,Total 0.8 mg/dl (0.2-1.3); Blood Urea Nitrogen 15 mg/dl (9-20); Calcium 8.4 mg/dl (8.4-10.2); Carbon Dioxide 24 mmol/L (22.0-30.0); Chloride 106 mmol/L (98-107); Creatinine Clearance Estimated 61 mL/min (50-200); Estimated Glomerular Filt Rate 58 ml/min (>60); GFR (African American) 70 ML/MIN (>60); Glucose 107 mg/dl (74-100); Potassium 4.5 mmoL/L (3.5-5.1); Sodium 140 mmol/L (136-145); Total Protein,Serum 7.1 g/dl (6.3-8.2)
[2023-04-19 09:27] LABS: Lymphocytes % 94 % (10-50); Neutrophils % 6 % (42-76); Platelet Estimate Normal; RBC Morphology Normal; Total Cells Counted 100
== END 2023-04-19 08:45 | disposition home or self-care (01) ==
LOC: INF 08:03
PROVIDERS: PCP Internal Medicine; Visit Provider Internal Medicine Medical Oncology
DX: C91.10 Chronic lymphocytic leukemia of B-cell type not having achieved remission (principal)
CPT/HCPCS: 36415; 80053; 85007; 85025

== ENCOUNTER 2023-04-27 08:28 | Outpatient (CLI) | payer MEDICARE, SELFPAY ==
[2023-04-27 08:32] VITALS: BMI 28.3
--- NOTE | 2023-04-27 08:36 | PC.NURSE ---
0834- cbc, cmp, and uric acid drawn per MD order via butterfly in right ac. needle removed and coban applied. pt tolerated well.
[2023-04-27 08:55] LABS: Basophils # 0.6 K/mm3 (0-0.2); Basophils % 0.5 % (0.1-2.0); Eosinophils # 0.2 K/mm3 (0.0-0.4); Eosinophils % 0.1 % (0.1-12.0); Hematocrit 40.2 % (42.0-52.0); Hemoglobin 12.9 g/dL (14.1-18.0); Lymphocytes # 124.7 K/mm3 (0.7-4.5); Lymphocytes % 93.3 % (10-50); Mean Corpuscular HGB Conc 32.2 g/dL (31.8-35.4); Mean Corpuscular Hemoglobin 29.7 pg (27.0-31.2); Mean Corpuscular Volume 92.2 fl (80-94); Mean Platelet Volume 10.4 fl (7.4-10.4); Monocytes % 0.8 % (1.7-9.3); Neutrophils # 7.8 K/mm3 (1.8-7.8); Platelet Count 162 K/mm3 (142-424); Red Blood Count 4.36 M/mm3 (4.60-6.20); Red Cell Distribution Width 14.8 % (11.5-17.5)
[2023-04-27 08:57] LABS: Chloride 107 mmol/L (98-107)
[2023-04-27 08:58] LABS: Potassium 4.1 mmoL/L (3.5-5.1); Sodium 138 mmol/L (136-145)
[2023-04-27 09:00] LABS: Alanine Aminotransferase 26 U/L (12-78); Aspartate Amino Transferase 37 U/L (17-59); Bilirubin,Total 0.8 mg/dl (0.2-1.3); Blood Urea Nitrogen 17 mg/dl (9-20); Creatinine Clearance Estimated 74 mL/min (50-200); Estimated Glomerular Filt Rate 81 ml/min (>60); GFR (African American) 98 ML/MIN (>60)
[2023-04-27 09:01] LABS: Albumin Level 3.8 g/dl (3.5-5.0); Albumin/Globulin Ratio 1.3 (1.1-1.8); Alkaline Phosphatase 45 U/L (38-126); Anion Gap 13.1 mEq/L (5-15); Calcium 7.7 mg/dl (8.4-10.2); Carbon Dioxide 22 mmol/L (22.0-30.0); Globulin 2.9 g/dL (1.3-3.2); Glucose 123 mg/dl (74-100); Neutrophils % 5.8 % (37.0-80.0); Total Protein,Serum 6.7 g/dl (6.3-8.2)
[2023-04-27 09:02] LABS: MANUAL DIFFERENTIAL MANUAL DIFFERENTIAL (MANUAL DIFF)
--- NOTE | 2023-04-27 09:02 | PC.NURSE ---
0901- Richelle Landon called critical lab results of WBC 133.7 to this RN. Pt name, and lab results verified and read back by RN. Lilia notified and no new orders given at this time, pt has an appt with tomorrow to discuss results.
[2023-04-27 09:22] LABS: Lymphocytes % 94 % (10-50); Monocytes % 1 % (2-9); Neutrophils % 5 % (42-76); Platelet Estimate Normal; RBC Morphology Normal; Total Cells Counted 100
== END 2023-04-27 08:37 | disposition home or self-care (01) ==
PROVIDERS: PCP Internal Medicine; Visit Provider Internal Medicine Medical Oncology
DX: C91.10 Chronic lymphocytic leukemia of B-cell type not having achieved remission (principal)
CPT/HCPCS: 36415; 80053; 84550; 85007; 85025

== ENCOUNTER 2023-05-10 10:29 | Outpatient (CLI) | payer MEDICARE, SELFPAY ==
[2023-05-10 10:33] VITALS: BMI 27.8
--- NOTE | 2023-05-10 10:40 | PC.NURSE ---
labs drawn per MD order (cbc,cmp) via butterfly needle in right ac. needle removed and coban applied. pt tolerated well.
[2023-05-10 10:59] LABS: Basophils # 4.4 K/mm3 (0-0.2); Basophils % 2.8 % (0.1-2.0); Eosinophils # 0.2 K/mm3 (0.0-0.4); Eosinophils % 0.1 % (0.1-12.0); Hematocrit 37.4 % (42.0-52.0); Hemoglobin 12.9 g/dL (14.1-18.0); Lymphocytes # 141.1 K/mm3 (0.7-4.5); Lymphocytes % 90.4 % (10-50); Mean Corpuscular HGB Conc 34.4 g/dL (31.8-35.4); Mean Corpuscular Hemoglobin 31.9 pg (27.0-31.2); Mean Corpuscular Volume 92.7 fl (80-94); Mean Platelet Volume 10.3 fl (7.4-10.4); Monocytes # 1.1 K/mm3 (0.1-1.0); Monocytes % 0.7 % (1.7-9.3); Neutrophils # 13.8 K/mm3 (1.8-7.8); Platelet Count 199 K/mm3 (142-424); Red Blood Count 4.04 M/mm3 (4.60-6.20); Red Cell Distribution Width 14.7 % (11.5-17.5)
[2023-05-10 11:07] LABS: Alanine Aminotransferase 22 U/L (12-78); Albumin Level 3.8 g/dl (3.5-5.0); Albumin/Globulin Ratio 1.3 (1.1-1.8); Alkaline Phosphatase 52 U/L (38-126); Anion Gap 15.3 mEq/L (5-15); Aspartate Amino Transferase 37 U/L (17-59); Bilirubin,Total 0.8 mg/dl (0.2-1.3); Blood Urea Nitrogen 20 mg/dl (9-20); Calcium 8.4 mg/dl (8.4-10.2); Carbon Dioxide 22 mmol/L (22.0-30.0); Chloride 105 mmol/L (98-107); Creatinine Clearance Estimated 55 mL/min (50-200); Estimated Glomerular Filt Rate 53 ml/min (>60); GFR (African American) 64 ML/MIN (>60); Globulin 2.9 g/dL (1.3-3.2); Glucose 104 mg/dl (74-100); Potassium 4.3 mmoL/L (3.5-5.1); Sodium 138 mmol/L (136-145); Total Protein,Serum 6.7 g/dl (6.3-8.2)
[2023-05-10 11:09] LABS: Neutrophils % 8.8 % (37.0-80.0)
[2023-05-10 11:10] LABS: White Blood Count 156.1 K/mm3 (4.8-10.8)
[2023-05-10 11:12] LABS: MANUAL DIFFERENTIAL MANUAL DIFFERENTIAL (MANUAL DIFF)
[2023-05-10 12:13] LABS: Lymphocytes % 93 % (10-50); Neutrophils % 7 % (42-76); Platelet Estimate Normal; RBC Morphology Normal; Total Cells Counted 100
== END 2023-05-10 10:42 | disposition home or self-care (01) ==
LOC: INF 10:30
PROVIDERS: PCP Internal Medicine; Visit Provider Internal Medicine Medical Oncology
DX: C91.10 Chronic lymphocytic leukemia of B-cell type not having achieved remission (principal)
CPT/HCPCS: 36415; 80053; 85007; 85025

== ENCOUNTER 2023-05-24 10:08 | Outpatient (CLI) | payer MEDICARE, SELFPAY ==
[2023-05-24 10:12] VITALS: BMI 26.9
[2023-05-24 10:28] LABS: Basophils # 3.7 K/mm3 (0-0.2); Basophils % 2.6 % (0.1-2.0); Eosinophils # 0.3 K/mm3 (0.0-0.4); Eosinophils % 0.2 % (0.1-12.0); Hematocrit 37.1 % (42.0-52.0); Hemoglobin 12.5 g/dL (14.1-18.0); Lymphocytes # 126.7 K/mm3 (0.7-4.5); Lymphocytes % 89.1 % (10-50); Mean Corpuscular HGB Conc 33.8 g/dL (31.8-35.4); Mean Corpuscular Hemoglobin 32.3 pg (27.0-31.2); Mean Corpuscular Volume 95.5 fl (80-94); Monocytes # 1.1 K/mm3 (0.1-1.0); Monocytes % 0.7 % (1.7-9.3); Neutrophils # 10.4 K/mm3 (1.8-7.8); Platelet Count 160 K/mm3 (142-424); Red Blood Count 3.88 M/mm3 (4.60-6.20); Red Cell Distribution Width 14.6 % (11.5-17.5)
[2023-05-24 10:29] LABS: Neutrophils % 7.3 % (37.0-80.0)
[2023-05-24 10:30] LABS: White Blood Count 142.1 K/mm3 (4.8-10.8)
[2023-05-24 10:32] LABS: MANUAL DIFFERENTIAL MANUAL DIFFERENTIAL (MANUAL DIFF)
[2023-05-24 10:37] LABS: Chloride 106 mmol/L (98-107); Sodium 138 mmol/L (136-145)
[2023-05-24 10:40] LABS: Alanine Aminotransferase 25 U/L (12-78); Albumin Level 4.1 g/dl (3.5-5.0); Albumin/Globulin Ratio 1.4 (1.1-1.8); Alkaline Phosphatase 54 U/L (38-126); Aspartate Amino Transferase 47 U/L (17-59); Bilirubin,Total 0.7 mg/dl (0.2-1.3); Blood Urea Nitrogen 19 mg/dl (9-20); Calcium 8.1 mg/dl (8.4-10.2); Carbon Dioxide 22 mmol/L (22.0-30.0); Creatinine Clearance Estimated 54 mL/min (50-200); Estimated Glomerular Filt Rate 53 ml/min (>60); GFR (African American) 64 ML/MIN (>60); Globulin 2.9 g/dL (1.3-3.2); Glucose 133 mg/dl (74-100)
[2023-05-24 10:46] LABS: Lymphocytes % 94 % (10-50); Monocytes % 1 % (2-9); Neutrophils % 5 % (42-76); Platelet Estimate Normal; RBC Morphology Normal; Total Cells Counted 100
[2023-05-24 10:47] LABS: Differential Comment SEE COMMEN
== END 2023-05-24 10:27 | disposition home or self-care (01) ==
LOC: INF 10:09
PROVIDERS: PCP Internal Medicine; Visit Provider Internal Medicine Medical Oncology
DX: C91.10 Chronic lymphocytic leukemia of B-cell type not having achieved remission (principal)
CPT/HCPCS: 36415; 80053; 85007; 85025

== ENCOUNTER 2023-06-05 08:25 | Outpatient (CLI) | payer MEDICARE, SELFPAY ==
[2023-06-05 08:30] VITALS: BMI 27.6
--- NOTE | 2023-06-05 08:47 | PC.NURSE ---
06/05/23 0840 pt presents today to have blood drawn for labs as ordered per md. Pt has appt with oncologist tomorrow. Venipuncture performed to pts lt ac using a butterfly access needle x 1 stick. Blood drawn for labs and needle was withdrawn-site secured with 2x2 gauze and coban. Specimens sent to lab for analysis. Pt ok to d/c home and ambulated self to car.
[2023-06-05 08:48] LABS: Basophils # 3.5 K/mm3 (0-0.2); Basophils % 2.7 % (0.1-2.0); Eosinophils # 0.2 K/mm3 (0.0-0.4); Eosinophils % 0.1 % (0.1-12.0); Hemoglobin 12.8 g/dL (14.1-18.0); Lymphocytes # 116.7 K/mm3 (0.7-4.5); Lymphocytes % 91.4 % (10-50); Mean Corpuscular HGB Conc 33.7 g/dL (31.8-35.4); Mean Corpuscular Hemoglobin 32.4 pg (27.0-31.2); Mean Corpuscular Volume 96.1 fl (80-94); Mean Platelet Volume 9.7 fl (7.4-10.4); Monocytes # 0.9 K/mm3 (0.1-1.0); Monocytes % 0.7 % (1.7-9.3); Neutrophils # 9.9 K/mm3 (1.8-7.8); Platelet Count 191 K/mm3 (142-424); Red Blood Count 3.95 M/mm3 (4.60-6.20); Red Cell Distribution Width 14.4 % (11.5-17.5)
[2023-06-05 08:53] LABS: Alanine Aminotransferase 23 U/L (12-78); Albumin/Globulin Ratio 1.5 (1.1-1.8); Alkaline Phosphatase 49 U/L (38-126); Aspartate Amino Transferase 30 U/L (17-59); Bilirubin,Total 0.8 mg/dl (0.2-1.3); Blood Urea Nitrogen 18 mg/dl (9-20); Calcium 8.7 mg/dl (8.4-10.2); Carbon Dioxide 20 mmol/L (22.0-30.0); Chloride 103 mmol/L (98-107); Creatinine Clearance Estimated 65 mL/min (50-200); Estimated Glomerular Filt Rate 64 ml/min (>60); GFR (African American) 78 ML/MIN (>60); Globulin 2.7 g/dL (1.3-3.2); Glucose 195 mg/dl (74-100); Sodium 137 mmol/L (136-145); Total Protein,Serum 6.7 g/dl (6.3-8.2)
[2023-06-05 09:23] LABS: Neutrophils % 7.7 % (37.0-80.0); White Blood Count 127.7 K/mm3 (4.8-10.8)
[2023-06-05 09:24] LABS: MANUAL DIFFERENTIAL MANUAL DIFFERENTIAL (MANUAL DIFF)
[2023-06-05 09:42] LABS: Lymphocytes % 89 % (10-50); Monocytes % 1 % (2-9); Neutrophils % 10 % (42-76); Platelet Estimate Normal; Total Cells Counted 100
[2023-06-05 09:43] LABS: Macrocytosis 1+
== END 2023-06-05 08:44 | disposition home or self-care (01) ==
LOC: INF 08:26
PROVIDERS: PCP Internal Medicine; Visit Provider Internal Medicine Medical Oncology
DX: C91.10 Chronic lymphocytic leukemia of B-cell type not having achieved remission (principal); Z45.2 Encounter for adjustment and management of vascular access device
CPT/HCPCS: 36415; 80053; 85007; 85025

== ENCOUNTER → 2023-06-21 08:48 | Outpatient (CLI) | payer MEDICARE, SELFPAY ==
--- NOTE | 2023-06-21 08:59 | CT_ITS ---
FINAL REPORT TECHNIQUE: Thin section axial CT images were obtained through the neck after intravenous contrast administration. Coronal and sagittal reformats were also obtained. This study was performed with techniques to keep radiation doses as low as reasonably achievable (ALARA). Individualized dose reduction techniques using automated exposure control or adjustment of mA and/or kV according to the patient's size were employed. CLINICAL HISTORY: LEUKEMIA COMPARISON: None FINDINGS: There is an 11 mm oropharyngeal cystic lesion on the left side with peripheral enhancement. This may represent a cyst versus cystic adenopathy. There is a low-attenuation mass measuring 12 mm adjacent to the left epiglottis, that may represent a cyst versus cystic mass. Mild calcification in the carotid bifurcations is present bilaterally. There is degenerative change noted in the cervical spine. The thyroid gland is unremarkable. The visualized sinuses are clear. There is no acute osseous abnormality. IMPRESSION: 11 mm oropharyngeal cystic lesion on the left side with peripheral enhancement, a cyst versus cystic adenopathy. There is also a low-attenuation mass measuring 12 mm adjacent to the left epiglottis, that may represent a cyst or cystic mass. Mild calcification in the carotid bifurcations. Reviewed, Interpreted and Dictated by Jasiel Whittaker III, MD Transcribed by Malloyr Avalos Authenticated and . [facility]
--- NOTE | 2023-06-21 08:59 | CT_ITS ---
FINAL REPORT CLINICAL HISTORY: LEUKEMIA COMPARISON: 01/28/2022 FINDINGS: CT OF THE ABDOMEN AND PELVIS WITH CONTRAST Axial CT images of the abdomen and pelvis were obtained after the administration of oral and iv contrast. Coronal and sagittal reformatted images were also obtained and reviewed.This study was performed with techniques to keep radiation doses as low as reasonably achievable (ALARA). Individualized dose reduction techniques using automated exposure control or adjustment of mA and/or kV according to the patient's size were employed. Abdomen: A small hiatal hernia is present.. The heart is normal in size. The liver has an unremarkable appearance, without evidence of mass or biliary ductal dilatation. The spleen borderline enlarged, measuring 13 cm in craniocaudal length. No adrenal mass is present. The pancreas has an unremarkable appearance. The kidneys are normal, without evidence of mass or hydronephrosis. The aorta is normal in caliber and vascular calcifications are noted, moderate. There is no free fluid or adenopathy. No mass or abnormal fluid collection is seen. Pelvis: The appendix is normal in appearance. The urinary bladder is unremarkable. There is diverticulosis of the sigmoid and descending portions of the colon without evidence of acute inflammatory change. There is partial improvement of the right inguinal adenopathy noted on the prior CT, with a node that was 14 mm in diameter measuring 10 mm on today's exam. Other notes in this region also likely improved. There is no evidence of bowel obstruction. IMPRESSION: No evidence of acute intra-abdominal process. Borderline splenomegaly, stable since the prior CT. Partial improvement right inguinal adenopathy when compared to the prior CT. Reviewed, Interpreted and Dictated by Jasiel Whittaker III, MD Transcribed by Mallory Avalos Authenticated and [facility]
--- NOTE | 2023-06-21 08:59 | CT_ITS ---
FINAL REPORT CLINICAL HISTORY: LEUKEMIA COMPARISON: 01/28/2022 FINDINGS: Axial CT images of the chest were obtained with contrast. Coronal and sagittal reformatted images were also obtained. This study was performed with techniques to keep radiation doses as low as reasonably achievable, (ALARA). Individualized dose reduction techniques using automated exposure control or adjustment of mA and/or KV according to the patient's size were employed. There is mild mediastinal and hilar adenopathy, not significantly changed since the prior CT of January 2022. There is a lower right paratracheal node that measures 13 mm in diameter, and a right subcarinal node that measures 23 mm in diameter, stable. Small axillary nodes are present and stable as well. On lung window images, no pulmonary mass or dominant pulmonary nodule is identified. Mild changes of emphysema are present, as well as mild scarring bilaterally. There is a stable cystic mass in the right posterior paraspinal region, that may represent a lateral meningocele or large nerve root sheath cyst, stable. A small hiatal hernia is present. IMPRESSION: Stable mediastinal and hilar adenopathy as described. Small axillary nodes are also stable. Cystic mass in the right posterior paraspinal soft tissues that may represent either a lateral meningocele or a large nerve root sheath cyst is also unchanged. Reviewed, Interpreted and Dictated by Jasiel Whittaker III, MD Transcribed by Mallory Avalos Authenticated and [facility]
== END ==
PROVIDERS: PCP Internal Medicine; Visit Provider Internal Medicine Medical Oncology
DX: C91.10 Chronic lymphocytic leukemia of B-cell type not having achieved remission (principal); R13.10 Dysphagia, unspecified
CPT/HCPCS: 70491; 71260; 74177; Q9967

== ENCOUNTER 2023-07-03 08:33 | Outpatient (CLI) | payer MEDICARE, SELFPAY ==
[2023-07-03 08:37] VITALS: BMI 28.1
--- NOTE | 2023-07-03 08:52 | PC.NURSE ---
0844- cbc drawn per MD order via butterfly needle in left ac. needle removed and coban applied. pt tolerated well.
[2023-07-03 08:54] LABS: Basophils # 1.9 K/mm3 (0-0.2); Basophils % 1.6 % (0.1-2.0); Eosinophils # 0.2 K/mm3 (0.0-0.4); Eosinophils % 0.2 % (0.1-12.0); Hemoglobin 12.7 g/dL (14.1-18.0); Lymphocytes # 101.3 K/mm3 (0.7-4.5); Lymphocytes % 86.8 % (10-50); Mean Corpuscular HGB Conc 32.6 g/dL (31.8-35.4); Mean Corpuscular Hemoglobin 31.5 pg (27.0-31.2); Mean Corpuscular Volume 96.4 fl (80-94); Mean Platelet Volume 9.8 fl (7.4-10.4); Monocytes % 0.9 % (1.7-9.3); Neutrophils # 12.3 K/mm3 (1.8-7.8); Platelet Count 238 K/mm3 (142-424); Red Blood Count 4.04 M/mm3 (4.60-6.20); Red Cell Distribution Width 13.3 % (11.5-17.5)
[2023-07-03 09:23] LABS: Neutrophils % 10.5 % (37.0-80.0)
[2023-07-03 09:26] LABS: White Blood Count 115.5 K/mm3 (4.8-10.8)
[2023-07-03 09:28] LABS: MANUAL DIFFERENTIAL MANUAL DIFFERENTIAL (MANUAL DIFF)
[2023-07-03 10:03] LABS: Lymphocytes % 91 % (10-50); Monocytes % 2 % (2-9); Neutrophils % 7 % (42-76); Platelet Estimate Normal; Total Cells Counted 100
[2023-07-03 10:04] LABS: Anisocytosis 1+; Polychromasia 1+
== END 2023-07-03 08:53 | disposition home or self-care (01) ==
LOC: INF 08:34
PROVIDERS: PCP Internal Medicine; Visit Provider Internal Medicine Medical Oncology
DX: C91.10 Chronic lymphocytic leukemia of B-cell type not having achieved remission (principal)
CPT/HCPCS: 36415; 85007; 85025

== ENCOUNTER 2023-08-02 10:10 | Outpatient (CLI) | payer MEDICARE, SELFPAY ==
[2023-08-02 10:17] VITALS: BMI 26.8
--- NOTE | 2023-08-02 10:29 | PC.NURSE ---
08/02/2023 1025 pt presents today for labs. Venipuncture performed using butterfly access needle to pt's lt ac x 1 stick and blood drawn. Site secured once needle was withdrawn using 2x2 gauze and coban. Specimen sent to lab for analysis.
[2023-08-02 10:35] LABS: Eosinophils # 0.3 K/mm3 (0.0-0.4); Eosinophils % 0.3 % (0.1-12.0); Hematocrit 40.1 % (42.0-52.0); Hemoglobin 12.7 g/dL (14.1-18.0); Lymphocytes # 88.5 K/mm3 (0.7-4.5); Lymphocytes % 90.1 % (10-50); Mean Corpuscular HGB Conc 31.8 g/dL (31.8-35.4); Mean Corpuscular Hemoglobin 30.5 pg (27.0-31.2); Mean Corpuscular Volume 96.1 fl (80-94); Mean Platelet Volume 9.8 fl (7.4-10.4); Monocytes # 0.7 K/mm3 (0.1-1.0); Monocytes % 0.7 % (1.7-9.3); Neutrophils # 8.7 K/mm3 (1.8-7.8); Platelet Count 196 K/mm3 (142-424); Red Blood Count 4.17 M/mm3 (4.60-6.20); Red Cell Distribution Width 13.5 % (11.5-17.5)
[2023-08-02 11:00] LABS: Neutrophils % 8.9 % (37.0-80.0)
[2023-08-02 11:01] LABS: White Blood Count 98.2 K/mm3 (4.8-10.8)
[2023-08-02 11:03] LABS: MANUAL DIFFERENTIAL MANUAL DIFFERENTIAL (MANUAL DIFF)
[2023-08-02 11:59] LABS: Lymphocytes % 89 % (10-50); Neutrophils % 11 % (42-76); Platelet Estimate Normal; RBC Morphology Normal; Total Cells Counted 100
== END 2023-08-02 10:33 | disposition home or self-care (01) ==
LOC: INF 10:11
PROVIDERS: PCP Internal Medicine; Visit Provider Internal Medicine Medical Oncology
DX: C91.10 Chronic lymphocytic leukemia of B-cell type not having achieved remission (principal)
CPT/HCPCS: 36415; 85007; 85025

== ENCOUNTER 2023-08-22 06:48 | Day surgery (SDC) | payer MEDICARE, SELFPAY ==
[2023-08-21 10:35] VITALS: BMI 25.8
[2023-08-22] VITALS (12 sets, daily range): BP systolic 107–164; BP diastolic 5–69; PULSE 59–77; RESP 16–18; TEMP 36.1–36.3; O2SAT 92–98
[2023-08-22] MEDS: LACTATED RINGERS 1000ML 1,000 ML 25 ML IV (07:40)
--- NOTE | 2023-08-22 07:50 | ECG_ITS ---
APPROVED REPORT Exam: Resting ECG HR:54 bpm ECG Measurements Heart Rate 54 AXES IA 195 P 76 QRSd 100 QRS 1 QT 464 T 60 QTc 451 Conclusion SINUS BRADYCARDIA BORDERLINE ECG UNCONFIRMED REPORT Electronically signed by : Gil Millan MD 08/25/2023 14:48:13
--- NOTE | 2023-08-22 08:12 | P.PNANES_ITS ---
[facility] Disclaimer: The information contained in this section may have been updated after the patient was seen, as this information can be updated by other users. Medical History Anemia Basal cell carcinoma Basal cell carcinoma (BCC) of face BPH (benign prostatic hyperplasia) BPH (benign prostatic hyperplasia) CAD (coronary artery disease) Cancer Cardiomegaly Cardiomyopathy CLL (chronic lymphocytic leukemia) Cyst of tonsil Diabetes DM type 2 (diabetes mellitus, type 2) GI bleed Heart murmur Heart murmur Hyperlipidemia Hypertension Myocardial infarction Sinus problem Surgical History (Updated 08/18/23 @ 10:14 by Jennifer Mercedes RN) History of colonoscopy History of esophagogastroduodenoscopy (EGD) Hx of cardiac cath Hx of local excision of skin lesion Family History Other Cancer Diabetes Social History (Updated 08/18/23 @ 10:15 by Jennifer Mercedes RN) Smoking Status: Former smoker tobacco type: cigarettes second hand exposure: No alcohol intake: never substance use type: denies use current occupational status: retired Travel in the last 8 weeks: None household members: significant other housing: house current occupational exposures/hazards: No caffeine: Yes [facility] Anesthesia Checklist Patient Identification Patient Identification: Arm Band Structural Data Admitted From: Home Planned Operative Procedure/s: Direct Laryngoscopy, Tonsil Bx, Bx of Laryngeal Mass Consent for Planned Operative Procedure(s) Verified: Yes Verified Documents: Surgical Consent and History and Physical NPO Status Verified Time NPO: 00:00 Additional verifications Anesthesia Reactions: No Hx Blood Transfusions: No Blood Transfusion Reaction: No Airway Assessment Mallampati Score:: Class II C-Spine Mobility Assessed: Yes TMJ Mobility Assessed: Yes Dentition: Poor Dentition Neurological Assessment Level of Consciousness: Awake and Alert Anesthesia Plan Anesthesia Risk discussed: Yes Anesthesia Plan: Verified ASA Class: III Anesthesia Type: General
[2023-08-22] MEDS: CLINDAMYCIN PHOSPHATE 900 MG in 0.9 % SODIUM CHLORIDE 50 ML 112 MG IV (08:43)
[2023-08-22] MEDS: OXYMETAZOLINE NASAL SPRAY 0.05% 15ML 15 ML NS (09:14)
[2023-08-22] MEDS: BUPIVACAINE 0.5% W/EPI 1:200,000 30ML VIAL 30 ML IJ (09:36)
--- NOTE | 2023-08-22 09:50 | P.OP_ITS ---
Date of procedure: 08/22/23 Pre-op Diagnosis:: left vallecula mass, left tonsil mass Post-op Diagnosis:: same Procedure performed:: direct laryngoscopy, biopsy of left vallecula mass, left tonsil excisional biopsy Surgeon:: Kilo Gifford MD Anesthesia: GETA Estimated blood loss (mL): 15 Clinical Note:: This is a gentleman with 2 separate oropharyngeal/laryngeal findings. He has a history of lymphoma under management with oncology. He has had some persistent dysphagia issues which he thinks may be contributed to what appears to be a large likely infected mucous retention cyst in his left vallecula that was evident on both his neck CT scan as well as flexible laryngoscopy. He add itionally has had a chronic draining cystic-appearing area from his left tonsil which was rim-enhancing on his CT scan and has been recalcitrant to oral antibiotic therapy. This particular mass I have had concern may actually be a malignancy. For both definitive treatment as well as pathologic examination he is elected to proceed with the above-noted procedure for removal of both these masses. Operative findings:: left vallecula mass consistent with infected mucous retention cyst left tonsil cyst with associated purulent drainage Operative note:: The patient was brought to the OR, laid in the supine position, and general anesthesia was induced. The patient was prepped and draped in usual fashion. I first started with the left vallecula mass. The patient was suspended with a Dedo laryngoscope. The mass appeared to be consistent with a large mucous retention cyst. Using the up-biting cup forceps I biopsied the superficial aspect of the cyst and sent some of the cystic lining for pathology. On biopsying into the cyst a large amount of purulent fluid was expressed and suctioned out. I then lightly used the laryngeal suction cautery to both help ablate down some of the redundant cystic lining as well as to help achieve hemostasis. The patient was then suspended with a Polly Dvaie mouthgag. He had a chronic draining cyst encompassing most of his left tonsil that has been recalcitrant to antibiotics in clinic. Using the Bovie cautery I performed an excisional biopsy around the cyst/draining area and it was sent for permanent pathology. The suction Bovie was then used to achieve hemostasis. Patient's nose and mouth were then thoroughly irrigated out. Marcaine soaked tonsil ball was placed in the tonsillar fossa for further local anesthetic. This was removed. The stomach was suctioned with an orogastric tube. All counts were confirmed correct he was then taken out of suspension and turned back over to anesthesia to be awoken and extubated. Condition: stable Disposition: PACU Complications:: none
--- NOTE | 2023-08-22 09:59 | P.PNANES_ITS ---
[facility] Anesthesia Record Part I Anesthesia Record I Intake, IV Amount: 800 Hydration: Adequate Estimated blood loss (mL): 10 Urine output (mL): 0 Blood Products used (#): none Blood Pressure: 116/5 SaO2: 92 Pulse Rate: 68 Airway Patency: Patent Respiratory Rate: 18 Temperature: 97.3 F Patient is:: Drowsy and Stable Stable to PACU at:: 09:50
[2023-08-22] MEDS: APAP 325MG/HYDROCODONE 7.5MG 15ML UDC 15 ML PO (10:44)
--- NOTE | 2023-08-22 14:07 | P.PNANES_ITS ---
[facility] Anesthesia Record Part II Anesthesia Record Part II Discharge Time: 10:20 Destination: Surgical Day Care (OP Surgery) PACU nurse assessment reviewed?: Yes Patient Condition:: Good Anesthesia Complications:: None Swallowing reflex intact?: Yes Airway Patency: Patent Cyanosis?: No Blood Pressure: 117/64 SaO2: 95 Respiratory Rate: 17 Pulse Rate: 64 Temperature: 97 F Mental Status: Alert & Oriented Pain level:: 0 Nausea and/or vomitting:: None Intake, IV Amount: 0 Hydration: Adequate
[2023-08-22 14:49] LABS: POC Glucose,Bedside 113 (70-110)
== END 2023-08-22 11:13 | disposition home or self-care (01) ==
PROVIDERS: PCP Internal Medicine; Visit Provider Student in an Organized Health Care Education/Training Program
PROC: 0CJS8ZZ Inspection of Larynx, Via Natural or Artificial Opening Endoscopic (ICD-10-PCS; CPT 31535; principal; 2023-08-22 08:30)
DX: J38.7 Other diseases of larynx (principal); J35.01 Chronic tonsillitis; E11.9 Type 2 diabetes mellitus without complications
CPT/HCPCS: 31535; 82962; 88305; 93005; 96374; J0736; J2405

== ENCOUNTER 2023-09-04 09:28 | Outpatient (CLI) | payer MEDICARE, SELFPAY ==
[2023-09-04 09:34] VITALS: BMI 25.9
[2023-09-04 09:52] LABS: Basophils # 2.6 K/mm3 (0-0.2); Basophils % 3.3 % (0.1-2.0); Eosinophils # 0.3 K/mm3 (0.0-0.4); Eosinophils % 0.3 % (0.1-12.0); Hematocrit 39.7 % (42.0-52.0); Hemoglobin 12.9 g/dL (14.1-18.0); Lymphocytes # 66.5 K/mm3 (0.7-4.5); Lymphocytes % 84.6 % (10-50); Mean Corpuscular HGB Conc 32.5 g/dL (31.8-35.4); Mean Corpuscular Hemoglobin 30.6 pg (27.0-31.2); Mean Corpuscular Volume 94.1 fl (80-94); Mean Platelet Volume 10.5 fl (7.4-10.4); Monocytes # 0.9 K/mm3 (0.1-1.0); Monocytes % 1.1 % (1.7-9.3); Platelet Count 174 K/mm3 (142-424); Red Blood Count 4.22 M/mm3 (4.60-6.20); Red Cell Distribution Width 13.9 % (11.5-17.5)
[2023-09-04 09:59] LABS: White Blood Count 78.7 K/mm3 (4.8-10.8)
[2023-09-04 10:01] LABS: MANUAL DIFFERENTIAL MANUAL DIFFERENTIAL (MANUAL DIFF)
--- NOTE | 2023-09-04 10:14 | PC.NURSE ---
09/04/23 0991 pt presents today for labs. Pt scheduled for md appt with oncology tomorrow. Venipuncture performed using butterfly access needle to pts lt ac x 1 stick and blood drawn. Once complete, needle withdrawn and site secured with 2x2 gauze and coban. Specimens sent to lab for analysis.
[2023-09-04 10:24] LABS: Chloride 106 mmol/L (98-107); Potassium 4.1 mmoL/L (3.5-5.1); Sodium 136 mmol/L (136-145)
[2023-09-04 10:26] LABS: Alanine Aminotransferase 21 U/L (12-78); Aspartate Amino Transferase 27 U/L (17-59); Blood Urea Nitrogen 16 mg/dl (9-20); Creatinine Clearance Estimated 52 mL/min (50-200); Estimated Glomerular Filt Rate 53 ml/min (>60); GFR (African American) 64 ML/MIN (>60)
[2023-09-04 10:27] LABS: Albumin Level 3.4 g/dl (3.5-5.0); Albumin/Globulin Ratio 1.2 (1.1-1.8); Alkaline Phosphatase 59 U/L (38-126); Anion Gap 8.1 mEq/L (5-15); Bilirubin,Total 0.6 mg/dl (0.2-1.3); Calcium 8.2 mg/dl (8.4-10.2); Carbon Dioxide 26 mmol/L (22.0-30.0); Globulin 2.9 g/dL (1.3-3.2); Glucose 91 mg/dl (74-100); Total Protein,Serum 6.3 g/dl (6.3-8.2)
[2023-09-04 10:34] LABS: Differential Comment SEE COMMEN; Lymphocytes % 91 % (10-50); Neutrophils % 9 % (42-76); Platelet Estimate Normal; RBC Morphology Normal; Total Cells Counted 100
[2023-09-04 11:13] LABS: Lactate Dehydrogenase 161 U/L (313-618)
== END 2023-09-04 09:45 | disposition home or self-care (01) ==
PROVIDERS: PCP Internal Medicine; Visit Provider Internal Medicine Medical Oncology
DX: C91.10 Chronic lymphocytic leukemia of B-cell type not having achieved remission (principal)
CPT/HCPCS: 36415; 80053; 83615; 85007; 85025

== ENCOUNTER 2023-11-28 07:21 | Outpatient (CLI) | payer MEDICARE, SELFPAY ==
--- NOTE | 2023-11-28 07:30 | CT_ITS ---
FINAL REPORT TECHNIQUE: After the administration of oral and intravenous contrast, axial images were obtained through the abdomen and pelvis by computed tomography. The study was performed with techniques to keep radiation dose as low as reasonably achievable, (ALARA). Individual dose reduction techniques using automated exposure control or adjustment of mA and/or kV according to the patient's size were employed. CLINICAL HISTORY: LEUKEMIA COMPARISON: 06/21/2023 FINDINGS: Abdomen: There is borderline splenomegaly measuring up to 11.7 cm, previously measured 12.4 cm. The gallbladder is present. The remaining solid organs are unremarkable. There is a small hiatal hernia. No bowel obstruction is present. There is no free air. No fluid collection is seen. There is no mesenteric or retroperitoneal adenopathy. Pelvis: The appendix is normal. There is mild sigmoid diverticulosis. There are small bilateral inguinal hernias containing fat. There is no free fluid. There is no inguinal adenopathy. IMPRESSION: No enlarged abdominal or pelvic lymph nodes. Borderline splenomegaly, improved. Reviewed, Interpreted and Dictated by Kitty Mckenzie MD Transcribed by Madai Jones Authenticated and [facility]
--- NOTE | 2023-11-28 07:30 | CT_ITS ---
FINAL REPORT TECHNIQUE: After the administration of intravenous contrast, axial images through the chest were performed by computed tomography.This study was performed with techniques to keep radiation doses as low as reasonably achievable, (ALARA). Individualized dose reduction techniques using automated exposure control or adjustment of mA and/or kV according to the patient''s size were employed. CLINICAL HISTORY: LEUKEMIA COMPARISON: 06/21/2023 FINDINGS: Emphysema is noted. There are chronic interstitial changes. There is no evidence of lung mass. There are scattered small mediastinal nodes in a similar distribution compared to the prior study. A lower right paratracheal node measures 14 x 9 mm and previously measured 13 x 8 mm. Left anterior mediastinal node near the left pulmonary artery measures 14 x 8 mm, previously measured 14 x 6 mm. There is a posterior mediastinal lymph node adjacent to the distal esophagus measuring 14 x 10 mm and previously measures 17 x 11 mm. A right subcarinal lymph node measures 18 x 14 mm and is unchanged. There are small axillary lymph nodes which are visually stable. There is a cystic right paraspinal mass with enlargement of the right neural foramen, similar to the prior study. IMPRESSION: Stable to minimally worsening multifocal thoracic adenopathy. Reviewed, Interpreted and Dictated by Kitty Mckenzie MD Transcribed by Madai Jones Authenticated and [facility]
[2023-11-28 07:45] LABS: Blood Urea Nitrogen 16 mg/dl (9-20); Estimated Glomerular Filt Rate 53 ml/min (>60); GFR (African American) 64 ML/MIN (>60)
[2023-11-28] MEDS: SODIUM CHLORIDE 0.9% 10ML SYR (RAD ONLY) 10 ML IV (08:11)
[2023-11-28] MEDS: IOPAMIDOL-370 (76%);100ML BOTTLE 75 ML IV (08:11)
[2023-11-28] MEDS: BARIUM SULFATE(READI-CAT2);450ML BOTTLE 450 ML PO (08:11)
== END 2023-11-28 23:59 | disposition home or self-care (01) ==
LOC: RAD 07:23
PROVIDERS: PCP Family Medicine; Visit Provider Internal Medicine Medical Oncology
DX: C91.10 Chronic lymphocytic leukemia of B-cell type not having achieved remission (principal)
CPT/HCPCS: 36415; 71260; 74177; 82565; 84520; Q9967

== ENCOUNTER 2023-12-04 09:01 | Outpatient (CLI) | payer MEDICARE, SELFPAY ==
[2023-12-04 09:09] VITALS: BMI 26.1
[2023-12-04 09:32] LABS: Basophils # 0.5 K/mm3 (0-0.2); Basophils % 1.4 % (0.1-2.0); Eosinophils # 0.4 K/mm3 (0.0-0.4); Eosinophils % 1.1 % (0.1-12.0); Hematocrit 36.9 % (42.0-52.0); Hemoglobin 11.9 g/dL (14.1-18.0); Lymphocytes # 25.8 K/mm3 (0.7-4.5); Lymphocytes % 74.7 % (10-50); Mean Corpuscular HGB Conc 32.4 g/dL (31.8-35.4); Mean Corpuscular Hemoglobin 31.1 pg (27.0-31.2); Mean Corpuscular Volume 96.1 fl (80-94); Mean Platelet Volume 9.8 fl (7.4-10.4); Monocytes # 0.6 K/mm3 (0.1-1.0); Monocytes % 1.8 % (1.7-9.3); Neutrophils # 7.3 K/mm3 (1.8-7.8); Neutrophils % 21.1 % (37.0-80.0); Platelet Count 220 K/mm3 (142-424); Red Blood Count 3.84 M/mm3 (4.60-6.20); White Blood Count 34.5 K/mm3 (4.8-10.8)
[2023-12-04 09:35] LABS: MANUAL DIFFERENTIAL MANUAL DIFFERENTIAL (MANUAL DIFF)
--- NOTE | 2023-12-04 09:40 | PC.NURSE ---
0915 CBC/CMP labs collected via venipuncture to L AC x1 stick with butterly needle. Patient having labs drawn for appointment with Dr. Mckeon tomorrow.
[2023-12-04 09:49] LABS: Chloride 110 mmol/L (98-107)
[2023-12-04 09:50] LABS: Potassium 4.1 mmoL/L (3.5-5.1); Sodium 137 mmol/L (136-145)
[2023-12-04 09:53] LABS: Alanine Aminotransferase 19 U/L (12-78); Albumin Level 3.4 g/dl (3.5-5.0); Albumin/Globulin Ratio 1.4 (1.1-1.8); Alkaline Phosphatase 59 U/L (38-126); Anion Gap 6.1 mEq/L (5-15); Aspartate Amino Transferase 32 U/L (17-59); Bilirubin,Total 0.6 mg/dl (0.2-1.3); Blood Urea Nitrogen 16 mg/dl (9-20); Calcium 8.7 mg/dl (8.4-10.2); Carbon Dioxide 25 mmol/L (22.0-30.0); Creatinine Clearance Estimated 61 mL/min (50-200); Estimated Glomerular Filt Rate 64 ml/min (>60); GFR (African American) 78 ML/MIN (>60); Globulin 2.5 g/dL (1.3-3.2); Glucose 94 mg/dl (74-100); Total Protein,Serum 5.9 g/dl (6.3-8.2)
[2023-12-04 09:54] LABS: Eosinophils % 2 % (0-3); Lymphocytes % 73 % (10-50); Monocytes % 2 % (2-9); Neutrophils % 22 % (42-76); Platelet Estimate Normal; RBC Morphology Normal; Total Cells Counted 100
== END 2023-12-04 09:20 | disposition home or self-care (01) ==
LOC: INF 09:02
PROVIDERS: PCP Internal Medicine; Visit Provider Internal Medicine Medical Oncology
DX: C91.10 Chronic lymphocytic leukemia of B-cell type not having achieved remission (principal)
CPT/HCPCS: 36415; 80053; 85007; 85025

== ENCOUNTER 2023-12-14 12:59 | Outpatient (CLI) | payer MEDICARE, SELFPAY ==
--- NOTE | 2023-12-14 12:59 | CT_ITS ---
FINAL REPORT TECHNIQUE: Thin section axial CT images were obtained through the neck after intravenous contrast administration. Coronal and sagittal reformats were also obtained. This study was performed with techniques to keep radiation doses as low as reasonably achievable (ALARA). Individualized dose reduction techniques using automated exposure control or adjustment of mA and/or kV according to the patient''s size were employed. CLINICAL HISTORY: tonsil cyst COMPARISON: 06/21/2023 FINDINGS: The nasopharynx, hypopharynx and larynx are unremarkable. There has been interval resolution of the previously seen cystic mass in the left oropharynx. No new masses identified. The thyroid gland is unremarkable. Calcified plaque at the carotid bifurcations is again noted. There are borderline sized mediastinal nodes which are stable. There is mild biapical scarring. IMPRESSION: Interval resolution of previously seen cystic mass in the left oropharynx. Reviewed, Interpreted and Dictated by Jasiel Whittaker III, MD Transcribed by Perla Anderson Authenticated and [facility]
[2023-12-14] MEDS: SODIUM CHLORIDE 0.9% 10ML SYR (RAD ONLY) 10 ML IV (13:35)
[2023-12-14] MEDS: IOPAMIDOL-370 (76%);100ML BOTTLE 75 ML IV (13:35)
== END 2023-12-14 23:59 | disposition home or self-care (01) ==
LOC: RAD 12:59
PROVIDERS: PCP Internal Medicine; Visit Provider Student in an Organized Health Care Education/Training Program
DX: J35.8 Other chronic diseases of tonsils and adenoids (principal); Z87.891 Personal history of nicotine dependence
CPT/HCPCS: 70491; Q9967

== ENCOUNTER 2023-12-27 13:24 | Emergency (ER) | payer MEDICARE, SELFPAY ==
[2023-12-27 13:38] VITALS: BMI 25.8
[2023-12-27 13:55] VITALS: BP 133/70; PULSE 90; O2SAT 98
[2023-12-27] MEDS: ONDANSETRON 4MG/2ML VIAL 4 MG IV (13:57)
[2023-12-27] MEDS: LACTATED RINGERS 1000ML 1,000 ML 999 ML IV (13:57)
[2023-12-27 14:02] LABS: Microscopic, Urine URINE MICROSCOPIC (MICROSCOPIC)
[2023-12-27 14:09] LABS: Lipase 30 U/L (23-300); Magnesium 1.1 mg/dl (1.6-2.3)
[2023-12-27 14:11] LABS: Appearance,Urine SL CLOUDY (Clear); Blood, Urine TRACE-I (Negative); Color,Urine YELLOW (Yellow); Glucose,Urine (UA) Negative (Negative); Ketones,Urine 1+ (Negative); Leukocyte Esterase,Urine Negative (Negative); Nitrate,Urine Negative (Negative); Protein,Urine 1+ (Negative); Specific Gravity, Urine >= 1.030 (1.005-1.030)
[2023-12-27 14:12] VITALS: BP 154/75; PULSE 94; RESP 20; TEMP 36.2; O2SAT 98; BMI 25.8
--- NOTE | 2023-12-27 14:12 | CT_ITS ---
FINAL REPORT TECHNIQUE: Pre-and postcontrast images of the abdomen were performed by computed tomography. Extensive 3-D reconstruction images were performed. A CTA was performed. This study was performed with techniques to keep radiation doses as low as reasonably achievable (ALARA). Individualized dose reduction techniques using automated exposure control or adjustment of mA and/or kV according to the patient''s size were employed. CLINICAL HISTORY: hematochezia/vom/diarrhea, h/o CLL COMPARISON: 11/28/2023 FINDINGS: CTA ABDOMEN AND PELVIS There are multiple subcarinal lymph nodes measuring up to 2.0 cm. Groundglass opacities are seen in the lung bases. There is a paraspinal nodule in the right side of the lower thoracic spine measuring 2.6 cm and extending inferiorly into the neuroforamen. 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 The liver is homogeneous. The gallbladder is distended. The spleen, pancreas, adrenal glands, and kidneys are unremarkable. The GI tract demonstrates no obstruction. There is moderate diverticulosis with no evidence of diverticulitis. The urinary bladder is incompletely distended. CTA: The abdominal aorta is proper caliber. There is moderate to high-grade narrowing at the origin of the celiac axis with approximately 80% stenosis. There is a 50% stenosis of the SMA. The LD is patent. There is a 70% stenosis at the origin of the right renal artery and a 50% stenosis at the origin of the left renal artery. 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 Adenopathy in the subcarinal region of uncertain significance may be reactive or neoplastic. Reviewed, Interpreted and Dictated by Flavio Payne MD Transcribed by Perla Anderson Authenticated and [facility]
[2023-12-27 14:13] LABS: Lactic Acid 2.2 mmol/L (0.7-2.1)
--- NOTE | 2023-12-27 14:13 | ED_ITS ---
Discharge Plan Disposition Chief Complaint: Nausea/Vomiting/Diarrhea Prescriptions Prescriptions: No Action ezetimibe [Zetia] 10 mg tablet 10 mg PO DAILY nitroglycerin 0.4 mg tablet, sublingual 0.4 mg SL Q5MINP PRN (Reason: Chest Pain) Calquence (acalabrutinib mal) 100 mg tablet 100 mg PO BID (DME) Accu-Chek Zenaida Plus test strp Strip See Rx Instructions .ROUTE .MEDSUPPLY Qty: 10 Rx Instructions: As directed isosorbide mononitrate 120 mg tablet extended release 24 hr 120 mg PO DAILY tamsulosin 0.4 mg capsule 0.4 mg PO HS Patient Comments: TAKE 1 CAPSULE BY MOUTH ONCE DAILY AT NIGHT FOR PROSTATE aspirin [Adult Aspirin Regimen] 81 mg tablet,delayed release (DR/EC) See Rx Instructions PO DAILY Rx Instructions: take 1/2 tablet orally daily; nifedipine 60 mg tablet extended release 24hr 60 mg PO DAILY famotidine 20 mg tablet 40 mg PO DAILY sucralfate 1 gram tablet 1 g PO QID metoprolol tartrate 100 MG tablet 100 mg PO BID metformin 500 MG tablet 500 mg PO BIDWMEAL rosuvastatin 5 MG tablet 5 mg PO DAILY Referrals Follow up/Referrals: Marcelino Cueva [Primary Care Provider] - See instructions Instructions Patient Instructions: DI for Nausea -- Adult, DI for Nausea -- Child, DI for Diarrhea and Traveler's Diarrhea -- Adult, DI for Diarrhea and Traveler's Diarrhea -- Child Discharge ED Provider: Estelita Maldonado General Adult HPI General Chief complaint: Nausea/Vomiting/Diarrhea Stated complaint: diarrhea Time Seen by Provider: 12/27/23 13:41 History of Present Illness HPI narrative: This patient is an 83-year-old male with a history 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 He notes that emesis is nonbloody and nonbilious, but his diarrhea has been red. He feels very weak and feels like is getting dehydrated because of the significant number of bowel movements and emesis that he had. No localizable abdominal pain noted. No fevers, chest pain, shortness of breath, or other concerns. He takes aspirin but does not take any other blood thinning medications. Related Data Home Medications Medication Instructions Recorded Confirmed metoprolol tartrate 100 mg tablet 100 mg PO BID Hypertension 09/04/19 12/05/23 ezetimibe 10 mg tablet (Zetia) 10 mg PO DAILY Cholesterol 08/27/20 12/05/23 metformin 500 mg tablet 500 mg PO BIDWMEAL Diabetes 02/20/21 12/05/23 rosuvastatin 5 mg tablet 5 mg PO DAILY Cholesterol 02/20/21 12/05/23 nitroglycerin 0.4 mg sublingual 0.4 mg sublingual Q5MINP PRN Chest 01/06/22 12/05/23 tablet Pain tamsulosin 0.4 mg capsule 0.4 mg PO HS 10/21/22 12/05/23 acalabrutinib maleate 100 mg 100 mg PO BID 03/30/23 12/05/23 tablet (Calquence (acalabrutinib maleate)) aspirin 81 mg tablet,delayed See Rx Instructions PO DAILY 04/06/23 12/05/23 release (Adult Aspirin Regimen) nifedipine 60 mg tablet,extended 60 mg PO DAILY 04/13/23 12/05/23 release 24 hr famotidine 20 mg tablet 40 mg PO DAILY 04/28/23 12/05/23 sucralfate 1 gram tablet 1 g PO QID 04/28/23 12/05/23 blood sugar diagnostic (Accu-Chek #10 ea 06/06/23 12/05/23 Zenaida Plus test strips) isosorbide mononitrate 120 mg 120 mg PO DAILY 12/05/23 12/05/23 tablet,extended release 24 hr Allergies Allergy/AdvReac Type Severity Reaction Status Date / Time Penicillins [PENICILLINS] Allergy Unknown I-RASH Verified 12/05/23 10:09 losartan AdvReac Verified 12/05/23 10:09 PFSH FOR[facility]LY [facility] Disclaimer: The information contained in this section may have been updated after the patient was seen, as this information can be updated by other users. Medical History Basal cell carcinoma Cyst of tonsil Basal cell carcinoma (BCC) of face Sinus problem Cardiomegaly DM type 2 (diabetes mellitus, type 2) Heart murmur BPH (benign prostatic hyperplasia) Anemia GI bleed CLL (chronic lymphocytic leukemia) Myocardial infarction Heart murmur Diabetes Cardiomyopathy Cancer BPH (benign prostatic hyperplasia) CAD (coronary artery disease) Hyperlipidemia Hypertension Surgical History Hx of local excision of skin lesion History of esophagogastroduodenoscopy (EGD) Hx of cardiac cath History of colonoscopy Family History Other Cancer Diabetes Social History Smoking Status: Never smoker second hand exposure: No alcohol intake: never substance use type: denies use current occupational status: retired Travel in the last 8 weeks: None household members: significant other housing: house current occupational exposures/hazards: No caffeine: Yes ROS Obtained: Yes All systems reviewed & no additional complaints except as documented Physical Exam General General appearance: alert and in no apparent distress Head Head exam: atraumatic and normocephalic Eye Eye exam: Present normal appearance, PERRL and EOMI ENT ENT exam: Present normal exam, normal oropharynx, mucous membranes moist and normal external ear exam Neck Neck exam: Present normal inspection, full ROM and trachea midline; Absent tenderness Chest Chest inspection: Present normal inspection and symmetric chest wall rise; Absent tenderness Respiratory Respiratory exam: Present normal lung sounds bilaterally; Absent respiratory distress, wheezes, stridor or accessory muscle use Cardiovascular Cardiovascular exam: Present regular rate and normal rhythm Abdominal Exam Abdominal exam: Present soft; Absent distention, tenderness or guarding Extremities Exam Extremities exam: Present normal inspection, full ROM and normal capillary refill; Absent tenderness or edema Back Exam Back exam: Present normal inspection and full ROM; Absent tenderness Neurological Exam Neurological exam: Present alert, oriented X3, CN II-XII intact and normal gait; Absent motor sensory deficit Psychiatric Psychiatric exam: Present normal affect and normal mood Skin Skin exam: Present warm and dry Medical Decision Making Medical Records Medical records reviewed: Yes I reviewed the patient's medical records. Bartolo Inquiry Pt receiving controlled substance: No Vital Signs: 12/27/23 13:55 12/27/23 14:12 Temperature 97.1 F L Temperature Source Oral Pulse Rate 90 Pulse Rate [Left Radial] 94 H Respiratory Rate 20 Blood Pressure 133/70 Blood Pressure [Right Arm] 154/75 H Blood Pressure Mean [Right Arm] 101 02 Sat by Pulse Oximetry 98 98 Oxygen Delivery Method Room Air Room Air Lab Data Lab results reviewed: Yes I reviewed the patient's lab results. Lab Results 12/27/23 13:40: WBC 38.4 H*, RBC 4.65, Hgb 14.5, Hct 44.3, MCV 95.2 H, MCH 31.2, MCHC 32.8, RDW 14.3, Plt Count 194, MPV 10.1, Neut % (Auto) 43.6, Lymph % (Auto) 54.3 H, [place] % (Auto) 1.4 L, Eos % (Auto) 0.2, Baso % (Auto) 0.5, Neut # (Auto) 16.7 H, Lymph # (Auto) 20.8 H, [place] # (Auto) 0.6, Eos # (Auto) 0.1, Baso # (Auto) 0.2, Magnesium 1.1 L, Lipase 30 12/27/23 13:50: Lactate 2.2 H 12/27/23 13:40 Orders (Tests/Meds): ED MEDICATIONS Generic Name Dose Route Start Last Admin Trade Name Freq PRN Reason Stop Dose Admin Magnesium Sulfate 2 gm in 50 mls @ 50 mls/hr 12/27/23 14:15 12/27/23 14:39 Magnesium Sulfate 2gm/50ml Premix IV 12/27/23 15:14 50 mls/hr ONCE ONE Administration Sodium Chloride 10 ml 12/27/23 13:40 Sodium Chloride 0.9% 10ml Flush Syringe IV 01/26/24 13:39 NEEDED PRN Maintain IV Site Discontinued Medications Generic Name Dose Route Start Last Admin Trade Name Freq PRN Reason Stop Dose Admin Lactated Ringer's 1,000 mls @ 999 mls/hr 12/27/23 13:40 12/27/23 13:57 Lactated Ringer's 1000 Ml Bag IV 12/27/23 14:40 999 mls/hr .Q1H1M ONE Administration Ondansetron HCl 4 mg 12/27/23 13:39 12/27/23 13:57 Ondansetron 4mg/2ml Vial IV 12/27/23 13:40 4 mg ONCE ONE Administration ORDERS Category Date Time Status CT angio abdomen pelvis Stat Cat Scan 12/27/23 14:12 Ordered Complete Blood Count Auto Diff Stat Lab 12/27/23 13:40 Results Diarrhea 23 Panel, PCR Stat Lab 12/27/23 13:41 Ordered Lactic Acid Stat Lab 12/27/23 13:50 Completed Lipase Stat Lab 12/27/23 13:40 Completed Magnesium Stat Lab 12/27/23 13:40 Completed Occult Blood,Stool Stat Lab 12/27/23 13:41 Ordered Urinalysis and Microscopic Stat Lab 12/27/23 13:50 Received ECG Data Tracing #1: I reviewed this ECG and interpreted as documented below: Normal sinus rhythm with sinus arrhythmia with a ventricular rate of [address] changes concerning for ischemia. Normal axis and intervals. ECG initial impression date: 12/27/23 ECG initial impression time: 14:52 Medical Decision Narrative: In summary, this patient is a 83-year-old male presenting to the Emergency Department for evaluation of nausea, vomiting, diarrhea, and bright red blood per rectum. Differential diagnoses considered include but are not limited to lower GI bleed, diverticular bleed, upper GI bleed, colitis, gastroenteritis, dehydration, electrolyte derangements, anemia. Ruling out the most morbid conditions drove assessment. It should be noted patient's history includes CLL, hypertension, hyperlipidemia which may or may not be at goal therapy. This complicates all aspects of care by increasing patient's risk for morbidity. I reviewed patient's past medical records and noted previous evaluations for GI bleed in the past back in 2021, at which point the patient was noted to have a Dieulafoy lesion of stomach. On exam, the patient is well-appearing. He has reassuring vital signs on cardiac telemetry with benign abdominal exam. Workup included CBC, CMP, lipase, diarrhea panel, urinalysis, and CTA GI bleed protocol. He was given a bolus of IV fluids as well as IV Zofran. I independently interpreted [] prior to the radiologist read and noted []. Please see their read for final interpretation. Labs were obtained that demonstrated []. On reassessment, patient had [] improvement after administration of []. At this time, patient was deemed to be appropriate for []. I had an interactive discussion with [] who advised []. The patient was given instructions for close outpatient follow-up, very strict return precautions, and the patient was discharged in stable condition with prescriptions for []. It should be noted that social factors including [] complicates care. We discussed []. Critical Care Critical Care Time Critical Care Time: No
[2023-12-27 14:23] LABS: Basophils # 0.2 K/mm3 (0-0.2); Basophils % 0.5 % (0.1-2.0); Eosinophils # 0.1 K/mm3 (0.0-0.4); Eosinophils % 0.2 % (0.1-12.0); Hematocrit 44.3 % (42.0-52.0); Hemoglobin 14.5 g/dL (14.1-18.0); Lymphocytes # 20.8 K/mm3 (0.7-4.5); Lymphocytes % 54.3 % (10-50); Mean Corpuscular HGB Conc 32.8 g/dL (31.8-35.4); Mean Corpuscular Hemoglobin 31.2 pg (27.0-31.2); Mean Corpuscular Volume 95.2 fl (80-94); Mean Platelet Volume 10.1 fl (7.4-10.4); Monocytes # 0.6 K/mm3 (0.1-1.0); Monocytes % 1.4 % (1.7-9.3); Neutrophils # 16.7 K/mm3 (1.8-7.8); Neutrophils % 43.6 % (37.0-80.0); Platelet Count 194 K/mm3 (142-424); Red Blood Count 4.65 M/mm3 (4.60-6.20); Red Cell Distribution Width 14.3 % (11.5-17.5); White Blood Count 38.4 K/mm3 (4.8-10.8)
[2023-12-27 14:24] LABS: MANUAL DIFFERENTIAL MANUAL DIFFERENTIAL (MANUAL DIFF)
--- NOTE | 2023-12-27 14:27 | ECG_ITS ---
APPROVED REPORT Exam: Resting ECG HR:81 bpm ECG Measurements Heart Rate 81 AXES NV 185 P 80 QRSd 103 QRS 0 QT 376 T 57 QTc 413 Conclusion SINUS RHYTHM WITH SINUS ARRHYTHMIA NORMAL ECG Electronically signed by : MATTHEW GARCIA, 12/27/2023 16:09:22
[2023-12-27] MEDS: MAGNESIUM SULFATE IN WATER 2 GM/50 ML PIGGYBACK IV (14:39)
--- NOTE | 2023-12-27 14:43 | PC.NURSE ---
Rounded on pt. No needs voiced at this time. Pt resting and visitor at BS.
[2023-12-27 14:54] LABS: Bilirubin,Urine 2+ (Negative)
[2023-12-27 15:02] LABS: Lymphocytes % 64 % (10-50); Monocytes % 1 % (2-9); Neutrophils % 35 % (42-76); Total Cells Counted 100
[2023-12-27 15:03] LABS: Platelet Estimate Normal; RBC Morphology Normal
[2023-12-27 15:28] LABS: Bacteria,Urine Trace /lpf; RBC,Urine Occasional #/hpf (0-3); Squamous Epithelial Cell,Urine Occasional #/hpf (0-5); WBC,Urine Occasional #/hpf (0-3)
[2023-12-27] MEDS: SODIUM CHLORIDE 0.9% 10ML SYR (RAD ONLY) 10 ML IV (15:38)
[2023-12-27] MEDS: IOPAMIDOL-370 (76%);100ML BOTTLE 85 ML IV (15:38)
[2023-12-27] MEDS: 0.9 % SODIUM CHLORIDE 50 ML VIAL IV (15:38)
--- NOTE | 2023-12-27 15:45 | ED_ITS ---
Discharge Plan Disposition Patient Disposition: Home, Self-Care Prescriptions Prescriptions: New ondansetron 4 mg tablet,disintegrating 4 mg PO Q6H PRN (Reason: nausea and vomiting) Qty: 10 0RF No Action ezetimibe [Zetia] 10 mg tablet 10 mg PO DAILY nitroglycerin 0.4 mg tablet, sublingual 0.4 mg SL Q5MINP PRN (Reason: Chest Pain) Calquence (acalabrutinib mal) 100 mg tablet 100 mg PO BID (DME) Accu-Chek Zenaida Plus test strp Strip See Rx Instructions .ROUTE .MEDSUPPLY Qty: 10 Rx Instructions: As directed isosorbide mononitrate 120 mg tablet extended release 24 hr 120 mg PO DAILY tamsulosin 0.4 mg capsule 0.4 mg PO HS Patient Comments: TAKE 1 CAPSULE BY MOUTH ONCE DAILY AT NIGHT FOR PROSTATE aspirin [Adult Aspirin Regimen] 81 mg tablet,delayed release (DR/EC) See Rx Instructions PO DAILY Rx Instructions: take 1/2 tablet orally daily; nifedipine 60 mg tablet extended release 24hr 60 mg PO DAILY famotidine 20 mg tablet 40 mg PO DAILY sucralfate 1 gram tablet 1 g PO QID metoprolol tartrate 100 MG tablet 100 mg PO BID metformin 500 MG tablet 500 mg PO BIDWMEAL rosuvastatin 5 MG tablet 5 mg PO DAILY Referrals Follow up/Referrals: Marcelino Cueva [Primary Care Provider] - See instructions Clinical Impressions Clinical Impression: Nausea, vomiting and diarrhea Instructions Patient Instructions: DI for Diarrhea and Traveler's Diarrhea -- Adult, DI for Diarrhea and Traveler's Diarrhea -- Child, DI for Nausea -- Adult, DI for Nausea -- Child Discharge ED Provider: Yunior Dueñas General Adult HPI <Estelita Maldonado DO - Last Filed: 12/27/23 15:47> General Chief complaint: Nausea/Vomiting/Diarrhea Stated complaint: diarrhea Time Seen by Provider: 12/27/23 13:41 Mode of Arrival: Ambulatory Source of Information: Patient Limitations: No Limitations Description of Symptoms (Recalled from ER Triage Doc. by RN): pt to ed c/o v/d that started around 0300. pt states he has a hx of lukemia. pt reports increased generalized weakness. 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 He notes that emesis is nonbloody and nonbilious, but his diarrhea has been red. He feels very weak and feels like is getting dehydrated because of the significant number of bowel movements and emesis that he had. No localizable abdominal pain noted. No fevers, chest pain, shortness of breath, or other concerns. He takes aspirin but does not take any other blood thinning medications. Related Data Home Medications Medication Instructions Recorded Confirmed metoprolol tartrate 100 mg tablet 100 mg PO BID Hypertension 09/04/19 12/05/23 ezetimibe 10 mg tablet (Zetia) 10 mg PO DAILY Cholesterol 08/27/20 12/05/23 metformin 500 mg tablet 500 mg PO BIDWMEAL Diabetes 02/20/21 12/05/23 rosuvastatin 5 mg tablet 5 mg PO DAILY Cholesterol 02/20/21 12/05/23 nitroglycerin 0.4 mg sublingual 0.4 mg sublingual Q5MINP PRN Chest 01/06/22 12/05/23 tablet Pain tamsulosin 0.4 mg capsule 0.4 mg PO HS 10/21/22 12/05/23 acalabrutinib maleate 100 mg 100 mg PO BID 03/30/23 12/05/23 tablet (Calquence (acalabrutinib maleate)) aspirin 81 mg tablet,delayed See Rx Instructions PO DAILY 04/06/23 12/05/23 release (Adult Aspirin Regimen) nifedipine 60 mg tablet,extended 60 mg PO DAILY 04/13/23 12/05/23 release 24 hr famotidine 20 mg tablet 40 mg PO DAILY 04/28/23 12/05/23 sucralfate 1 gram tablet 1 g PO QID 04/28/23 12/05/23 blood sugar diagnostic (Accu-Chek #10 ea 06/06/23 12/05/23 Zenaida Plus test strips) isosorbide mononitrate 120 mg 120 mg PO DAILY 12/05/23 12/05/23 tablet,extended release 24 hr Previous Rx's Medication Instructions Recorded ondansetron 4 mg disintegrating 4 mg PO Q6H PRN nausea and 12/27/23 tablet vomiting #10 tabs Allergies Allergy/AdvReac Type Severity Reaction Status Date / Time Penicillins [PENICILLINS] Allergy Unknown I-RASH Verified 12/05/23 10:09 losartan AdvReac Verified 12/05/23 10:09 PFSH <Estelita Maldonado DO - Last Filed: 12/27/23 15:47> [facility] Disclaimer: The information contained in this section may have been updated after the patient was seen, as this information can be updated by other users. Medical History Basal cell carcinoma Cyst of tonsil Basal cell carcinoma (BCC) of face Sinus problem Cardiomegaly DM type 2 (diabetes mellitus, type 2) Heart murmur BPH (benign prostatic hyperplasia) Anemia GI bleed CLL (chronic lymphocytic leukemia) Myocardial infarction Heart murmur Diabetes Cardiomyopathy Cancer BPH (benign prostatic hyperplasia) CAD (coronary artery disease) Hyperlipidemia Hypertension Surgical History Hx of local excision of skin lesion History of esophagogastroduodenoscopy (EGD) Hx of cardiac cath History of colonoscopy Family History Other Cancer Diabetes Social History Smoking Status: Never smoker second hand exposure: No alcohol intake: never substance use type: denies use current occupational status: retired Travel in the last 8 weeks: None household members: significant other housing: house current occupational exposures/hazards: No caffeine: Yes <Estelita Maldonado DO - Last Filed: 12/27/23 15:47> ROS Obtained: Yes All systems reviewed & no additional complaints except as documented Physical Exam <Estelita Maldonado DO - Last Filed: 12/27/23 15:47> General General appearance: alert and in no apparent distress Head Head exam: atraumatic and normocephalic Eye Eye exam: Present normal appearance, PERRL and EOMI ENT ENT exam: Present normal exam, normal oropharynx, mucous membranes moist and normal external ear exam Neck Neck exam: Present normal inspection, full ROM and trachea midline; Absent tenderness Chest Chest inspection: Present normal inspection and symmetric chest wall rise; Absent tenderness Respiratory Respiratory exam: Present normal lung sounds bilaterally; Absent respiratory distress, wheezes, stridor or accessory muscle use Cardiovascular Cardiovascular exam: Present regular rate and normal rhythm Abdominal Exam Abdominal exam: Present soft; Absent distention, tenderness or guarding Extremities Exam Extremities exam: Present normal inspection, full ROM and normal capillary refill; Absent tenderness or edema Back Exam Back exam: Present normal inspection and full ROM; Absent tenderness Neurological Exam Neurological exam: Present alert, oriented X3, CN II-XII intact and normal gait; Absent motor sensory deficit Psychiatric Psychiatric exam: Present normal affect and normal mood Skin Skin exam: Present warm and dry Medical Decision Making <Estelita Danny Joel, DO - Last Filed: 12/27/23 15:47> Medical Records Medical records reviewed: Yes I reviewed the patient's medical records. Bartolo Inquiry Pt receiving controlled substance: No Vital Signs: 12/27/23 13:55 12/27/23 14:12 12/27/23 16:34 Temperature 97.1 F L Temperature Source Oral Pulse Rate 90 96 H Pulse Rate [Left Radial] 94 H Respiratory Rate 20 Blood Pressure 133/70 136/66 Blood Pressure [Right Arm] 154/75 H Blood Pressure Mean [Right Arm] 101 02 Sat by Pulse Oximetry 98 98 96 Oxygen Delivery Method Room Air Room Air Lab Data Lab results reviewed: Yes I reviewed the patient's lab results. Lab Results 12/27/23 13:40: WBC 38.4 H*, RBC 4.65, Hgb 14.5, Hct 44.3, MCV 95.2 H, MCH 31.2, MCHC 32.8, RDW 14.3, Plt Count 194, MPV 10.1, Neut % (Auto) 43.6, Lymph % (Auto) 54.3 H, [place] % (Auto) 1.4 L, Eos % (Auto) 0.2, Baso % (Auto) 0.5, Neut # (Auto) 16.7 H, Lymph # (Auto) 20.8 H, [place] # (Auto) 0.6, Eos # (Auto) 0.1, Baso # (Auto) 0.2, Total Counted 100, Neutrophils % (Manual) 35 L, Lymphocytes % (Manual) 64 H, Monocytes % (Manual) 1 L, Platelet Estimate Normal, RBC Morphology Normal, Sodium 135 L, Potassium 5.3 H, Chloride 103, Carbon Dioxide 17 L, Anion Gap 20.3 H, BUN 20, Creatinine 2.00 H, Estimated Creat Clear 33, E stimated GFR 32 L, Est GFR ( Amer) 39 L, Glucose 191 H, Calcium 9.5, M agnesium 1.1 L, Total Bilirubin 0.7, AST 39, ALT 28, Alkaline Phosphatase 70, T otal Protein 7.4 D, Albumin 4.2, Globulin 3.2, Albumin/Globulin Ratio 1.3, Lipase 30 12/27/23 13:50: Lactate 2.2 H, Urine Color Yellow, Urine Appearance Sl cloudy, Urine pH 5.0, Ur Specific [place] >= 1.030, Urine Protein 1+, Urine Glucose (UA) Negative, Urine Ketones 1+, Urine Blood Trace-i, Urine Nitrate Negative, Urine Bilirubin 2+ A, Urine Urobilinogen 1.0, Ur Leukocyte Esterase Negative, Urine RBC Occasional, Urine WBC Occasional, Ur Squamous Epith Cells Occasional, Urine Bacteria Trace 12/27/23 13:40 12/27/23 13:40 Orders (Tests/Meds): ED MEDICATIONS Generic Name Dose Route Start Last Admin Trade Name Freq PRN Reason Stop Dose Admin Sodium Chloride 10 ml 12/27/23 13:40 Sodium Chloride 0.9% 10ml Flush Syringe IV 01/26/24 13:39 NEEDED PRN Maintain IV Site Discontinued Medications Generic Name Dose Route Start Last Admin Trade Name Freq PRN Reason Stop Dose Admin Lactated Ringer's 1,000 mls @ 999 mls/hr 12/27/23 13:40 12/27/23 13:57 Lactated Ringer's 1000 Ml Bag IV 12/27/23 14:40 999 mls/hr .Q1H1M ONE Administration Magnesium Sulfate 2 gm in 50 mls @ 50 mls/hr 12/27/23 14:15 12/27/23 14:39 Magnesium Sulfate 2gm/50ml Premix IV 12/27/23 15:14 50 mls/hr ONCE ONE Administration Iopamidol 85 ml 12/27/23 15:34 12/27/23 15:38 Iopamidol-370 (76%);100ml Bottle IV 12/27/23 15:35 85 ml ONCE ONE Administration Ondansetron HCl 4 mg 12/27/23 13:39 12/27/23 13:57 Ondansetron 4mg/2ml Vial IV 12/27/23 13:40 4 mg ONCE ONE Administration Sodium Chloride 10 ml 12/27/23 15:34 12/27/23 15:38 Sodium Chloride 0.9% 10ml Syr (Rad Only) IV 12/27/23 15:35 10 ml ONCE ONE Administration Sodium Chloride 50 ml 12/27/23 15:34 12/27/23 15:38 0.9 % Sodium Chloride 50 Ml Vial IV 12/27/23 15:35 50 ml ONCE ONE Administration ORDERS Category Date Time Status CT angio abdomen pelvis Stat Cat Scan 12/27/23 14:12 Completed CMP [Comprehensive Metabolic Panel] Stat Lab 12/27/23 13:40 Completed Complete Blood Count Auto Diff Stat Lab 12/27/23 13:40 Completed Diarrhea 23 Panel, PCR Stat Lab 12/27/23 13:41 Ordered Lactic Acid Follow Up (RFLX 1) Stat Lab 12/27/23 17:55 Ordered Lactic Acid Stat Lab 12/27/23 13:50 Completed Lipase Stat Lab 12/27/23 13:40 Completed Magnesium Stat Lab 12/27/23 13:40 Completed Occult Blood,Stool Stat Lab 12/27/23 13:41 Ordered Urinalysis and Microscopic Stat Lab 12/27/23 13:50 Completed ECG Data Tracing #1: I reviewed this ECG and interpreted as documented below: Normal sinus rhythm with sinus arrhythmia with a ventricular rate of [address] changes concerning for ischemia. Normal axis and intervals. ECG initial impression date: 12/27/23 ECG initial impression time: 14:52 Medical Decision Narrative: In summary, this patient is a 83-year-old male presenting to the Emergency Department for evaluation of nausea, vomiting, diarrhea, and bright red blood per rectum. Differential diagnoses considered include but are not limited to lower GI bleed, diverticular bleed, upper GI bleed, colitis, gastroenteritis, dehydration, electrolyte derangements, anemia. Ruling out the most morbid conditions drove assessment. It should be noted patient's history includes CLL, hypertension, hyperlipidemia which may or may not be at goal therapy. This complicates all aspects of care by increasing patient's risk for morbidity. I reviewed patient's past medical records and noted previous evaluations for GI bleed in the past back in 2021, at which point the patient was noted to have a Dieulafoy lesion of stomach. On exam, the patient is well-appearing. He has reassuring vital signs on cardiac telemetry with benign abdominal exam. Workup included CBC, CMP, lipase, diarrhea panel, urinalysis, and CTA GI bleed protocol. He was given a bolus of IV fluids as well as IV Zofran. Labs demonstrated hypomagnesemia, for which IV replacement is ordered. Leukocytosis is stable in the setting of CLL. Patient is a mildly elevated lactic acid, for which a bolus of IV fluids is being administered. Hemoglobin stable. Patient care signed out to the oncoming provider, Dr. Dueñas. <Yunior Dueñas MD - Last Filed: 12/27/23 18:10> Vital Signs: 12/27/23 13:55 12/27/23 14:12 12/27/23 16:34 Temperature 97.1 F L Temperature Source Oral Pulse Rate 90 96 H Pulse Rate [Left Radial] 94 H Respiratory Rate 20 Blood Pressure 133/70 136/66 Blood Pressure [Right Arm] 154/75 H Blood Pressure Mean [Right Arm] 101 02 Sat by Pulse Oximetry 98 98 96 Oxygen Delivery Method Room Air Room Air Lab Data Lab Results 12/27/23 13:40: WBC 38.4 H*, RBC 4.65, Hgb 14.5, Hct 44.3, MCV 95.2 H, MCH 31.2, MCHC 32.8, RDW 14.3, Plt Count 194, MPV 10.1, Neut % (Auto) 43.6, Lymph % (Auto) 54.3 H, [place] % (Auto) 1.4 L, Eos % (Auto) 0.2, Baso % (Auto) 0.5, Neut # (Auto) 16.7 H, Lymph # (Auto) 20.8 H, [place] # (Auto) 0.6, Eos # (Auto) 0.1, Baso # (Auto) 0.2, Total Counted 100, Neutrophils % (Manual) 35 L, Lymphocytes % (Manual) 64 H, Monocytes % (Manual) 1 L, Platelet Estimate Normal, RBC Morphology Normal, Sodium 135 L, Potassium 5.3 H, Chloride 103, Carbon Dioxide 17 L, Anion Gap 20.3 H, BUN 20, Creatinine 2.00 H, Estimated Creat Clear 33, E stimated GFR 32 L, Est GFR ( Amer) 39 L, Glucose 191 H, Calcium 9.5, M agnesium 1.1 L, Total Bilirubin 0.7, AST 39, ALT 28, Alkaline Phosphatase 70, T otal Protein 7.4 D, Albumin 4.2, Globulin 3.2, Albumin/Globulin Ratio 1.3, Lipase 30 12/27/23 13:50: Lactate 2.2 H, Urine Color Yellow, Urine Appearance Sl cloudy, Urine pH 5.0, Ur Specific [place] >= 1.030, Urine Protein 1+, Urine Glucose (UA) Negative, Urine Ketones 1+, Urine Blood Trace-i, Urine Nitrate Negative, Urine Bilirubin 2+ A, Urine Urobilinogen 1.0, Ur Leukocyte Esterase Negative, Urine RBC Occasional, Urine WBC Occasional, Ur Squamous Epith Cells Occasional, Urine Bacteria Trace Orders (Tests/Meds): ED MEDICATIONS Generic Name Dose Route Start Last Admin Trade Name Freq PRN Reason Stop Dose Admin Sodium Chloride 10 ml 12/27/23 13:40 Sodium Chloride 0.9% 10ml Flush Syringe IV 01/26/24 13:39 NEEDED PRN Maintain IV Site Discontinued Medications Generic Name Dose Route Start Last Admin Trade Name Freq PRN Reason Stop Dose Admin Lactated Ringer's 1,000 mls @ 999 mls/hr 12/27/23 13:40 12/27/23 13:57 Lactated Ringer's 1000 Ml Bag IV 12/27/23 14:40 999 mls/hr .Q1H1M ONE Administration Magnesium Sulfate 2 gm in 50 mls @ 50 mls/hr 12/27/23 14:15 12/27/23 14:39 Magnesium Sulfate 2gm/50ml Premix IV 12/27/23 15:14 50 mls/hr ONCE ONE Administration Iopamidol 85 ml 12/27/23 15:34 12/27/23 15:38 Iopamidol-370 (76%);100ml Bottle IV 12/27/23 15:35 85 ml ONCE ONE Administration Ondansetron HCl 4 mg 12/27/23 13:39 12/27/23 13:57 Ondansetron 4mg/2ml Vial IV 12/27/23 13:40 4 mg ONCE ONE Administration Sodium Chloride 10 ml 12/27/23 15:34 12/27/23 15:38 Sodium Chloride 0.9% 10ml Syr (Rad Only) IV 12/27/23 15:35 10 ml ONCE ONE Administration Sodium Chloride 50 ml 12/27/23 15:34 12/27/23 15:38 0.9 % Sodium Chloride 50 Ml Vial IV 12/27/23 15:35 50 ml ONCE ONE Administration ORDERS Category Date Time Status CT angio abdomen pelvis Stat Cat Scan 12/27/23 14:12 Completed CMP [Comprehensive Metabolic Panel] Stat Lab 12/27/23 13:40 Completed Complete Blood Count Auto Diff Stat Lab 12/27/23 13:40 Completed Diarrhea 23 Panel, PCR Stat Lab 12/27/23 13:41 Ordered Lactic Acid Follow Up (RFLX 1) Stat Lab 12/27/23 17:55 Ordered Lactic Acid Stat Lab 12/27/23 13:50 Completed Lipase Stat Lab 12/27/23 13:40 Completed Magnesium Stat Lab 12/27/23 13:40 Completed Occult Blood,Stool Stat Lab 12/27/23 13:41 Ordered Urinalysis and Microscopic Stat Lab 12/27/23 13:50 Completed Medical Decision Narrative: In summary, this patient is a 83-year-old male presenting to the Emergency Department for evaluation of nausea, vomiting, diarrhea, and bright red blood per rectum. Differential diagnoses considered include but are not limited to lower GI bleed, diverticular bleed, upper GI bleed, colitis, gastroenteritis, dehydration, electrolyte derangements, anemia. Ruling out the most morbid conditions drove assessment. It should be noted patient's history includes CLL, hypertension, hyperlipidemia which may or may not be at goal therapy. This complicates all aspects of care by increasing patient's risk for morbidity. I reviewed patient's past medical records and noted previous evaluations for GI bleed in the past back in 2021, at which point the patient was noted to have a Dieulafoy lesion of stomach. On exam, the patient is well-appearing. He has reassuring vital signs on cardiac telemetry with benign abdominal exam. Workup included CBC, CMP, lipase, diarrhea panel, urinalysis, and CTA GI bleed protocol. He was given a bolus of IV fluids as well as IV Zofran. Labs demonstrated hypomagnesemia, for which IV replacement is ordered. Leukocytosis is stable in the setting of CLL. Patient is a mildly elevated lactic acid, for which a bolus of IV fluids is being administered. Hemoglobin stable. Patient care signed out to the oncoming provider, Dr. Dueñas. Spenser: I assumed primary responsibility for this patient after signout from previous physician. On my evaluation, patient feeling much better, able to tolerate p.o. intake. Leukocytosis of 38, which is actually lower than what he is used to and is lymphocytic as predicted. Patient mildly hyperkalemic, given fluids for this anion gap elevated at 20 with mildly elevated lactate at 2.2, I feel this is likely due to GI losses. CO2 is also a little bit low as predicted. Magnesium low, this was repleted troponin negative. CTA of the abdomen and pelvis with vascular stenosis, but no acute findings of bleed. See radiology read for further interpretation. On reevaluation, patient feeling much better, opting for home-going. Results of CTA were relayed, he states that he would rather not proceed with stenting, I feel this is appropriate and he does have the capacity to make this decision in my opinion. Because patient at baseline without signs or symptoms of clinical decompensation, deemed appropriate for discharge. Results were relayed to patient who voiced understanding and were agreeable to outpatient management and follow up. I discussed my clinical impression with patient and answered all questions. At this time, the evidence for any other entities in the differential is insufficient to warrant any further testing or ED observation. This was explained as well. Advisory was given that persistent or worsening symptoms require further evaluation. I confirmed the understanding of this discussion. Critical Care <Estelita Maldonado, DO - Last Filed: 12/27/23 15:47> Critical Care Time Critical Care Time: No
[2023-12-27 15:49] LABS: Chloride 103 mmol/L (98-107); Sodium 135 mmol/L (136-145)
[2023-12-27 15:50] LABS: Potassium 5.3 mmoL/L (3.5-5.1)
[2023-12-27 15:52] LABS: Alanine Aminotransferase 28 U/L (12-78); Albumin Level 4.2 g/dl (3.5-5.0); Albumin/Globulin Ratio 1.3 (1.1-1.8); Alkaline Phosphatase 70 U/L (38-126); Anion Gap 20.3 mEq/L (5-15); Aspartate Amino Transferase 39 U/L (17-59); Bilirubin,Total 0.7 mg/dl (0.2-1.3); Blood Urea Nitrogen 20 mg/dl (9-20); Calcium 9.5 mg/dl (8.4-10.2); Carbon Dioxide 17 mmol/L (22.0-30.0); Creatinine Clearance Estimated 33 mL/min (50-200); Estimated Glomerular Filt Rate 32 ml/min (>60); GFR (African American) 39 ML/MIN (>60); Globulin 3.2 g/dL (1.3-3.2); Glucose 191 mg/dl (74-100); Total Protein,Serum 7.4 g/dl (6.3-8.2)
[2023-12-27 16:34] VITALS: BP 136/66; PULSE 96; O2SAT 96
[2023-12-27 17:55] LABS: Reflex Lactic Add Lactic Reflex
[2023-12-27 18:33] VITALS: BP 136/66; PULSE 92; RESP 18; TEMP 36.2; O2SAT 96
[2023-12-27 18:53] LABS: Lactic Acid Follow Up (RFLX 1) 1.2 mmol/L (0.7-2.1)
== END 2023-12-27 18:34 | disposition home or self-care (01) ==
PROVIDERS: Emergency Medicine; Emergency Provider Emergency Medicine; PCP Internal Medicine
DX: R11.2 Nausea with vomiting, unspecified (principal); R19.7 Diarrhea, unspecified; E87.5 Hyperkalemia; R74.02 Elevation of levels of lactic acid dehydrogenase [LDH]; R53.1 Weakness; C91.10 Chronic lymphocytic leukemia of B-cell type not having achieved remission; K21.9 Gastro-esophageal reflux disease without esophagitis; I11.9 Hypertensive heart disease without heart failure; I25.119 Atherosclerotic heart disease of native coronary artery with unspecified angina pectoris; E78.5 Hyperlipidemia, unspecified; K31.82 Dieulafoy lesion (hemorrhagic) of stomach and duodenum; E11.9 Type 2 diabetes mellitus without complications; Z79.84 Long term (current) use of oral hypoglycemic drugs
CPT/HCPCS: 74174; 80053; 81001; 83605; 83690; 83735; 85007; 85025; 93005; 96365; 96375; 99285; J2405; J3475; J7120; Q9967

== ENCOUNTER 2024-03-11 08:22 | Outpatient (CLI) | payer MEDICARE, SELFPAY ==
[2024-03-11 08:28] VITALS: BMI 25.4
--- NOTE | 2024-03-11 08:46 | PC.NURSE ---
0835 Patient here for labs only. CBC, CMP, LDH collected per MD order via venipuncture to L AC x1 stick with butterfly needle. Patient tolerated well. Nilo has appointment with Dr. Mckeon tomorrow.
[2024-03-11 08:50] LABS: Basophils # 0.2 K/mm3 (0-0.2); Basophils % 0.8 % (0.1-2.0); Eosinophils # 0.2 K/mm3 (0.0-0.4); Eosinophils % 0.8 % (0.1-12.0); Hematocrit 43.1 % (42.0-52.0); Hemoglobin 13.5 g/dL (14.1-18.0); Lymphocytes # 15.4 K/mm3 (0.7-4.5); Lymphocytes % 66.2 % (10-50); Mean Corpuscular HGB Conc 31.3 g/dL (31.8-35.4); Mean Corpuscular Hemoglobin 30.6 pg (27.0-31.2); Mean Corpuscular Volume 97.7 fl (80-94); Mean Platelet Volume 10.2 fl (7.4-10.4); Monocytes # 0.5 K/mm3 (0.1-1.0); Monocytes % 2.3 % (1.7-9.3); Neutrophils % 29.8 % (37.0-80.0); Platelet Count 198 K/mm3 (142-424); Red Blood Count 4.41 M/mm3 (4.60-6.20); Red Cell Distribution Width 14.4 % (11.5-17.5); White Blood Count 23.3 K/mm3 (4.8-10.8)
[2024-03-11 08:55] LABS: MANUAL DIFFERENTIAL MANUAL DIFFERENTIAL (MANUAL DIFF)
[2024-03-11 08:58] LABS: Chloride 110 mmol/L (98-107)
[2024-03-11 08:59] LABS: Albumin Level 3.7 g/dl (3.5-5.0); Potassium 4.5 mmoL/L (3.5-5.1); Sodium 138 mmol/L (136-145)
[2024-03-11 09:01] LABS: Alanine Aminotransferase 24 U/L (12-78); Anion Gap 10.5 mEq/L (5-15); Aspartate Amino Transferase 30 U/L (17-59); Blood Urea Nitrogen 17 mg/dl (9-20); Carbon Dioxide 22 mmol/L (22.0-30.0); Creatinine Clearance Estimated 55 mL/min (50-200); Estimated Glomerular Filt Rate 58 ml/min (>60); GFR (African American) 70 ML/MIN (>60)
[2024-03-11 09:02] LABS: Albumin/Globulin Ratio 1.4 (1.1-1.8); Alkaline Phosphatase 56 U/L (38-126); Bilirubin,Total 0.6 mg/dl (0.2-1.3); Calcium 8.1 mg/dl (8.4-10.2); Globulin 2.7 g/dL (1.3-3.2); Glucose 139 mg/dl (74-100); Total Protein,Serum 6.4 g/dl (6.3-8.2)
[2024-03-11 09:11] LABS: Lactate Dehydrogenase 172 U/L (313-618)
[2024-03-11 09:46] LABS: Lymphocytes % 69 % (10-50); Monocytes % 2 % (2-9); Neutrophils % 29 % (42-76); Platelet Estimate Normal; RBC Morphology Normal; Total Cells Counted 100
== END 2024-03-11 08:40 | disposition home or self-care (01) ==
LOC: INF 08:23
PROVIDERS: PCP Internal Medicine; Visit Provider Internal Medicine Medical Oncology
DX: C91.10 Chronic lymphocytic leukemia of B-cell type not having achieved remission (principal)
CPT/HCPCS: 36415; 80053; 83615; 85007; 85025; 85027

== ENCOUNTER 2024-06-10 08:17 | Outpatient (CLI) | payer MEDICARE, SELFPAY ==
[2024-06-10 08:23] VITALS: BMI 25.9
--- NOTE | 2024-06-10 08:25 | PC.NURSE ---
venipuncture stick to LAC with 23g butterfly needle. labs drawn and sent to lab. orders placed. pt tolerated well. 2x2s and coban applied. bleeding controlled.
[2024-06-10 08:35] LABS: Basophils # 0.2 K/mm3 (0-0.2); Eosinophils # 0.2 K/mm3 (0.0-0.4); Eosinophils % 1.1 % (0.1-12.0); Hematocrit 39.8 % (42.0-52.0); Hemoglobin 13.2 g/dL (14.1-18.0); Lymphocytes # 10.6 K/mm3 (0.7-4.5); Mean Corpuscular HGB Conc 33.3 g/dL (31.8-35.4); Mean Corpuscular Hemoglobin 31.3 pg (27.0-31.2); Mean Corpuscular Volume 94.1 fl (80-94); Mean Platelet Volume 10.2 fl (7.4-10.4); Monocytes # 0.8 K/mm3 (0.1-1.0); Monocytes % 4.1 % (1.7-9.3); Neutrophils # 7.2 K/mm3 (1.8-7.8); Neutrophils % 37.8 % (37.0-80.0); Platelet Count 186 K/mm3 (142-424); Red Blood Count 4.23 M/mm3 (4.60-6.20); Red Cell Distribution Width 14.3 % (11.5-17.5)
[2024-06-10 08:37] LABS: MANUAL DIFFERENTIAL MANUAL DIFFERENTIAL (MANUAL DIFF)
[2024-06-10 09:01] LABS: Lymphocytes % 64 % (10-50); Monocytes % 4 % (2-9); Neutrophils % 32 % (42-76); Platelet Estimate Normal; RBC Morphology Normal; Total Cells Counted 100
[2024-06-10 09:07] LABS: Alanine Aminotransferase 20 U/L (12-78); Albumin Level 3.7 g/dl (3.5-5.0); Albumin/Globulin Ratio 1.4 (1.1-1.8); Alkaline Phosphatase 50 U/L (38-126); Anion Gap 13.6 mEq/L (5-15); Aspartate Amino Transferase 28 U/L (17-59); Bilirubin,Total 0.8 mg/dl (0.2-1.3); Blood Urea Nitrogen 20 mg/dl (9-20); Calcium 8.8 mg/dl (8.4-10.2); Carbon Dioxide 23 mmol/L (22.0-30.0); Chloride 106 mmol/L (98-107); Creatinine Clearance Estimated 51 mL/min (50-200); Estimated Glomerular Filt Rate 53 ml/min (>60); GFR (African American) 64 ML/MIN (>60); Globulin 2.6 g/dL (1.3-3.2); Glucose 115 mg/dl (74-100); Potassium 4.6 mmoL/L (3.5-5.1); Sodium 138 mmol/L (136-145); Total Protein,Serum 6.3 g/dl (6.3-8.2)
== END 2024-06-10 08:30 | disposition home or self-care (01) ==
LOC: INF 08:17
PROVIDERS: PCP Internal Medicine; Visit Provider Internal Medicine Medical Oncology
DX: C91.10 Chronic lymphocytic leukemia of B-cell type not having achieved remission (principal)
CPT/HCPCS: 36415; 80053; 85007; 85025

== ENCOUNTER 2024-09-06 08:41 | Outpatient (CLI) | payer MEDICARE, SELFPAY ==
[2024-09-06 08:43] VITALS: BMI 25.9
[2024-09-06 08:54] LABS: Basophils # 0.1 K/mm3 (0-0.2); Basophils % 0.7 % (0.1-2.0); Eosinophils # 0.4 K/mm3 (0.0-0.4); Eosinophils % 1.8 % (0.1-12.0); Hemoglobin 13.8 g/dL (14.1-18.0); Lymphocytes # 9.1 K/mm3 (0.7-4.5); Lymphocytes % 45.1 % (10-50); Mean Corpuscular HGB Conc 32.9 g/dL (31.8-35.4); Mean Corpuscular Hemoglobin 29.6 pg (27.0-31.2); Mean Corpuscular Volume 90.1 fl (80-94); Mean Platelet Volume 11.4 fl (7.4-10.4); Monocytes # 1.2 K/mm3 (0.1-1.0); Neutrophils # 9.3 K/mm3 (1.8-7.8); Platelet Count 207 K/mm3 (142-424); Red Blood Count 4.66 M/mm3 (4.60-6.20); Red Cell Distribution Width 13.3 % (11.5-17.5); White Blood Count 20.1 K/mm3 (4.8-10.8)
[2024-09-06 08:57] LABS: MANUAL DIFFERENTIAL MANUAL DIFFERENTIAL (MANUAL DIFF)
[2024-09-06 09:06] LABS: Albumin Level 4.1 g/dl (3.5-5.0); Chloride 105 mmol/L (98-107); Potassium 4.6 mmoL/L (3.5-5.1); Sodium 136 mmol/L (136-145)
[2024-09-06 09:08] LABS: Blood Urea Nitrogen 19 mg/dl (9-20); Creatinine Clearance Estimated 47 mL/min (50-200); Estimated Glomerular Filt Rate 49 ml/min (>60); GFR (African American) 59 ML/MIN (>60)
[2024-09-06 09:09] LABS: Alanine Aminotransferase 26 U/L (12-78); Albumin/Globulin Ratio 1.6 (1.1-1.8); Alkaline Phosphatase 68 U/L (38-126); Anion Gap 12.6 mEq/L (5-15); Aspartate Amino Transferase 32 U/L (17-59); Bilirubin,Total 0.8 mg/dl (0.2-1.3); Calcium 8.6 mg/dl (8.4-10.2); Carbon Dioxide 23 mmol/L (22.0-30.0); Globulin 2.6 g/dL (1.3-3.2); Glucose 111 mg/dl (74-100); Total Protein,Serum 6.7 g/dl (6.3-8.2)
[2024-09-06 09:29] LABS: Lymphocytes % 34 % (10-50); Monocytes % 3 % (2-9); Neutrophils % 63 % (42-76); Platelet Estimate Normal; RBC Morphology Normal; Total Cells Counted 100
--- NOTE | 2024-09-06 09:44 | PC.NURSE ---
0840 - Blood drawn from left AC using butterfly needle to check labs prior to appt with Dr Mckeon.
== END 2024-09-06 08:45 | disposition home or self-care (01) ==
LOC: INF 08:42
PROVIDERS: PCP Internal Medicine; Visit Provider Internal Medicine Medical Oncology
DX: C91.10 Chronic lymphocytic leukemia of B-cell type not having achieved remission (principal)
CPT/HCPCS: 36415; 80053; 85007; 85025

== ENCOUNTER 2024-09-10 09:52 | Outpatient (CLI) | payer MEDICARE, SELFPAY ==
--- NOTE | 2024-09-10 09:53 | CT_ITS ---
FINAL REPORT TECHNIQUE: After the administration of intravenous contrast, axial images through the chest were performed by computed tomography.This study was performed with techniques to keep radiation doses as low as reasonably achievable, (ALARA). Individualized dose reduction techniques using automated exposure control or adjustment of mA and/or kV according to the patient''s size were employed. CLINICAL HISTORY: Leukemia COMPARISON: 11/28/2023 FINDINGS: Multifocal adenopathy is again seen. Most lymph nodes are normal in size but excessive in number. Largest lymph node is in the right subcarinal region measuring 17 x 15 mm, unchanged. More inferiorly this lymph node measures 24 x 11 mm, also stable. There is a lower right subcarinal lymph node measuring 12 mm, unchanged. No enlarging lymph nodes are seen. There are emphysematous changes. Chronic interstitial changes are also seen. There is a moderate size hiatal hernia. 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 Extraforaminal component measures up to 25 mm, stable. The heart size is normal. There is no pericardial or pleural effusion. Limited images of the upper abdomen are unremarkable. No suspicious infiltrate or nodule identified. IMPRESSION: Stable, mild adenopathy. Stable right lower parathoracic mass. Reviewed, Interpreted and Dictated by Kitty Mckenzie MD Transcribed by Anu Jang Authenticated and [facility]
[2024-09-10] MEDS: IOPAMIDOL-370 (76%);100ML BOTTLE 75 ML IV (10:16)
[2024-09-10] MEDS: SODIUM CHLORIDE 0.9% 10ML SYR (RAD ONLY) 10 ML IV (10:16)
== END 2024-09-10 23:59 | disposition home or self-care (01) ==
LOC: RAD 09:53
PROVIDERS: PCP Internal Medicine; Visit Provider Internal Medicine Medical Oncology
DX: C91.10 Chronic lymphocytic leukemia of B-cell type not having achieved remission (principal)
CPT/HCPCS: 71260; Q9967

== ENCOUNTER 2024-09-18 07:59 | Outpatient (CLI) | payer MEDICARE, SELFPAY ==
[2024-09-18 08:24] VITALS: BMI 27.3
[2024-09-18 08:39] LABS: Basophils # 0.1 K/mm3 (0-0.2); Basophils % 0.8 % (0.1-2.0); Eosinophils # 0.5 K/mm3 (0.0-0.4); Eosinophils % 3.1 % (0.1-12.0); Hematocrit 42.9 % (42.0-52.0); Hemoglobin 13.8 g/dL (14.1-18.0); Lymphocytes % 30.1 % (10-50); Mean Corpuscular HGB Conc 32.2 g/dL (31.8-35.4); Mean Corpuscular Hemoglobin 29.2 pg (27.0-31.2); Mean Corpuscular Volume 90.9 fl (80-94); Mean Platelet Volume 10.3 fl (7.4-10.4); Monocytes # 3.4 K/mm3 (0.1-1.0); Monocytes % 20.4 % (1.7-9.3); Neutrophils # 7.5 K/mm3 (1.8-7.8); Neutrophils % 45.2 % (37.0-80.0); Platelet Count 280 K/mm3 (142-424); Red Blood Count 4.72 M/mm3 (4.60-6.20); Red Cell Distribution Width 13.5 % (11.5-17.5); White Blood Count 16.6 K/mm3 (4.8-10.8)
[2024-09-18 08:44] LABS: MANUAL DIFFERENTIAL MANUAL DIFFERENTIAL (MANUAL DIFF)
[2024-09-18 08:47] LABS: Chloride 106 mmol/L (98-107); Potassium 4.4 mmoL/L (3.5-5.1); Sodium 139 mmol/L (136-145)
[2024-09-18 08:50] LABS: Alanine Aminotransferase 30 U/L (12-78); Albumin/Globulin Ratio 1.5 (1.1-1.8); Alkaline Phosphatase 66 U/L (38-126); Anion Gap 11.4 mEq/L (5-15); Aspartate Amino Transferase 38 U/L (17-59); Bilirubin,Total 0.5 mg/dl (0.2-1.3); Blood Urea Nitrogen 15 mg/dl (9-20); Calcium 8.2 mg/dl (8.4-10.2); Carbon Dioxide 26 mmol/L (22.0-30.0); Creatinine Clearance Estimated 54 mL/min (50-200); Estimated Glomerular Filt Rate 53 ml/min (>60); GFR (African American) 64 ML/MIN (>60); Globulin 2.7 g/dL (1.3-3.2); Glucose 113 mg/dl (74-100); Total Protein,Serum 6.7 g/dl (6.3-8.2)
[2024-09-18 09:25] LABS: Eosinophils % 2 % (0-3); Lymphocytes % 26 % (10-50); Monocytes % 22 % (2-9); Neutrophils % 44 % (42-76); Total Cells Counted 100
[2024-09-18 09:26] LABS: Platelet Estimate Normal; RBC Morphology Normal
[2024-09-18 09:28] LABS: Giant Platelets 1+
--- NOTE | 2024-09-18 09:28 | PC.NURSE ---
09/18/24 0825 Pt here for labs per md order. Venipuncture performed to pt's lt ac x 1 stick using a butterfly access needle, blood drawn. Needle withdrawn and site secured with 2x2 gauze and coban. Lab specimens sent to lab for analysis. pt ok to d/c home today and will return tomorrow for scheduled md appt.
== END 2024-09-18 08:40 ==
LOC: INF 07:59
PROVIDERS: PCP Internal Medicine; Visit Provider Internal Medicine Medical Oncology
DX: C91.10 Chronic lymphocytic leukemia of B-cell type not having achieved remission (principal)
CPT/HCPCS: 36415; 80053; 85007; 85025

== ENCOUNTER 2024-09-19 11:18 | Outpatient (CLI) | payer MEDICARE, SELFPAY ==
--- NOTE | 2024-09-19 11:25 | PC.NURSE ---
1125-collected labs via venipuncture stick in left ac with butterfly needle;pt to d/c home.
[2024-09-19 11:29] LABS: Anti-Centromere B Antibodies ND; Anti-DNA (DS) Ab Qn ND; Anti-Jo-1 ND; Antichromatin Antibodies ND; Antiscleroderma-70 Antibodies ND; RNP Antibodies ND; Sjogren's Anti-SS-A ND; Sjogren's Anti-SS-B ND
[2024-09-19 20:38] LABS: C-Reactive Protein 1.4 mg/L (0-4)
[2024-09-20 13:14] LABS: Antinuclear Antibodies (ANA) Negative (Negative)
== END 2024-09-19 11:30 | disposition home or self-care (01) ==
LOC: INF 11:19
PROVIDERS: PCP Internal Medicine; Visit Provider Internal Medicine Pulmonary Disease
DX: J84.9 Interstitial pulmonary disease, unspecified (principal); R06.09 Other forms of dyspnea
CPT/HCPCS: 36415; 86140

== ENCOUNTER 2024-10-15 09:29 | Outpatient (CLI) | payer MEDICARE, SELFPAY ==
[2024-10-15] MEDS: ALBUTEROL 0.083% 2.5 MG/3 ML NEB IH (10:26)
== END 2024-10-15 23:59 | disposition home or self-care (01) ==
LOC: RT 09:31
PROVIDERS: PCP Internal Medicine; Visit Provider Internal Medicine Pulmonary Disease
DX: R06.09 Other forms of dyspnea (principal)
CPT/HCPCS: 94060; 94618; 94726; 94729; J7613

== ENCOUNTER 2024-10-28 12:30 | Outpatient (CLI) | payer MEDICARE, SELFPAY ==
--- NOTE | 2024-10-28 12:35 | CA_ITS ---
APPROVED REPORT EXAM: Comprehensive 2D, Doppler, and color-flow Echocardiogram with contrast Drying Machine Operator: Katherine Null CRT Ht: 5 ft 10 in Wt: 190lbs BSA: 2.04 BP: 160/73 mmHg Indications: COPD, Murmur, Shortness of Breath, CAD, Hyperlipidemia, Cardiomyopathy, Hypertension/HDD. ef 55-60% echo 11/30/17 ef 40% cath 10/29/17 Echo Enhancing Agent Indication: Endocardial border delineation Agent(s) / Amount(s) Used: Definity 5 cc 2D Dimensions LA Volume 59.40 mL LA Volume Index 28.40 mL/m2 (M/F) 16-34 M-Mode Dimensions RVDd 1.82 cm (0.9-2.6) LA Diam 4.01 cm (1.9-4.0) LVDd 4.54 cm (3.5-5.7) LVDs 3.08 cm (3.5-5.7) IVSd 1.40 cm (0.6-1.1) PWd 1.14 cm (0.6-1.1) EF (Teich) 60.50% FS 32.20% EDV (Teich) 94.40 mL TAPSE 2.58 (<1.7) ESV (Teich) 37.30 mL LV Diastology E Decel Time 433 (160-240 msec) E/A Ratio 0.64 MED A' 11.30 cm/s LAT A' 10.80 cm/s Aortic Valve BRAIN Index 0.55 cm2/m2 AoV Peak All. 395.0 (50-130 cm/s) AO Peak GR. 62.70 mmHg AO Mean GR. 36.20 (<5 mmHg) AO VTI 92.8 (18-25 cm) BRAIN (VTI) 1.14 (2.5-4.5 cm2) Mitral Valve MV A Velocity 108.0 (40-130 cm/s) E/A Ratio 0.64 Pulmonary Valve PV Peak Velocity 143.0 (50-150 cm/s) Tricuspid Valve TR P. Velocity 298.00 cm/s RAP Estimate 10.00 mmHg RVSP 45.60 mmHg Left Ventricle The left ventricle is normal size. The left ventricular systolic function is normal. The left ventricular ejection fraction is within the normal range. Mild increase in LV wall thickness. IVSD is 1.4 cm. There is presence of LVOT obstruction at rest, with resting peak gradient reaching 65 mmHg. There is normal LV segmental wall motion. Diastolic function is indeterminate. No left ventricle thrombus noted on this study. LVEF is 65%. Right Ventricle The right ventricle is normal size. The right ventricular systolic function is normal. Atria Left atrium is mildly dilated. Right atrium is mildly dilated. There is no Doppler evidence of interatrial shunt. Aortic Valve The aortic valve is mildly thickened. There is no hemodynamically significant aortic valvular stenosis. Trace aortic regurgitation. Mitral Valve Systolic anterior motion of the mitral valve leaflet is present. Septal contact is noted. Mild mitral regurgitation. Tricuspid Valve Tricuspid valve is grossly normal in structure and function. Trace tricuspid regurgitation. There is insufficient TR jet to estimate RVSP. Pulmonic Valve The pulmonary valve is normal in structure. Trace pulmonic regurgitation. Great Vessels The aortic root is normal in size. The ascending aorta is normal in size. IVC is normal in size and collapses >50% with inspiration. Pericardium There is no pericardial effusion. Other Information Study Quality: Technically Difficult Conclusion Technically difficult study due to poor acoustic windows. Normal LV systolic function (LVEF 65%). Marked increase in LV wall thickness. IVSD is 1.4 cm. Biatrial dilation. Systolic anterior motion (JOANN) of the MV leaflet with presence of septal contact. 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 Mild MR. In the setting of marked increased LV wall thickness associated with JOANN and septal contact, as well as biatrial dilation, further outpatient evaluation for infiltrative cardiomyopathy (namely amyloidosis versus HCM) is suggested with cardiac MRI (amyloidosis protocol) + PYP nuclear scan + amyloidosis lab testing. Electronically signed by : Shelly Dempsey MD 10/28/2024 22:45:02
--- NOTE | 2024-10-28 12:50 | XR_ITS ---
FINAL REPORT CLINICAL HISTORY: SOB, VQ SCAN DONE TODAY ALSO COMPARISON: 12/27/2021 FINDINGS: No acute pulmonary density is evident. There is no evidence of effusion or other pleural disease. The mediastinum has a normal appearance. The cardiac silhouette is unremarkable. IMPRESSION: Unremarkable chest exam. Reviewed, Interpreted and Dictated by Kitty Mckenzie MD Transcribed by Perla Anderson Authenticated and [facility]
--- NOTE | 2024-10-28 13:00 | NM_ITS ---
FINAL REPORT CLINICAL HISTORY: SOB 12:45PM 36.7 MCI TC DTPA 1:15PM 8.76 MCI TC MAA CXR ALSO DONE TODAY FINDINGS: NUCLEAR MEDICINE VENTILATION AND PERFUSION IMAGING TECHNIQUE: V/Q scan is performed utilizing 36.7 technetium 99 M DTPA aerosol and IV administration of 8.76 technetium 99 M MAA. Images were obtained in AP, PA, lateral, and oblique projections. FINDINGS No perfusion or ventilation defects are seen. The exam is normal. IMPRESSION: Extremely low probability for pulmonary embolus. Reviewed, Interpreted and Dictated by Kitty Mckenzie MD Transcribed by Perla Anderson Authenticated and [facility]
[2024-10-28] MEDS: SODIUM CHLORIDE 0.9% 10ML SYR (RAD ONLY) 10 ML IV (13:31)
[2024-10-28] MEDS: ISOTOPE TC MAA;1 DOE (UP TO 45 MCI) 1 DOSE IV (13:31)
[2024-10-28] MEDS: ISOTOPE DTPA(AEROSOL);1 DOSE (UP TO 75 MCI) IV (13:31)
== END 2024-10-28 23:59 | disposition home or self-care (01) ==
LOC: RAD 12:31
PROVIDERS: PCP Internal Medicine; Visit Provider Internal Medicine Pulmonary Disease
DX: R06.09 Other forms of dyspnea (principal); R06.02 Shortness of breath
CPT/HCPCS: 71046; 78582; 93306; A9540; A9567

== ENCOUNTER 2024-11-21 09:22 | Outpatient (CLI) | payer MEDICARE, SELFPAY ==
[2024-11-21 09:59] LABS: Blood Urea Nitrogen 17 mg/dl (9-20); Estimated Glomerular Filt Rate 53 ml/min (>60); GFR (African American) 64 ML/MIN (>60)
[2024-11-21 10:11] LABS: Total Protein,Serum 6.2 g/dl (6.3-8.2)
--- NOTE | 2024-11-21 10:30 | MR_ITS ---
APPROVED REPORT Pattern And Chain Maker: CLINICAL INDICATION History of HCM, evaluation for amyloidosis TECHNIQUE Image Acquisition: Cardiac magnetic resonance (CMR) was performed on Siemens Espree MRI 1.5T scanner. Software platform sequences were performed using the [employer] MR B19 platform. A set of three-plane, low-resolution, large [id number] localizers were initially acquired. Then axial, coronal, sagittal TrueFISP, as well as axial HASTE images, were obtained. These were followed by gated TrueFISP breathold cinematic sequences obtained in the short axis with 8 mm slices and 2 mm gaps, 2-chamber (vertical long axis), 3-chamber, 4-chamber (horizontal long axis). A bolus of contrast was injected intravenously with first-pass sequences obtained in the short axis and four-chamber planes. After approximately 10 minutes, a TI seat installer sequence was performed to determine the optimal TI time. Using the optimized TI time, delayed contrast enhancement segmented inversion???recovery TurboFLASH sequences were obtained in the short axis, 2-chamber, 3-chamber, and 4-chamber projections. 2D-velocity phase mapping was performed. Functional parameters were calculated by offline analysis on an independent workstation ([employer], [employer]). Contrast: ProHance??? (Gadoteridol) FINDINGS MORPHOLOGY AND FUNCTION Left ventricle: The left ventricle is normal in size. The indexed left ventricular end-diastolic volume (LVEDVi) is 57 ml/m2 (reference range 57-105 ml/m2 in males, 56-96 ml/m2 in females). Hyperdynamic left ventricular systolic function is present. There is asymmetric marked increase in left ventricular wall thickness, with up to 16.5 mm in the basal septal LV wall. There are no regional wall motion abnormalities noted. LVEF is calculated at 71.9% (reference range 57-77%). Right ventricle: The right ventricle is normal in size. The indexed right ventricular end-diastolic volume (RVEDVi) is 51 ml/m2 (reference range 61-121 ml/m2 in males, 48-112 ml/m2 in females). Normal right ventricular systolic function is present. RVEF is calculated at 52.4% (reference range 52-72% in males, 51-71% in females). Atria: The left atrium is mildly dilated. The maximum indexed left atrial volume is 40 ml/m2 (reference range 26-52 ml/m2 in males, 27-53 ml/m2 in females). The right atrium is normal in size. The maximum indexed right atrial volume is 17 ml/m2 (reference range 18-90 ml/m2). Aorta: The diameter of the aortic annulus is normal, measuring 22 mm (coronal view reference range 21-30 mm in males, 19-27 mm in females). The diameter of the aortic sinus is normal, measuring 33 mm (coronal view reference range 25-42 mm in males, 24-36 mm in females). The diameter of the sinotubular junction is normal, measuring 26 mm (coronal view reference range 18-32 mm in males, 18-28 mm in females). The diameters of the ascending and descending thoracic aorta are normal. Main pulmonary artery: The main pulmonary artery diameter is normal. Pericardium: The pericardial thickness is normal. The pericardial thickness measures 2.0 mm (normal < 4.0 mm). There is no pericardial effusion. VALVES Systolic anterior motion of the mitral valve is present. There is flow acceleration at the level of LVOT, suggestive of LVOT obstruction at rest. Ratio of pulmonary to systemic flow, Qp:Qs ratio = 1.0 (normal < or = 1.2, hemodynamically significant shunt > 1.5), demonstrating no evidence of hemodynamically significant shunt. TISSUE CHARACTERIZATION Resting Perfusion: Normal myocardial blood flow at rest. No evidence of resting hypoperfusion. Myocardial Fibrosis and/or edema: There is faint patchy late gadolinium enhancement present in the basal septal and lateral LV richter. The overall LGE burden to the total myocardial thickness is < 5%. OTHER No other significant findings are noted. However, this exam is focused on the cardiac structure and function. IMPRESSION Normal LV size with hyperdynamic LV systolic function. LVEDVi= 57 ml/m2 and LVEF= 71.9%. Asymmetric marked increase in left ventricular wall thickness, with up to 16.5 mm in the basal septal LV wall. There is flow acceleration at the level of LVOT, suggestive of LVOT obstruction at rest. Normal RV size with normal RV systolic function. RVEDVi= 51 ml/m2 and RVEF= 52.4%. Mild LA enlargement. Systolic anterior motion (JOANN) of the mitral valve is present. Faint patchy late gadolinium enhancement present in the basal septal and lateral LV richter. The overall LGE burden to the total myocardial thickness is < 5%. Perfusion analysis demonstrates normal blood flow at rest with no evidence of resting hypoperfusion. Ratio of pulmonary to systemic flow, Qp:Qs ratio = 1.0 (normal < or = 1.2, hemodynamically significant shunt > 1.5), demonstrating no evidence of hemodynamically significant shunt. Faint patchy late gadolinium enhancement present in the basal septal and lateral LV richter. The overall LGE burden to the total myocardial thickness is < 5%. Overall, this CMR meets criteria for HCM with marked increase in basal septal LV wall thickness of 16.5 mm (> 15 mm) and LVOT obstruction at rest, along with patchy LGE in the septal and lateral LV richter. No evidence of alternative infiltrative cardiomyopathy. LGE pattern does not suggest amyloidosis. COMPARISON None CRITICAL RESULT None COMMUNICATION Per this written report The findings of this cardiac MR were reviewed, reported, and signed by Trenton Dempsey MD (Machine Ironer). Conclusion Electronically signed by : Shelly Dempsey MD 11/21/2024 12:30:52
[2024-11-21] MEDS: SODIUM CHLORIDE 0.9% 10ML SYR (RAD ONLY) 10 ML IV (11:05)
[2024-11-21] MEDS: GADOTERIDOL INJ 20ML SYRINGE 20 ML IV (11:06)
[2024-11-21] MEDS: SODIUM CHLORIDE 0.9% 50ML BAG 20 ML IV (11:06)
[2024-11-22 14:20] LABS: Free Kappa Lt Chains 36.6 mg/L (3.3-19.4); Free Lambda Lt Chains 23.9 mg/L (5.7-26.3)
[2024-11-22 16:36] LABS: Albumin 3.4 g/dL (2.9-4.4); Alpha-1-Globulin 0.3 g/dL (0.0-0.4); Alpha-2-Globulin 0.8 g/dL (0.4-1.0); Gamma Globulin 0.8 g/dL (0.4-1.8); Protein, Total 6.2 g/dL (6.0-8.5)
[2024-11-25 17:28] LABS: Albumin, U 36.3 % (.); Alpha-1-Globulin, U 2.4 % (.); Alpha-2-Globulin, U 12.2 % (.); Beta Globulin, U 30.4 % (.); Gamma Globulin, U 18.8 % (.); Immunoglobulin A, Qn 226 mg/dL (61-437); Immunoglobulin G, Qn 866 mg/dL (603-1613); Immunoglobulin M, Qn 21 mg/dL (15-143); M-Spike, % Not Observed % (Not Observed); Protein,Total,Urine 23.2 mg/dL (Not Estab.)
[2024-11-26 11:57] LABS: PDF SCANNED IMAGE
[2024-11-26 12:02] LABS: PDF: SCANNED IMAGE
== END 2024-11-21 23:59 | disposition home or self-care (01) ==
LOC: RAD 09:23
PROVIDERS: PCP Internal Medicine; Visit Provider Physician Assistant
DX: I51.7 Cardiomegaly (principal); I42.1 Obstructive hypertrophic cardiomyopathy
CPT/HCPCS: 36415; 75561; 82565; 82784; 83883; 84155; 84156; 84165; 84166; 84520; 86334; 86335; A9576

== ENCOUNTER 2024-12-04 06:30 | Outpatient (CLI) | payer MEDICARE, SELFPAY ==
--- NOTE | 2024-12-04 | CA_ITS ---
APPROVED REPORT Exam: Pharmacologic Technologist: Rosalina Chappell Ht: 10 ft 10 in Wt: 191 lbs BSA: 3.21 m2 HR: 59 bpm BP: 124/55 mmHg Stress Test Details Test: Lexiscan HR Resting HR: 59 bpm Max Heart Rate (APMHR): 138.931430 bpm Max HR Achieved: 66 bpm Target HR (85% APMHR): 117.417691 bpm % of APMHR: 47.83 Recovery HR: 65 bpm BP Resting BP: 124.0/55.0 mmHg Max BP: 124.0/55.0 mmHg Recovery BP: 111.0/49.0 mmHg ECG Stress ECG Conclusion Symptoms: Nausea with Lexiscan Arrhythmias/Ectopy: None ST-T Changes: Unremarkable with Lexiscan Electronically signed by : Shelly Dempsey MD 12/04/2024 13:03:31
--- OUTSIDE RECORDS SUMMARY | 2024-12-04 06:33 | XMS_ITS | Data Portability ---
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 Plan of Treatment Reminders Order Date Submit Date Provider Last Modified By Organization Details Last Modified Time Details Appointments None recorded. Lab None recorded. Referral None recorded. Procedures None recorded. Surgeries None recorded. Imaging CT, neck, soft tissue, w/ contrast 2022 023 [email or web address] [facility] ([facility]), [address], [place], [address], 3 15:39:39 Medication Orders None recorded. Patient TargetsNo targets recorded. Patient Instructions Encounter Date Encounter Id Patient Instructions Last Modified By Organization Details Last Modified Time 05/19/2022 [id number] 1. s/p excisiona l biopsy 1wk ago 05/12/22. 2. Discussed pathology results w/ pt. Basal cell carcinoma 3. Recommend complete excision and biopsy in the OR. - Full risks, complications, and benefits of operative versus non-operative intervention have been thoroughly discussed. Understanding was expressed, informed consent given, and we will proceed with the discussed operative treatment plan. There were no questions for me at the end of the office visit. 4. Will clear w/ construction project mgr - Dr. Annie [email or web address] Not available 05/19/2022 09:49:11 82-year-old follow-up right denominational subcutaneous mass excision. Biopsy of mass came back as basal cell carcinoma. This was all subcutaneous beneath the skin so presumably represents a lymph node metastasis. He had a basal cell on the tip of his nose but nothing that he knows of up on his scalp or in this area. No obvious lesions on exam except for a small scab/scar about a centimeter to lateral to where we excised this mass. We will plan to set up for a formal repeat excision in the OR to make sure we cleared the original subcutaneous mass and likely also excised this other area lateral to it. Likely can do under MAC sedation. [email or web address] Not available 05/19/2022 16:59:47 06/02/2022 [id number] 1. 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 2. Incision checked and cleaned. 3. Pathology pending. Will notify of results. 4. Continue antibiotic ointment 5. Determine follow-up pending pathology results. [email or web address] Not available 06/02/2022 08:15:06 82-year-old follow-up wide local excision to right denominational skin lesions. Appears to be healing as expected. Final path is still pending. We had to excise quite a bit in the OR and ended up doing small rotational flaps in order to close. Interestingly it appeared on the prelim frozen sections that all of his epidermis appeared normal and that this appeared to be confined to basal cell nests in the subcutaneous tissue. If final margins are not clear discussed as a next step a CT scan which potentially we could do up in [place] locally for him . His facial nerve which was weak postop in the superior branch fortunately appears to be completely back to normal at this point. [email or web address] Not available 06/02/2022 12:14:46 07/07/2022 [id number] 1. s/p excisiona l biopsy of 1st right temporal BCC in-office 05/12/22, and s/p excisional biopsy right temporal lesion in OR 06/01/22 2. Discussed options including observation vs further excision and rotational flaps in the right denominational area. He prefers to observe. 3. F/u in 3mo Not available 07/07/2022 10:29:26 82-year-old follow-up wide local excision of subdermal basal cell carcinoma. He is well-healed from the procedure. We discussed that there is concern about a possible positive microscopic anterior margin going towards his right lateral canthus area. T We discussed options including reexcision which would likely necessitate a cervical facial rotational flap to close versus close observation of the area. Also have discussed having see a Moh's surgeon. He would strongly prefer for close observation. As such we will plan to recheck in about 3 months. I instructed him to call me sooner for every feels any masses or growths in this area which she understands. Best we can tell this was metastatic lesions from his previous basal cell carcinoma that was excised from his nose. He understands possible risk of not re-excising the area includes residual malignancy which potentially could grow or spread. [email or web address] Not available 07/07/2022 13:03:55 10/13/2022 [id number] 1. s/p excisiona l biopsy of 1st right temporal BCC in-office 05/12/22, and s/p excisional biopsy right temporal lesion in OR 06/01/22 2. Discussed options including observation vs further excision and rotational flaps in the right denominational area vs radiation/chemothe rapy. Continue to observe 3. F/u in 6mo, plan to set up imaging in 1yr at follow-up visit Not available 10/13/2022 09:09:33 04/13/2023 [id number] 1. s/p excisiona l biopsy of 1st right temporal BCC in-office 05/12/22, and s/p excisional biopsy right temporal lesion in OR 06/01/22 2. Continue to observe 3. Repeat CT neck 4. F/u 6mo Not available 04/13/2023 08:24:17 Reason for Referral None Reported. Results Created Date Observation Date Name Description Value Unit Range Abnormal Flag Note LastModifiedBy Organization Detail LastModifiedTime 05/12/2005/12/2022 SURGI NEHEMIAS surgical SEE BELOW Depar tment of Patho logy Surgi nehemias Patho logy Repor t NAME: LEAH MATSON PATH. :SC-2 56 Copy to: Diagn osis: Facia l neopl asm: -Basa l cell carci noma. -Tumo r invol ves entir e speci men, with all talat ns posit jae. SOURC E OF SPECI MEN: NEOPL ASM, RIGHT FACIA L CLINI NEHEMIAS INFOR MATIO N: D48.5 Gross Descr iptio n: Recei aubrey in forma jimmy label ed with the patie nt's name and desig nated as faci al neopl asm is a 1.4 x 1.1 x 0.6 cm rough ened pale kenney flesh y nodul e. There is no disti nct ident ifiab le epide rmal surfa ce. The speci men is entir ramiro inked blue and secti oned to revea l a solid pale kenney cut surfa ce. Entir ramiro submi tted in a singl e casse tte. JAB 05/13 10:43 AM Micro scopi c Descr iptio n: All submi tted tissu e consi sts of basal cell carci noma. No jay l skin struc tures are prese nt. ARIELA GODRON MD Griselda d Out Date: 05/16 08:33 Page 1 of 1 Not Available [facility] [address] [place] [address], [phone], 05/16/2022 08:34:18 Result Notes None recorded. Problems No Known Problems Procedures Surgical History Date Name Laterality Status Provider Name and Address Organization Details Recorded Time 2 EXCISION, TUMOR, SOFT TISSUE FACE/SCALP (SURG) completed Suzie Allen [facility] 05/30/2022 14:22:08 2 Excision BN Lesion; face, ears, eyelid, nose, lips, mucous membrane completed ARIELA QUIROGA MD [address] [place] [address], [phone], [facility] 05/12/2022 17:27:15 Imaging Results None recorded. Procedure Notes None recorded. Medical Equipment None Reported. Allergies Allergen ID Allergen Name Allergen Category Reaction Reaction Severity Criticality Documentation Date Start Date Code Code System Note Provider Name and Address Organization Details Recorded Time 181745 Product containin g penicilli n (product) medicatio n Not available Not available Not available 05/06/2022 [id number] SNOMED Nhi riley, [facility] 2 09:34:43 Medications Name Sig Start Date Stop Date Status Note LastModified by Organization Details LastModified Time losartan 50 mg tablet TAKE 1 TABLET BY MOUTH ONCE DAILY 05/06 completed Not Available Not Available Not Available nifedipine ER 30 mg tablet,exte nded release 24 hr TAKE 1 TABLET BY MOUTH ONCE DAILY active Not Available Not Available No t Available metformin 500 mg tablet TAKE 1 TABLET BY MOUTH TWICE DAILY WITH MEALS active Not Available Not Available No t Available azithromyci n 250 mg tablet TAKE 2 TABLETS BY MOUTH ON DAY 1, AND THEN TAKE 1 TABLET BY MOUTH ONCE A DAY ON DAY 2 THROUGH DAY 5 04/13 completed Not Available Not Available Not Available metoprolol tartrate 100 mg tablet TAKE 1 TABLET BY MOUTH TWICE DAILY active Not Available Not Available No t Available hydrocodone 5 mg-acetamin ophen 325 mg tablet Take 1 tablet every 6 hours by oral route for 3 days. 07/07 completed Not Available Not Available Not Available sucralfate 1 gram tablet TAKE 1 TABLET BY MOUTH BEFORE MEAL(S) AND AT BEDTIME active Not Available Not Available No t Available isosorbide mononitrate ER 30 mg tablet,exte nded release 24 hr TAKE 1 TABLET BY MOUTH ONCE DAILY active Not Available Not Available No t Available Accu-Chek Softclix Lancets USE 1 LANCET TO CHECK GLUCOSE ONCE DAILY active Not Available Not Available No t Available bacitracin 500 unit/gram topical ointment apply a small amount to face twice a day 04/13 completed Not Available Not Available Not Available valsartan 80 mg tablet 04/13 completed Not Available Not Available Not Available prochlorper azine maleate 10 mg tablet active Not Available Not Available No t Available isosorbide mononitrate ER 60 mg tablet,exte nded release 24 hr TAKE 1 TABLET BY MOUTH ONCE DAILY 04/13 completed Not Available Not Available Not Available nifedipine ER 60 mg tablet,exte nded release 24 hr TAKE 1 TABLET BY MOUTH ONCE DAILY active Not Available Not Available No t Available tamsulosin 0.4 mg capsule TAKE 1 CAPSULE BY MOUTH ONCE DAILY AT NIGHT FOR PROSTATE active Not Available Not Available No t Available amlodipine 10 mg tablet TAKE 1 TABLET BY MOUTH ONCE DAILY FOR BLOOD PRESSURE active Not Available Not Available No t Available benzonatate 100 mg capsule TAKE 1 CAPSULE BY MOUTH THREE TIMES DAILY NEEDED FOR COUGH active Not Available Not Available No t Available pantoprazol e 40 mg tablet,julia yed release TAKE 1 TABLET BY MOUTH ONCE DAILY active Not Available Not Available No t Available oseltamivir 75 mg capsule TAKE 1 CAPSULE BY MOUTH TWICE DAILY 04/13 completed Not Available Not Available Not Available losartan 25 mg tablet TAKE 1 TABLET BY MOUTH ONCE DAILY IN THE EVENING FOR BLOOD PRESSURE 05/06 completed Not Available Not Available Not Available nitroglycer in 0.4 mg sublingual tablet DISSOLVE ONE TABLET UNDER THE TONGUE EVERY 5 MINUTES NEEDED FOR CHEST PAIN. DO NOT EXCEED A TOTAL OF 3 DOSES IN 15 MINUTES active Not Available Not Available No t Available clobetasol 0.05 % scalp solution APPLY SOLUTION TOPICALLY ONCE OR TWICE DAILY FOR 2 WEEKS, THEN WITHHOLD FOR 2 WEEKS 07/07 completed Not Available Not Available Not Available ondansetron 4 mg disintegrat ing tablet Place 1 tablet(s) by transling ual route every 8 hours as needed for nausea. 04/13 completed Not Available Not Available Not Available losartan 100 mg tablet TAKE 1 TABLET BY MOUTH ONCE DAILY active Not Available Not Available No t Available ezetimibe 10 mg tablet TAKE 1 TABLET BY MOUTH ONCE DAILY active Not Available Not Available No t Available rosuvastati n 5 mg tablet TAKE 1 TABLET BY MOUTH ONCE DAILY active Not Available Not Available No t Available Accu-Chek Zenaida Plus test strips USE 1 STRIP TO CHECK GLUCOSE ONCE DAILY 04/13 completed Not Available Not Available Not Available Calquence (acalabruti nib maleate) 100 mg tablet active Not Available Not Available Not Available Vitals Date Recorded Body height Body mass index (BMI) Body weight Body temperature Oxygen saturation Oxygen saturation in Arterial blood by Pulse oximetry Heart rate Systolic blood pressure Diastolic blood pressure Provider Name and Address Organization Details Last Updated DateTime 2 177.8 cm 27.5 kg/m2 72005.7 4 g 97.9 [degF] 98 % 98 % 89 /min 124 mm[Hg] 89 mm[Hg] Bernice [facility] 2 09:19:01 Date Recorded Body height Body mass index (BMI) Body weight Body temperature Heart rate Systolic blood pressure Diastolic blood pressure Provider Name and Address Organization Details Last Updated DateTime 2 177.8 cm 27.5 kg/m2 66304.7 4 g 96.9 [degF] 89 /min 123 mm[Hg] 59 mm[Hg] [facility] 2 07:59:15 Date Recorded Body height Body mass index (BMI) Body weight Heart rate Systolic blood pressure Diastolic blood pressure Provider Name and Address Organization Details Last Updated DateTime 2 177.8 cm 27.8 kg/m2 73151.4 8 g 69 /min 132 mm[Hg] 67 mm[Hg] Sherry Barron [facility] 2 09:59:58 Date Recorded Body height Body mass index (BMI) Body weight Body temperature Oxygen saturation Oxygen saturation in Arterial blood by Pulse oximetry Heart rate Systolic blood pressure Diastolic blood pressure Provider Name and Address Organization Details Last Updated DateTime 3 177.8 cm 27.8 kg/m2 77683.4 8 g 97.9 [degF] 98 % 98 % 71 /min 134 mm[Hg] 62 mm[Hg] [facility] 3 08:55:47 Date Recorded Body height Body mass index (BMI) Body weight Systolic blood pressure Diastolic blood pressure Provider Name and Address Organization Details Last Updated DateTime 04/13/2023 177.8 cm 30.6 kg/m2 05086.17 g 131 mm[Hg] 59 mm[Hg] Jenny Cleaning [facility] 3 08:01:29 Social History Question Answer Notes LastModified by Organizat ion Details LastModified Time Tobacco Smoking Status Never Smoker Nhi riley [facility] 05/06/2022 09:32:50 What Is Your Level Of Alcohol Consumption? Occasional [email or web address] Information not available 05/06/2022 Sex: Unknown Functional Status None recorded. Mental Status None recorded. Family History Relationship Description Onset Age of this Age Resolved Age Notes LastModified by Organization Details LastModified Time Father Malignant tumor of stomach [email or web address] Not available 2021 09:32:32 Father Malignant neoplasm of lung [email or web address] Not available 2021 09:32:42 Mother Malignant tumor of stomach [email or web address] Not available 2021 09:32:32 Mother Malignant neoplasm of lung [email or web address] Not available 2021 09:32:42 Medical History Condition Response Diabetes N Anesthesia Complications N Heart Disease Y Bleeding Disorder Y Cancer N Hypertension Y Stomach trouble Y Past Encounters Encounter ID Performer Location Encounter Start Date Encounter Closed Date Diagnosis/Indication Diagnosis SNOMED-CT Code Diagnosis ICD10 Code Diagnosis Note [id number] ARIELA QUIROGA MD [facility] [address] [place] [address] 05/06/2022 09:13:22 05/06/2022 10:03:44 Mass of head and/or neck 762760198 R22.0 History of malignant neoplasm of skin 008375298 Z85.828 Sebaceous cyst of skin 358770759 L72.3 Chronic ly mphoid leukemia, disease 70435371 C91.10 Heart disease 29550498 I 51.9 [id number] ARIELA QUIROGA MD [facility] [address] [place] [address] 1 05/12/2022 14:40:14 05/13/2022 10:06:30 Sebaceous cyst of skin 857062924 L72.3 Mass of he ad and/or neck 848488364 R22.0 History of malignant neoplasm of skin 591109645 Z85.828 Chronic ly mphoid leukemia, disease 51739511 C91.10 Heart disease 57851553 I 51.9 [id number] ARIELA QUIROGA MD [place] [address] 05/19/2022 08:46:30 05/20/2022 08:20:13 Mass of head and/or neck 843900295 R22.0 History of malignant neoplasm of skin 937427062 Z85.828 Chronic ly mphoid leukemia, disease 91435457 C91.10 Heart disease 32038841 I 51.9 Basal cell carcinoma of face 970830899 C44.310 Right denominational [id number] ARIELA QUIROGA MD [place] [address] 06/02/2022 07:31:07 06/02/2022 14:04:13 Basal cell carcinoma of face 225897670 C44.310 Right denominational, excision/b iopsy yesterday, pathology pending.-1 st pathology result BCC Mass of he ad and/or neck 152990401 R22.0 History of malignant neoplasm of skin 428827861 Z85.828 Chronic ly mphoid leukemia, disease 82715070 C91.10 Heart disease 15617601 I 51.9 [id number] [place] [address] [place] [address] 07/07/2022 09:52:56 07/07/2022 10:38:36 Basal cell carcinoma of face 039189741 C44.310 Right denominational Mass of he ad and/or neck 989825362 R22.0 History of malignant neoplasm of skin 859632498 Z85.828 Chronic ly mphoid leukemia, disease 05111197 C91.10 Heart disease 71299809 I 51.9 [id number] ARIELA QUIROGA MD ENT [address] [place] [address] 10/13/2022 08:47:58 10/13/2022 09:25:40 Basal cell carcinoma of face 321001211 C44.310 07/07/22: 82-year-ol d follow-up wide local excision of subdermal basal cell carcinoma. He is well-heale d from the procedure. We discussed that there is concern about a possible positive microscopi c anterior margin going towards his right lateral canthus area deep - epidermal margins were ok. We discussed options including reexcision which would likely necessitat e a cervical facial rotational flap to close versus close observatio n of the area. Also have discussed having see a Moh's surgeon. He would strongly prefer for close observatio n. Radiation in this area would almost certainly affect his eyes and vision to avoid. As such we will plan to recheck in about 3 months. As best we can tell this was metastatic lesions from his previous basal cell carcinoma that was excised from his nose. He understand s possible risk of not re-excisin g the area includes residual malignancy which potentiall y could grow or spread. 10/13/22: Doing well. No obvious residual mass or lesion on exam. Healed nicely from the procedure. We again discussed options. He wants to continue with close observatio n. We will follow-up in about 6 months. He will call sooner if he notices any issues. The area where the cyst is right over the bone he has very minimal subcutaneo us tissue here so is quite easy to examine would hopefully catch any recurrence of this quickly. We did discuss potentiall y checking a CT scan of around the 1 year marek, we will set up at his next visit. History of malignant neoplasm of skin 818253119 Z85.828 Chronic ly mphoid leukemia, disease 01403224 C91.10 [id number] ARIELA QUIROGA MD ENT [address] [place] [address] 04/13/2023 07:26:24 04/13/2023 13:42:10 Basal cell carcinoma of face 455972481 C44.310 07/07/22: 82-year-ol d follow-up wide local excision of subdermal basal cell carcinoma. He is well-heale d from the procedure. We discussed that there is concern about a possible positive microscopi c anterior margin going towards his right lateral canthus area deep - epidermal margins were ok. We discussed options including reexcision which would likely necessitat e a cervical facial rotational flap to close versus close observatio n of the area. Also have discussed having see a Moh's surgeon. He would strongly prefer for close observatio n. Radiation in this area would almost certainly affect his eyes and vision to avoid. As such we will plan to recheck in about 3 months. As best we can tell this was metastatic lesions from his previous basal cell carcinoma that was excised from his nose. He understand s possible risk of not re-excisin g the area includes residual malignancy which potentiall y could grow or spread. 10/13/22: Doing well. No obvious residual mass or lesion on exam. Healed nicely from the procedure. We again discussed options. He wants to continue with close observatio n. We will follow-up in about 6 months. He will call sooner if he notices any issues. The area where the cyst is right over the bone he has very minimal subcutaneo us tissue here so is quite easy to examine would hopefully catch any recurrence of this quickly. We did discuss potentiall y checking a CT scan of around the 1 year marek, we will set up at his next visit. 04/13/23:NE D exam. We will set up for continued 6-month follow-up with contrasted CT scan prior to visit for continued observatio n. History of malignant neoplasm of skin 928295443 Z85.828 Chronic ly mphoid leukemia, disease 18995938 C91.10 Health Concerns Section Related Observation LastModified by Organization Detai ls LastModified Time None Recorded Concern Status LastModified by Organization Details LastModified Time None Recorded Advance Directives Directive None Recorded Payers Insurance Date Sequence Insurance Name Policy Number Policy Edmonds Covered Member ID Edmonds Member ID Guarantor Name 04/10/2023 1 [place] [employer] [facility] (MEDICARE [facility]) [id number] Yogesh Matson [id number] Yogesh Matson Notes Date Note Type Note Provider Name and Address Organization Details Recorded Time 05/19/2022 text/html Chief Complaint: sebaceous cyst/temporal massTiming: noticed 5 years ago, excised 1wk ago 05/12/22Duration:Loc ation: right templeSeverity:Quali ty:Context: history of facial skin cancer--has not had known occurrence on scalp, heart diseaseModifying Factors: antibiotic ointmentAssoc signs and symptoms: No pain ARIELA QUIROGA MD [address] [place] [address] [place], [address], [facility] 05/19/2022 17:00:06 06/02/2022 text/html Chief Complaint: sebaceous cyst/temporal massTiming: noticed 5 years ago, excised 3wks ago 05/12/22 and 2nd excision/biopsy in OR yesterdayDuration:Lo cation: right templeSeverity:Quali ty:Context: history of facial skin cancer--has not had known occurrence on scalpModifying Factors:Assoc signs and symptoms: soreness ARIELA QUIROGA MD [address] [place] [address], [phone], [facility] 06/02/2022 12:14:50 07/07/2022 text/html Chief Complaint: temporal mass--BCCTiming: noticed 5 years ago, excised 2mo ago 05/12/22 and 2nd excision/biopsy in OR 06/01/22Duration:Loca tion: right templeSeverity:Quali ty:Context:Modifying Factors: pulled a stitch out of right denominational incisionAssoc signs and symptoms: has noticed a rough spot on left denominational, feels a pulling sensation around the right eye ARIELA QUIROGA MD [address] [place], [address], [facility] 07/07/2022 13:03:59 10/13/2022 text/html Chief Complaint: temporal mass--BCCTiming: noticed 5 years ago, excised 2mo ago 05/12/22 and 2nd excision/biopsy in OR 06/01/22Duration:Loca tion: right templeSeverity:Quali ty:Context:Modifying Factors:Assoc signs and symptoms: has not felt or seen anything new or worrisome regarding skin, no felt lumps in the neck, has been doing well overall lately ARIELA QUIROGA MD [address] [place], [address], [facility] 10/13/2022 12:18:44 04/13/2023 text/html Chief Complaint: temporal mass-BCCTiming: noticed 5 years agoDuration:Location : right templeSeverity:Quali ty:Context:Modifying Factors: excised 05/12/22 and 2nd excision/biopsy in OR 06/01/22Assoc signs and symptoms: has not felt or seen anything new or worrisome regarding skin, no felt lumps in the neck, has been doing well overall lately, no new issues ARIELA QUIROGA MD [address] [place], [address], [facility] 04/13/2023 12:22:39
[2024-12-04] MEDS: SODIUM CHLORIDE 0.9% 10ML SYR (RAD ONLY) 10 ML IV ×2 (06:45→08:59)
--- NOTE | 2024-12-04 07:00 | NM_ITS ---
APPROVED REPORT Exam: Nuclear Stress Test Indication: cad, htn, diabetes, hyperlipidemia, c.p., sob, fatigue Patient Location: Outpatient Stress Tech: Rosalina Chappell PR Tech:Katherine Nugent RUAnne RT (R)(N)(M) Ht: 5 ft 10 in Wt: 185 lbs HR: 59 bpm BP: 124/55 mmHg BSA: 2.02 m2 TID: 1.19 BMI: 26.5 History: cad, htn, diabetes, hyperlipidemia, c.p., sob, fatigue Procedure: Patient received 0.4 mg of intravenous Lexiscan, resting heart rate 59 bpm, resting blood pressure 124/55 mmHg, with Lexiscan maximum heart rate achieved was 65 bpm which is % of the maximum predicted heart rate and blood pressure was 93/44 mmHg. With Lexiscan, patient denied any complaint of chest pain. Cardiac Stress and Resting SPECT Images: Cardiac Stress and Resting SPECT images were obtained using technetium 99m Myoview 31.1 mCi stress and 10.45 mCi at rest. Resting and stress imaging in supine and prone positions demonstrate no evidence of fixed or reversible perfusion defects. Gated imaging demonstrates normal global and regional LV systolic function. LVEF is calculated at 58%. Conclusion: No evidence of fixed or reversible perfusion defects. Gated imaging demonstrates normal global and regional LV systolic function. LVEF is calculated at 58%. Electronically signed by : Shelly Dempsey MD 12/04/2024 13:00:50
[2024-12-04] MEDS: REGADENOSON 0.4MG/5ML SYRINGE 0.4 MG IV (08:59)
[2024-12-04] MEDS: ISOTOPE MYOVIEW (PER STUDY) 1 DOSE IV (08:59)
== END 2024-12-04 23:59 | disposition home or self-care (01) ==
LOC: RAD 06:31
PROVIDERS: PCP Internal Medicine; Visit Provider Internal Medicine
DX: I25.10 Atherosclerotic heart disease of native coronary artery without angina pectoris (principal); I21.4 Non-ST elevation (NSTEMI) myocardial infarction; I42.8 Other cardiomyopathies; R55 Syncope and collapse; I51.7 Cardiomegaly
CPT/HCPCS: 78452; 93017; 93018; A9502; J2785

== ENCOUNTER 2024-12-27 10:39 | Outpatient (CLI) | payer MEDICARE, SELFPAY ==
--- OUTSIDE RECORDS SUMMARY | 2024-12-27 10:41 | XMS_ITS | Data Portability ---
Author Organization [place] - [facility] [employer] [facility]OS[facility] Address [address] [address] [place] [address] Care Team Providers Care Forester Aide Name Role Phone KACEY RECINOS Primary Care Provider [phone] [place] [place] Hostler Assessment No assessment recorded. Plan of Treatment Reminders Order Date Submit Date Provider Last Modified By Organization Details Last Modified Time Details Appointments None recorded. Lab None recorded. Referral None recorded. Procedures None recorded. Surgeries None recorded. Imaging CT, neck, soft tissue, w/ contrast 2022 023 [email or web address] [facility] ([facility]), [address], [place], [address], 3 15:39:39 Medication Orders None recorded. Patient TargetsNo targets recorded. Patient Instructions Encounter Date Encounter Id Patient Instructions Last Modified By Organization Details Last Modified Time 05/19/2022 [id number] 1. s/p excisiona l biopsy 1wk ago [...] the office visit. 4. Will clear w/ machine turner - Dr. Annie [email or web address] Not available 05/19/2022 09:49:11 82-year-old follow-up right catholic subcutaneous mass excision. Biopsy of mass came [...] it. Likely can do under MAC sedation. [email or web address] Not available 05/19/2022 16:59:47 06/02/2022 [id number] 1. 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 2. Incision checked and cleaned. 3. Pathology pending. Will notify of results. 4. Continue antibiotic ointment 5. Determine follow-up pending pathology results. [email or web address] Not available 06/02/2022 08:15:06 82-year-old follow-up wide local excision to right catholic skin lesions. Appears to be healing as [...] which potentially we could do up in [place] locally for him . His facial nerve which was weak postop in the superior branch fortunately appears to be completely back to normal at this point. [email or web address] Not available 06/02/2022 12:14:46 07/07/2022 [id number] 1. s/p excisiona l biopsy of 1st right temporal BCC in-office 05/12/22, and s/p excisional biopsy right temporal lesion in OR 06/01/22 2. Discussed options including observation vs further excision and rotational flaps in the right catholic area. He prefers to observe. 3. F/u [...] malignancy which potentially could grow or spread. [email or web address] Not available 07/07/2022 13:03:55 10/13/2022 [id number] 1. s/p excisiona l biopsy of 1st right temporal BCC in-office 05/12/22, and s/p excisional biopsy right temporal lesion in [place] 06/01/22 2. Discussed options including observation vs further excision and rotational flaps in the right catholic area vs radiation/chemothe rapy. Continue to observe 3. F/u in 6mo, plan to set up imaging in 1yr at follow-up visit Not available 10/13/2022 09:09:33 04/13/2023 [id number] 1. s/p excisiona l biopsy of 1st [...] skin struc tures are prese nt. ARIELA GORDON MD Griselda d Out Date: 05/16 08:33 Page 1 of 1 Not Available [facility] [address] [place] [address], [phone], 05/16/2022 08:34:18 Result Notes None recorded. Problems No Known Problems Procedures Surgical History Date Name Laterality Status Provider Name and Address Organization Details Recorded Time 2 EXCISION, TUMOR, SOFT TISSUE FACE/SCALP (SURG) completed Suzie Allen [facility] 05/30/2022 14:22:08 2 Excision BN Lesion; face, ears, eyelid, nose, lips, mucous membrane completed ARIELA QUIROGA MD [address] [place] [address], [phone], [facility] 05/12/2022 17:27:15 Imaging Results None recorded. Procedure Notes None recorded. Medical Equipment None Reported. Allergies Allergen ID Allergen Name Allergen Category Reaction Reaction Severity Criticality Documentation Date Start Date Code Code System Note Provider Name and Address Organization Details Recorded Time 005290 Product containin g penicilli n (product) medicatio n Not available Not available Not available 05/06/2022 61923 8001 SNOMED Nhi riley, [facility] 2 09:34:43 Medications Name Sig Start Date [...] No t Available pantoprazol e 40 mg tablet,julai yed release TAKE 1 TABLET BY MOUTH [...] Updated DateTime 3 177.8 cm 27.8 kg/m2 16448.4 8 g 97.9 [degF] 98 % 98 % 71 /min 134 mm[Hg] 62 mm[Hg] [facility] 3 08:55:47 Date Recorded Body height Body mass index (BMI) Body weight Systolic blood pressure Diastolic blood pressure Provider Name and Address Organization Details Last Updated DateTime 04/13/2023 177.8 cm 30.6 kg/m2 44172.17 g 131 mm[Hg] 59 mm[Hg] Jenny Cleaning [facility] 3 08:01:29 Date Recorded Body height Body mass index (BMI) Body weight Body temperature Oxygen saturation Oxygen saturation in Arterial blood by Pulse oximetry Heart rate Systolic blood pressure Diastolic blood pressure Provider Name and Address Organization Details Last Updated DateTime 2 177.8 cm 27.5 kg/m2 64158.7 4 g 97.9 [degF] 98 % 98 % 89 /min 124 mm[Hg] 89 mm[Hg] [facility] 2 09:19:01 Date Recorded Body height Body mass index (BMI) Body weight Body temperature Heart rate Systolic blood pressure Diastolic blood pressure Provider Name and Address Organization Details Last Updated DateTime 2 177.8 cm 27.5 kg/m2 50384.7 4 g 96.9 [degF] 89 /min 123 mm[Hg] 59 mm[Hg] [facility] 2 07:59:15 Date Recorded Body height Body mass index (BMI) Body weight Heart rate Systolic blood pressure Diastolic blood pressure Provider Name and Address Organization Details Last Updated DateTime 2 177.8 cm 27.8 kg/m2 41685.4 8 g 69 /min 132 mm[Hg] 67 mm[Hg] Sherry Barron [facility] 2 09:59:58 Social History None recorded. Functional Status Question Answer Note LastModified by Organizat ion Details LastModified Time What is your level of alcohol consumption? Occasional [email or web address] Information not available 05/06/2022 Mental Status None recorded. Family History Relationship Description Onset Age of this Age Resolved Age Notes LastModified by Organization Details LastModified Time Father Malignant tumor of stomach [email or web address] Not available 2021 09:32:32 Father Malignant neoplasm of lung [email or web address] Not available 2021 09:32:42 Mother Malignant tumor of stomach [email or web address] Not available 2021 09:32:32 Mother Malignant neoplasm of lung [email or web address] Not available 2021 09:32:42 Medical History Condition Response Anesthesia Complications N Diabetes N Heart Disease Y Bleeding Disorder Y Cancer N Hypertension Y Stomach trouble Y Past Encounters Encounter ID Performer Location Encounter Start Date Encounter Closed Date Diagnosis/Indication Diagnosis SNOMED-CT Code Diagnosis ICD10 Code Diagnosis Note [id number] ARIELA QUIROGA MD [place] [facility] [address] [place] [address] 05/06/2022 09:13:22 05/06/2022 10:03:44 Mass of head and/or neck 123735814 R22.0 History of malignant neoplasm of skin 038576741 Z85.828 Sebaceous cyst of skin 020673567 L72.3 Chronic ly mphoid leukemia, disease 52438353 C91.10 Heart disease 30380301 I 51.9 [id number] ARIELA QUIROGA MD [facility] [address] [place] [address] 1 05/12/2022 14:40:14 05/13/2022 10:06:30 Sebaceous cyst of skin 335951604 L72.3 Mass of he ad and/or neck 371403691 R22.0 History of malignant neoplasm of skin 598106257 Z85.828 Chronic ly mphoid leukemia, disease 65840656 C91.10 Heart disease 30049402 I 51.9 [id number] ARIELA QUIROGA MD [facility] [address] [place] [address] 1 05/19/2022 08:46:30 05/20/2022 08:20:13 Mass of head and/or neck 600988732 R22.0 History of malignant neoplasm of skin 605255736 Z85.828 Chronic ly mphoid leukemia, disease 79099522 C91.10 Heart disease 96764220 I 51.9 Basal cell carcinoma of face 290304036 C44.310 Right catholic [id number] ARIELA QUIROGA MD [facility] [address] [place] [address] 1 06/02/2022 07:31:07 06/02/2022 14:04:13 Basal cell carcinoma of face 625529804 C44.310 Right catholic, excision/b iopsy yesterday, pathology pending.- pathology result BCC Mass of he ad and/or neck 047534005 R22.0 History of malignant neoplasm of skin 088414363 Z85.828 Chronic ly mphoid leukemia, disease 89469604 C91.10 Heart disease 08964915 I 51.9 [id number] ARIELA QUIROGA MD ENT [address] [place] [address] 07/07/2022 09:52:56 07/07/2022 10:38:36 Basal cell carcinoma of face 800754817 C44.310 Right catholic Mass of he ad and/or neck 397144452 R22.0 History of malignant neoplasm of skin 699202016 Z85.828 Chronic ly mphoid leukemia, disease 42200491 C91.10 Heart disease 39204122 I 51.9 [id number] ARIELA QUIROGA MD ENT [address] [place] [address] 10/13/2022 08:47:58 10/13/2022 09:25:40 Basal cell carcinoma of face 448472833 C44.310 07/07/22: 82-year-ol d follow-up wide local [...] visit. History of malignant neoplasm of skin 812964886 Z85.828 Chronic ly mphoid leukemia, disease 99055259 C91.10 [id number] ARIELA QUIROGA MD ENT [address] [place] [address] 04/13/2023 07:26:24 04/13/2023 13:42:10 Basal cell carcinoma of face 645596960 C44.310 07/07/22: 82-year-ol d follow-up wide local [...] n. History of malignant neoplasm of skin 060717955 Z85.828 Chronic ly mphoid leukemia, disease 08059691 C91.10 Health Concerns Section Related Observation LastModified by Organization Detai ls LastModified Time None Recorded Concern Status LastModified by Organization Details LastModified Time None Recorded Advance Directives Directive None Recorded Payers Insurance Date Sequence Insurance Name Policy Number Policy Edmonds Covered Member ID Edmonds Member ID Guarantor Name 04/10/2023 1 [place] [employer] OF [facility] (MEDICARE REPLACEMENT REGIONAL PPO) [id number] Yogesh Matson [id number] Yogesh Matson Notes Date Note Type Note Provider Name and Address Organization Details Recorded Time 05/19/2022 text/html Chief Complaint: sebaceous cyst/temporal massTiming: noticed 5 years ago, excised 1wk ago 05/12/22Duration:Loc ation: right templeSeverity:Quali ty:Context: history of facial skin cancer--has not had known occurrence on scalp, heart diseaseModifying Factors: antibiotic ointmentAssoc signs and symptoms: No pain ARIELA QUIROGA MD [address] [place] [address], [phone], [facility] 05/19/2022 17:00:06 06/02/2022 text/html Chief Complaint: sebaceous cyst/temporal massTiming: noticed 5 years ago, excised 3wks ago 05/12/22 and 2nd excision/biopsy in [place] yesterdayDuration:Lo cation: right templeSeverity:Quali ty:Context: history of facial skin cancer--has not had known occurrence on scalpModifying Factors:Assoc signs and symptoms: soreness ARIELA QUIROGA MD [address] [place] [address], [phone], [facility] 06/02/2022 12:14:50 07/07/2022 text/html Chief Complaint: temporal mass--BCCTiming: noticed 5 years ago, excised 2mo ago 05/12/22 and 2nd excision/biopsy in [place] 06/01/22Duration:Loca tion: right templeSeverity:Quali ty:Context:Modifying Factors: pulled a stitch out of right catholic incisionAssoc signs and symptoms: has noticed a rough spot on left catholic, feels a pulling sensation around the right eye ARIELA QUIROGA MD [address] [place], [place] [address], [place], [address], [facility] 07/07/2022 13:03:59 10/13/2022 text/html Chief Complaint: temporal mass--BCCTiming: noticed 5 years ago, excised 2mo ago 05/12/22 and 2nd excision/biopsy in [place] 06/01/22Duration:Loca tion: right templeSeverity:Quali ty:Context:Modifying Factors:Assoc signs and symptoms: has not felt or seen anything new or worrisome regarding skin, no felt lumps in the neck, has been doing well overall lately ARIELA QUIROGA MD [address] [place], [address], [facility] 10/13/2022 12:18:44 04/13/2023 text/html Chief Complaint: temporal mass-BCCTiming: noticed 5 years agoDuration:Location : right templeSeverity:Quali ty:Context:Modifying Factors: excised 05/12/22 and 2nd excision/biopsy in [place] 06/01/22Assoc signs and symptoms: has not felt or seen anything new or worrisome regarding skin, no felt lumps in the neck, has been doing well overall lately, no new issues ARIELA QUIROGA MD [facility] [place], [address], [facility] 04/13/2023 12:22:39
--- NOTE | 2024-12-27 10:45 | CA_ITS ---
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 Landscaper/Gardener: PATRICA Arias, RVS Ht: 5 ft 10 in Wt: 190lbs BSA: 2.04 BP: 137/58 mmHg Indications: HOCM-CAMZYOS PROTOCOL, HTN, CP, HLD, EDMOND, LEUKEMIA 2D Dimensions IVSd 1.44 cm M: 0.6-1.2 LVEF (Visual) 82.50 % PWd 1.31 cm M: 0.6 - 1.2 LA Volume 64.60 mL LVDd 4.77 cm M: 4.2 - 5.9 LA Volume Index 31.67 mL/m2 (M/F) 16-34 LVDs 2.32 cm M: 2.5 - 4.0 Left Atrium 4.69 cm M: 3.0 - 4.0 M-Mode Dimensions LA Diam 4.47 cm (1.9-4.0) EPSs 0.30 cm TAPSE 2.47 (<1.7) LV Diastology E Decel Time 267 (160-240 msec) E/A Ratio 0.93 MED A' 7.50 cm/s LAT A' 10.60 cm/s Aortic Valve BRAIN Index 1.80 cm2/m2 AoV Peak All. 200.0 (50-130 cm/s) AO Peak GR. 16.00 mmHg AO Mean GR. 7.90 (<5 mmHg) AO VTI 46.4 (18-25 cm) BRAIN (VTI) 3.76 (2.5-4.5 cm2) Mitral Valve MV A Velocity 118.0 (40-130 cm/s) E/A Ratio 0.93 MV Mean Gr. 2.00 (<2mmHg) Pulmonary Valve HI End VMAX 209.0 cm/s Tricuspid Valve TR P. Velocity 204.00 cm/s RAP Estimate 10.00 mmHg RVSP 26.70 mmHg Left Ventricle History of HCM. The left ventricle is normal size. The left ventricular systolic function is normal. The left ventricular ejection fraction is within the normal range. There is increased LV wall thickness. There is no evidence of LVOT obstruction at rest or with Valsalva maneuvers. There is normal LV segmental wall motion. Diastolic function is indeterminate. LVEF 60%. Right Ventricle The right ventricle is normal size. The right ventricular systolic function is normal. Atria The left atrium is mildly dilated. Right atrium is mildly dilated. There is no Doppler evidence of interatrial shunt. Aortic Valve The aortic valve is mildly thickened. There is no aortic valvular stenosis. Trace aortic regurgitation. Mitral Valve There is systolic anterior motion (JOANN) of the mitral valve, but with no evidence of septal contact. The mitral valve is normal in structure. No evidence of mitral valve stenosis. Mild mitral regurgitation. Tricuspid Valve Tricuspid valve is grossly normal in structure and function. Trace tricuspid regurgitation. There is insufficient TR jet to estimate RVSP. Pulmonic Valve The pulmonary valve is normal in structure. Trace pulmonic regurgitation. Great Vessels The aortic root is normal in size. IVC is normal in size and collapses >50% with inspiration. Pericardium There is no pericardial effusion. Other Information Study Quality: Fair Conclusion History of HCM. Normal biventricular systolic function. No evidence of LVOT obstruction at rest or with Valsalva, i.e. LVOT gradient < 20 mmHg. Mild MR. In the setting of mavacamten administration, normal LV systolic function, and absence of LVOT gradient, down titration of mavacamten from 5 mg to 2.5 mg once daily is suggested. Electronically signed by : Shelly Dempsey MD 01/01/2025 13:40:32
== END 2024-12-27 23:59 | disposition home or self-care (01) ==
LOC: RT 10:39
PROVIDERS: PCP Internal Medicine; Visit Provider Internal Medicine
DX: I34.0 Nonrheumatic mitral (valve) insufficiency (principal); C95.90 Leukemia, unspecified not having achieved remission; I10 Essential (primary) hypertension; E78.5 Hyperlipidemia, unspecified; Z86.79 Personal history of other diseases of the circulatory system
CPT/HCPCS: 93306

== ENCOUNTER 2025-02-20 07:36 | Outpatient (CLI) | payer MEDICARE, SELFPAY ==
--- OUTSIDE RECORDS SUMMARY | 2025-01-13 09:45 | XMS_ITS | Encounter Summary ---
Author Organization [facility] Address [address] [place] [address] Care Team Providers Care Substitute Teacher Name Role Phone Marcelino Cueva MD Primary Care Provider [phone] Reason for Visit * Reason Comments Medicare Wellness-subsequent Encounter Details Date Type Department Care Team (Late st Contact Info) Description 01/13/2025 9:45 AM EDT Office Visit [facility] [address] [place] [address] Marcelino Cueva MD [address] [place] [address] [place] [address] Medicare annual wellness visit, subsequent (Primary Dx); Encounter for general adult medical examination with abnormal findings; Atherosclerosis of [place] coronary artery of [place] heart without angina pectoris; Hypertrophic cardiomyopathy; History of left heart catheterization; History of echocardiogram; Type 2 diabetes mellitus with stage 3a chronic kidney disease, without long-term current use of insulin; Microalbuminuria; Primary hypertension; Mixed hyperlipidemia; Overweight (BMI 25.0-29.9); Vitamin D deficiency; Benign prostatic hyperplasia with urinary frequency; Gastroesophageal reflux disease without esophagitis; CLL (chronic lymphocytic leukemia); Panlobular emphysema; Ex-cigarette smoker; Screening for thyroid disorder Social History Tobacco Use Types Packs/Day Years Used Date Smoking Tobacco: Former Cigarettes 1 50 1 959 - 2009 Smokeless Tobacco: Never Alcohol Use Standard Drinks/Week Comments No 0 (1 standard drink = 0.6 oz pur e alcohol) AUDIT-C Answer Date Recorded Q1: How often do you have a drink containing alcohol? Never 12/31/2021 Q2: How many drinks containi ng alcohol do you have on a typical day when you are drinking? Patient does not drink Q3: How often do you have si x or more drinks on one occasion? Never 12/31/2021 PHQ-2 Answer Date Recorded Retired PHQ-9: Brief Depression Severity Measure Score 0 01/26/2023 PHQ-2 Answer Date Recorded Patient Health Questionnaire-2 Score 0 01/13/2025 Sex and Gender Information Value Date Recorded Sex Assigned at Male 01/12/2025 10:11 AM EDT Legal Sex Male 1:44 PM EDT Gender Identity Not on file Sexual Orientation Not on file documented as of this encounter Last Filed Vital Signs Vital Sign Reading Time Taken Comments Blood Pressure 120/78 01/13/2025 9:30 AM EDT Pulse 67 01/13/2025 9:30 AM EDT Temperature 36.8 C (98.2 F) 01/13/2025 9:30 AM EDT Respiratory Rate 18 01/13/2025 9:30 AM EDT Oxygen Saturation 97% 01/13/2025 9:30 AM EDT Inhaled Oxygen Concentration - - Weight 84.4 kg (186 lb) 01/13/2025 9:30 AM EDT Height 177.8 cm (5' 10 ) 01/13/2025 9:30 AM EDT Body Mass Index 26.69 01/13/2025 9:30 AM EDT documented in this encounter Functional Status documented as of this encounter Progress Notes * Marcelino Cueva MD - 01/13/2025 9:45 AM EDTAssociated Problem(s): Medicare annual wellness visit, subsequent * Marcelino Cueva MD - 01/13/2025 9:45 AM EDTAssociated Problem(s): Encounter for general adult medical examination with abnormal findings 84-year-old male presenting for his Medicare wellness visit and complete physical, specific health issues to be addressed as detailed below, health maintenance includes patient having declining follow-up colonoscopy with last in 2017 with history of colon polyp and family history of colon cancer, EKG today deferred as recently performed by life care planner, copy pending, declines Tdap given lack of Medicare coverage at this time, defers COVID until the winter season, obtaining screening labs. Orders: TSH Rfx On Abnormal To Free T4; Future CBC & Differential; Future Comprehensive Metabolic Panel; Future Lipid Panel; Future Vitamin D,25-Hydroxy; Future Urinalysis With Culture If Indicated -; Future POC Albumin/Creatinine Ratio Urine POC Glucose, Blood POC Glycosylated Hemoglobin (Hb A1C) * Marcelino Cueva MD - 01/13/2025 9:45 AM EDTAssociated Problem(s): Atherosclerosis of [place] coronary artery of [place] heart without angina pect kat Multivessel disease with prior stent placement in the LAD, most recent C in 12/2021 revealing noncritical multivessel disease, most recent echocardiogram by new life care planner, Dr. Chinyere Cowan and revealed hypertrophic cardiomyopathy, with improvement of his LVOT obstruction with Camzyos currentlyreduced from 5 mg to 2.5 mg daily, continue risk factor modification including aspirin, metoprolol,rosuvastatin and Imdur. No current chest pain, mild to moderate dyspnea on exertion improved, likely multifactorial including his hypertrophic cardiomyopathy which is improving, and his COPD. We are attempting to obtain his most recent cardiac workup including stress test, EKG, consultation note, noting I do have a copy of his most recent echocardiogram. Keep cardiology follow-up. * Marcelino Cueva MD - 01/13/2025 9:45 AM EDTAssociated Problem(s): History of left heart catheterization Most recent LHC in 12/2021 revealing EF 61 to 65%, VIOLETTA to the LAD stable, and noncritical multivessel disease. * Marcelino Cueva MD - 01/13/2025 9:45 AM EDTAssociated Problem(s): History of echocardiogram Echocardiogram from approximately 1.5 months ago revealing LVOT gradient of 65, most recent echocardiogram 12/27/2024 revealing gradient less than 20 status post treatment with CAM Cialis 5 mg daily now reduced to 2.5 mg daily with planned echocardiogram follow-up within the next month. * Marcelino Cueva MD - 01/13/2025 9:45 AM EDTAssociated Problem(s): Type 2 diabetes mellitus, without long-term current use of insulin Hemoglobin A1c today 5.9% versus 5.8% 6 months prior taking metformin 500 mg at 2 tablets twice daily monotherapy. Most recent available 1.59 with GFR 43, plan to update testing. Continue healthy lifestyle efforts. Patient has declined use of GALLO inhibitors or ARB given he has vague subjective sideeffects though not a true allergy. Orders: POC Albumin/Creatinine Ratio Urine POC Glucose, Blood POC Glycosylated Hemoglobin (Hb A1C) * Marcelino Cueva MD - 01/13/2025 9:45 AM EDTAssociated Problem(s): HTN (hypertension) Very satisfactory blood pressure control acutely as well as by history chronically taking nifedipine XL 60 mg daily, metoprolol XL 100 mg daily, and Imdur 60 mg daily, noting patient has declined further prescriptions of GALLO inhibitors or ARB's given subjective side effects prompting him to discontinue. Orders: Comprehensive Metabolic Panel; Future Urinalysis With Culture If Indicated -; Future * Marcelino Cueva MD - 01/13/2025 9:45 AM EDTAssociated Problem(s): HLD (hyperlipidemia) Currently taking ezetimibe 10 mg daily and Crestor 5 mg daily. Update lipid profile Orders: Lipid Panel; Future * Marcelino Cueva MD - 01/13/2025 9:45 AM EDTAssociated Problem(s): Overweight (BMI 25.0-29.9) 2 pound weight loss over the last 6 months. Continue healthy lifestyle efforts with diet and exercise as able * Marcelino Cueva MD - 01/13/2025 9:45 AM EDTAssociated Problem(s): Vitamin D deficiency Update level, not currently taking supplement. Orders: Vitamin D,25-Hydroxy; Future * Marcelino Cueva MD - 01/13/2025 9:45 AM EDTAssociated Problem(s): Screening for thyroid disorder Orders: TSH Rfx On Abnormal To Free T4; Future * Marcelino Cueva MD - 01/13/2025 9:45 AM EDTAssociated Problem(s): Benign prostatic hyperplasia Minimal symptoms taken Flomax 0.4 mg daily. * Marcelino Cueva MD - 01/13/2025 9:45 AM EDTAssociated Problem(s): Gastroesophageal reflux disease Relates good control of symptoms taking Pepcid 20 mg twice daily as needed. Contraindicated to use PPI with Calquence therapy. * Marcelino Cueva MD - 01/13/2025 9:45 AM EDTAssociated Problem(s): CLL (chronic lymphocytic leukemia) Regular follow-up with his oncologist Dr. Estrada, on Calquence, reports recent CT of the chest abdomen pelvis being stable, attempting to obtain formal reports. Orders: CBC & Differential; Future * Marcelino Cueva MD - 01/13/2025 9:45 AM EDTAssociated Problem(s): Pulmonary emphysema Stable symptoms with mild to moderate exertional dyspnea, this being compounded by his recent diagnosis of hypertrophic cardiomyopathy, having improved with related treatment, currently on Anoro Ellipta using oxygen nightly and as needed, followed by Dr. Roque Villa pulmonary medicine in [place]. * Marcelino Cueva MD - 01/13/2025 9:45 AM EDTAssociated Problem(s): Ex- cigarette smoker [id number] history of cigarette smoking abstaining since 2006. * Marcelino Cueva MD - 01/13/2025 9:45 AM EDTAssociated Problem(s): Hypertrophic cardiomyopathy Reports recent diagnosis of hypertrophic cardiomyopathy, with echocardiogram summary from approximately 1.5 months ago revealing LVOT obstruction of 65, with most recent echocardiogram on 12/27/2024 revealing LVOT gradient less than 20 improved on Camzyos, subsequent reduction from 5 mg down to 2.5 mg daily with monthly cardiology follow-up. Attempting to obtain formal consultation notes and echocardiogram report. * Marcelino Cueva MD - 01/13/2025 9:45 AM EDTAssociated Problem(s): Microalbuminuria UACR today positive for microalbuminuria. Known chronic kidney disease stage IIIa with underlying diabetes. Intolerant of GALLO inhibitor/ARB. Plan retest at follow-up visit in 6 months, and if still abnormal we will then discuss initiation of Jardiance * Marcelino Cueva MD - 01/13/2025 9:45 AM EDT Images from the original note were not included. Subjective The ABCs of the Annual Wellness Visit Medicare Wellness Visit Yogesh Matson is a 84 y.o. patient who presents for a Medicare Wellness Visit. The following portions of the patient's history were reviewed and updated as appropriate: allergies, current medications, past family history, past medical history, past social history, past surgical history, and problem list. Compared to one year ago, the patient's physical health is better. Compared to one year ago, the patient's mental health is the same. Recent Hospitalizations: He was not admitted to the hospital during the last year. Current Medical Providers: Patient Care Team: Marcelino Cueva MD as PCP - General (Internal Medicine) Galindo Cueva MD as Referring Physician (Family Medicine) Outpatient Medications Prior to Visit Medication Sig Dispense Refill Accu-Chek Softclix Lancets lancets Use as instructed 100 each 0 albuterol sulfate HFA 108 (90 Base) MCG/ACT inhaler INHALE 2 PUFFS BY MOUTH EVERY 4 HOURS NEEDEDFOR WHEEZING OR SHORTNESS OF BREATH 18 g 3 ASPIRIN 81 PO Take 1 tablet by mouth. Taking 1/2 Calquence 100 MG tablet Take 1 tablet by mouth 2 (Two) Times a Day. Camzyos 2.5 MG capsule Take 1 capsule by mouth Daily. ezetimibe (ZETIA) 10 MG tablet famotidine (PEPCID) 20 MG tablet Take 1 tablet by mouth twice daily 180 tablet 1 glucose blood test strip 1 each by Other route Daily. Use to check blood sugar levels once daily. E11.22 90 each 3 isosorbide mononitrate (IMDUR) 60 MG 24 hr tablet TAKE ONE TABLET BY MOUTH EVERY DAY (STOP THE 120 MG) 90 tablet 3 metFORMIN (GLUCOPHAGE) 500 MG tablet Take 1 tablet by mouth 2 (Two) Times a Day With Meals. 180 tablet 2 metoprolol tartrate (LOPRESSOR) 100 MG tablet Take 1 tablet by mouth 2 (Two) Times a Day. 180 tablet 2 NIFEdipine XL (PROCARDIA XL) 60 MG 24 hr tablet Take 1 tablet by mouth Daily. nitroglycerin (NITROSTAT) 0.[address] 1 tablet under the tongue Every 5 (Five) Minutes As Needed. do not exceed a total of 3 doses in 15 minutes rosuvastatin (CRESTOR) 5 MG tablet TAKE ONE TABLET BY MOUTH EVERY DAY 90 tablet 2 tamsulosin (FLOMAX) 0.4 MG capsule 24 hr capsule TAKE ONE CAPSULE BY MOUTH EVERY NIGHT FOR [id number] capsule 2 Umeclidinium-Vilanterol (Anoro Ellipta) 62.5-25 MCG/ACT aerosol powder inhaler Inhale 1 puff by mouth once daily 60 each 2 Mewdmekvixx-Aihpaaect-Hvkpzv (Trelegy Ellipta) 100-62.5-25 MCG/ACT inhaler Inhale 1 puff Daily. 2 each 0 Yvitbybejhe-Yhopusdom-Qpyand (Trelegy Ellipta) 100-62.5-25 MCG/ACT inhaler Inhale 1 puff Daily. No facility-administered medications prior to visit. No opioid medication identified on active medication list. I have reviewed chart for other potential high risk medication/s and harmful drug interactions in the elderly. Aspirin is on active medication list. Aspirin use is indicated based on review of current medical condition/s. Pros and cons of this therapy have been discussed today. Benefits of this medication outweigh potential harm. Patient has been encouraged to continue taking this medication. . Patient Active Problem List Diagnosis HTN (hypertension) Type 2 diabetes mellitus, without long-term current use of insulin HLD (hyperlipidemia) Hiatal hernia Chest pain Abnormal stress test Unstable angina pectoris CLL (chronic lymphocytic leukemia) Solitary pulmonary nodule Abnormal computed tomography scan Benign prostatic hyperplasia Pulmonary emphysema Atherosclerosis of [place] coronary artery of [place] heart without angina pectoris Peripheral vascular disease of lower extremity Overweight (BMI 25.0-29.9) History of left heart catheterization History of echocardiogram Gastroesophageal reflux disease Dyspnea Ex-cigarette smoker Encounter for general adult medical examination with abnormal findings Vitamin D deficiency History of colon polyps Screening for thyroid disorder Basal cell carcinoma (BCC) of face Medicare annual wellness visit, subsequent Hypertrophic cardiomyopathy Microalbuminuria Advance Care Planning Advance Directive is not on file. ACP discussion was held with the patient during this visit. Patient has an advance directive (not in EMR), copy requested. Objective Vitals: 01/13/25 0930 BP: 120/78 BP Location: Left arm Patient Position: Sitting Cuff Size: Adult Pulse: 67 Resp: 18 Temp: 98.2 ??F (36.8 ??C) TempSrc: Temporal SpO2: 97% Weight: 84.4 kg (186 lb) Height: 177.8 cm (70 ) Estimated body mass index is 26.69 kg/m?? as calculated from the following: Height as of this encounter: 177.8 cm (70 ). Weight as of this encounter: 84.4 kg (186 lb). BMI is >= 25 and <30. (Overweight) The following options were offered after discussion;: exercise counseling/recommendations and nutrition counseling/recommendations Does the patient have evidence of cognitive impairment? No Lab Results Component Value Date HGBA1C 5.9 (A) 01/13/2025 Health Risk Assessment Smoking Status: Social History Tobacco Use Smoking Status Former Current packs/day: 0.00 Average packs/day: 1 pack/day for 50.0 years (50.0 ttl pk-yrs) Types: Cigarettes Start date: 1958 Quit date: 2009 Years since quittin.4 Smokeless Tobacco Never Alcohol Consumption: Social History Substance and Sexual Activity Alcohol Use No Fall Risk Screen STEADI Fall Risk Assessment was completed, and patient is at LOW risk for falls.Assessment completed on:01/13/2025 Depression Screening Little interest or pleasure in doing things? Not at all Feeling down, depressed, or hopeless? Not at all PHQ-2 Total Score 0 Health Habits and Functional and Cognitive Screenin01/12/2025 10:16 AM Functional & Cognitive Status Do you have difficulty preparing food and eating? No Do you have difficulty bathing yourself, getting dressed or grooming yourself? No Do you have difficulty using the toilet? No Do you have difficulty moving around from place to place? Yes Do you have trouble with steps or getting out of a bed or a chair? Yes Current Diet Well Balanced Diet Dental Exam Up to date Eye Exam Up to date Exercise (times per week) 0 times per week Current Exercises Include No Regular Exercise;Yard Work Do you need help using the phone? No Are you deaf or do you have serious difficulty hearing? No Do you need help to go to places out of walking distance? Yes Do you need help shopping? No Do you need help preparing meals? No Do you need help with housework? No Do you need help with laundry? No Do you need help taking your medications? No Do you need help managing money? No Do you ever drive or ride in a car without wearing a seat belt? No Have you felt unusual stress, anger or loneliness in the last month? No Who do you live with? Alone If you need help, do you have trouble finding someone available to you? No Have you been bothered in the last four weeks by sexual problems? No Do you have difficulty concentrating, remembering or making decisions? No Age-appropriate Screening Schedule: Refer to the list below for future screening recommendations based on patient's age, sex and/or medical conditions. Orders for these recommended tests are listed in the plan section. The patient has been provided with a written plan. Health Maintenance List Health Maintenance Topic Date Due COLORECTAL CANCER SCREENING 02/06/2022 DIABETIC FOOT EXAM 10/08/2023 DIABETIC EYE EXAM 10/22/2023 TDAP/TD VACCINES (2 - Td or Tdap) 07/07/2024 COVID-19 Vaccine (8 - Pfizer risk 2023- season) 2024 LIPID PANEL 01/11/2025 INFLUENZA VACCINE 01/28/2025 HEMOGLOBIN A1C 07/15/2025 ANNUAL WELLNESS VISIT 01/13/2026 URINE MICROALBUMIN-CREATININE RATIO (uACR) 01/13/2026 RSV Vaccine - Adults Completed Pneumococcal Vaccine 50+ Completed ZOSTER VACCINE Completed LUNG CANCER SCREENING Discontinued [facility] Preventative Services Quick Reference2 Risk Factors Identified During Encounter Immunizations Discussed/Encouraged: Tdap and COVID19 Polypharmacy: Medication List reviewed The above risks/problems have been discussed with the patient. Pertinent information has been shared with the patient in the After Visit Summary. An After Visit Summary and PPPS were made available to the patient. Follow Up: Next Medicare Wellness visit to be scheduled in 1 year. Additional E&M Note during same encounter follows: Patient has additional, significant, and separately identifiable condition(s)/problem(s) that require work above and beyond the Medicare Wellness Visit Chief Complaint Medicare Wellness-subsequent Subjective HPI yogesh is also being seen today for an annual adult preventative physical exam. Patient has multiple health issues including coronary artery disease, [facility] with prior VIOLETTA to the LAD, noncriticalmultivessel disease, recently having been diagnosed with hypertrophic cardiomyopathy, having abnormal LVOT initially of 65, having been started on mavacamten 5 mg, having significant improvement in LV OT to less than 20 per most recent echocardiogram on 12/27/2024 with subsequent reduction in the mavacamten to 2.5 mg daily having a notable improvement in his dyspnea on exertion. No chest pains currently, improved with the mavacamten. Followed by Dr. Trenton Dempsey of cardiology in [place], does have known COPD for which he is prescribed Anoro, no real cough or wheeze, does use oxygen at night,and as needed during the daytime, typically oxygenating at rest in the upper 90s while awake, does have mild to moderate dyspnea on exertion which is improved status post treatment of his hypertrophic cardiomyopathy, ex-cigarette smoker times approximately 45 years at 1 pack/day having quit 18 years ago. Followed by Dr. Roque Villa pulmonary medicine in [place], also has CLL regularly followed by Dr. Henley of oncology, taking Calquence, most recent CT of the chest abdomen pelvis reportedly normal within the last couple months, data deficient, also type II diabetic with chronic kidney disease stage IIIa, most recent creatinine 1.59 and GFR 43, on metformin, blood sugars averaging approx imately 110 with hemoglobin A1c today 5.9% versus 5.8% 6 months prior. Has hypertension taking nifedipine metoprolol and Imdur, blood pressures averaging 120-130 over 70s to low 80s. Hyperlipidemia on Zetia and Crestor, BPH on Flomax with nocturia x 0-1, GERD compensated on Pepcid. Review of systems as above, occasional positional lightheadedness, otherwise unremarkable. Health maintenance include most recent colonoscopy from 2017 having history of polyp with family history, patient declining follow-up colonoscopy, current with diabetic eye evaluation and foot exam, immunizations declining Tdap at this time given lack of Medicare coverage, due for COVID-19 which she defers until the winter. EKG not performed today given recently performed by cardiology Objective Vital Signs: BP 120/78 (BP Location: Left arm, Patient Position: Sitting, Cuff Size: Adult) Pulse 67 Temp 98.2 ??F (36.8 ??C) (Temporal) Resp 18 Ht 177.8 cm (70 ) Wt 84.4 kg (186 lb) SpO2 97% BMI 26.69 kg/m?? Physical Exam Vitals and nursing note reviewed. Constitutional: General: He is not in acute distress. Appearance: Normal appearance. He is not ill-appearing, toxic-appearing or diaphoretic. Comments: Healthy, NAD, alert and oriented, BMI 26.6 representing a 2 pound weight loss in the last6 months HENT: Head: Normocephalic and atraumatic. Right Ear: Tympanic membrane, ear canal and external ear normal. Left Ear: Tympanic membrane, ear canal and external ear normal. Nose: Nose normal. No congestion or rhinorrhea. Mouth/Throat: Mouth: Mucous membranes are moist. Pharynx: Oropharynx is clear. Comments: Partial upper and lower dental plates, residual dentition superficially with no overt decay Eyes: Extraocular Movements: Extraocular movements intact. Conjunctiva/sclera: Conjunctivae normal. Pupils: Pupils are equal, round, and reactive to light. Neck: Comments: Mild to moderate decreased range of motion of his neck, no periclavicular or axillary or inguinal adenopathy Cardiovascular: Rate and Rhythm: Normal rate and regular rhythm. Pulses: Normal pulses. Heart sounds: Murmur heard. No friction rub. No gallop. Comments: 2/6 systolic murmur heard throughout his precordium, more prominent in the right upper sternal border, 2+ carotids without bruits, 2+ radial pulses, 2+ femoral pulses without bruits, 1+ bipedal pulses with good perfusion, trace dependent edema Pulmonary: Effort: Pulmonary effort is normal. No respiratory distress. Breath sounds: Normal breath sounds. No stridor. No wheezing, rhonchi or rales. Chest: Chest wall: No tenderness. Abdominal: General: Bowel sounds are normal. There is no distension. Palpations: Abdomen is soft. There is no mass. Tenderness: There is no abdominal tenderness. There is no guarding or rebound. Hernia: No hernia is present. Genitourinary: Comments: rectal exams both deferred given age and lack of acute concern Musculoskeletal: General: No swelling, tenderness, deformity or signs of injury. Normal range of motion. Cervical back: No tenderness. Right lower leg: Edema present. Left lower leg: Edema present. Comments: Mild to moderate decreased range of motion of his neck, minimal degenerative changes asymptomatic in his extremities, trace lower extremity edema at the ankles Lymphadenopathy: Cervical: No cervical adenopathy. Skin: General: Skin is warm and dry. Capillary Refill: Capillary refill takes less than 2 seconds. Findings: No lesion or rash. Neurological: General: No focal deficit present. Mental Status: He is alert and oriented to person, place, and time. Mental status is at baseline. Cranial Nerves: No cranial nerve deficit. Sensory: No sensory deficit. Motor: No weakness. Coordination: Coordination normal. Gait: Gait normal. Comments: Normal sensation in both feet fine touch vibration and pinprick with motor exam normal Psychiatric: Mood and Affect: Mood normal. Behavior: Behavior normal. Thought Content: Thought content normal. Judgment: Judgment normal. Assessment and Plan Medicare annual wellness visit, subsequent Encounter for general adult medical examination with abnormal findings 84-year-old male presenting for his Medicare wellness visit and complete physical, specific health issues to be addressed as detailed below, health maintenance includes patient having declining follow-up colonoscopy with last in 2017 with history of colon polyp and family history of colon cancer, EKG today deferred as recently performed by life care planner, copy pending, declines Tdap given lack of Medicare coverage at this time, defers COVID until the winter season, obtaining screening labs. Orders: TSH Rfx On Abnormal To Free T4; Future CBC & Differential; Future Comprehensive Metabolic Panel; Future Lipid Panel; Future Vitamin D,25-Hydroxy; Future Urinalysis With Culture If Indicated -; Future POC Albumin/Creatinine Ratio Urine POC Glucose, Blood POC Glycosylated Hemoglobin (Hb A1C) Atherosclerosis of [place] coronary artery of [place] heart without angina pectoris Multivessel disease with prior stent placement in the LAD, most recent LHC in 12/2021 revealing noncritical multivessel disease, most recent echocardiogram by new life care planner, Dr. Yazam Diaboul and revealed hypertrophic cardiomyopathy, with improvement of his LVOT obstruction with Camzyos currentlyreduced from 5 mg to 2.5 mg daily, continue risk factor modification including aspirin, metoprolol,rosuvastatin and Imdur. No current chest pain, mild to moderate dyspnea on exertion improved, likely multifactorial including his hypertrophic cardiomyopathy which is improving, and his COPD. We are attempting to obtain his most recent cardiac workup including stress test, EKG, consultation note, noting I do have a copy of his most recent echocardiogram. Keep cardiology follow-up. Hypertrophic cardiomyopathy Reports recent diagnosis of hypertrophic cardiomyopathy, with echocardiogram summary from approximately 1.5 months ago revealing LVOT obstruction of 65, with most recent echocardiogram on 12/27/2024 revealing LVOT gradient less than 20 improved on Camzyos, subsequent reduction from 5 mg down to 2.5 mg daily with monthly cardiology follow-up. Attempting to obtain formal consultation notes and echocardiogram report. History of left heart catheterization Most recent LHC in 12/2021 revealing EF 61 to 65%, VIOLETTA to the LAD stable, and noncritical multivessel disease. History of echocardiogram Echocardiogram from approximately 1.5 months ago revealing LVOT gradient of 65, most recent echocardiogram 12/27/2024 revealing gradient less than 20 status post treatment with CAM Cialis 5 mg daily now reduced to 2.5 mg daily with planned echocardiogram follow-up within the next month. Type 2 diabetes mellitus with stage 3a chronic kidney disease, without long-term current use of insulin Hemoglobin A1c today 5.9% versus 5.8% 6 months prior taking metformin 500 mg at 2 tablets twice daily monotherapy. Most recent available 1.59 with GFR 43, plan to update testing. Continue healthy lifestyle efforts. Patient has declined use of GALLO inhibitors or ARB given he has vague subjective sideeffects though not a true allergy. Orders: POC Albumin/Creatinine Ratio Urine POC Glucose, Blood POC Glycosylated Hemoglobin (Hb A1C) Microalbuminuria UACR today positive for microalbuminuria. Known chronic kidney disease stage IIIa with underlying diabetes. Intolerant of GALLO inhibitor/ARB. Plan retest at follow-up visit in 6 months, and if still abnormal we will then discuss initiation of Jardiance Primary hypertension Very satisfactory blood pressure control acutely as well as by history chronically taking nifedipine XL 60 mg daily, metoprolol XL 100 mg daily, and Imdur 60 mg daily, noting patient has declined further prescriptions of GALLO inhibitors or ARB's given subjective side effects prompting him to discontinue. Orders: Comprehensive Metabolic Panel; Future Urinalysis With Culture If Indicated -; Future Mixed hyperlipidemia Currently taking ezetimibe 10 mg daily and Crestor 5 mg daily. Update lipid profile Orders: Lipid Panel; Future Overweight (BMI 25.0-29.9) 2 pound weight loss over the last 6 months. Continue healthy lifestyle efforts with diet and exercise as able Vitamin D deficiency Update level, not currently taking supplement. Orders: Vitamin D,25-Hydroxy; Future Benign prostatic hyperplasia with urinary frequency Minimal symptoms taken Flomax 0.4 mg daily. Gastroesophageal reflux disease without esophagitis Relates good control of symptoms taking Pepcid 20 mg twice daily as needed. Contraindicated to use PPI with Calquence therapy. CLL (chronic lymphocytic leukemia) Regular follow-up with his oncologist Dr. Estrada, on Calquence, reports recent CT of the chest abdomen pelvis being stable, attempting to obtain formal reports. Orders: CBC & Differential; Future Panlobular emphysema Stable symptoms with mild to moderate exertional dyspnea, this being compounded by his recent diagnosis of hypertrophic cardiomyopathy, having improved with related treatment, currently on Anoro Ellipta using oxygen nightly and as needed, followed by Dr. Roque Villa pulmonary medicine in [place]. Ex-cigarette smoker [id number] history of cigarette smoking abstaining since 2006. Screening for thyroid disorder Orders: TSH Rfx On Abnormal To Free T4; Future Follow Up Return in about 6 months (around 07/15/2025) for Recheck. Patient was given instructions and counseling regarding his condition or for health maintenance advice. Please see specific information pulled into the AVS if appropriate. * Vaishali Rios MA - 01/13/2025 9:45 AM EDT Venipuncture Blood Specimen Collection Venipuncture performed in right arm by Vaishali Rios MA with good hemostasis. Patient tolerated the procedure well without complications. 01/13/25 Vaishali Rios MA documented in this encounter Plan of Treatment Upcoming Encounters Date Type Department Care Team (Late st Contact Info) Description 07/15/2025 10:00 AM EST Office Visit [facility] [address] [place] [address] Marcelino Cueva MD [address] [place] [address] Scheduled Orders Name Type Priority Associated Diagnoses Orde r Schedule Urinalysis With Culture If Indicated - Lab Routine Encounter for general adult medical examination with abnormal findings Primary hypertension Expected: 01/13/2025 (Approximate), Expires: 04/15/2026 documented as of this encounter Procedures Procedure Name Priority Date/Time Associated Diagnosis Comments POC ALBUMIN/CREATININE RATIO Routine 01/13/2025 10:49 AM EDT Encounter for general adult medical examination with abnormal findings Type 2 diabetes mellitus with stage 3a chronic kidney disease, without long-term current use of insulin CONV AMBIGUOUS TEST ORDER Routine 01/13/2025 10:27 AM EDT CONV WRITTEN AUTHORIZATION Routine 01/13/2025 10:27 AM EDT TSH RFX ON ABNORMAL TO FREE T4 Routine 01/13/2025 10:27 AM EDT Encounter for general adult medical examination with abnormal findings Screening for thyroid disorder UA/M W/RFLX CULTURE ([facility] ONLY) Routine 01/13/2025 10:27 AM EDT ~MICROSCOPIC EXAMINATION Routine 01/13/2025 10:27 AM EDT VITAMIN D,25-HYDROXY Routine 01/13/2025 10:27 AM EDT Encounter for general adult medical examination with abnormal findings Vitamin D deficiency CBC AND DIFFERENTIAL Routine 01/13/2025 10:27 AM EDT Encounter for general adult medical examination with abnormal findings CLL (chronic lymphocytic leukemia) LIPID PANEL Routine 01/13/2025 10:27 AM EDT Encounter for general adult medical examination with abnormal findings Mixed hyperlipidemia COMPREHENSIVE METABOLIC PANEL Routine 01/13/2025 10:27 AM EDT Encounter for general adult medical examination with abnormal findings Primary hypertension POCT GLUCOSE, BLD (NON STRIP) Routine 01/13/2025 10:21 AM EDT Encounter for general adult medical examination with abnormal findings Type 2 diabetes mellitus with stage 3a chronic kidney disease, without long-term current use of insulin POCT GLYCOSYLATED HEMOGLOBIN (HGB A1C) Routine 01/13/2025 10:21 AM EDT Encounter for general adult medical examination with abnormal findings Type 2 diabetes mellitus with stage 3a chronic kidney disease, without long-term current use of insulin documented in this encounter Results * (ABNORMAL) POC Albumin/Creatinine Ratio Urine (01/13/2025 10:49 AM EDT) POC ALBUMIN, URINE 80 mg/L POC CREATININE, URINE 300 mg/dL POC Urine Albumin Creatinine Ratio 30-300 <30 Lot Number [id number] Expiration Date 03/08/2026 Urine 01/13/2025 10:4 9 AM EDT us Marcelino Cueva MD POINT OF CARE TEST ORDERABLES Final Result * Written Authorization (01/13/2025 10:27 AM EDT) Written Authorization Comment [facility] Comment: Written Authorization Received. Authorization received from PER ORIGINAL ORDER 01-14-2025 Logged by Tiana Chavez 01/13/2025 10:2 7 AM EDT 01/13/2025 Comment:Urine Release to pat i Narrative [facility] [place] ([facility]ATORY) - 01/15/2025 6:06 AM EDT Performed at: 01 - [facility] [id number] Shift Foreman: Zeeshan Gentile PhD, Phone: [phone] us Marcelino Cueva MD LAB BLOOD ORDERABLES Final Res ult [facility] [place] (AMBULATORY) [address] [place] [address], [facility] [address] [place] [address], * Microscopic Examination - (01/13/2025 10:27 AM EDT) Pathologist [facility] WBC, UA 0-5 0 - 5 /hpf [facility] RBC, UA 0-2 0 - 2 /hpf [facility] Epithelial Cells (non renal) 0-10 0 - 10 /hpf [facility] Casts None seen None seen /lpf [facility] Bacteria, UA None seen None seen/Few [facility] 01/13/2025 10:2 7 AM EDT 01/13/2025 Comment:Urine Release to [facility] (AMBULATORY) - 01/15/2025 6:06 AM EDT Performed at: 01 - [facility] [id number] Shift Foreman: Zeeshan Gentile PhD, Phone: [phone] Marcelino Cueva MD URINE ORDERABLES Final Result [facility] [place] (AMBULATORY) [address] [place] [address], [facility] [address] [place] [address], * (ABNORMAL) UA / M With / Rflx Culture([facility] ONLY) - (01/13/2025 10:27 AM EDT) Specific [place], UA >=1.030(A) 1.005 - 1.030 [facility] pH, UA 5.0 5.0 - 7.5 [facility] Color, UA Yellow Yellow [facility] Appearance, UA Clear Clear [facility] Leukocytes, UA Negative Negative [facility] Protein Trace Negative/Tra ce [facility] Glucose, UA Negative Negative [facility] Ketones Negative Negative [facility] Blood, UA Negative Negative [facility] Bilirubin, UA Negative Negative [facility] Urobilinogen, UA 0.2 0.2 - 1.0 mg/dL [facility] Nitrite, UA Negative Negative [facility] Microscopic Examination Comment [facility] Comment:Microscopic follows if indicated. Microscopic Examination See below: [facility] Comment:Microscopic was rosalia cated and was performed. Urinalysis Reflex Comment [facility] Comment:This specimen will n ot reflex to a Urine Culture. 01/13/2025 10:2 7 AM EDT 01/13/2025 Comment:Urine Release to pat i Narrative [facility] (AMBULATORY) - 01/15/2025 6:06 AM EDT Performed at: [address] [place] [id number] Shift Foreman: Zeeshan Gentile PhD, Phone: [phone] us Marcelino Cueva MD URINE ORDERABLES Final Result Performing Organization Address [facility] Co de Phone Number [facility] (AMBULATORY) [address] [place] [address], [place] [phone] [facility] [address] [place] [address], [place] [phone] * Ambiguous Test Order (01/13/2025 10:27 AM EDT) Ambiguous Test Order Comment [facility] Comment: Report delayed in order to contact you to clarify requested test(s). TEST [id number] UA WITH REFLEX TO UR CX, COMPREHENSIVE IS NO LONGER ORDERABLE TEST [id number] UA WITH REFLEX TO UR CX, ROUTINE HAS BEEN ORDERED. 01/13/2025 10:2 7 AM EDT 01/13/2025 Comment:Urine Release to pat i Narrative [facility] (AMBULATORY) - 01/14/2025 7:07 PM EDT Performed at: [address] [place] [id number] Shift Foreman: Zeeshan Gentile PhD, Phone: [phone] us Marcelino Cueva MD LAB BLOOD ORDERABLES Final Res ult Performing Organization Address [facility] Co de Phone Number [facility] (AMBULATORY) [address] [place] [address], [facility] [address] [place] [address], * (ABNORMAL) Vitamin D,25-Hydroxy (01/13/2025 10:27 AM EDT) 25 Hydroxy, Vitamin D 23.2(L) 30.0 - 100.0 ng/mL [facility] Comment: Vitamin D deficiency has been defined by the [place] of [employer] and an Endocrine Society practice guideline as a level of serum 25-OH vitamin D less than 20 ng/mL (1,2). The Endocrine Society went on to further define vitamin D insufficiency as a level between 21 and 29 ng/mL (2). 1. IOM ([place] of [employer]). 2010. Dietary reference intakes for calcium and D. [place]: The National Academies Press. 2. Julio MF, Cecilia NC, Marianela KAISER, et al. Evaluation, treatment, and prevention of vitamin D deficiency: an Endocrine Society clinical practice guideline. JCEM. 2010; 96(7):1911-30. Blood Structure of right upper limb / Unknown 01/13/2025 10:27 AM EDT 01/13/2025 Comment:Blood Release to [facility] alexia Jerome [facility] (AMBULATORY) - 01/14/2025 11:07 AM EDT Performed at: - [facility] [address] [place] [id number] Shift Foreman: Zeeshan Gentile PhD, Phone: [phone] Marcelino Cueva MD LAB BLOOD ORDERABLES Final Res ult [facility] (AMBULATORY) [address] [place] [address], [facility] [address] [place] [address], * (ABNORMAL) Lipid Panel (01/13/2025 10:27 AM EDT) Total Cholesterol 114 100 - 199 mg/dL [facility] Triglycerides 153(H) 0 - 149 mg/dL [facility] HDL Cholesterol 34(L) >39 mg/dL [facility] VLDL Cholesterol Jose Manuel 26 5 - 40 mg/dL [facility] LDL Chol Calc (NIH) 54 0 - 99 mg/dL [facility] Blood Structure of right upper limb / Unknown 01/13/2025 10:27 AM EDT 01/13/2025 Comment:Blood Release to lilian Jerome [facility] (AMBULATORY) - 01/14/2025 11:07 AM EDT Performed at: 01 - [facility] [address] [place], [place] [id number] Shift Foreman: Zeeshan Gentile PhD, Phone: [phone] us Marcelino Cueva MD LAB BLOOD ORDERABLES Final Res ult [facility] (AMBULATORY) [address] [place] [address], [facility] [address] [place] [address], * (ABNORMAL) Comprehensive Metabolic Panel (01/13/2025 10:27 AM EDT) Glucose 107(H) 70 - 99 mg/dL [facility] BUN 19 8 - 27 mg/dL [facility] Creatinine 1.33(H) 0.76 - 1.27 mg/dL [facility] EGFR Result 53(L) >59 mL/min/1.7 3 [facility] BUN/Creatinine Ratio 14 10 - 24 [facility] Sodium 142 134 - 144 mmol/L [facility] Potassium 4.2 3.5 - 5.2 mmol/L [facility] Chloride 108(H) 96 - 106 mmol/L [facility] Total CO2 19(L) 20 - 29 mmol/L [facility] Calcium 8.4(L) 8.6 - 10.2 mg/dL [facility] Total Protein 6.5 6.0 - 8.5 g/dL [facility] Albumin 4.1 3.7 - 4.7 g/dL [facility] Globulin 2.4 1.5 - 4.5 g/dL [facility] Total Bilirubin 0.4 0.0 - 1.2 mg/dL [facility] Alkaline Phosphatase 69 44 - 121 IU/L [facility] AST (SGOT) 18 0 - 40 IU/L [facility] ALT (SGPT) 13 0 - 44 IU/L [facility] Blood Structure of right upper limb / Unknown 01/13/2025 10:27 AM EDT 01/13/2025 Comment:Blood Release to lilian Jerome [facility] ([facility]ORY) - 01/14/2025 11:07 AM EDT Performed at: 01 - [address] [id number] Shift Foreman: Zeeshan Gentile PhD, Phone: [phone] us Marcelino Cueva MD LAB BLOOD ORDERABLES Final Res ult [facility] [address] [place], [place] [id number], [facility] [address] [place] [address], * (ABNORMAL) CBC & Differential (01/13/2025 10:27 AM EDT) WBC 18.6(H) 3.4 - 10.8 x10E3/uL [facility] RBC 4.89 4.14 - 5.80 x10E6/uL [facility] Hemoglobin 14.2 13.0 - 17.7 g/dL [facility] Hematocrit 46.8 37.5 - 51.0 % [facility] MCV 96 79 - 97 fL [facility] MCH 29.0 26.6 - 33.0 pg [facility] MCHC 30.3(L) 31.5 - 35.7 g/dL [facility] RDW 12.6 11.6 - 15.4 % [facility] Platelets 209 150 - 450 x10E3/uL [facility] Comment:Large platelets were observed. Neutrophil Rel % 33 Not Estab. % [facility] Lymphocyte Rel % 61 Not Estab. % [facility] Comment: Smudge cells present Atypical lymphocytes. Monocyte Rel % 4 Not Estab. % [facility] Eosinophil Rel % 1 Not Estab. % [facility] Basophil Rel % 1 Not Estab. % [facility] Neutrophils Absolute 6.1 1.4 - 7.0 x10E3/uL [facility] Lymphocytes Absolute 11.4(H) 0.7 - 3.1 x10E3/uL [facility] Monocytes Absolute 0.8 0.1 - 0.9 x10E3/uL [facility] Eosinophils Absolute 0.1 0.0 - 0.4 x10E3/uL [facility] Basophils Absolute 0.1 0.0 - 0.2 x10E3/uL [facility] Immature Granulocyte Rel % 0 Not Estab. % [facility] Immature Grans Absolute 0.0 0.0 - 0.1 x10E3/uL [facility] Hematology Comments: Note: [facility] Comment:Verified by microsco pic examination. Blood Structure of right upper limb / Unknown 01/13/2025 10:27 AM EDT 01/13/2025 Comment:Blood Release to [facility] (AMBULATORY) - 01/14/2025 11:07 AM EDT Performed at: - [facility] [address] [place] [id number] Shift Foreman: Zeeshan Gentile PhD, Phone: [phone] Marcelino Cueva MD LAB BLOOD ORDERABLES Final Res ult [facility] (AMBULATORY) [address] [place] [address], [facility] [address] [place] [address], * TSH Rfx On Abnormal To Free T4 (01/13/2025 10:27 AM EDT) TSH 4.170 0.450 - 4.500 uIU/mL [facility] Blood Structure of right upper limb / Unknown 01/13/2025 10:27 AM EDT 01/13/2025 Comment:[facility] - 01/14/2025 11:07 AM EDT Performed at: 01 - [facility] [address] [facility], [place], [place] [id number] Shift Foreman: Zeeshan Gentile PhD, Phone: [phone] us Marcelino Cueva MD LAB BLOOD ORDERABLES Final Res ult [facility] (AMBULATORY) [address] [place] [address], [place] [phone] [facility] [address] [place] [address], [place] [phone] * (ABNORMAL) POC Glycosylated Hemoglobin (Hb A1C) (01/13/2025 10:21 AM EDT) Hemoglobin A1C 5.9(A) 4.5 - 5.7 % [facility] Lot Number [id number] [facility] Expiration Date 09/25/2026 [facility] Blood 01/13/2025 10:2 1 AM EDT us Marcelino Cueva MD POINT OF CARE TEST ORDERABLES Final Result [facility]
[address] [place] [address], * (ABNORMAL) POC Glucose, Blood (01/13/2025 10:21 AM EDT) Glucose 131(A) 70 - 130 mg/dL Lot Number [id number] Expiration Date 04/10/2025 Blood 01/13/2025 10:2 1 AM EDT us Marcelino Cueva MD POINT OF CARE TEST ORDERABLES Final Result documented in this encounter Visit Diagnoses Diagnosis Medicare annual wellness visit, subsequent- Primary Encounter for general adult medical examination with abnormal findings Atherosclerosis of [place] coronary artery of [place] heart without angina pectoris Hypertrophic cardiomyopathy Other primary cardiomyopathies History of left heart catheterization History of echocardiogram Type 2 diabetes mellitus with stage 3a chronic kidney disease, without long-term current use of insulin Microalbuminuria Proteinuria Primary hypertension Unspecified essential hypertension Mixed hyperlipidemia Overweight (BMI 25.0-29.9) Overweight Vitamin D deficiency Benign prostatic hyperplasia with urinary frequency Gastroesophageal reflux disease without esophagitis Esophageal reflux CLL (chronic lymphocytic leukemia) Chronic lymphoid leukemia, without mention of having achieved remission Panlobular emphysema Other emphysema Ex-cigarette smoker Personal history of tobacco use, presenting hazards to health Screening for thyroid disorder documented in this encounter Care Teams Substitute Teacher Relationship Specialty Start Date End Date Marcelino Cueva MD [address] [place] [address] PCP - General Internal Medicine 03/31/22 documented as of this encounter
--- OUTSIDE RECORDS SUMMARY | 2025-02-20 07:39 | XMS_ITS | Encounter Summary ---
Author Organization [facility] Address [address] [place] [address] Care Team Providers Care Senior Billing Consultant Name Role Phone Marcelino Cueva MD Primary Care Provider [phone] Encounter Details Date Type Department Care Team (Late st Contact Info) Description 11/28/2016 External CPT II CABLE FERRYBOAT OPERATOR - [facility] Social History Tobacco Use Types Packs/Day Years Used Date Smoking Tobacco: Former Cigarettes 1 50 1 079 - 2008 Alcohol Use Standard Drinks/Week Comments No 0 (1 standard drink = 0.6 oz pur e alcohol) Sex and Gender Information Value Date Recorded Sex Assigned at Male 01/12/2025 10:11 AM EDT Legal Sex Male 1:44 PM EDT Gender Identity Not on file Sexual Orientation Not on file documented as of this encounter Plan of Treatment Upcoming Encounters Date Type Department Care Team (Late st Contact Info) Description 07/15/2025 10:00 AM EST Office Visit [facility] [address] [place] [address] [place] [phone] Marcelino Cueva MD [address] [place] [address] documented as of this encounter Visit Diagnoses Not on filedocumented in this encounter Additional Health Concerns Infection Onset Date Last Indicated Resolved Time COVID Screen (preop/placement) 12/31/2021 12/31/2021 12/31/2021 5:29 PM EDT documented as of this encounter Care Teams Senior Billing Consultant Relationship Specialty Start Date End Date Marcelino Cueva MD [address] [place] [address] PCP - General Internal Medicine 03/31/22 documented as of this encounter
--- OUTSIDE RECORDS SUMMARY | 2025-02-20 07:39 | XMS_ITS | Encounter Summary ---
Author Organization [facility] Address [address] [place] [address] Care Team Providers Care Back Shoe Operator Name Role Phone Marcelino Cueva MD Primary Care Provider [phone] Encounter Details Date Type Department Care Team (Late st Contact Info) Description 09/22/2016 External CPT II APPLICATION SUPPORT ADMINISTRATOR - [facility] Social History Tobacco Use Types Packs/Day Years Used Date Smoking Tobacco: Never Assessed Sex and Gender Information Value Date Recorded Sex Assigned at Male 01/12/2025 10:11 AM EDT Legal Sex Male 1:44 PM EDT Gender Identity Not on file Sexual Orientation Not on file documented as of this encounter Plan of Treatment Upcoming Encounters Date Type Department Care Team (Late st Contact Info) Description 07/15/2025 10:00 AM EST Office Visit [facility] [address] [place] [address] [place] [address] Marcelino Cueva MD [address] [place] [address] [place] [address] documented as of this encounter Visit Diagnoses Not on filedocumented in this encounter Additional Health Concerns Infection Onset Date Last Indicated Resolved Time COVID Screen (preop/placement) 12/31/2021 12/31/2021 12/31/2021 5:29 PM EDT documented as of this encounter Care Teams Back Shoe Operator Relationship Specialty Start Date End Date Marcelino Cueva MD [address] [place] [address] [place] [address] PCP - General Internal Medicine 03/31/22 documented as of this encounter
--- OUTSIDE RECORDS SUMMARY | 2025-02-20 07:39 | XMS_ITS | Encounter Summary ---
[facility] Address [address] [address] Care Team Providers Care Lean Manufacturing Specialist Name Role Phone Marcelino Cueva MD Primary Care Provider [phone] Reason for Visit * Reason Comments Med Refill Encounter Details Date Type Department Care Team (Late st Contact Info) Description 01/07/2025 Refill [facility] [address] [place] [address] [place] [address] Marcelino Cueva MD [address] [place] [address] [place] [address] Atherosclerosis of tribal coronary artery of tribal heart without angina pectoris Social History Tobacco Use Types Packs/Day Years [...] Score 0 01/26/2023 PHQ-2 Answer Date Recorded Retired PHQ-9: Brief Depression Severity Measure Score 0 10/04/2023 Sex and Gender Information Value Date Recorded Sex Assigned at Male 01/12/2025 10:11 AM EDT Legal Sex Male 1:44 PM EDT Gender Identity Not on file Sexual Orientation Not on file documented as of this encounter Plan of Treatment Upcoming Encounters Date Type Department Care Team (Late st Contact Info) Description 07/15/2025 10:00 AM EST Office Visit 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
--- OUTSIDE RECORDS SUMMARY | 2025-02-20 07:39 | XMS_ITS | Encounter Summary ---
Author Organization [facility] Address [address] [place] [address] Care Team Providers Care Conversion Developer Name Role Phone Marcelino Cueva MD Primary Care Provider [phone] Encounter Details Date Type Department Care Team (Late st Contact Info) Description 01/14/2025 Results Follow-Up [facility] [address] [place] [address] Marcelino Cueva MD [address] [place] [address] Social History Tobacco Use Types Packs/Day Years Used Date Smoking Tobacco: Former Cigarettes 1 50 1 180 - 2009 Smokeless Tobacco: Never Alcohol Use [...] on file documented as of this encounter Miscellaneous Notes * Telephone Encounter - Rosario Fernandez - 01/15/2025 10:25 AM EDT I have spoke with him regarding his lab results. He states that he understands the medications added. TF documented in this encounter Plan of Treatment Upcoming Encounters Date Type Department Care Team (Late st Contact Info) Description 07/15/2025 10:00 AM EST Office Visit [facility] [address] [place] [phone] Marcelino Cueva MD [address] [place] [address] [place] [address] documented as of this encounter Visit Diagnoses Not on filedocumented in this encounter Care Teams Conversion Developer Relationship Specialty Start Date End Date Marcelino Cueva [facility] [place] [address] PCP - General Internal Medicine 03/31/22 documented as of this encounter
--- OUTSIDE RECORDS SUMMARY | 2025-02-20 07:39 | XMS_ITS | Encounter Summary ---
Author Organization [facility] Address [address] [place] [address] Care Team Providers Care Journal Box Inspector Name Role Phone Marcelino Cueva MD Primary Care Provider [phone] Encounter Details Date Type Department Care Team (Latest Contact Info) Description 01/13/2025 Travel Social History Tobacco Use Types Packs/Day Years Used Date Smoking Tobacco: Former Cigarettes 1 50 1 159 - 2008 Smokeless Tobacco: Never Alcohol Use Standard Drinks/Week [...] on file documented as of this encounter Functional Status documented as of this encounter Plan of Treatment Upcoming Encounters Date Type Department Care Team (Late st Contact Info) Description 07/15/2025 10:00 AM EST Office Visit [facility] [address] [place] [address] [place] [phone] Marcelino Cueva MD [address] [place] [address] documented as of this encounter Visit Diagnoses Not on filedocumented in this encounter Care Teams Journal Box Inspector Relationship Specialty Start Date End Date Marcelino Cueva MD [address] [place] [address] PCP - General Internal Medicine 03/31/22 documented as of this encounter
--- OUTSIDE RECORDS SUMMARY | 2025-02-20 07:39 | XMS_ITS | Encounter Summary ---
[facility] Address [address] [place] [address] Care Team Providers Care Ground Hand Name Role Phone Marcelino Cueva MD Primary Care Provider [phone] Reason for Visit * Reason Onset Date Comments Med Refill 01/20/2025 Encounter Details Date Type Department Care Team (Late st Contact Info) Description 01/20/2025 Refill [facility] [address] [place] [address] [place] [address] Marcelino Cueva MD [address] [place] [address] [place] [address] Panlobular emphysema Social History Tobacco Use Types Packs/Day Years [...] * Telephone Encounter - Rosario Fernandez - 01/20/2025 8:55 AM EDT I have made this for 30 days per his request due to cost. TF documented in this encounter Plan of Treatment Upcoming Encounters Date Type Department Care Team (Late st Contact Info) Description 07/15/2025 10:00 AM EST Office Visit [facility] [address] [place] [address] [place] [address] Marcelino Cueva MD [address] [place] [address] [place] [address] documented as of this encounter Visit Diagnoses Diagnosis Panlobular emphysema Other emphysema documented in this encounter Care Teams Ground Hand Relationship Specialty Start Date End Date Marcelino Cueva MD [address] [place] [address] PCP - General Internal Medicine 03/31/22 documented as of this encounter
--- OUTSIDE RECORDS SUMMARY | 2025-02-20 07:39 | XMS_ITS | Encounter Summary ---
[facility] Address [address] [place] [address] Care Team Providers Care Rv Servicer Name Role Phone Marcelino Cueva MD Primary Care Provider [phone] Encounter Details Date Type Department Care Team (Late st Contact Info) Description 02/11/2025 Telephone [facility] [address] [place] [address] Marcelino Cueva MD [address] [place] [address] Social History Tobacco Use Types Packs/Day Years Used Date Smoking Tobacco: Former Cigarettes 1 50 1 809 - 2008 Smokeless Tobacco: Never Alcohol Use [...] encounter Miscellaneous Notes * Telephone Encounter - Marcelino Cueva MD - 02/11/2025 6:28 PM EDT Patient requests refill of Zetia through his mail order pharmacy, noting this previously had been prescribed by Dr. Valencia of cardiology. Will comply with his request * Telephone Encounter - Rosario Fernandez - 02/11/2025 3:50 PM EDT He has called stating that Dr. Benson was going to take over two of his medications that a previous doctor prescribed. These are not mentioned. He isnt sure of the names. Can this be done. documented in this encounter Plan of Treatment Upcoming Encounters Date Type Department Care Team (Late st Contact Info) Description 07/15/2025 10:00 AM EST Office Visit [facility] [address] [place] [address] [place] [phone] Marcelino Cueva MD [address] [place] [address] [place] [address] documented as of this encounter Visit Diagnoses Not on filedocumented in this encounter Care Teams Rv Servicer Relationship Specialty Start Date End Date Marcelino Cueva MD [address] [place] [address] [place] [address] PCP - General Internal Medicine 03/31/22 documented as of this encounter
--- OUTSIDE RECORDS SUMMARY | 2025-02-20 07:39 | XMS_ITS | Encounter Summary ---
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 - [facility] Social History Tobacco Use [...] Description 07/15/2025 10:00 AM EST Office Visit [facility] [address] [place] [address] [place] [phone] Marcelino Cueva MD [address] [place] [address] [place] [address] documented as of this encounter Visit Diagnoses Not on filedocumented in this encounter Additional Health Concerns Infection Onset Date Last Indicated Resolved Time COVID Screen (preop/placement) 12/31/2021 12/31/2021 12/31/2021 5:29 PM EDT documented as of this encounter Care Teams Metallurgical Or Materials Technician Relationship Specialty Start Date End Date Marcelino Cueva MD [address] [place] [address] [place] [address] PCP - General Internal Medicine 03/31/22 documented as of this encounter
--- OUTSIDE RECORDS SUMMARY | 2025-02-20 07:40 | XMS_ITS | Clinical Summary ---
Author Organization [facility] Address [address] [place] [address] Care Team Providers Care Voice Instructor Name Role Phone Galindo Cueva MD Primary Care Provider [phone] Immunizations Immunization Administration Dates Next Due Pneumococcal Polysaccharide PPV23 11/06/2017 Social History Tobacco Use Types Packs/Day Years Used Date Smoking Tobacco: Former Alcohol Use Standard Drinks/Week Comments Yes 0 (1 standard drink = 0.6 oz pure alcohol) Alcoholic Drinks/day: Moderate alcohol use Sex and Gender Information Value Date Recorded Sex Assigned at Not on file Legal Sex Male 8:08 PM EDT Gender Identity Not on file Sexual Orientation Not on file Last Filed Vital Signs Vital Sign Reading Time Taken Comments Blood Pressure 136/68 09/07/2020 9:15 AM EST Pulse 60 09/07/2020 9:15 AM EST Temperature - - Respiratory Rate 14 09/11/2017 12:07 PM EST Oxygen Saturation - - Inhaled Oxygen Concentration - - Weight 93.2 kg (205 lb 7.5 oz) 09/07/2020 9:15 A M EST Height 177.8 cm (5' 10 ) 09/07/2020 9:15 AM EST Body Mass Index 29.48 09/07/2020 9:15 AM EST Plan of Treatment Health Maintenance Due Date Last Done Comments [facility]-Depression Screening 1942 [facility]-Infant/Child/Adol SDOH Screenings 1942 [facility]- SDOH Screenings 1960 [facility]-Adult SDOH Screenings 1960 [facility]-DTaP,Tdap,and Td Vaccine s (1 - Tdap) 1961 [facility]-Zoster Vaccines (1 of 2) 1992 [facility]-RSV Vaccine: 60+ Years o r (1 - 1-dose 75+ series) 2017 [facility]-Pneumococcal Vaccine: 50 + Years (2 of 2 - PCV) 11/06/2018 11/06/2017 [id number] Vaccine (1 - 20 24-25 season) 2024 [facility]-Influenza Vaccine (#1) 2025 HPV Vaccines Aged Out No longer eligi ble based on patient's age to complete this topic [facility]-HIB Vaccines Aged Out No longer e ligible based on patient's age to complete this topic [facility]-Hepatitis A Vaccines Aged Out No longer eligible based on patient's age to complete this topic [facility]-IPV Vaccines Aged Out No longer e ligible based on patient's age to complete this topic [facility]-Rotavirus Vaccines Aged Out No lo nger eligible based on patient's age to complete this topic Insurance MEDICARE Care Teams Voice Instructor Relationship Specialty Start Date End Date Galindo Cueva MD [address] [place] [address] PCP - General 12/11/20
--- OUTSIDE RECORDS SUMMARY | 2025-02-20 07:40 | XMS_ITS | Encounter Summary ---
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 - [facility] Social History Tobacco Use Types Packs/Day Years Used Date Smoking Tobacco: Former Cigarettes 1 50 1 089 - 2008 Alcohol Use Standard Drinks/Week Comments [...] Description 07/15/2025 10:00 AM EST Office Visit [facility] [address] [place] [address] [place] [phone] Marcelino Cueva MD [address] [place] [address] documented as of this encounter Visit Diagnoses Not on filedocumented in this encounter Additional Health Concerns Infection Onset Date Last Indicated Resolved Time COVID Screen (preop/placement) 12/31/2021 12/31/2021 12/31/2021 5:29 PM EDT documented as of this encounter Care Teams Machine Welt Butter Relationship Specialty Start Date End Date Marcelino Cueva MD [address] [place] [address] PCP - General Internal Medicine 03/31/22 documented as of this encounter
--- OUTSIDE RECORDS SUMMARY | 2025-02-20 07:40 | XMS_ITS | Encounter Summary ---
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 - [facility] Social History Tobacco Use Types Packs/Day Years Used Date Smoking Tobacco: Former Cigarettes 1 50 1 719 - 2008 Alcohol Use Standard Drinks/Week Comments [...] Description 07/15/2025 10:00 AM EST Office Visit [facility] [address] [place] [address] [place] [phone] Marcelino Cueva MD [address] [place] [address] documented as of this encounter Visit Diagnoses Not on filedocumented in this encounter Additional Health Concerns Infection Onset Date Last Indicated Resolved Time COVID Screen (preop/placement) 12/31/2021 12/31/2021 12/31/2021 5:29 PM EDT documented as of this encounter Care Teams Job Coach Relationship Specialty Start Date End Date Marcelino Cueva MD [address] [place] [address] PCP - General Internal Medicine 03/31/22 documented as of this encounter
--- OUTSIDE RECORDS SUMMARY | 2025-02-20 07:40 | XMS_ITS | Encounter Summary ---
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 - [facility] Social History Tobacco Use Types Packs/Day Years Used Date Smoking Tobacco: Former Cigarettes 1 50 1 589 - 2008 Alcohol Use Standard Drinks/Week Comments [...] 07/15/2025 10:00 AM EST Office Visit [facility] [address] [place] [address] [place] [phone] Marcelino Cueva MD [address] [place] [address] documented as of this encounter Visit Diagnoses Not on filedocumented in this encounter Additional Health Concerns Infection Onset Date Last Indicated Resolved Time COVID Screen (preop/placement) 12/31/2021 12/31/2021 12/31/2021 5:29 PM EDT documented as of this encounter Care Teams Anesthesiologist Physician Relationship Specialty Start Date End Date Marcelino Cueva MD [address] [place] [address] PCP - General Internal Medicine 03/31/22 documented as of this encounter
--- OUTSIDE RECORDS SUMMARY | 2025-02-20 07:40 | XMS_ITS | Encounter Summary ---
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 - [facility] Social History Tobacco Use Types Packs/Day Years Used Date Smoking Tobacco: Former Cigarettes 1 50 1 709 - 2008 Alcohol Use Standard Drinks/Week Comments [...] Description 07/15/2025 10:00 AM EST Office Visit [facility] [address] [place] [address] [place] [phone] Marcelino Cueva MD [address] [place] [address] documented as of this encounter Visit Diagnoses Not on filedocumented in this encounter Additional Health Concerns Infection Onset Date Last Indicated Resolved Time COVID Screen (preop/placement) 12/31/2021 12/31/2021 12/31/2021 5:29 PM EDT documented as of this encounter Care Teams Cloth Mercerizer Operator Relationship Specialty Start Date End Date Marcelino Cueva MD [address] [place] [address] PCP - General Internal Medicine 03/31/22 documented as of this encounter
--- OUTSIDE RECORDS SUMMARY | 2025-02-20 07:40 | XMS_ITS ---
Author Organization [facility] Address [address] [place] [address] Care Team Providers Care Early Childhood Associate Teacher Name Role Phone Marcelino Cueva MD Primary Care Provider [phone] Active Problems Problem Noted Date Diagnosed Date Medicare annual wellness visit, subsequent 01/13 Assessment & Plan (01/13/2025 4:27 PM EDT): Hypertrophic cardiomyopathy 01/13/2025 Assessment & Plan (01/13/2025 4:27 PM EDT): Reports recent diagnosis of hypertrophic cardiomyopathy, with echocardiogram summary from approximately 1.5 months ago revealing LVOT obstruction of 65, with most recent echocardiogram on 12/27/2024 revealing LVOT gradient less than 20 improved on Camzyos, subsequent reduction from 5 mg down to 2.5 mg daily with monthly cardiology follow-up. Attempting to obtain formal consultation notes and echocardiogram report. Microalbuminuria 01/13/2025 Assessment & Plan (01/13/2025 4:27 PM EDT): UACR today positive for microalbuminuria. Known chronic kidney disease stage IIIa with underlying diabetes. Intolerant of GALLO inhibitor/ARB. Plan retest at follow-up visit in 6 months, and if still abnormal we will then discuss initiation of Jardiance Basal cell carcinoma (BCC) of face 01/10/2025 Encounter for general adult medical examination with abnormal findings 01/12/2024 Assessment & Plan (01/13/2025 4:27 PM EDT): 84-year-old male presenting for his Medicare wellness visit and complete physical, specific health issues to be addressed as detailed below, health maintenance includes patient having declining follow-up colonoscopy with last in 2017 with history of colon polyp and family history of colon cancer, EKG today deferred as recently performed by youth pastor, copy pending, declines Tdap given lack of Medicare coverage at this time, defers COVID until the winter season, obtaining screening labs. Orders: TSH Rfx On Abnormal To Free T4; Future CBC & Differential; Future Comprehensive Metabolic Panel; Future Lipid Panel; Future Vitamin D,25-Hydroxy; Future Urinalysis With Culture If Indicated -; Future POC Albumin/Creatinine Ratio Urine POC Glucose, Blood POC Glycosylated Hemoglobin (Hb A1C) Assessment & Plan (01/12/2024 7:53 PM EDT): 83-year-old male with extensive health issues being addressed as detailed below, overall generally feeling well all things considered, health maintenance includes consideration for colonoscopy update with last study in 2016 revealing polyp with a strong family history, patient declining at this time, recommended update COVID- 19 booster, keep current with yearly flu vaccines, EKG recently performed outside the office unremarkable, update diabetic eye evaluation, update screening labs. Vitamin D deficiency 01/12/2024 Assessment & Plan (01/13/2025 4:27 PM EDT): Update level, not currently taking supplement. Orders: Vitamin D,25-Hydroxy; Future History of colon polyps 01/12/2024 Overview (01/12/2024): Colonoscopy last obtained 02/06/[address] Landa indicating a single polyp left-sided diverticulosis. Recommendation for 5-year follow-up given strong family history of colon cancer and personal history of polyp. Patient declines at this time consideration of colonoscopy, but will advise me if he changes his mind so that we may get this set up. He is well aware that colon cancer can be asymptomatic until more advanced Screening for thyroid disorder 01/12/2024 Assessment & Plan (01/13/2025 4:27 PM EDT): Orders: TSH Rfx On Abnormal To Free T4; Future Ex-cigarette smoker 10/04/2023 Overview (01/12/2024): 94-dpne-[id number] history of smoking him abstaining since 2006. Assessment & Plan (01/13/2025 4:27 PM EDT): 38-zdhg-hbmt history of cigarette smoking abstaining since 2006. Assessment & Plan (01/12/2024 7:57 PM EDT): Reports a 96-bkey-pkbo history of cigarette smoking abstaining since approximately 2006. Assessment & Plan (10/04/2023 2:23 PM EST): 65-tvda-nmwo history of smoking abstaining since 2006 Dyspnea 05/23/2023 Assessment & Plan (10/04/2023 2:22 PM EST): PFTs today normal, recent chest x-ray unremarkable, eating well at rest and with exertion, suspect deconditioning or possibly occult COPD, potentially represent stable anginal equivalent though did have nonobstructing LHC with unremarkable echocardiogram in 12/2021. Does follow-up with cardiology next month. Assessment & Plan (05/24/2023 8:12 AM EDT): Patient has complaints of increasing shortness of breath activity, noting he is fine when at rest. He reports for the last couple of weeks after taking approximately 15-20 steps he becomes winded. He has been checking his oxygen saturations at home which have maintained stability between 95 to 98%. He has been monitoring his pulse which stays between 65-70. He denies any chest pain or bilateral lower extremity edema. He is followed regularly by cardiology for atherosclerosis. He notes he has an intermittent cough but nothing varying from baseline. No fever. He had labs drawn with his oncologist 2 weeks ago with stable hemoglobin and RBC noted -Lungs clear to auscultation on physical exam today. We will send for chest PA and lateral for further evaluation Gastroesophageal reflux disease 04/27/2023 Assessment & Plan (01/13/2025 4:27 PM EDT): Relates good control of symptoms taking Pepcid 20 mg twice daily as needed. Contraindicated to use PPI with Calquence therapy. Assessment & Plan (01/12/2024 7:52 PM EDT): Previous on PPI switched over to Pepcid 20 mg twice daily given initiation of Calquence with contraindication to use with PPI. Overall having fair control of symptoms, after having briefly utilized Carafate then metoclopramide. Continue Pepcid alone. Assessment & Plan (10/04/2023 2:21 PM EST): Having breakthrough symptoms taking Pepcid 20 mg twice daily with Carafate. Subsequently saw Dr. Landa of GI who switched his Carafate over to metoclopramide 5 mg before every meal, which patient notes has improved his symptoms. He is to take this medication for 3 months and if still having problems we will then follow-up again with Dr. Landa. Note unable to take PPI given concomitant therapy with Calquence being prescribed for his CLL Assessment & Plan (05/24/2023 8:11 AM EDT): Patient has longstanding pattern of acid reflux, undergoing EGD in January 2021 that revealed a small hiatal hernia with no other abnormalities. He has been taking pantoprazole for the long-term, however was forced to transition to twice daily famotidine due to interactions of pantoprazole with his CLL medication,Calquence. At the time of this transition patient was also prescribed sucralfate 1 tablet 3 times daily as needed for heartburn. Patient reports heartburn daily even with this regimen, the only time he does not have some type of reflux is at night when he is lying in bed. Patient notes no change in diet, avoiding spicy and greasy foods much as possible. We discussed that given he was no longer take PPIs, per his regular PCP Dr. Marcelino Cueva's note, we may need to pursue repeat EGD given his symptoms that cannot be controlled with famotidine and sulcal fate. Peripheral vascular disease of lower extremity 0 01/09/2023 Overview (01/09/2023): Left femoral bruit, asymptomatic, patient declining arterial Doppler evaluation Overweight (BMI 25.0-29.9) 01/09/2023 Assessment & Plan (01/13/2025 4:27 PM EDT): 2 pound weight loss over the last 6 months. Continue healthy lifestyle efforts with diet and exercise as able Assessment & Plan (01/12/2024 7:51 PM EDT): Minimally overweight with a BMI of 25.8. Encouraged ongoing healthy lifestyle efforts. History of left heart catheterization 01/09/2023 Overview (01/09/2023): 01/01/2022: LHC with results unknown EF 61 to 65% with diastolic dysfunction, trace to mild MR, aortic valve sclerosis without stenosis or regurgitation Assessment & Plan (01/13/2025 4:27 PM EDT): Most recent LHC in 12/2021 revealing EF 61 to 65%, VIOLETTA to the LAD stable, and noncritical multivessel disease. Assessment & Plan (01/12/2024 7:50 PM EDT): LHC in 01/01/2022 revealing EF of 61 to 65%, VIOLETTA to the LAD stable, multivessel noncritical disease. No interventions performed at the time. History of echocardiogram 01/09/2023 Overview (01/09/2023): 01/01/2022: EF 61 to 65% with diastolic dysfunction, trace to mild MR, aortic valve sclerosis without stenosis or regurgitation Assessment & Plan (01/13/2025 4:27 PM EDT): Echocardiogram from approximately 1.5 months ago revealing LVOT gradient of 65, most recent echocardiogram 12/27/2024 revealing gradient less than 20 status post treatment with CAM Cialis 5 mg daily now reduced to 2.5 mg daily with planned echocardiogram follow-up within the next month. Assessment & Plan (01/12/2024 7:50 PM EDT): Echocardiogram from 01/01/2022 revealing EF 61 to 65% with diastolic dysfunction, trace to mild MR, aortic valve sclerosis without stenosis or regurgitation. Patient reports more recently having had another echocardiogram with Dr. Valencia, data deficient. Will attempt to obtain this study report. 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 Severino revealed EF 60%, with eccentric 30 to 40% stenosis of the RCA, widely patent proximal LAD stent with 20% distal segment narrowing, distal LAD with 30 to 40% narrowing Echocardiogram 01/01/2022 with mild to moderate concentric LVH, EF 64%, grade 1A left ventricular diastolic function, mildly dilated RV cavity Assessment & Plan (01/13/2025 4:27 PM EDT): Multivessel disease with prior stent placement in the LAD, most recent LHC in 12/2021 revealing noncritical multivessel disease, most recent echocardiogram by new youth pastor, Dr. Chinyere Cowan and revealed hypertrophic cardiomyopathy, with improvement of his LVOT obstruction with Camzyos currently reduced from 5 mg to 2.5 mg daily, continue risk factor modification including aspirin, metoprolol, rosuvastatin and Imdur. No current chest pain, mild to moderate dyspnea on exertion improved, likely multifactorial including his hypertrophic cardiomyopathy which is improving, and his COPD. We are attempting to obtain his most recent cardiac workup including stress test, EKG, consultation note, noting I do have a copy of his most recent echocardiogram. Keep cardiology follow-up. Assessment & Plan (07/12/2024 12:48 PM EST): Multivessel disease with prior stent placement, nonobstructive disease noted on LHC in 12/2021 with echocardiogram in 12/2021 reportedly unremarkable, data deficient. He is followed regularly by Dr. Valencia of cardiology, most recent visit within the last month per patient report. I do not have a copy of this consultation. He is having no chest pain, does have some mild completely resolved dyspnea on exertion not felt to be cardiogenic, more related to pulmonary disease as detailed below. Continue current medication regimen Assessment & Plan (01/12/2024 7:49 PM EDT): Multivessel disease with prior stent placement, noncritical nonobstructive disease per [facility] in 12/2021 with last available echocardiogram same date unremarkable, patient reporting recently having had another echocardiogram per consultation Dr. Valencia, data deficient. Will attempt to obtain this report. Several months ago patient did have an increase in his Imdur from 60 mg to [address] Valencia given complaints of dyspnea and suspicion he may have been having anginal equivalent. The dyspnea did not respond and he was having significant drops in his blood pressure, thus today planning to reduce the Imdur back down to 60 mg daily. EKG obtained from 12/27/2023 at outside facility reviewed by me today and unremarkable. No concerning symptoms at this time, noting dyspnea improved with treatment for suspected COPD. Patient is not taking aspirin 81 mg daily as recommended, given history of bruising lesions, and I advised him that the risk-benefit ratio would support using aspirin given his known cardiovascular disease and high risk. Indicates he will consider starting back the aspirin as recommended. Assessment & Plan (12/11/2023 1:14 PM EDT): Complaining of progressive dyspnea exertion over the last year with chronic nonproductive cough, history of CAD with prior stent placement, noncritical nonobstructive disease per [facility] in 12/2021 with last echocardiogram similar, recent EKG and chest x-ray unremarkable, PFTs today unremarkable, suspect deconditioning though cannot rule out occult ischemic equivalent. Subsequent cardiology follow-up with Dr. Valencia recently who increased patient's Imdur from 60 mg to 120 mg daily with no clinical improvement in his exertional dyspnea. Patient recently underwent a CT of the chest with contrast performed by oncologist given his CLL which revealed essentially stable thoracic multifocal adenopathy, but did show interstitial changes chronically in the lungs with emphysematous changes. 38-[id number]-fywe history of cigarette smoking him standing since 2008. Suspect he has not been having some gradual progression of symptomatic COPD with no other obvious explanation for symptoms. Will initiate a trial of Anoro Ellipta with 1 inhalation daily, proper dosing technique of administration given, along with albuterol MDI 2 puffs every 4 hours as needed, again demonstrating proper dosing of medication. Reassess clinically at his Medicare wellness visit in 1 month. Assessment & Plan (10/04/2023 2:19 PM EST): Prior stent placement, noncritical nonobstructive disease per [facility] in 12/2021 with last echocardiogram similar. If time unremarkable. Does describe some mild dyspnea on exertion, but this is stable, recent EKG and chest x-ray unremarkable, PFTs today unremarkable, suspect deconditioning though cannot rule out occult ischemic equivalent. Continue risk factor modification.. He does follow-up with cardiology next month. Solitary pulmonary nodule 04/07/2022 Abnormal computed tomography scan 04/07/2022 Overview (01/06/2023): Description: A. CT scan of the chest 01/29/2014 reports a focal area of scarring and/or atelectasis in the right middle lobe with mild emphysematous changes in the lung mosher and repeat CT scan of 10/01/[address] the of abdomen pelvis with and without contrast 01/28/2022 revealing no acute intra-abdominal process CT of the chest with and without contrast 01/28/2022 revealing widespread mild adenopathy with mild changes of emphysema but no acute new abnormality Benign prostatic hyperplasia 04/07/2022 Assessment & Plan (01/13/2025 4:27 PM EDT): Minimal symptoms taken Flomax 0.4 mg daily. Pulmonary emphysema 04/07/2022 Overview (04/07/2022): Description: A. Mild Emphysema on CT chest 01/29/14. Assessment & Plan (01/13/2025 4:27 PM EDT): Stable symptoms with mild to moderate exertional dyspnea, this being compounded by his recent diagnosis of hypertrophic cardiomyopathy, having improved with related treatment, currently on Anoro Ellipta using oxygen nightly and as needed, followed by Dr. Roque Villa pulmonary medicine in [place]. Assessment & Plan (07/12/2024 12:51 PM EST): Patient has had complaint of progressive dyspnea exertion over the last year with chronic nonproductive cough, history of CAD with prior stent placement, noncritical nonobstructive disease per [facility] in 12/2021 with last echocardiogram similar, recent EKG and chest x-ray unremarkable, PFTs last month unremarkable, suspect deconditioning though cannot rule out occult ischemic equivalent. Subsequent cardiology follow- up with Dr. Valencia recently who increased patient's Imdur from 60 mg to 120 mg daily with no clinical improvement in his exertional dyspnea, this to be reduced back down to 60 mg daily given hypertensive response. Patient recently underwent a CT of the chest with contrast performed by oncologist given his CLL which revealed essentially stable thoracic multifocal adenopathy, but did show interstitial changes chronically in the lungs with emphysematous changes. 98-mcmb-htfx history of cigarette smoking him standing since 2006. Suspect he has been having some gradual progression of now symptomatic COPD from his previous heavy cigarette habit. 7 months ago he was prescribed Anoro Ellipta which he relates has improved his dyspnea but still having some lifestyle limiting symptoms, noting in the office he had slight but not clinically concerning drop in his pulse ox from 98% to 93% after ambulating 100 m. Plan give patient sample of Trelegy 100 at [address] the normal with a 4-week supply given, to be taken in place of his Anoro. If he feels that the symptoms are markedly better with this change in prescription, he is to notify for a formal prescription. If he does not notice any changes then he will continue his regularly prescribed Anoro. Assessment & Plan (01/12/2024 7:57 PM EDT): Patient has had complaint of progressive dyspnea exertion over the last year with chronic nonproductive cough, history of CAD with prior stent placement, noncritical nonobstructive disease per [facility] in 12/2021 with last echocardiogram similar, recent EKG and chest x-ray unremarkable, PFTs last month unremarkable, suspect deconditioning though cannot rule out occult ischemic equivalent. Subsequent cardiology follow- up with Dr. Valencia recently who increased patient's Imdur from 60 mg to 120 mg daily with no clinical improvement in his exertional dyspnea, this to be reduced back down to 60 mg daily given hypertensive response. Patient recently underwent a CT of the chest with contrast performed by oncologist given his CLL which revealed essentially stable thoracic multifocal adenopathy, but did show interstitial changes chronically in the lungs with emphysematous changes. [id number] history of cigarette smoking him standing since 2006. Suspect he has been having some gradual progression of now symptomatic COPD from his previous heavy cigarette habit, last month had been given a trial of an oral Ellipta 1 inhalation daily with proper dosing technique demonstrated, patient noting subsequently 1 month later at least a 50% improvement in his dyspnea. Will continue the Anoro Ellipta with albuterol as needed.. Assessment & Plan (12/11/2023 1:15 PM EDT): Complaining of progressive dyspnea exertion over the last year with chronic nonproductive cough, history of CAD with prior stent placement, noncritical nonobstructive disease per [facility] in 12/2021 with last echocardiogram similar, recent EKG and chest x-ray unremarkable, PFTs today unremarkable, suspect deconditioning though cannot rule out occult ischemic equivalent. Subsequent cardiology follow-up with Dr. Valencia recently who increased patient's Imdur from 60 mg to 120 mg daily with no clinical improvement in his exertional dyspnea. Patient recently underwent a CT of the chest with contrast performed by oncologist given his CLL which revealed essentially stable thoracic multifocal adenopathy, but did show interstitial changes chronically in the lungs with emphysematous changes. 37-zyeo-ebbh history of cigarette smoking him standing since 2008. Suspect he has not been having some gradual progression of symptomatic COPD with no other obvious explanation for symptoms. Will initiate a trial of Anoro Ellipta with 1 inhalation daily, proper dosing technique of administration given, along with albuterol MDI 2 puffs every 4 hours as needed, again demonstrating proper dosing of medication. Reassess clinically at his Medicare wellness visit in 1 month. Unstable angina pectoris 12/31/2021 CLL (chronic lymphocytic leukemia) 12/31/2021 Assessment & Plan (01/13/2025 4:27 PM EDT): Regular follow-up with his oncologist Dr. Estrada, on [facility], reports recent CT of the chest abdomen pelvis being stable, attempting to obtain formal reports. Orders: CBC & Differential; Future Assessment & Plan (07/12/2024 12:49 PM EST): Followed regularly by Dr. Henley of oncology, most recent CBC as demonstrated to me on patient's phone dina from 06/10/2024 revealed a white count of 19,000, hemoglobin 13.2 and platelets 186,000, overall very clinically stable. Continue regular oncology follow-up. Continue Calquence prescription Assessment & Plan (01/12/2024 7:54 PM EDT): Clinically stable with baseline white count around 40,000, followed by Dr. Mckeon of heme-onc, recent CT of the chest abdomen pelvis all stable, currently on Calquence. Assessment & Plan (12/11/2023 1:17 PM EDT): Clinically stable followed regularly by oncology with recent CT of the chest abdomen pelvis revealing no evidence of progression of disease. Assessment & Plan (10/04/2023 2:21 PM EST): Currently being treated with Calquence by Dr. Milton Henley of oncology. Assessment & Plan (05/24/2023 8:14 AM EDT): Patient followed by oncology, Dr. Arabella Rodrigues, for CLL. Fairly recent initiation of medication Calquence. Patient notes since initiation of medication he has developed dyspnea as outlined above as well as developed some midline thoracic back pain, he has been told by his pharmacist that these are documented side effects of the medication. He plans on discussing this with Dr. Rodrigues at his next appointment in 2 days. He also has plans for repeat CBC in 2 days, we will obtain these results for review Abnormal stress test 10/15/2021 Overview (10/15/2021): Added automatically from request for surgery [id number] Chest pain 11/18/2019 HTN (hypertension) 11/24/2016 Assessment & Plan (01/13/2025 4:27 PM EDT): Very satisfactory blood pressure control acutely as well as by history chronically taking nifedipine XL 60 mg daily, metoprolol XL 100 mg daily, and Imdur 60 mg daily, noting patient has declined further prescriptions of GALLO inhibitors or ARB's given subjective side effects prompting him to discontinue. Orders: Comprehensive Metabolic Panel; Future Urinalysis With Culture If Indicated -; Future Assessment & Plan (07/12/2024 12:46 PM EST): Maintaining satisfactory blood pressure control taking nifedipine XL 60 mg daily, metoprolol 100 mg twice daily, and getting benefit from Imdur 120 mg daily. Intolerant of GALLO inhibitors or ARB's given vague side effects, patient having discontinued related medications each time they were prescribed. Continue current regimen at this time with monitoring, ideal parameters discussed. Assessment & Plan (01/12/2024 7:47 PM EDT): Satisfactory blood pressure control acutely, though note having occasionally hypotension chronically, taking nifedipine XL 60 mg daily, metoprolol 100 mg twice daily, and several months ago having had an increase in Imdur from 60 mg to 120 mg daily. Since the increased dose of Imdur patient does note commonly systolic drops in his pressure of up to 20 mmHg that becomes symptomatic. Thus we will reduce the Imdur 120 mg daily back down to 60 mg daily. Assess clinical response. Note patient is intolerant to GALLO inhibitors and ARB's nonspecifically. Refuses to consider initiation. Assessment & Plan (12/11/2023 1:15 PM EDT): Satisfactory blood pressure control acutely as well as chronically taking his nifedipine XL 60 mg daily, metoprolol 100 mg twice daily, and Imdur recently increased from 60 mg up to 120 mg daily by cardiology. He is not tolerant of GALLO inhibitors or ARB's given subjective heart pain . Continue current regimen with monitoring. Assessment & Plan (10/04/2023 2:18 PM EST): Satisfactory blood pressure control acutely as well as chronically taking nifedipine XL 60 mg daily, metoprolol 100 mg twice daily, without the benefit taking Imdur 60 mg daily. Continue current regimen. Note intolerant of GALLO inhibitors or ARB's given heart pain . Assessment & Plan (05/24/2023 8:10 AM EDT): Blood pressure satisfactorily controlled on current medications including daily isosorbide 60 mg, metoprolol 100 mg twice daily and nifedipine XL 60 mg daily Type 2 diabetes mellitus, [facility] long-term current use of insulin 11/24/2016 Overview (07/12/2024): Hemoglobin A1c 5.6% in 12/2023, 5.8% in 06/2024 Assessment & Plan (01/13/2025 4:27 PM EDT): Hemoglobin A1c today 5.9% versus 5.8% 6 months prior taking metformin 500 mg at 2 tablets twice daily monotherapy. Most recent available 1.59 with GFR 43, plan to update testing. Continue healthy lifestyle efforts. Patient has declined use of GALLO inhibitors or ARB given he has vague subjective side effects though not a true allergy. Orders: POC Albumin/Creatinine Ratio Urine POC Glucose, Blood POC Glycosylated Hemoglobin (Hb A1C) Assessment & Plan (07/12/2024 12:49 PM EST): Very satisfactory hemoglobin A1c today 5.8% versus 5.6% in 12/2023, being maintained on a regimen of metformin 500 mg at 2 tablets twice daily monotherapy. He is not taking GALLO inhibitor's or ARB's given vague side effects with patient declining any consideration of represcribing this class of medications. Continue current regimen with monitoring. Assessment & Plan (01/12/2024 7:51 PM EDT): Hemoglobin A1c today excellent at 5.6% versus previous value of 6.2% in 09/2023, using metformin 500 mg at 2 tablets twice daily monotherapy. Continue healthy lifestyle efforts with diet and exercise. Repeat testing in 6 months. Note patient refuses consideration of prescription GALLO inhibitor or ARB given vague subjective side effects, but not appear to have a true allergic response. Assessment & Plan (10/04/2023 2:20 PM EST): Hemoglobin A1c today representing excellent control at 6.2% with prior value of 6.7% 6 months prior. Continue metformin 500 mg twice daily with healthy lifestyle efforts. HLD (hyperlipidemia) 11/24/2016 Assessment & Plan (01/13/2025 4:27 PM EDT): Currently taking ezetimibe 10 mg daily and Crestor 5 mg daily. Update lipid profile Orders: Lipid Panel; Future Assessment & Plan (01/12/2024 7:47 PM EDT): Taking Zetia 10 mg daily and rosuvastatin 5 mg daily. Update lipid profile. Hiatal hernia 11/24/2016 Current Treatment and Therapy Plans No current plan information found. Past Treatment and Therapy Plans No past plan information found. 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
--- OUTSIDE RECORDS SUMMARY | 2025-02-20 07:40 | XMS_ITS | Encounter Summary ---
Author Organization [facility] Address [address] [place] [address] Care Team Providers Care Library Media Assistant Name Role Phone Mracelino Cueva MD Primary Care Provider [phone] Encounter Details Date Type Department Care Team (Late st Contact Info) Description 07/14/2017 External CPT II B[facility]CHIT[facility] - [facility] Social History Tobacco Use Types Packs/Day Years Used Date Smoking Tobacco: Former Cigarettes 1 50 1 809 - 2008 Alcohol Use Standard Drinks/Week Comments [...] Visit [facility] [address] [place] [address] [place] [id number] Marcelino Cueva MD [address] [place] [id number] documented as of this encounter Visit Diagnoses Not on filedocumented in this encounter Additional Health Concerns Infection Onset Date Last Indicated Resolved Time COVID Screen (preop/placement) 12/31/2021 12/31/2021 12/31/2021 5:29 PM EDT documented as of this encounter Care Teams Library Media Assistant Relationship Specialty Start Date End Date Marcelino Cueva MD [address] [place] [address] PCP - General Internal Medicine 03/31/22 documented as of this encounter
--- OUTSIDE RECORDS SUMMARY | 2025-02-20 07:40 | XMS_ITS | Clinical Summary ---
Author Organization [facility] Address [address] [place] [address] Care Team Providers Care Multisensor Intelligence Officer Name Role Phone Marcelino Cueva MD Primary Care Provider [phone] Allergies Active Allergy Reactions Criticality Noted Date Comments Lisinopril GI Intolerance 01/09/2023 Losartan Arrhythmia 03/30/2023 Penicillins Hives Medium 11/24/2016 Medications nitroglycerin (NITROSTAT) 0.[address] 1 tablet under the tongue Every 5 (Five) Minutes As Needed. do not exceed a total of 3 doses in 15 minutes 01/03/20 22 Active NIFEdipine XL (PROCARDIA XL) 60 MG 24 hr tablet Take 1 tablet by mouth Daily. Active ASPIRIN 81 PO Take 1 tablet by mouth. Taking 1/2 Active Calquence 100 MG tablet Take 1 tablet by mouth 2 (Two) Times a Day. 04/10/20 23 Active Accu-Chek Softclix Lancets lancets Use as instructed 100 each 05/11/20 23 Active albuterol sulfate HFA 108 (90 Base) MCG/ACT inhalerIndicati ons:Panlobular emphysema INHALE 2 PUFFS BY MOUTH EVERY 4 HOURS NEEDED FOR WHEEZING OR SHORTNESS OF BREATH 18 g 3 03/13/20 24 Active metoprolol tartrate (LOPRESSOR) 100 MG tablet Take 1 tablet by mouth 2 (Two) Times a Day. 180 tablet 2 07/02/20 24 Active metFORMIN (GLUCOPHAGE) 500 MG tablet Take 1 tablet by mouth 2 (Two) Times a Day With Meals. 180 tablet 2 07/02/20 24 Active glucose blood test strip 1 each by Other route Daily. Use to check blood sugar levels once daily. E11.22 90 each 3 07/16/20 24 Active rosuvastatin (CRESTOR) 5 MG tablet TAKE ONE TABLET BY MOUTH EVERY DAY 90 tablet 2 08/26/19 25 Active tamsulosin (FLOMAX) 0.4 MG capsule 24 hr capsuleIndicati ons:Benign prostatic hyperplasia with nocturia TAKE ONE CAPSULE BY MOUTH EVERY NIGHT FOR PROSTATE 90 capsule 2 11/29/19 25 Active famotidine (PEPCID) 20 MG tabletIndicatio ns:Gastroesopha geal reflux disease, unspecified whether esophagitis present Take 1 tablet by mouth twice daily 180 tablet 1 11/30/19 25 Active isosorbide mononitrate (IMDUR) 60 MG 24 hr tabletIndicatio ns:Atherosclero sis of [place] coronary artery of [place] heart without angina pectoris TAKE ONE TABLET BY MOUTH EVERY DAY (STOP THE 120 MG) 90 tablet 3 01/08/20 25 Active Camzyos 2.5 MG capsule Take 1 capsule by mouth Daily. 01/12/20 25 Active Cholecalciferol (Vitamin D) 50 MCG (2000 UT) tablet Take 1 tablet by mouth Daily. Active calcium carbonate (OS-ESTIVEN) 600 MG tablet Take 1 tablet by mouth Daily. Active Umeclidinium-Vi lanterol (Anoro Ellipta) 62.5-25 MCG/ACT aerosol powder inhalerIndicati ons:Panlobular emphysema Inhale 1 puff Daily. 14 each 6 01/21/20 25 Active ezetimibe (Zetia) 10 MG tablet Take 1 tablet by mouth Daily. 90 tablet 3 02/12/20 25 Active ezetimibe (ZETIA) 10 MG tablet 10/21/19 22 025 Discontinued Active Problems Problem Noted Date Diagnosed Date [...] EKG today deferred as recently performed by set up operator, copy pending, declines Tdap given lack of [...] for colonoscopy update with last study in 2017 revealing polyp with a strong family history, [...] T4; Future Ex-cigarette smoker 10/04/2023 Overview (01/12/2024): 56-mami-unls history of smoking him abstaining since 2006. Assessment & Plan (01/13/2025 4:27 PM EDT): 57-xgbw-rwby history of cigarette smoking abstaining since 2006. Assessment & Plan (01/12/2024 7:57 PM EDT): Reports a 46-orns-gata history of cigarette smoking abstaining since approximately 2006. Assessment & Plan (10/04/2023 2:23 PM EST): 74-hqvf-stwb history of smoking abstaining since 2006 Dyspnea [...] in 12/2021 revealing EF 61 to 65%, GUILLE to the LAD stable, and noncritical multivessel disease. Assessment & Plan (01/12/2024 7:50 PM EDT): LHC in 01/01/2022 revealing EF of 61 to 65%, GUILLE to the LAD stable, multivessel noncritical disease. [...] to obtain this study report. Atherosclerosis of [place] co ronary artery of [place] heart without angina pectoris 04/08/2022 Overview (10/04/2023): [...] multivessel disease, most recent echocardiogram by new set up operator, Dr. Chinyere Cowan and revealed hypertrophic cardiomyopathy, [...] prior stent placement, nonobstructive disease noted on [facility] in 12/2021 with echocardiogram in 12/2021 reportedly [...] prior stent placement, noncritical nonobstructive disease per [facility] in 12/2021 with last available echocardiogram same [...] prior stent placement, noncritical nonobstructive disease per [facility] in 12/2021 with last echocardiogram similar, recent [...] chronically in the lungs with emphysematous changes. 42-qrrv-chjk history of cigarette smoking him standing since [...] Prior stent placement, noncritical nonobstructive disease per [facility] in 12/2021 with last echocardiogram similar. If [...] by Dr. Roque Villa pulmonary medicine in [place]. Assessment & Plan (07/12/2024 12:51 PM EST): Patient has had complaint of progressive dyspnea exertion over the last year with chronic nonproductive cough, history of CAD with prior stent placement, noncritical nonobstructive disease per [facility] in 12/2021 with last echocardiogram similar, recent [...] chronically in the lungs with emphysematous changes. 35-plik-bgtb history of cigarette smoking him standing since [...] prior stent placement, noncritical nonobstructive disease per [facility] in 12/2021 with last echocardiogram similar, recent [...] chronically in the lungs with emphysematous changes. 04-xrki-upnj history of cigarette smoking him standing since [...] prior stent placement, noncritical nonobstructive disease per [facility] in 12/2021 with last echocardiogram similar, recent [...] chronically in the lungs with emphysematous changes. 10-hxaj-jmsh history of cigarette smoking him standing since [...] (10/15/2021): Added automatically from request for surgery [id number] Chest pain 11/18/2019 HTN (hypertension) 11/24/2016 Assessment [...] 60 mg daily Type 2 [address] mellitus, [facility] long-term current use of insulin 11/24/2016 Overview [...] daily. Update lipid profile. Hiatal hernia 11/24/2016 Resolved Problems Problem Noted Date Diagnosed Date Resolved Date Hypertension 04/07/2022 10/07/2022 Coronary artery disease invo lving [place] coronary artery with unstable angina pectoris 12/31/2021 01/06/[address] scan 12/06/2016 01/06/2023 Overview (12/06/2016): of the chest History of tobacco use 12/06/201607/12 Overview (12/06/2016): 1 PPD for 50 years - quit 2009 BPH (benign prostatic hypertrophy) 11/24/2016 01/06/2023 Emphysema lung 11/24/2016 01/06/2023 Encounters Date Type Department Care Team Description 02/11/2025 Telephone [facility] [address] [place] [address] [place] [address] Marcelino Cueva MD 01/20/2025 Refill [facility] [address] [place] [address] [place] [phone] Marcelino Cueva MD Panlobular emphysema 01/14/2025 Results Follow-Up [facility] [address] [place] [address] Marcelino Cueva MD 01/13/2025 9:45 AM EDT Office Visit [facility] [address] [place] [phone] Marcelino Cueva MD Medicare annual wellness visit, subsequent (Primary Dx); Encounter for general adult medical examination with abnormal findings; Atherosclerosis of [place] coronary artery of [place] heart without angina pectoris; Hypertrophic cardiomyopathy; History [...] emphysema; Ex-cigarette smoker; Screening for thyroid disorder 01/13/2025 Travel 01/07/2025 Refill [facility] [address] [place] [address] [place] [phone] Marcelino Cueva MD Atherosclerosis of [place] coronary artery of [place] heart without angina pectoris 11/28/2024 Refill [facility] [address] [place] [address] [place] [phone] Marcelino Cueva MD Gastroesophageal reflux disease, unspecified whether esophagitis present 11/28/2024 Refill [facility] [address] [place] [address] [place] [address] Marcelino Cueva MD Benign prostatic hyperplasia with nocturia from Last 3 Months Immunizations Immunization Administration Dates Next Due Arexvy (RSV, Adults 60+ yrs) 10/04/2023 COVID-19 (MODERNA) 12YRS+ (SPIKEVAX) 04/21/2023 COVID-19 (MODERNA) BIVALENT 12+YRS 04/21/2023 COVID-19 (PFIZER) 12YRS+ (COMIRNATY) 04/01/2024 COVID-19 (PFIZER) BIVALENT 12+YRS 04/27/2022 COVID-19 (PFIZER) Purple Cap Monovalent 03/16/2021,09/17/2020,08/27/2020 COVID-19 (UNSPECIFIED) 04/01/2024 Covid-19 (Pfizer) Scales Cap Monovalent 11/16/2021 Fluad Quad 65+ 04/21/2023 Fluzone High-Dose 65+YRS 04/15/2024,04/01,04/12/2018,04/14,04/14/2016,04/10/2015 Fluzone High-Dose 65+yrs 04/08/2022,03/31/2021,0 03/23/2020 Influenza, Unspecified 03/23/2020 Pneumococcal Conjugate 13-Va lent (PCV13) 05/19/2015 Pneumococcal Conjugate 20-Va lent (PCV20) 11/16/2021 Pneumococcal Polysaccharide (PPSV23) 11/06/2017 Pneumococcal, Unspecified 07/07/2014 Shingrix 01/10/2023,11/02/2022,01/10/2020 Tdap 07/07/2014 Family History Medical History Relation Name Comments Cancer Father Cancer Mother Relation Name Status Comments Father (Age 75) Mother (Age 80) Social History Tobacco Use Types Packs/Day Years Used Date Smoking Tobacco: Former Cigarettes 1 50 1 959 - 2008 Smokeless Tobacco: Never Tobacco Cessation:Counseling Given: Not Answered Alcohol Use Standard Drinks/Week Comments No 0 [...] Mass Index 26.69 01/13/2025 9:30 AM EDT Plan of Treatment Upcoming Encounters Date Type Department Care Team (Late st Contact Info) Description 07/15/2025 10:00 AM EST Office Visit [facility] [address] [place] [address] [place] [address] Marcelino Cueva MD [address] [place] [address] [place] [address] Health Maintenance Due Date Last Done Comments KEITH 1987 COLON CANCER SCREENING 5 FAIS[address] [place] SIGMO[address] COLONOGRAPHY 1987 FECAL OCCULT BLOOD TEST 1987 FIT Testing (1 year) 1987 COLONOSCOPY 02/06/2022 02/06/2017, 01/28, 02/20/2012, Additional history exists COLORECTAL CANCER SCREENING 02/06/2022 DIABETIC FOOT EXAM 10/08/2023 10/07/2022, 0 10/07/2022, 10/07/2022 DIABETIC EYE EXAM 10/22/2023 10/21/2022 (Lj hutchinson-Reported (Performed Externally)) TDAP/TD VACCINES (2 - Td or Tdap) 07/07/2024 014 COVID-19 Vaccine (8 - Pfizer risk season) 2024 04/01/2024, 04/01/2024, 04/21/2023, Additional history exists INFLUENZA VACCINE 04/30/2025 04/15/2024, , 04/08/2022, Additional history exists HEMOGLOBIN A1C 07/15/2025 01/13/2025, 06/30, 01/12/2024, Additional history exists ANNUAL WELLNESS VISIT 01/13/2026 01/13/2025 , 01/12/2024, 01/12/2024, Additional history exists LIPID PANEL 01/13/2026 01/13/2025, 12/29, 10/07/2022, Additional history exists URINE MICROALBUMIN-CREATININ E RATIO (uACR) 01/13/2026 01/13/2025 LUNG CANCER SCREENING Discontinued 11/01/2017, 017 Pneumococcal Vaccine 50+ Completed 022, 11/06/2017, 05/19/2015, Additional history exists ZOSTER VACCINE Completed 01/10/2023, 11/2022, 01/10/2020 RSV Vaccine - Adults Completed 10/04/2023 Medical Devices Implanted Type Area Alodize Machine Operator Device Identifier Shelf Expiration Date Model / Serial / Lot Stent Stent Stnt Xience Abeba Everolimus Guille 3x15mm - [id number] Implanted:Qty: 1 on 11/19/2019 by Patrick Valencia MD at [facility] [employer] [id number] / / Procedures Procedure Name Priority Date/Time Associated Diagnosis Comments POC ALBUMIN/CREATININE RATIO Routine 01/13/2025 10:49 AM EDT Encounter for general adult medical examination with abnormal findings Type 2 diabetes mellitus with stage 3a chronic kidney disease, without long-term current use of insulin CBC AND DIFFERENTIAL Routine 01/13/2025 10:27 AM EDT Encounter for general adult medical examination with abnormal findings CLL (chronic lymphocytic leukemia) CONV WRITTEN AUTHORIZATION Routine 01/13/2025 10:27 AM EDT ~MICROSCOPIC EXAMINATION Routine 01/13/2025 10:27 AM EDT UA/M W/RFLX CULTURE ([facility] ONLY) Routine 01/13/2025 10:27 AM EDT CONV AMBIGUOUS TEST ORDER Routine 01/13/2025 10:27 AM EDT TSH RFX ON ABNORMAL TO FREE T4 Routine 01/13/2025 10:27 AM EDT Encounter for general adult medical examination with abnormal findings Screening for thyroid disorder COMPREHENSIVE METABOLIC PANEL Routine 01/13/2025 10:27 AM EDT Encounter for general adult medical examination with abnormal findings Primary hypertension LIPID PANEL Routine 01/13/2025 10:27 AM EDT Encounter for general adult medical examination with abnormal findings Mixed hyperlipidemia VITAMIN D,25-HYDROXY Routine 01/13/2025 10:27 AM EDT Encounter for general adult medical examination with abnormal findings Vitamin D deficiency POCT GLYCOSYLATED HEMOGLOBIN (HGB A1C) Routine 01/13/2025 10:21 AM EDT Encounter for general adult medical examination with abnormal findings Type 2 diabetes mellitus with stage 3a chronic kidney disease, without long-term current use of insulin POCT GLUCOSE, BLD (NON STRIP) Routine 01/13/2025 10:21 AM EDT Encounter for general adult medical examination with abnormal findings Type 2 diabetes mellitus with stage 3a chronic kidney disease, without long-term current use of insulin SCANNED - COLONOSCOPY 02/06/2017 CT CHEST LOW DOSE WO CANCER SCREENING Routine 12/06/2016 12:51 PM EDT Personal history of nicotine dependence from Last 3 Months or Most Recently Relevant to Health Maintenance Results * (ABNORMAL) POC Albumin/Creatinine Ratio Urine (01/13/2025 10:49 AM EDT) POC ALBUMIN, URINE 80 mg/L POC CREATININE, URINE 300 mg/dL POC Urine Albumin Creatinine Ratio 30-300 <30 Lot Number [id number] Expiration Date 03/08/2026 Urine 01/13/2025 10:4 9 AM EDT us Marcelino Cueva MD POINT OF CARE TEST ORDERABLES Final Result * Ambiguous Test Order (01/13/2025 10:27 AM EDT) Ambiguous Test Order Comment [facility] Comment: Report delayed in order to contact you to clarify requested test(s). TEST [id number] UA WITH REFLEX TO UR CX, COMPREHENSIVE IS NO LONGER ORDERABLE TEST [id number] UA WITH REFLEX TO UR CX, ROUTINE HAS BEEN ORDERED. 01/13/2025 10:2 7 AM EDT 01/13/2025 Comment:Urine Release to pat i Narrative [facility] - 01/14/2025 7:07 PM EDT Performed at: [address] [place] [id number] Manager Data Warehouse: Zeeshan Gentile PhD, Phone: [phone] us Marcelino Cueva MD LAB BLOOD ORDERABLES Final Res ult Performing Organization Address [facility] Co de Phone Number [facility] [address] [place] [address], [place] [phone] [facility] [address] [place] [address], [place] [phone] * Written Authorization (01/13/2025 10:27 AM EDT) Written Authorization Comment [facility] Comment: Written Authorization Received. Authorization received from PER ORIGINAL ORDER 01-14-2025 Logged by Tiana Chavez 01/13/2025 10:2 7 AM EDT 01/13/2025 Comment:Urine Release to pat i Narrative [facility] - 01/15/2025 6:06 AM EDT Performed at: [address] [place] [address] [id number] Manager Data Warehouse: Zeeshan Gentile PhD, Phone: [phone] us Marcelino Cueva MD LAB BLOOD ORDERABLES Final Res ult Performing Organization Address City/[facility]/ZIP Co de Phone Number [facility] (AMBULATORY) [address] [place] [address], [facility] [address] [place] [address], * TSH Rfx On Abnormal To Free T4 (01/13/2025 10:27 AM EDT) Pathologist [facility] TSH 4.170 0.450 - 4.500 uIU/mL [facility] Blood Structure of right upper limb / Unknown 01/13/2025 10:27 AM EDT 01/13/2025 Comment:Blood Release to [facility] Justus [facility] - 01/14/2025 11:07 AM EDT Performed at: 01 - [address] [id number] Manager Data Warehouse: Zeeshan Gentile PhD, Phone: [phone] Marcelino Cueva MD LAB BLOOD ORDERABLES Final Res ult [facility] [address] [place] [id number], [facility] [address] [place] [address], * (ABNORMAL) UA / M With / Rflx Culture([facility] ONLY) - (01/13/2025 10:27 AM EDT) Pathologist [facility] Specific [place], UA >=1.030(A) 1.005 - 1.030 [facility] [...] 7 AM EDT 01/13/2025 Comment:Urine Release to [facility] (AMBULATORY) - 01/15/2025 6:06 AM EDT Performed at: 01 - [facility] [address] [place] [id number] Manager Data Warehouse: Zeeshan Gentile PhD, Phone: [phone] us Marcelino Cueva MD URINE ORDERABLES Final Result Performing Organization Address City/[facility]/ZIP Co de Phone Number [facility] (AMBULATORY) [address] [place] [address], [place] [phone] [facility] [address] [place] [address], [place] [phone] * Microscopic Examination - (01/13/2025 10:27 AM EDT) WBC, UA 0-5 0 - 5 /hpf [facility] RBC, UA 0-2 0 - 2 /hpf [facility] Epithelial Cells (non renal) 0-10 0 - 10 /hpf [facility] Casts None seen None seen /lpf [facility] Bacteria, UA None seen None seen/Few [facility] 01/13/2025 10:2 7 AM EDT 01/13/2025 Comment:Urine Release to [facility] [place] ([facility]) - 01/15/2025 6:06 AM EDT Performed at: - [facility] [address] [place] [id number] Manager Data Warehouse: Zeeshan Gentile PhD, Phone: [phone] us Marcelino Cueva MD URINE ORDERABLES Final Result Performing Organization Address City/[facility]/ZIP Co de Phone Number [facility] (AMBULATORY) [address] [place] [address], [place] [phone] [facility] [address] [place] [address], * (ABNORMAL) Vitamin D,25-Hydroxy (01/13/2025 10:27 AM EDT) 25 Hydroxy, Vitamin D 23.2(L) 30.0 - 100.0 ng/mL [facility] Comment: Vitamin D deficiency has been defined by the [place] of Medicine and an Endocrine Society practice guideline as a level of serum 25-OH vitamin D less than 20 ng/mL (1,2). The Endocrine Society went on to further define vitamin D insufficiency as a level between 21 and 29 ng/mL (2). 1. IOM ([place] of Medicine). 2010. Dietary reference intakes for calcium and D. [place]: The National Academies Press. 2. Julio MF, Cecilia VILLANUEVA, Marianela KAISER, et al. Evaluation, treatment, and prevention of vitamin D deficiency: an Endocrine Society clinical practice guideline. JCEM. 2010; 96(7):1911-30. Blood Structure of right upper limb / Unknown 01/13/2025 10:27 AM EDT 01/13/2025 Comment:Blood Release to [facility] alexia Jerome [facility] (AMBULATORY) - 01/14/2025 11:07 AM EDT Performed at: 01 - [facility] [address] [place] [address] [id number] Manager Data Warehouse: Zeeshan Gentile PhD, Phone: [phone] Marcelino Cueva MD LAB BLOOD ORDERABLES Final Res ult [facility] [address] [place] [address], [facility] [address] [place] [address], * (ABNORMAL) CBC & Differential (01/13/2025 10:27 [...] 10:27 AM EDT 01/13/2025 Comment:Blood Release to pat i Justus [facility] [place] ([facility]) - 01/14/2025 11:07 AM EDT Performed at: - [address] [id number] Manager Data Warehouse: Zeeshan Gentile PhD, Phone: [phone] us Marcelino Cueva MD LAB BLOOD ORDERABLES Final Res ult [facility] [place] [facility]) [address] [place] [address], [place] [phone] [facility] [address] [place] [address], * (ABNORMAL) Lipid Panel (01/13/2025 10:27 AM EDT) Total Cholesterol 114 100 - 199 mg/dL [facility] Triglycerides 153(H) 0 - 149 mg/dL [facility] HDL Cholesterol 34(L) >39 mg/dL [facility] VLDL Cholesterol Estiven 26 5 - 40 mg/dL [facility] LDL Chol Calc (NIH) 54 0 - 99 mg/dL [facility] Blood Structure of right upper limb / Unknown 01/13/2025 10:27 AM EDT 01/13/2025 Comment:Blood Release to lilian Jerome [facility] (AMBULATORY) - 01/14/2025 11:07 AM EDT Performed at: - [facility] [address] [place] [id number] Manager Data Warehouse: Zeeshan Gentile PhD, Phone: [phone] Marcelino Cueva MD LAB BLOOD ORDERABLES Final Res ult [facility] (AMBULATORY) [address] [place] [address], [facility] [address] [place] [address], * (ABNORMAL) Comprehensive Metabolic Panel (01/13/2025 10:27 AM EDT) Pathologist [facility] Glucose 107(H) 70 - 99 mg/dL [facility] [...] 10:27 AM EDT 01/13/2025 Comment:Blood Release to [facility] Justus [facility] (AMBULATORY) - 01/14/2025 11:07 AM EDT Performed at: - [address] [id number] Manager Data Warehouse: Zeeshan Gentile PhD, Phone: [phone] us Marcelino Cueva MD LAB BLOOD ORDERABLES Final Res ult [facility] (AMBULATORY) [address] [place] [id number], [place] [phone] [facility] [address] [place] [address], [place] [phone] * (ABNORMAL) POC Glucose, Blood (01/13/2025 10:21 AM EDT) Glucose 131(A) 70 - 130 mg/dL Lot Number [id number] Expiration Date 04/10/2025 Blood 01/13/2025 10:2 1 AM EDT us Marcelino Cueva MD POINT OF CARE TEST ORDERABLES Final Result * (ABNORMAL) POC Glycosylated Hemoglobin (Hb A1C) (01/13/2025 10:21 AM EDT) Hemoglobin A1C 5.9(A) 4.5 - 5.7 % [facility] Lot Number [id number] [facility] Expiration Date 09/25/2026 [facility] Blood 01/13/2025 10:2 1 AM EDT us Marcelino Cueva MD POINT OF CARE TEST ORDERABLES Final Result [facility]
[address] [place] [address], * Colonoscopy, Scan (02/06/2017) us Marcelino Cueva MD CHART REVIEW TABS Final Res ult * CT chest low dose wo (12/06/2016 12:51 PM EDT) Anatomical Region Laterality Modality Chest Computed Tomogra phy 12/06/2016 2:53 PM EDT Impressions 12/06/2016 3:04 PM EDT There are chronic appearing pulmonary changes. Lung RADS Category 1. Annual follow-up examination is recommended. E: 12/06/2016 This report was finalized on 12/06/2016 3:[address] You Kerr MD. Narrative 12/06/2016 3:04 PM EDT EXAMINATION: CT CHEST LOW DOSE WO- 12/06/2016 INDICATION: Z87.891-Personal history of nicotine dependence TECHNIQUE: Low dose CT scan of the chest was performed for lung cancer surveillance. The radiation dose reduction device was turned on for each scan per the ALARA (As Low as Reasonably Achievable) protocol. COMPARISON: NONE FINDINGS: There is no axillary lymphadenopathy. There is no mediastinal or hilar adenopathy. There is no pericardial or pleural effusion. Images displayed at lung window settings demonstrate postinflammatory apical changes. There is no evidence of pulmonary mass, suspicious nodule or consolidation. Procedure Note Oneil Kerr MD - 12/06/2016 EXAMINATION: CT CHEST LOW DOSE WO- 12/06/2016 INDICATION: Z87.891-Personal history of nicotine dependence TECHNIQUE: Low dose CT scan of the chest was performed for lung cancer surveillance. The radiation dose reduction device was turned on for each scan per the ALARA (As Low as Reasonably Achievable) protocol. COMPARISON: NONE FINDINGS: There is no axillary lymphadenopathy. There is no mediastinal or hilar adenopathy. There is no pericardial or pleural effusion. Images displayed at lung window settings demonstrate postinflammatory apical changes. There is no evidence of pulmonary mass, suspicious nodule or consolidation. IMPRESSION: There are chronic appearing pulmonary changes. Lung RADS Category 1. Annual follow-up examination is recommended. E: 12/06/2016 This report was finalized on 12/06/2016 3:[address] You Kerr MD. Cary Lees SURFACER OPERATOR IMG CT ORDERABLES Final Re sult from Last 3 Months or Most Recently Relevant to Health Maintenance Insurance [facility] MED[facility]AGE HMO Advance Directives * CPR (Attempt to Resuscitate) (Latest Code Status on File) Date Activated Date Inactivated Comments 01/01/2022 11:01 AM 01/02/2022 6:52 PM Question Answer Comments Code Status (Patient has no pulse and is not breathing): CPR (Attempt to Resuscitate) Medical Interventions (Patie nt has pulse or is breathing): Full Support Level Of Support Discussed With: Patient * CPR (Attempt to Resuscitate) Date Activated Date Inactivated Comments 12/31/2021 5:12 PM 01/01/2022 11:01 AM Question Answer Comments Code Status (Patient has no pulse and is not breathing): CPR (Attempt to Resuscitate) Medical Interventions (Patie nt has pulse or is breathing): Full Support Level Of Support Discussed With: Patient Care Teams Multisensor Intelligence Officer Relationship Specialty Start Date End Date Marcelino Cueva MD [address] [place] [address] [place] [address] PCP - General Internal Medicine 03/31/22
--- OUTSIDE RECORDS SUMMARY | 2025-02-20 07:40 | XMS_ITS | Data Portability ---
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 Plan of Treatment Reminders Order Date Submit Date Provider Last Modified By Organization Details Last Modified Time Details Appointments None recorded. Lab None recorded. Referral None recorded. Procedures None recorded. Surgeries None recorded. Imaging CT, neck, soft tissue, w/ contrast 2022 023 [email or web address] [facility] ([facility]), [address], [place], [address], 3 15:39:39 Medication Orders None recorded. Patient TargetsNo targets recorded. Patient Instructions Encounter Date Encounter Id Patient Instructions Last Modified By Organization Details Last Modified Time 05/19/2022 [id number] 1. s/p excisiona l biopsy 1wk ago [...] the office visit. 4. Will clear w/ senior litigation paralegal - Dr. Annie [email or web address] Not available 05/19/2022 09:49:11 82-year-old follow-up right scientologist subcutaneous mass excision. Biopsy of mass came [...] it. Likely can do under [facility] sedation. [email or web address] Not available 05/19/2022 16:59:47 06/02/2022 [id number] 1. 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 2. Incision checked and cleaned. 3. Pathology pending. Will notify of results. 4. Continue antibiotic ointment 5. Determine follow-up pending pathology results. [email or web address] Not available 06/02/2022 08:15:06 82-year-old follow-up wide local excision to right scientologist skin lesions. Appears to be healing as [...] which potentially we could do up in [place] locally for him . His facial nerve which was weak postop in the superior branch fortunately appears to be completely back to normal at this point. [email or web address] Not available 06/02/2022 12:14:46 07/07/2022 [id number] 1. s/p excisiona l biopsy of 1st right temporal BCC in-office 05/12/22, and s/p excisional biopsy right temporal lesion in OR 06/01/22 2. Discussed options including observation vs further excision and rotational flaps in the right scientologist area. He prefers to observe. 3. F/u [...] malignancy which potentially could grow or spread. [email or web address] Not available 07/07/2022 13:03:55 10/13/2022 [id number] 1. s/p excisiona l biopsy of 1st right temporal BCC in-office 05/12/22, and s/p excisional biopsy right temporal lesion in OR 06/01/22 2. Discussed options including observation vs further excision and rotational flaps in the right scientologist area vs radiation/chemothe rapy. Continue to observe 3. F/u in 6mo, plan to set up imaging in 1yr at follow-up visit Not available 10/13/2022 09:09:33 04/13/2023 [id number] 1. s/p excisiona l biopsy of 1st [...] 08:33 Page 1 of 1 Not Available [facility] [address] [place] [address], [phone], 05/16/2022 08:34:18 Result Notes None recorded. Problems No Known Problems Procedures Surgical History Date Name Laterality Status Provider Name and Address Organization Details Recorded Time 2 EXCISION, TUMOR, SOFT TISSUE FACE/SCALP (SURG) completed Suzie Allen [facility] 05/30/2022 14:22:08 2 Excision BN Lesion; face, ears, eyelid, nose, lips, mucous membrane completed ARIELA QUIROGA MD [address] [place] [address], [phone], [facility] 05/12/2022 17:27:15 Imaging Results None recorded. Procedure Notes None recorded. Medical Equipment None Reported. Allergies Allergen ID Allergen Name Allergen Category Reaction Reaction Severity Criticality Documentation Date Start Date Code Code System Note Provider Name and Address Organization Details Recorded Time 719803 Product containin g penicilli n (product) medicatio n Not available Not available Not available 05/06/2022 [id number] SNOMED Nhi riley, [facility] 2 09:34:43 Medications Name Sig Start Date [...] blood by Pulse oximetry Heart rate Systolic And Diastolic Provider Name and Address Organization Details Last Updated DateTime 3 177.8 cm 27.8 kg/m2 36126.4 8 g 97.9 [degF] 98 % 98 % 71 /min 134/62 mm[Hg] [facility] 08:55:47 Date Recorded Body height Body mass index (BMI) Body weight Systolic And Diastolic Provider Name and Address Organization Details Last Updated DateTime 04/13/2023 177.8 cm 30.6 kg/m2 90219.17 g 131/59 mm[Hg] Jenny Cleaning [facility] 04/13/2023 08:01:29 Date Recorded Body height Body mass index (BMI) Body weight Body temperature Oxygen saturation Oxygen saturation in Arterial blood by Pulse oximetry Heart rate Systolic And Diastolic Provider Name and Address Organization Details Last Updated DateTime 2 177.8 cm 27.5 kg/m2 80448.7 4 g 97.9 [degF] 98 % 98 % 89 /min 124/89 mm[Hg] [facility] 2 09:19:01 Date Recorded Body height Body mass index (BMI) Body weight Body temperature Heart rate Systolic And Diastolic Provider Name and Address Organization Details Last Updated DateTime 2 177.8 cm 27.5 kg/m2 76070.7 4 g 96.9 [degF] 89 /min 123/59 mm[Hg] [facility] 2 07:59:15 Date Recorded Body height Body mass index (BMI) Body weight Heart rate Systolic And Diastolic Provider Name and Address Organization Details Last Updated DateTime 07/07/2022 177.8 cm 27.8 kg/m2 73585.48 g 69 /min 132/67 mm[Hg] Sherry Barron [facility] 07/07/2022 09:59:58 Social History None recorded. Functional Status Question Answer Note LastModified by Organizat ion Details LastModified Time What is your level of alcohol consumption? Occasional [email or web address] Information not available 05/06/2022 Mental Status None recorded. Family History Relationship Description Onset Age of this Age Resolved Age Notes LastModified by Organization Details LastModified Time Father Malignant tumor of stomach [email or web address] Not available 2021 09:32:32 Father Malignant neoplasm of lung [email or web address] Not available 2021 09:32:42 Mother Malignant tumor of stomach [email or web address] Not available 2021 09:32:32 Mother Malignant neoplasm of lung [email or web address] Not available 2021 09:32:42 Medical History Condition Response Anesthesia Complications N Diabetes N Heart Disease Y Bleeding Disorder Y Cancer N Hypertension Y Stomach trouble Y Past Encounters Encounter ID Performer Location Encounter Start Date Encounter Closed Date Diagnosis/Indication Diagnosis SNOMED-CT Code Diagnosis ICD10 Code Diagnosis Note [id number] ARIELA QUIROGA MD [place] [facility] [address] [place] [address] 05/06/2022 09:13:22 05/06/2022 10:03:44 Mass of head and/or neck 743273709 R22.0 History of malignant neoplasm of skin 500435002 Z85.828 Sebaceous cyst of skin 583578150 L72.3 Chronic ly mphoid leukemia, disease 70510010 C91.10 Heart disease 56109240 I 51.9 [id number] [place] [address] [place] [address] 1 05/12/2022 14:40:14 05/13/2022 10:06:30 Sebaceous cyst of skin 289629986 L72.3 Mass of he ad and/or neck 344144663 R22.0 History of malignant neoplasm of skin 375401463 Z85.828 Chronic ly mphoid leukemia, disease 56429333 C91.10 Heart disease 62833028 I 51.9 [id number] [place] [address] [place] [address] 1 05/19/2022 08:46:30 05/20/2022 08:20:13 Mass of head and/or neck 118009600 R22.0 History of malignant neoplasm of skin 980521789 Z85.828 Chronic ly mphoid leukemia, disease 32511298 C91.10 Heart disease 20068832 I 51.9 Basal cell carcinoma of face 126921217 C44.310 Right scientologist [id number] [place] [address] [place] [address] 1 06/02/2022 07:31:07 06/02/2022 14:04:13 Basal cell carcinoma of face 750802004 C44.310 Right scientologist, excision/b iopsy yesterday, pathology pending.-1 pathology result BCC Mass of he ad and/or neck 571796740 R22.0 History of malignant neoplasm of skin 018994536 Z85.828 Chronic ly mphoid leukemia, disease 89831678 C91.10 Heart disease 75564748 I 51.9 [id number] ARIELA QUIROGA MD [facility] [address] [place] [address] 07/07/2022 09:52:56 07/07/2022 10:38:36 Basal cell carcinoma of face 067838514 C44.310 Right scientologist Mass of he ad and/or neck 135515095 R22.0 History of malignant neoplasm of skin 370557313 Z85.828 Chronic ly mphoid leukemia, disease 29987911 C91.10 Heart disease 82025354 I 51.9 [id number] ARIELA QUIROGA MD [address] [place] [address] 10/13/2022 08:47:58 10/13/2022 09:25:40 Basal cell carcinoma of face 405843233 C44.310 07/07/22: 82-year-ol d follow-up wide local [...] visit. History of malignant neoplasm of skin 590307323 Z85.828 Chronic ly mphoid leukemia, disease 65545388 C91.10 [id number] ARIELA QUIROGA MD [facility] [address] [place] [address] 04/13/2023 07:26:24 04/13/2023 13:42:10 Basal cell carcinoma of face 167112329 C44.310 07/07/22: 82-year-ol d follow-up wide local [...] n. History of malignant neoplasm of skin 204140668 Z85.828 Chronic ly mphoid leukemia, disease 08948520 C91.10 Health Concerns Section Related Observation LastModified by Organization Jorge beal LastModified Time None Recorded Concern Status LastModified by Organization Details LastModified Time None Recorded Advance Directives Directive None Recorded Payers Insurance Date Sequence Insurance Name Policy Number Policy Edmonds Covered Member ID Edmonds Member ID Guarantor Name 04/10/2023 1 [place] [employer] OF [facility] (MEDICARE REPLACEMENT REGIONAL PPO) [id number] Yogesh Matson [id number] Yogesh Matson Notes Date Note Type Note Provider Name and Address Organization Details Recorded Time 05/19/2022 text/html Chief Complaint: sebaceous cyst/temporal massTiming: noticed 5 years ago, excised 1wk ago 05/12/22Duration:Loc ation: right templeSeverity:Quali ty:Context: history of facial skin cancer--has not had known occurrence on scalp, heart diseaseModifying Factors: antibiotic ointmentAssoc signs and symptoms: No pain ARIELA QUIROGA MD [address] [place] [address], [phone], [facility] 05/19/2022 17:00:06 06/02/2022 text/html Chief Complaint: sebaceous cyst/temporal massTiming: noticed 5 years ago, excised 3wks ago 05/12/22 and 2nd excision/biopsy in OR yesterdayDuration:Lo cation: right templeSeverity:Quali ty:Context: history of facial skin cancer--has not had known occurrence on scalpModifying Factors:Assoc signs and symptoms: soreness ARIELA QUIROGA MD [address] [place] [address], [phone], [facility] 06/02/2022 12:14:50 07/07/2022 text/html Chief Complaint: temporal mass--BCCTiming: noticed 5 years ago, excised 2mo ago 05/12/22 and 2nd excision/biopsy in [place] 06/01/22Duration:Loca tion: right templeSeverity:Quali ty:Context:Modifying Factors: pulled a stitch out of right scientologist incisionAssoc signs and symptoms: has noticed a rough spot on left scientologist, feels a pulling sensation around the right eye ARIELA QUIROGA MD [address] [place] [address], [phone], [facility] 07/07/2022 13:03:59 10/13/2022 text/html Chief Complaint: temporal mass--BCCTiming: noticed 5 years ago, excised 2mo ago 05/12/22 and 2nd excision/biopsy in OR 06/01/22Duration:Loca tion: right templeSeverity:Quali ty:Context:Modifying Factors:Assoc signs and symptoms: has not felt or seen anything new or worrisome regarding skin, no felt lumps in the neck, has been doing well overall lately ARIELA QUIROGA MD [address] [place] [address] [place], [phone], [facility] 10/13/2022 12:18:44 04/13/2023 text/html Chief Complaint: temporal mass-BCCTiming: noticed 5 years agoDuration:Location : right templeSeverity:Quali ty:Context:Modifying Factors: excised 05/12/22 and 2nd excision/biopsy in [place] 06/01/22Assoc signs and symptoms: has not felt or seen anything new or worrisome regarding skin, no felt lumps in the neck, has been doing well overall lately, no new issues ARIELA QUIROGA MD [address] [place] [address], [phone], [facility] 04/13/2023 12:22:39
--- NOTE | 2025-02-20 08:00 | CA_ITS ---
APPROVED REPORT EXAM: Limited 2D Echocardiogram Children'S Service Supervisor: Makayla Humphrey, RCS, RVS Ht: 5 ft 10 in Wt: 186lbs BSA: 2.02 BP: 119/60 mmHg Indications: HOCM 2D Dimensions IVSd 1.23 cm M: 0.6-1.2 LVEF (Visual) 60.80 % PWd 1.25 cm M: 0.6 - 1.2 LA Volume 86.50 mL LVDd 4.76 cm M: 4.2 - 5.9 LA Volume Index 42.144299 mL/m2 (M/F) 16-34 LVDs 3.21 cm M: 2.5 - 4.0 Left Atrium 3.62 cm M: 3.0 - 4.0 M-Mode Dimensions LA Diam 4.19 cm (1.9-4.0) LVDd 5.64 cm (3.5-5.7) LVDs 3.70 cm (3.5-5.7) IVSd 1.28 cm (0.6-1.1) PWd 1.11 cm (0.6-1.1) EF (Teich) 62.80% EPSs 0.30 cm FS 34.40% EDV (Teich) 156.20 mL ESV (Teich) 58.10 mL Aortic Valve BRAIN Index 2.48 cm2/m2 AoV Peak All. 338.0 (50-130 cm/s) AO Peak GR. 45.80 mmHg AO Mean GR. 22.10 (<5 mmHg) AO VTI 77.3 (18-25 cm) BRAIN (VTI) 5.13 (2.5-4.5 cm2) Other Information Study Quality: Fair Conclusion This is a limited TTE to evaluate for LVOT gradient in the setting of known HCM and rece discontinuation of mavacamtennt (due to intolerance). Limited windows are obtained. Clinical ventricle is normal in size. There is increased LV wall thickness. There is normal global LV systolic function. LVEF is 55%. Systolic anterior motion (JOANN) of the mitral valve leaflet is present with septal contact. She acceleration across the LVOT is present. At rest, there is increased LVOT gradient, peak gradient reaching up to 75 mmHg. In the setting HCM with intolerate to mavacamten and with presence of persistently elevated LVOT gradients, early referral for alcohol septal ablation may be suggested, if deemed clinically appropriate and feasible. Electronically signed by : Shelly Dempsey MD 02/21/2025 12:40:51
== END 2025-02-20 23:59 | disposition home or self-care (01) ==
LOC: RT 07:37
PROVIDERS: PCP Internal Medicine; Visit Provider Internal Medicine
DX: I42.1 Obstructive hypertrophic cardiomyopathy (principal); I25.10 Atherosclerotic heart disease of native coronary artery without angina pectoris; I11.9 Hypertensive heart disease without heart failure; R93.1 Abnormal findings on diagnostic imaging of heart and coronary circulation
CPT/HCPCS: 93308

== ENCOUNTER 2025-03-19 13:06 | Outpatient (CLI) | payer MEDICARE, SELFPAY ==
--- OUTSIDE RECORDS SUMMARY | 2025-03-19 08:45 | XMS_ITS | Encounter Summary ---
Author Organization [facility] Address [address] [place] [address] Care Team Providers Care Trainmaster Name Role Phone Galindo Cueva MD Primary Care Provider [phone] Reason for Referral * Consultation (Routine) - Authorized Specialty Diagnoses / Procedures Referred By Contac t Referred To Contact Diagnoses Cardiomyopathy, hypertrophic (CMS/HCC) HOCM (hypertrophic obstructive cardiomyopathy) (CMS/HCC) Yomaira Quintanilla APRN, DNP [address] [place] [address] Phone: tel: fax: Referral ID Status Reason Start Date Expiration Date V isits Requested Visits Authorized [id number] Authorized 03/19/2025 09/18/2026 1 1 * Genetic Testing (Routine) - Closed Specialty Diagnoses / Procedures Referred By Contjazmin t Referred To Contact Lab Diagnoses Cardiomyopathy, hypertrophic (CMS/HCC) HOCM (hypertrophic obstructive cardiomyopathy) (CMS/HCC) Procedures [facility] Unlock Cardiomyopathy and Arrythmia Panel; Yes; No; Yes; Yes ([facility]); Immediate - Miscellaneous Test Felton Kingston MD [address] [place] [address] Phone: tel: fax: Referral ID Status Reason Start Date Expiration Date Visits Re quested Visits Authorized [id number] Closed 03/19/2025 09/18/2026 1 1 Reason for Visit * Consultation (Routine) - Closed Specialty Diagnoses / Procedures Referred By Contac t Referred To Contact Cardiology Diagnoses Hypertrophic cardiomyopathy (CMS/HCC) Trenton Dempsey MD [address] [facility] [address] [place] [address] Phone: tel: fax: Felton Kingston MD [address] [place] [address] Phone: tel: fax: Referral ID Status Reason Start Date Expiration Date V isits Requested Visits Authorized [id number] Closed Specialty Services Required 02/25/2025 08/27/2026 1 1 Encounter Details Date Type Department Care Team (Late st Contact Info) Description 03/19/2025 8:45 AM EDT Office Visit [facility] [place] [address] [place] [address] Felton Kingston MD [address] [place] [address] HOCM (hypertrophic obstructive cardiomyopathy) (CMS/HCC) (Primary Dx); Cardiomyopathy, hypertrophic (CMS/HCC) Social History Tobacco Use Types Packs/Day Years Used Date Smoking Tobacco: Former Smokeless Tobacco: Never Tobacco Cessation:Counseling Given: Not Answered Alcohol Use Standard Drinks/Week Comments Yes 0 (1 standard drink = 0.6 oz pure alcohol) Alcoholic Drinks/day: Moderate alcohol use PHQ-2 Answer Date Recorded Patient Health Questionnaire-2 Score 0 03/19/2025 PHQ-9 Answer Date Recorded Patient Health Questionnaire-9 Score 0 03/19/2025 Sex and Gender Information Value Date Recorded Sex Assigned at Not on file Legal Sex Male 8:08 PM EDT Gender Identity Not on file Sexual Orientation Not on file documented as of this encounter Last Filed Vital Signs Vital Sign Reading Time Taken Comments Blood Pressure 102/60 03/19/2025 8:17 AM EDT Pulse 65 03/19/2025 8:17 AM EDT Temperature - - Respiratory Rate - - Oxygen Saturation 96% 03/19/2025 8:17 AM EDT Inhaled Oxygen Concentration - - Weight 83.5 kg (184 lb 1.4 oz) 03/19/2025 8:17 A M EDT Height 177.8 cm (5' 10 ) 03/19/2025 8:17 AM EDT Body Mass Index 26.41 03/19/2025 8:17 AM EDT documented in this encounter Functional Status * Over the past 2 weeks, how often have you been bothered by any of the following problems? Question Answer Date of Assessment Author Little interest or pleasure in doing things Not at all 03/19/2025 8:28 AM ALTONT Martha Peña CNA Feeling down, depressed, or hopeless Not at all 03/19/2025 8:28 AM EDT Martha Peña CNA Patient Health Questionnaire-2 Score 0 03/19/2025 8:28 AM EDT Sari Peña CNA * Question Answer Date of Assessment Author Trouble falling or staying asleep, or sleeping too much Not at all 03/19/2025 8:28 AM ALTONT Martha Peña CNA Feeling tired or having little energy Not at all 03/19/2025 8:28 AM ALTONT Martha Peña CNA Poor appetite or overeating Not at all 03/19/2025 8: 28 AM ALTONT Martha Peña CNA Feeling bad about yourself - or that you are a failure or have let yourself or your family down Not at all 03/19/2025 8:28 AM EDT Martha Peña CNA Trouble concentrating on things, such as reading the newspaper or watching television Not at all 03/19/2025 8:28 AM ALTONT Martha Peña CNA Moving or speaking so slowly that other people could have noticed? Or the opposite - being so fidgety or restless that you have been moving around a lot more than usual. Not at all 03/19/2025 8:28 AM Matrha Finnegan CNA Thoughts that you would be better off or hurting yourself in some way Not at all 03/19/2025 8:28 AM Martha Finnegan CNA Patient Health Questionnaire-9 Score 0 03/19/2025 8:28 AM Sari Finnegan CNA * If you checked off any problems on this questionnaire so far, Question Answer Date of Assessment Author How difficult have these problems made it for you to do your work, take care of things at home, or get along with other people? Not difficult at all 03/19/2025 8:28 AM Martha Finnegan CNA documented as of this encounter Miscellaneous Notes * Progress Notes - Yomaira Quintanilla, JESSY, DNP - 03/19/2025 8:45 AM EDT Images from the original note were not included. Cardiology Clinic Note Date of Visit 03/19/25 Patient Yogesh Matson [address] [address] [address] [id number] Referring Provider Trenton Dempsey MD PCP Galindo Cueva MD Chief complaint: HOCM SUBJECTIVE History of Present Illness Today Dr. Felton Kingston and I saw Yogesh Matson, a 84 y.o. male at [facility] for consultation of HOCM at the request of Trenton Dempsey MD. Past medical history: CAD, HOCM, HTN, HLD, PAD, CLL, pulmonary emphysema, anemia, prior smoker History of present issue: Followed with Dr. Trenton Dempsey for HOCM and general cardiology care. He was previously worked up by Dr. Shaw for HOCM, patient declined the operation and was treated with metoprolol. He was also previously on Camzyos but discontinued the medication due to patient reports of chest pain. Ordered alimited echo at his last visit (02/24/2025). After reviewing the echo, his LVOT gradient was up to 75 mmHg. He was referred to us for further evaluation for alcohol ablation. Today in clinic he is doing okay. He is anxious to be here today. He previously tried Camzyos for ~20 days but was unable to tolerate secondary to chest pain. Yesterday he reports that he was experiencing some sort of indigestion, was unable to keep anything down, was throwing up after any eating or drinking. This morning he is better, has been able to hold his food/drinks down. Complains of chronic shortness of breath with exertion (example gave of walking about 30 ft). If he doesn't stop and rest he starts to experience chest burning. Denies palpitations or racing heart and syncope. Experiences occasional lightheadedness when he is feeling short of breath. BP at home stable 120-130s. He was a former smoker ~40 years and quit 20 years ago. He had a brother who at age 6 from a hole in his heart . Father in his 60s from cancer. Compliant with and tolerating medications well without issue. Cardiac history: CATH: -11/19/2019: VIOLETTA to LAD, mod disease of LAD diagonal, Severe intracavitary gradient in the left ventricle consistent with HOCM -01/01/2022: patent prox LAD stent with minor nonobstructive residual disease ECHO: -11/02/2017: EF >60%, prox septal thickening, LVOT obstruction rest gradient ~40 mmHg, MV JOANN -01/01/2022: EF 64%, mild to mod concentric hypertrophy, mild anterior mitral leaflet thickening, DDGI, RV cavity mildly dilated -12/27/2024: history of HCM, increased LV wall thickness, no evidence of LVOT obstruction EF 60%, YASH, AV mildly thickened, JOANN of MV -02/20/2025 limited: increased LV wall thickness, EF 55%, JOANN of MV present with septal contact, at rest increased LVOT gradient PG 75 mmHg STRESS TESTING: -12/04/2024 SPECT: no evidence of fixed or reversible perfusion defects CARDIAC IMAGING: -11/21/2024 CMR: hyperdynamic LV sys function EF 71%, asymmetric marked increased in LV wall thickness with up to 16.5 mm in the basal septal LV wall, LVOT obstruction at rest, mild LAE, JOANN of MV, faint patchy late gadolinium enhancement present in the basal septal and lateral LV richter; no evidenceof alternative infiltrative CM, LGE pattern does not suggest amyloidosis Problem List Problem List[1] Past Medical History Past Medical History[2] Past Surgical History Surgical History[3] Family History Family History[4] Social History Social History[5] Current Medications Current Medications[6] Allergies Allergies[7] Review of Systems 14 point ROS negative except as listed in HPI. OBJECTIVE Vitals Visit Vitals BP 102/60 (BP Location: Right arm, Patient Position: Sitting) Pulse 65 Ht 1.778 m (5' 10 ) Wt 83.5 kg (184 lb 1.4 oz) SpO2 96% BMI 26.41 kg/m?? Physical Exam Physical Exam Vitals reviewed. Constitutional: General: He is not in acute distress. HENT: Head: Normocephalic. Mouth/Throat: Mouth: Mucous membranes are moist. Neck: Vascular: No carotid bruit or JVD. Cardiovascular: Rate and Rhythm: Normal rate and regular rhythm. Pulses: Normal pulses. Heart sounds: S1 normal and S2 normal. Murmur heard. No gallop. Pulmonary: Effort: Pulmonary effort is normal. No respiratory distress. Breath sounds: Normal breath sounds. Abdominal: Palpations: Abdomen is soft. Musculoskeletal: Right lower leg: No edema. Left lower leg: No edema. Skin: General: Skin is warm and dry. Neurological: Mental Status: He is alert and oriented to person, place, and time. Psychiatric: Mood and Affect: Mood normal. Behavior: Behavior normal. Lab Review Lab Results Component Value Date/Time WBC 18.6 (H) 01/13/2025 1027 WBC 6.8 11/04/2017 0645 RBC 4.89 01/13/2025 1027 RBC 3.94 (L) 11/04/2017 0645 HGB 14.2 01/13/2025 1027 HGB 12.2 (L) 11/04/2017 0645 HCT 46.8 01/13/2025 1027 HCT 35.1 (L) 11/04/2017 0645 Lab Results Component Value Date/Time GLUCOSE 89 08/06/2024 1031 GLUCOSE 120 (H) 11/04/2017 0645 BUN 25 08/06/2024 1031 BUN 14 11/04/2017 0645 CREATININE 1.37 (H) 08/06/2024 1031 CREATININE 0.73 (L) 11/04/2017 0645 NA 142 08/06/2024 1031 NA 136 11/04/2017 0645 K 4.5 08/06/2024 1031 K 4.1 11/04/2017 0645 CL 106 08/06/2024 1031 CL 102 11/04/2017 0645 Lab Results Component Value Date/Time AST 22 12/31/2021 1214 AST 27 10/30/20175 ALT 20 12/31/2021 1214 ALT 15 10/30/20175 ALKPHOS 59 10/30/20172124 Lab Results Component Value Date/Time CHOL 125 10/31/2017 0438 LDLCALC 72 10/31/2017 0438 HDL 40 10/31/2017 0438 TRIG 65 10/31/2017 0438 Lab Results Component Value Date/Time HGBA1C 7 (H) 10/07/2022 1048 HGBA1C 7.3 (H) 12/31/2021 1214 HGBA1C 5.6 10/30/20172124 Lab Results Component Value Date/Time TSH 4.17 01/13/2025 1027 ASSESSMENT AND PLAN Visit Diagnoses and Orders 1. HOCM (hypertrophic obstructive cardiomyopathy) (CMS/HCC) 2. Cardiomyopathy, hypertrophic (CMS/HCC) Discussion Summary HOCM -Previously had extensive work up and follows with Dr. Dempsey -Could not tolerate Camzyos secondary to side effects -Dr. Kingston reviewed 01/2025 limited echo images which revealed significant elevated pressure gradient -Patient is experiencing CP and EDMOND -Continue metoprolol tartrate 100 mg bid -He has one brother with 2 children therefore we will order genetic testing -Plan for alcohol ablation with Dr. Kingston FOLLOW UP: 2 months after septal ablation A total time of 66 minutes was spent by MD and HANNA addressing the current illness, reviewing records (prior imaging, lab work, etc), formulating a plan and documenting. The patient is agreeable to the plan and all pertinent questions were answered. The patient's cardiac evaluation was discussed with Dr. Felton Kingston who agrees with the plan. Trenton Dempsey MD, thank you for the consultation. Please do not hesitate to contact us with any questions. Yomaira Quintanilla APRN, DNP [1] Patient Active Problem List Diagnosis Cardiomyopathy, hypertrophic (CMS/HCC) HOCM (hypertrophic obstructive cardiomyopathy) (CMS/HCC) [2] History reviewed. No pertinent past medical history. [3] Past Surgical History: Procedure Laterality Date CORONARY ANGIOPLASTY WITH STENT PLACEMENT N/A Cardiac catheterization with stent placement from [facility] PILONIDAL CYST DRAINAGE N/A Pilonidal Cyst Resection from [facility] SINUS SURGERY N/A Sinus Surgery from [facility] [4] History reviewed. No pertinent family history. [5] Social History Tobacco Use Smoking status: Former Smokeless tobacco: Never Substance Use Topics Alcohol use: Yes Comment: Alcoholic Drinks/day: Moderate alcohol use [6] Current Outpatient Medications: acetaminophen (Tylenol) 325 MG tablet, Take 500 mg by mouth every 6 hours as needed. Under [employer], monthly prescriptions (30 days) can be refilled at 25 days and three-month prescriptions (90 days) at 80 days. Please contact the insurance company with questions if refills are denied., Disp: ,Rfl: albuterol 108 (90 Base) MCG/ACT inhaler, INHALE 2 PUFFS BY MOUTH EVERY 4 HOURS NEEDED FOR WHEEZING FOR SHORTNESS OF BREATH, Disp: , Rfl: ASPIRIN 81 PO, Take 1 tablet by mouth., Disp: , Rfl: calcium carbonate 648 MG tablet tablet, Take by mouth daily., Disp: , Rfl: Calquence 100 MG tablet tablet, , Disp: , Rfl: cholecalciferol (Vitamin D-3) 50 MCG (2000 UT) tablet, Take 1 tablet by mouth 1 time each day., Disp: , Rfl: ezetimibe (Zetia) 10 MG tablet, Take 1 tablet by mouth 1 time each day., Disp: , Rfl: famotidine (Pepcid) 20 MG tablet, Take 1 tablet by mouth 2 times a day., Disp: , Rfl: glucose blood test strip, 1 each by Other route 1 time each day., Disp: , Rfl: ipratropium-albuterol (Duo-Neb) 0.5-2.5 mg/3 mL nebulizer solution, USE 3 ML IN NEBULIZER 4 TIMES DAILY NEEDED FOR SHORTNESS OF BREATH FOR WHEEZING, Disp: , Rfl: isosorbide mononitrate ER (Imdur) 60 MG 24 hr tablet, TAKE ONE TABLET BY MOUTH EVERY DAY (STOP THE 120 MG), Disp: , Rfl: metFORMIN (Glucophage) 500 MG tablet, Take 1 tablet by mouth 2 times a day with meals., Disp: , Rfl: metoprolol tartrate (Lopressor) 100 MG tablet, Take 1 tablet by mouth twice a day., Disp: , Rfl: NIFEdipine CC (Adalat CC) 60 MG 24 hr tablet, , Disp: , Rfl: rosuvastatin (Crestor) 5 MG tablet, , Disp: , Rfl: tamsulosin (Flomax) 0.4 MG 24 hr capsule, TAKE ONE CAPSULE BY MOUTH EVERY NIGHT FOR PROSTATE, Disp:, Rfl: [7] Allergies Allergen Reactions Penicillins Hives, Rash and Unknown - Patient states they do not know rxn details Lisinopril Vomiting Losartan Palpitations documented in this encounter Plan of Treatment Upcoming Encounters Date Type Department Care Team (Late st Contact Info) Description 04/30/2025 10:30 AM EDT Office Visit [facility] [place] [address] [facility] [place] [phone] Felton Kingston MD [address] [place] [phone] 05/02/2025 Hospital Encounter Cardiac Bore Mill Operator [employer] [address] [place] [phone] Felton Kingston MD [address] [place] [address] Pending Results Name Type Priority Associated Diagnoses Date /Time [facility] Unlock Cardiomyopathy and Arrythmia Panel; Yes; No; Yes; Yes ([facility]); Immediate - Miscellaneous Test Lab Routine Cardiomyopathy, hypertrophic (CMS/HCC) HOCM (hypertrophic obstructive cardiomyopathy) (CMS/HCC) 03/19/2025 9:17 AM EDT Scheduled Orders Name Type Priority Associated Diagnoses Orde r Schedule [facility] Unlock Cardiomyopathy and Arrythmia Panel; Yes; No; Yes; Yes ([facility]); Immediate - Miscellaneous Test Lab Routine Cardiomyopathy, hypertrophic (CMS/HCC) HOCM (hypertrophic obstructive cardiomyopathy) (CMS/HCC) Expected: 03/19/2025 (Approximate), Expires: 09/20/2026 Scheduled Procedures Name Priority Associated Diagnoses Date/Ti me SEPTAL ABLATION W/ALCOHOL AN D TEMPORARY PACEMAKER INSERTION Cardiomyopathy, hypertrophic (CMS/HCC) HOCM (hypertrophic obstructive cardiomyopathy) (CMS/HCC) Scheduled Referrals Name Type Priority Associated Diagnoses Orde r Schedule Follow Up Cardiology Outpatient Referral Routine Cardiomyopathy, hypertrophic (CMS/HCC) HOCM (hypertrophic obstructive cardiomyopathy) (CMS/HCC) Expected: 05/19/2025, Expires: 09/19/2026 documented as of this encounter Visit Diagnoses Diagnosis HOCM (hypertrophic obstructive cardiomyopathy) (CMS/HCC)- Primary Hypertrophic obstructive cardiomyopathy Cardiomyopathy, hypertrophic (CMS/HCC) Cardiomyopathy, hypertrophic (CMS/HCC) HOCM (hypertrophic obstructive cardiomyopathy) (CMS/HCC) Hypertrophic obstructive cardiomyopathy documented in this encounter Additional Health Concerns Assessment Noted Time PHQ-9 Depression Total Score: 0 03/19/20 25 8:28 AM EDT A fall risk assessment has been complete d for the patient 03/19/2025 8:28 AM EDT A Body Mass Index follow-up plan has been documented for the patient 03/19/2025 9:31 AM EDT documented as of this encounter Care Teams Trainmaster Relationship Specialty Start Date End Date Galindo Cueva MD [address] [place], [place] [id number] PCP - General 12/11/20 documented as of this encounter
--- NOTE | 2025-03-19 13:09 | PC.NURSE ---
labs drawn per amb orders for dr reyes. blood drawn via butterfly needle in left ac by GAYE Mcarthur. needle removed and coban applied. pt tolerated well.
--- OUTSIDE RECORDS SUMMARY | 2025-03-19 13:09 | XMS_ITS | Encounter Summary ---
Author Organization [facility] Address [address] [place] [address] Care Team Providers Care Ceramic Tile Mechanic Name Role Phone Marcelino Cueva MD Primary Care Provider [phone] Encounter Details Date Type Department Care Team (Late st Contact Info) Description 11/28/2016 External CPT II SHAPER OPERATOR - [facility] Social History Tobacco Use Types Packs/Day Years Used Date Smoking Tobacco: Former Cigarettes 1 50 1 379 - 2008 Alcohol Use Standard Drinks/Week Comments [...] Description 07/15/2025 10:00 AM EST Office Visit [facility] [address] [place] [address] [place] [address] Marcelino Cueva MD [address] [place] [address] documented as of this encounter Visit Diagnoses Not on filedocumented in this encounter Additional Health Concerns Infection Onset Date Last Indicated Resolved Time COVID Screen (preop/placement) 12/31/2021 12/31/2021 12/31/2021 5:29 PM EDT documented as of this encounter Care Teams Ceramic Tile Mechanic Relationship Specialty Start Date End Date Marcelino Cueva MD [address] [place] [address] PCP - General Internal Medicine 03/31/22 documented as of this encounter
--- OUTSIDE RECORDS SUMMARY | 2025-03-19 13:09 | XMS_ITS | Encounter Summary ---
Author Organization [facility] Address [address] [place] [address] Care Team Providers Care Chemistry Quality Control Technician Name Role Phone Marcelino Cueva MD Primary Care Provider [phone] Encounter Details Date Type Department Care Team (Late st Contact Info) Description 01/20/2017 External CPT II MANAGER OF CUSTOMER BILLING - [facility] Social History Tobacco Use Types Packs/Day Years Used Date Smoking Tobacco: Former Cigarettes 1 50 1 689 - 2008 Alcohol Use Standard Drinks/Week Comments [...] Description 07/15/2025 10:00 AM EST Office Visit [facility] [address] [place] [address] [place] [phone] Marcelino Cueva MD [address] [place] [address] documented as of this encounter Visit Diagnoses Not on filedocumented in this encounter Additional Health Concerns Infection Onset Date Last Indicated Resolved Time COVID Screen (preop/placement) 12/31/2021 12/31/2021 12/31/2021 5:29 PM EDT documented as of this encounter Care Teams Chemistry Quality Control Technician Relationship Specialty Start Date End Date Marcelino Cueva MD [address] [place] [address] PCP - General Internal Medicine 03/31/22 documented as of this encounter
--- OUTSIDE RECORDS SUMMARY | 2025-03-19 13:09 | XMS_ITS | Encounter Summary ---
Author Organization [facility] Address [address] [place] [address] Care Team Providers Care Hand Roller Name Role Phone Marcelino Cueva MD Primary Care Provider [phone] Encounter Details Date Type Department Care Team (Late st Contact Info) Description 05/21/2014 External CPT II BURN OUT TENDER LACE - [facility] Social History Tobacco Use [...] AM EST Office Visit [facility] [address] [place] [address] [place] [address] Marcelino Cueva MD [address] [place] [address] [place] [address] documented as of this encounter Visit Diagnoses Not on filedocumented in this encounter Additional Health Concerns Infection Onset Date Last Indicated Resolved Time COVID Screen (preop/placement) 12/31/2021 12/31/2021 12/31/2021 5:29 PM EDT documented as of this encounter Care Teams Hand Roller Relationship Specialty Start Date End Date Marcelino Cueva MD [address] [place] [address] [place] [address] PCP - General Internal Medicine 03/31/22 documented as of this encounter
--- OUTSIDE RECORDS SUMMARY | 2025-03-19 13:09 | XMS_ITS | Encounter Summary ---
Author Organization [facility] Address [address] [place] [address] Care Team Providers Care Fisher Purse Seine Name Role Phone Galindo Cueva MD Primary Care Provider [phone] Reason for Referral * Consultation (Routine) - Closed Specialty Diagnoses / Procedures Referred By Contac t Referred To Contact Cardiology Diagnoses Hypertrophic cardiomyopathy (CMS/HCC) Trenton Dempsey MD [address] [facility] [address] [id number] Phone: tel: fax: Felton Kingston MD [address] [place] [address] Phone: tel: fax: Referral ID Status Reason Start Date Expiration Date V isits Requested Visits Authorized [id number] Closed Specialty Services Required 02/25/2025 08/27/2026 1 1 Scheduling Instructions NETTE referral for alcohol septal ablation Encounter Details Date Type Department Care Team (Late st Contact Info) Description 02/25/2025 Orders Only [facility] [place] [address] [place] [phone] Negar Shi, RN HOSP. SPECIAL DIAGNOSTIC FACILITIES ADMI Hypertrophic cardiomyopathy (CMS/HCC) (Primary Dx) Social History Tobacco Use Types Packs/Day Years [...] encounter Miscellaneous Notes * Progress Notes - Negar Shi RN - 02/25/2025 8:30 AM EDT NETTE referral to Dr. Kingston for alcohol septal ablation. documented in this encounter Plan of Treatment Upcoming Encounters Date Type Department Care Team (Late st Contact Info) Description 04/30/2025 10:30 AM EDT Office Visit [facility] [place] [address] [facility] [place] [phone] Felton Kingston MD [address] [place] [address] 05/02/2025 Hospital Encounter Cardiac Document Imaging Manager [address] [place] [phone] Felton Kingston MD [address] [place] [address] Scheduled Procedures Name Priority Associated Diagnoses Date/Ti me SEPTAL ABLATION W/ALCOHOL AN D TEMPORARY PACEMAKER INSERTION Cardiomyopathy, hypertrophic (CMS/HCC) HOCM (hypertrophic obstructive cardiomyopathy) (CMS/HCC) Scheduled Referrals Name Type Priority Associated Diagnoses Orde r Schedule Ambulatory referral to Cardiology Outpatient Referral Routine Hypertrophic cardiomyopathy (CMS/HCC) 1 Occurrences starting 02/25/2025 until 08/29/2026 documented as of this encounter Visit Diagnoses Diagnosis Hypertrophic cardiomyopathy (CMS/HCC)- Primary Other primary cardiomyopathies documented in this encounter Care Teams Fisher Purse Seine Relationship Specialty Start Date End Date Galindo Cueva MD [address] [place] [address] PCP - General 12/11/20 documented as of this encounter
--- OUTSIDE RECORDS SUMMARY | 2025-03-19 13:09 | XMS_ITS | Encounter Summary ---
[facility] Address [address] [place] [address] Care Team Providers Care Life Insurance Agent Name Role Phone Marcelino Cueva MD Primary Care Provider [phone] Encounter Details Date Type Department Care Team (Late st Contact Info) Description 02/11/2025 Telephone [facility] [address] [place] [address] Marcelino Cueva MD [address] [place] [address] Social History Tobacco Use Types Packs/Day Years Used Date Smoking Tobacco: Former Cigarettes 1 50 1 139 - 2008 Smokeless Tobacco: Never Alcohol Use [...] Description 07/15/2025 10:00 AM EST Office Visit [facility] [address] [place] [address] [place] [phone] Marcelino Cueva MD [address] [place] [address] [place] [address] documented as of this encounter Visit Diagnoses Not on filedocumented in this encounter Care Teams Life Insurance Agent Relationship Specialty Start Date End Date Marcelino Cueva MD [address] [place] [address] [place] [address] PCP - General Internal Medicine 03/31/22 documented as of this encounter
--- OUTSIDE RECORDS SUMMARY | 2025-03-19 13:09 | XMS_ITS | Encounter Summary ---
[facility] Address [address] [place] [address] Care Team Providers Care Soccer Coach Name Role Phone Marcelino Cueva MD Primary Care Provider [phone] Reason for Visit * Reason Onset Date Comments Med Refill 01/20/2025 Encounter Details Date Type Department Care Team (Late st Contact Info) Description 01/20/2025 Refill [facility] [address] [place] [address] [place] [address] Marcelino Cueva MD [address] [place] [address] [place] [address] Panlobular emphysema Social History Tobacco Use [...] Visit [facility] [address] [place] [address] [place] [address] Marcelino Cueva MD [address] [place] [address] [place] [address] documented as of this encounter Visit Diagnoses Diagnosis Panlobular emphysema Other emphysema documented in this encounter Care Teams Soccer Coach Relationship Specialty Start Date End Date Marcelino Cueva MD [address] [place] [address] PCP - General Internal Medicine 03/31/22 documented as of this encounter
--- OUTSIDE RECORDS SUMMARY | 2025-03-19 13:09 | XMS_ITS | Encounter Summary ---
Author Organization Healthcare Address [address] [place] [address] Care Team Providers Care Bakery Chef Name Role Phone Galindo Cueva MD Primary Care Provider [phone] Encounter Details Date Type Department Care Team (Late st Contact Info) Description 11/21/2024 Orders Only External Location [address] [place] [address] Provider, External Social History Tobacco Use Types Packs/Day Years [...] Description 04/30/2025 10:30 AM EDT Office Visit [facility] S[facility]er Goran [address] [facility]. [address] [place] [address] Felton Kingston MD [address] [place] [address] 05/02/2025 Hospital Encounter Cardiac Case Mgr [address] [place] [address] Felton Kingston MD [address] [place] [address] Scheduled Procedures Name Priority Associated Diagnoses Date/Ti me SEPTAL ABLATION W/ALCOHOL AN D TEMPORARY PACEMAKER INSERTION Cardiomyopathy, hypertrophic (CMS/HCC) HOCM (hypertrophic obstructive cardiomyopathy) (CMS/HCC) documented as of this encounter Procedures Procedure Name Priority Date/Time Associated Diagnosis Comments MR ABDOMEN OUTSIDE IMAGES 11/21/2024 10:06 AM EDT documented in this encounter Results * MR ABDOMEN OUTSIDE IMAGES (11/21/2024 10:06 AM EDT) Anatomical Region Laterality Modality Magnetic Resonan ce 11/21/2024 10:0 6 AM EDT us External Provider IMG MRI PROCEDURES Final Resul t documented in this encounter Visit Diagnoses Not on filedocumented in this encounter Care Teams Bakery Chef Relationship Specialty Start Date End Date Galindo Cueva MD [address] [place] [address] PCP - General 12/11/20 documented as of this encounter
--- OUTSIDE RECORDS SUMMARY | 2025-03-19 13:09 | XMS_ITS | Encounter Summary ---
Author Organization [facility] Address [address] [place] [address] Care Team Providers Care Product Safety Coordinator Name Role Phone Galindo Cueva MD Primary Care Provider [phone] Encounter Details Date Type Department Care Team (Late st Contact Info) Description 03/12/2025 Telephone [facility] [place] [address] [place] [address] [place] [address] Social History Tobacco Use Types Packs/Day Years [...] encounter Miscellaneous Notes * Telephone Encounter - Lore Wilkins - 03/12/2025 2:25 PM EDT Patient Name: Yogesh Matson :1940 Date:[facility] [employer] Referring Physician: Dr. Anderson Education/ Information provided: This Nurse Liaison spoke with Yogesh Matson prior to an appointment on 03/19/2025. Explained nurse liaison services offered through [facility]. Discussed appointment necessity, and subspecialty clinic the pt will be seeing. Patient verbalizes understanding. Patient denied any barriers to arriving to clinic visit. All questions answered. Provided patient with liaison contact information and encouraged patient to call with any questions, concerns or assistance needs. Will follow up with patient after appointment. Lore Wilkins [facility] Nurse Liaison [phone] documented in this encounter Plan of Treatment Upcoming Encounters Date Type Department Care Team (Late st Contact Info) Description 04/30/2025 10:30 AM EDT Office Visit [facility] [place] [address] [facility]. [address] [place] [address] Felton Kingston MD [address] [place] [address] 05/02/2025 Hospital Encounter Cardiac Edi Coordinator [address] [place] [address] Felton Kingston MD [address] [place] [address] Scheduled Procedures Name Priority Associated Diagnoses Date/Ti me SEPTAL ABLATION W/ALCOHOL AN D TEMPORARY PACEMAKER INSERTION Cardiomyopathy, hypertrophic (CMS/HCC) HOCM (hypertrophic obstructive cardiomyopathy) (CMS/HCC) documented as of this encounter Visit Diagnoses Not on filedocumented in this encounter Care Teams Product Safety Coordinator Relationship Specialty Start Date End Date Galindo Cueva MD [address] [place] [address] PCP - General 12/11/20 documented as of this encounter
--- OUTSIDE RECORDS SUMMARY | 2025-03-19 13:09 | XMS_ITS | Clinical Summary ---
Author Organization Healthcare Address [address] [place] [address] Care Team Providers Care Lapeler Name Role Phone Galindo Cueva MD Primary Care Provider [phone] Allergies Active Allergy Reactions Criticality Noted Date Comments Lisinopril Vomiting 01/09/2023 Losartan Palpitations Low 03/30/2023 Penicillins Hives,Rash,Unknown - Patient states they do not know rxn details Medium 05/11/2015 Medications ASPIRIN 81 PO Take 1 tablet by mouth. Active Calquence 100 MG tablet tablet 5 Active albuterol 108 (90 Base) MCG/ACT inhaler INHALE 2 PUFFS BY MOUTH EVERY 4 HOURS NEEDED FOR WHEEZING FOR SHORTNESS OF BREATH 5 Active cholecalciferol (Vitamin D-3) 50 MCG (2000 UT) tablet Take 1 tablet by mouth 1 time each day. Active ezetimibe (Zetia) 10 MG tablet Take 1 tablet by mouth 1 time each day. 5 Active famotidine (Pepcid) 20 MG tablet Take 1 tablet by mouth 2 times a day. Active glucose blood test strip 1 each by Other route 1 time each day. 4 Active ipratropium-alb uterol (Duo-Neb) 0.5-2.5 mg/3 mL nebulizer solution USE 3 ML IN NEBULIZER 4 TIMES DAILY NEEDED FOR SHORTNESS OF BREATH FOR WHEEZING 5 Active isosorbide mononitrate ER (Imdur) 60 MG 24 hr tablet TAKE ONE TABLET BY MOUTH EVERY DAY (STOP THE 120 MG) 5 Active metFORMIN (Glucophage) 500 MG tablet Take 1 tablet by mouth 2 times a day with meals. 1 Active metoprolol tartrate (Lopressor) 100 MG tablet Take 1 tablet by mouth twice a day. 8 Active NIFEdipine CC (Adalat CC) 60 MG 24 hr tablet 5 Active rosuvastatin (Crestor) 5 MG tablet 1 Active tamsulosin (Flomax) 0.4 MG 24 hr capsule TAKE ONE CAPSULE BY MOUTH EVERY NIGHT FOR PROSTATE 5 Active calcium carbonate 648 MG tablet tablet Take by mouth daily. Active acetaminophen (Tylenol) 325 MG tablet Take 500 mg by mouth every 6 hours as needed. Under [place] law, monthly prescriptions (30 days) can be refilled at 25 days and three-month prescriptions (90 days) at 80 days. Please contact the insurance company with questions if refills are denied. Active Active Problems Problem Noted Date Diagnosed Date Cardiomyopathy, hypertrophic 03/19/2025 HOCM (hypertrophic obstructive cardiomyopathy) 0 03/19/2025 Encounters Date Type Department Care Team Description 03/19/2025 8:45 AM EDT Office Visit [facility] [address] [address] Felton Kingston MD HOCM (hypertrophic obstructive cardiomyopathy) (CMS/HCC) (Primary Dx); Cardiomyopathy, hypertrophic (CMS/HCC) 03/19/2025 Travel 03/12/2025 Telephone [facility] [address] [facility] [address] Lore Wilkins 02/25/2025 Orders Only [facility] [address] [facility] [address] Negar Shi, RN Hypertrophic cardiomyopathy (CMS/HCC) (Primary Dx) from Last 3 Months Immunizations Immunization Administration Dates Next Due Pneumococcal [...] AM EDT Temperature - - Respiratory Rate 14 09/11/2017 12:07 PM EST Oxygen Saturation 96% 03/19/2025 8:17 AM EDT Inhaled Oxygen Concentration - - Weight 83.5 kg (184 lb 1.4 oz) 03/19/2025 8:17 A M EDT Height 177.8 cm (5' 10 ) 03/19/2025 8:17 AM EDT Body Mass Index 26.41 03/19/2025 8:17 AM EDT Plan of Treatment Upcoming Encounters Date Type Department Care Team (Late st Contact Info) Description 04/30/2025 10:30 AM EDT Office Visit [facility] [place] [address] [facility] [place] [address] Felton Kingston MD [address] [place] [address] 05/02/2025 Hospital Encounter Cardiac Agronomy Advisor [address] [place] [address] Felton Kingston MD [address] [place] [address] Scheduled Procedures Name Priority Associated Diagnoses Date/Ti me SEPTAL ABLATION W/ALCOHOL AN D TEMPORARY PACEMAKER INSERTION Cardiomyopathy, hypertrophic (CMS/HCC) HOCM (hypertrophic obstructive cardiomyopathy) (CMS/HCC) Health Maintenance Due Date Last Done Comments [facility]-Medicare Annual Wellness (AWV) 1940 [facility]-/Child/Adol SDOH Screenings 1940 [facility]- SDOH Screenings 1960 [facility]-Adult SDOH Screenings 1960 [facility]-DTaP,Tdap,and Td Vaccines (2 - Td or Tdap) 07/07/2024 07/07/2014 [id number] Vaccine (2023- season) 2024 04/01/2024, 04/21/2023, 04/27/2022, Additional history exists [facility]-Influenza Vaccine (#1) 03/31/202504/15, 04/21/2023, 04/08/2022, Additional history exists [facility]-Depression Screening 03/19/2026 03/19/2025, 03/01 [facility]-Pneumococcal Vaccine: 50+ Years Completed 11/16/2021, 11/06/2017, 05/19/2015, Additional history exists [facility]-Zoster Vaccines Completed 01/10/2023, [facility]-RSV Vaccine: 60+ Years or Completed 10/04/2023 [facility]-Obesity Intervention Completed 03/19/2025 HPV Vaccines Aged Out No longer eligi [...] patient's age to complete this topic Insurance [facility] MEDIC[employer] Care Teams Lapeler Relationship Specialty Start Date End Date Galindo Cueva MD [address] [place], [place] [phone] PCP - General 12/11/20
--- OUTSIDE RECORDS SUMMARY | 2025-03-19 13:09 | XMS_ITS | Encounter Summary ---
Author Organization [facility] Address [address] [place] [address] Care Team Providers Care Health Technical Writer Name Role Phone Marcelino Cueva MD Primary Care Provider [phone] Encounter Details Date Type Department Care Team (Late st Contact Info) Description 09/22/2016 External CPT II ADHESIVE BANDAGE MACHINE OPERATOR - [facility] Social History Tobacco [...] Description 07/15/2025 10:00 AM EST Office Visit [facility] [address] [place] [address] [place] [address] Marcelino Cueva MD [address] [place] [address] [place] [address] documented as of this encounter Visit Diagnoses Not on filedocumented in this encounter Additional Health Concerns Infection Onset Date Last Indicated Resolved Time COVID Screen (preop/placement) 12/31/2021 12/31/2021 12/31/2021 5:29 PM EDT documented as of this encounter Care Teams Health Technical Writer Relationship Specialty Start Date End Date Marcelino Cueva MD [address] [place] [address] [place] [address] PCP - General Internal Medicine 03/31/22 documented as of this encounter
--- OUTSIDE RECORDS SUMMARY | 2025-03-19 13:09 | XMS_ITS | Encounter Summary ---
Author Organization Healthcare Address [address] [place] [address] Care Team Providers Care Superintendent Tests Name Role Phone Galindo Cueva MD Primary Care Provider [phone] Encounter Details Date Type Department Care Team (Latest Contact Info) Description 03/19/2025 Travel Social History Tobacco Use Types Packs/Day Years Used Date Smoking Tobacco: Former Smokeless Tobacco: Never Alcohol Use Standard Drinks/Week Comments Yes 0 [...] documented as of this encounter Functional Status * Over the past 2 weeks, how often have you been bothered by any of the following problems? Question Answer Date of Assessment Author Little interest or pleasure in doing things Not at all 03/19/2025 8:28 AM Martha Finnegan CNA Feeling down, depressed, or hopeless Not at all 03/19/2025 8:28 AM Martha Finnegan CNA Patient Health Questionnaire-2 Score 0 03/19/2025 8:28 AM EDSari Crawford CNA * Question Answer Date of Assessment Author Trouble falling or staying asleep, or sleeping too much Not at all 03/19/2025 8:28 AM Martha Finnegan CNA Feeling tired or having little energy Not at all 03/19/2025 8:28 AM Martha Finnegan CNA Poor appetite or overeating Not at all 03/19/2025 8: 28 AM Martha Finnegan CNA Feeling bad about yourself - or that you are a failure or have let yourself or your family down Not at all 03/19/2025 8:28 AM Martha Finnegan CNA Trouble concentrating on things, such as reading the newspaper or watching television Not at all 03/19/2025 8:28 AM Martha Finnegan CNA Moving or speaking so slowly that other people could have noticed? Or the opposite - being so fidgety or restless that you have been moving around a lot more than usual. Not at all 03/19/2025 8:28 AM Martha Finnegan CNA Thoughts that you would be [...] Finnegan CNA documented as of this encounter Plan of Treatment Upcoming Encounters Date Type Department Care Team (Late st Contact Info) Description 04/30/2025 10:30 AM EDT Office Visit [facility] [place] [address] [facility]. [address] [place] [address] Felton Kingston MD [address] [place] [address] 05/02/2025 Hospital Encounter Cardiac Plane Tender [address] [place] [address] Felton Kingston MD [address] [place] [address] Scheduled Procedures Name Priority Associated Diagnoses Date/Ti me SEPTAL ABLATION W/ALCOHOL AN D TEMPORARY PACEMAKER INSERTION Cardiomyopathy, hypertrophic (CMS/HCC) HOCM (hypertrophic obstructive cardiomyopathy) (CMS/HCC) documented as of this encounter Visit Diagnoses Not on filedocumented in this encounter Additional Health Concerns Assessment Noted Time PHQ-9 Depression Total Score: 0 03/19/20 25 8:28 AM EDT A fall risk assessment has been complete d for the patient 03/19/2025 8:28 AM EDT A Body Mass Index follow-up plan has been documented for the patient 03/19/2025 9:31 AM EDT documented as of this encounter Care Teams Superintendent Tests Relationship Specialty Start Date End Date Galindo Cueva MD [address] [place] [address] PCP - General 12/11/20 documented as of this encounter
--- OUTSIDE RECORDS SUMMARY | 2025-03-19 13:10 | XMS_ITS | Encounter Summary ---
Author Organization [facility] Address [address] [place] [address] Care Team Providers Care Entry Level Software Engineer Name Role Phone Marcelino Cueva MD Primary Care Provider Encounter Details Date Type Department Care Team (Late st Contact Info) Description 12/03/2018 External CPT II PIGMENT SUPPLIER - [facility] Social History Tobacco Use Types Packs/Day Years Used Date Smoking Tobacco: Former Cigarettes 1 50 1 119 - 2008 Alcohol Use Standard Drinks/Week Comments [...] Description 07/15/2025 10:00 AM EST Office Visit [facility] [address] [place] [address] [place] [phone] Marcelino Cueva MD [address] [place] [address] documented as of this encounter Visit Diagnoses Not on filedocumented in this encounter Additional Health Concerns Infection Onset Date Last Indicated Resolved Time COVID Screen (preop/placement) 12/31/2021 12/31/2021 12/31/2021 5:29 PM EDT documented as of this encounter Care Teams Entry Level Software Engineer Relationship Specialty Start Date End Date Marcelino Cueva MD [address] [place] [address] PCP - General Internal Medicine 03/31/22 documented as of this encounter
--- OUTSIDE RECORDS SUMMARY | 2025-03-19 13:10 | XMS_ITS | Encounter Summary ---
Author Organization [facility] Address [address] [place] [address] Care Team Providers Care Braille And Talking Books Clerk Name Role Phone Marcelino Cueva MD Primary Care Provider [phone] Encounter Details Date Type Department Care Team (Late st Contact Info) Description 09/03/2018 External CPT II PSYCHIATRIC CLINICIAN - [facility] Social History Tobacco Use Types Packs/Day Years Used Date Smoking Tobacco: Former Cigarettes 1 50 1 049 - 2008 Alcohol Use Standard Drinks/Week Comments [...] Office Visit [facility] [address] [place] [address] [place] [phone] Marcelino Cueva MD [address] [place] [address] documented as of this encounter Visit Diagnoses Not on filedocumented in this encounter Additional Health Concerns Infection Onset Date Last Indicated Resolved Time COVID Screen (preop/placement) 12/31/2021 12/31/2021 12/31/2021 5:29 PM EDT documented as of this encounter Care Teams Braille And Talking Books Clerk Relationship Specialty Start Date End Date Marcelino Cueva MD [address] [place] [address] PCP - General Internal Medicine 03/31/22 documented as of this encounter
--- OUTSIDE RECORDS SUMMARY | 2025-03-19 13:10 | XMS_ITS ---
Author Organization [facility] Address [address] [place] [address] Care Team Providers Care Procedure Rn Name Role Phone Marcelino Cueva MD Primary Care Provider [phone] Active Problems Problem Noted Date Diagnosed Date [...] EKG today deferred as recently performed by corrections officer, copy pending, declines Tdap given lack of [...] T4; Future Ex-cigarette smoker 10/04/2023 Overview (01/12/2024): 56-oqtj-kkxn history of smoking him abstaining since 2006. Assessment & Plan (01/13/2025 4:27 PM EDT): 70-lbuk-hktx history of cigarette smoking abstaining since 2006. Assessment & Plan (01/12/2024 7:57 PM EDT): Reports a 11-gsuz-jqar history of cigarette smoking abstaining since approximately 2006. Assessment & Plan (10/04/2023 2:23 PM EST): 67-ndug-zyhp history of smoking abstaining since 2006 Dyspnea [...] to obtain this study report. Atherosclerosis of [place] co ronary artery of [place] heart without angina pectoris 04/08/2022 Overview (10/04/2023): [...] multivessel disease, most recent echocardiogram by new corrections officer, Dr. Chinyere Cowan and revealed hypertrophic cardiomyopathy, [...] prior stent placement, noncritical nonobstructive disease per [facility] in 12/2021 with last available echocardiogram same [...] prior stent placement, noncritical nonobstructive disease per [facility] in 12/2021 with last echocardiogram similar, recent [...] chronically in the lungs with emphysematous changes. 50-qpgr-cbfi history of cigarette smoking him standing since [...] Prior stent placement, noncritical nonobstructive disease per [facility] in 12/2021 with last echocardiogram similar. If [...] by Dr. Roque Villa pulmonary medicine in [place]. Assessment & Plan (07/12/2024 12:51 PM EST): Patient has had complaint of progressive dyspnea exertion over the last year with chronic nonproductive cough, history of CAD with prior stent placement, noncritical nonobstructive disease per [facility] in 12/2021 with last echocardiogram similar, recent [...] chronically in the lungs with emphysematous changes. 43-bzhx-exke history of cigarette smoking him standing since [...] prior stent placement, noncritical nonobstructive disease per [facility] in 12/2021 with last echocardiogram similar, recent [...] chronically in the lungs with emphysematous changes. 85-ckyb-oqwa history of cigarette smoking him standing since [...] prior stent placement, noncritical nonobstructive disease per [facility] in 12/2021 with last echocardiogram similar, recent [...] chronically in the lungs with emphysematous changes. 39-kyed-nmey history of cigarette smoking him standing since [...] follow-up with his oncologist Dr. Estrada, on [facility], reports recent CT of the chest abdomen [...] (10/15/2021): Added automatically from request for surgery [id number] Chest pain 11/18/2019 HTN (hypertension) 11/24/2016 Assessment [...] 60 mg daily Type 2 diabetes mellitus, [facility] long-term current use of insulin 11/24/2016 [...] 04/07/2022 10/07/2022 Coronary artery disease invo lving [place] coronary artery with unstable angina pectoris 12/31/2021 01/06/[address] scan 12/06/2016 01/06/2023 Overview (12/06/2016): of the chest History of tobacco use 12/06/201607/12 Overview (12/06/2016): 1 PPD for 50 years - quit 2008 BPH (benign prostatic hypertrophy) 11/24/2016 01/06/2023 Emphysema lung 11/24/2016 01/06/2023
--- OUTSIDE RECORDS SUMMARY | 2025-03-19 13:10 | XMS_ITS | Clinical Summary ---
Author Organization [facility] Address [address] [place] [address] Care Team Providers Care Shell Mold Bonder Name Role Phone Marcelino Cueva MD Primary Care Provider [phone] Allergies Active Allergy Reactions Criticality Noted Date Comments Lisinopril GI Intolerance 01/09/2023 Losartan Arrhythmia 03/30/2023 Penicillins Hives Medium 11/24/2016 Medications nitroglycerin (NITROSTAT) 0.[address] 1 tablet under the tongue Every 5 (Five) Minutes As Needed. do not exceed a total of 3 doses in 15 minutes 2 Active NIFEdipine XL (PROCARDIA XL) 60 MG 24 hr tablet Take 1 tablet by mouth Daily. Active ASPIRIN 81 PO Take 1 tablet by mouth. Taking 1/2 Active Calquence 100 MG tablet Take 1 tablet by mouth 2 (Two) Times a Day. 3 Active Accu-Chek Softclix Lancets lancets Use as instructed 100 each 3 Active albuterol sulfate HFA 108 (90 Base) MCG/ACT inhalerIndicatio ns:Panlobular emphysema INHALE 2 PUFFS BY MOUTH EVERY 4 HOURS NEEDED FOR WHEEZING OR SHORTNESS OF BREATH 18 g 3 4 Active metoprolol tartrate (LOPRESSOR) 100 MG tablet Take 1 tablet by mouth 2 (Two) Times a Day. 180 tablet 2 4 Active metFORMIN (GLUCOPHAGE) 500 MG tablet Take 1 tablet by mouth 2 (Two) Times a Day With Meals. 180 tablet 2 4 Active glucose blood test strip 1 each by Other route Daily. Use to check blood sugar levels once daily. E11.22 90 each 3 4 Active rosuvastatin (CRESTOR) 5 MG tablet TAKE ONE TABLET BY MOUTH EVERY DAY 90 tablet 2 5 Active tamsulosin (FLOMAX) 0.4 MG capsule 24 hr capsuleIndicatio ns:Benign prostatic hyperplasia with nocturia TAKE ONE CAPSULE BY MOUTH EVERY NIGHT FOR PROSTATE 90 capsule 2 5 Active famotidine (PEPCID) 20 MG tabletIndication s:Gastroesophage al reflux disease, unspecified whether esophagitis present Take 1 tablet by mouth twice daily 180 tablet 1 5 Active isosorbide mononitrate (IMDUR) 60 MG 24 hr tabletIndication s:Atherosclerosi s of [place] coronary artery of [place] heart without angina pectoris TAKE ONE TABLET BY MOUTH EVERY DAY (STOP THE 120 MG) 90 tablet 3 5 Active Camzyos 2.5 MG capsule Take 1 capsule by mouth Daily. 5 Active Cholecalciferol (Vitamin D) 50 MCG (2000 UT) tablet Take 1 tablet by mouth Daily. Active calcium carbonate (OS-ESTIVEN) 600 MG tablet Take 1 tablet by mouth Daily. Active Umeclidinium-Judy anterol (Anoro Ellipta) 62.5-25 MCG/ACT aerosol powder inhalerIndicatio ns:Panlobular emphysema Inhale 1 puff Daily. 14 each 6 5 Active ezetimibe (Zetia) 10 MG tablet Take 1 tablet by mouth Daily. 90 tablet 3 5 Active Active Problems Problem Noted Date Diagnosed [...] EKG today deferred as recently performed by documentation coordinator, copy pending, declines Tdap given lack of [...] T4; Future Ex-cigarette smoker 10/04/2023 Overview (01/12/2024): 24-nnpr-ujkd history of smoking him abstaining since 2006. Assessment & Plan (01/13/2025 4:27 PM EDT): 17-rmjw-izcg history of cigarette smoking abstaining since 2006. Assessment & Plan (01/12/2024 7:57 PM EDT): Reports a 83-xtju-aonn history of cigarette smoking abstaining since approximately 2006. Assessment & Plan (10/04/2023 2:23 PM EST): 13-dtcq-fdhd history of smoking abstaining since 2006 Dyspnea [...] to obtain this study report. Atherosclerosis of [place] co ronary artery of [place] heart without angina pectoris 04/08/2022 Overview (10/04/2023): [...] multivessel disease, most recent echocardiogram by new documentation coordinator, Dr. Chinyere Cowan and revealed hypertrophic cardiomyopathy, [...] prior stent placement, nonobstructive disease noted on [facility] in 12/2021 with echocardiogram in 12/2021 reportedly [...] prior stent placement, noncritical nonobstructive disease per [facility] in 12/2021 with last available echocardiogram same [...] prior stent placement, noncritical nonobstructive disease per [facility] in 12/2021 with last echocardiogram similar, recent [...] chronically in the lungs with emphysematous changes. 60-jaud-alun history of cigarette smoking him standing since [...] Prior stent placement, noncritical nonobstructive disease per [facility] in 12/2021 with last echocardiogram similar. If [...] by Dr. Roque Villa pulmonary medicine in [place]. Assessment & Plan (07/12/2024 12:51 PM EST): Patient has had complaint of progressive dyspnea exertion over the last year with chronic nonproductive cough, history of CAD with prior stent placement, noncritical nonobstructive disease per [facility] in 12/2021 with last echocardiogram similar, recent [...] chronically in the lungs with emphysematous changes. 32-zgse-cjly history of cigarette smoking him standing since [...] prior stent placement, noncritical nonobstructive disease per [facility] in 12/2021 with last echocardiogram similar, recent [...] chronically in the lungs with emphysematous changes. 93-squl-lxwu history of cigarette smoking him standing since [...] prior stent placement, noncritical nonobstructive disease per [facility] in 12/2021 with last echocardiogram similar, recent [...] chronically in the lungs with emphysematous changes. 46-ehdw-totp history of cigarette smoking him standing since [...] (10/15/2021): Added automatically from request for surgery [id number] Chest pain 11/18/2019 HTN (hypertension) 11/24/2016 Assessment [...] 60 mg daily Type 2 diabetes mellitus, [facility] long-term current use of insulin 11/24/2016 Overview [...] 04/07/2022 10/07/2022 Coronary artery disease invo lving [place] coronary artery with unstable angina pectoris 12/31/2021 01/06/[address] scan 12/06/2016 01/06/2023 Overview (12/06/2016): of the chest History of tobacco use 12/06/201607/12 Overview (12/06/2016): 1 PPD for 50 years - quit 2008 BPH (benign prostatic hypertrophy) 11/24/2016 01/06/2023 Emphysema lung 11/24/2016 01/06/2023 Encounters Date Type Department Care Team Description 02/11/2025 Telephone [facility] [address] [place] [address] [place] [address] Marcelino Cueva MD 01/20/2025 Refill [facility] [address] [place] [address] Marcelino Cueva MD Panlobular emphysema 01/14/2025 Results Follow-Up [facility] [address] [place] [address] [place] [address] Marcelino Cueva MD 01/13/2025 9:45 AM EDT Office Visit [facility] [address] [place] [address] [place] [address] Marcelino Cueva MD Medicare annual wellness visit, subsequent (Primary Dx); Encounter for general adult medical examination with abnormal findings; Atherosclerosis of [place] coronary artery of [place] heart without angina pectoris; Hypertrophic cardiomyopathy; History [...] for thyroid disorder 01/13/2025 Travel 01/07/2025 Refill [facility] [address] [place] [address] [place] [address] Marcelino Cueva MD Atherosclerosis of [place] coronary artery of [place] heart without angina pectoris from Last 3 Months Immunizations Immunization Administration [...] Description 07/15/2025 10:00 AM EST Office Visit [facility] [address] [place] [address] Marcelino Cueva MD [address] [place] [address] Health Maintenance Due Date Last Done Comments COLOGUARD 1987 COLON CANCER SCREENING 5 YEA R SIGMOIDOSCOPY 1987 CT COLONOGRAPHY 1987 FECAL OCCULT BLOOD TEST 1987 FIT Testing (1 year) 1987 COLONOSCOPY 02/06/2022 02/06/2017, 01/28, 02/20/2012, Additional history exists COLORECTAL CANCER SCREENING 02/06/2022 DIABETIC FOOT EXAM 10/08/2023 10/07/2022, 0 10/07/2022, 10/07/2022 DIABETIC EYE EXAM 10/22/2023 10/21/2022 (Lj hutchinson-Reported (Performed Externally)) TDAP/TD VACCINES (2 - Td or Tdap) 07/07/2024 014 COVID-19 Vaccine (8 - Pfizer risk 2023- season) 2024 04/01/2024, 04/01/2024, 04/21/2023, Additional history [...] Additional history exists ZOSTER VACCINE Completed 01/10/2023, 04/0 11/2022, 01/10/2020 RSV Vaccine - Adults Completed 10/04/2023 Medical Devices Implanted Type Area Financial Representative Device Identifier Shelf Expiration Date Model / Serial / Lot Stent Stent Stnt Xience Abeba Everolimus Guille 3x15mm - [id number] Implanted:Qty: 1 on 11/19/2019 by Patrick Valencia MD at [facility] [employer] [id number] / / Procedures Procedure Name Priority Date/Time [...] 03/08/2026 Urine 01/13/2025 10:4 9 AM EDT Marcelino Cueva MD POINT OF CARE TEST ORDERABLES Final Result * Ambiguous Test Order (01/13/2025 10:27 AM EDT) Ambiguous Test Order Comment [facility] Comment: Report delayed in order to contact you to clarify requested test(s). TEST [id number] UA WITH REFLEX TO UR CX, COMPREHENSIVE IS NO LONGER ORDERABLE TEST [id number] UA WITH REFLEX TO UR CX, ROUTINE HAS BEEN ORDERED. 01/13/2025 10:2 7 AM EDT 01/13/2025 Comment:Urine Release to pat i Narrative [facility] (AMBULATORY) - 01/14/2025 7:07 PM EDT Performed at: [address] [id number] Mobile Home Installer: Zeeshan Gentile PhD, Phone: [phone] us Marcelino Cueva MD LAB BLOOD ORDERABLES Final Res ult Performing Organization Address [facility] Co de Phone Number [facility] [address] [place] [address], [place] [phone] [facility] [address] [place] [address], [place] [phone] * Written Authorization (01/13/2025 10:27 AM EDT) Written Authorization Comment [facility] Comment: Written Authorization Received. Authorization received from PER ORIGINAL ORDER 01-14-2025 Logged by Tiana Chavez 01/13/2025 10:2 7 AM EDT 01/13/2025 Comment:Urine Release to pat i Narrative [facility] - 01/15/2025 6:06 AM EDT Performed at: [address] [id number] Mobile Home Installer: Zeeshan Gentile PhD, Phone: [phone] us Marcelino Cueva MD LAB BLOOD ORDERABLES Final Res ult Performing Organization Address [facility] Co de Phone Number [facility] [address] [place] [address], [place] [phone] [facility] [address] [place] [address], [place] [phone] * TSH Rfx On Abnormal To Free T4 (01/13/2025 10:27 AM EDT) TSH 4.170 0.450 - 4.500 uIU/mL [facility] Blood Structure of right upper limb / Unknown 01/13/2025 10:27 AM EDT 01/13/2025 Comment:Blood Release to pat i [facility] ([facility]) - 01/14/2025 11:07 AM EDT Performed at: 01 - [address] [id number] Mobile Home Installer: Zeeshan Gentile PhD, Phone: [phone] us Marcelino Cueva MD LAB BLOOD ORDERABLES Final Res ult [facility] ([facility]) [address] [place] [address], [place] [phone] [facility] [address] [place] [address], [place] [phone] * (ABNORMAL) UA / M With / Rflx Culture([facility] ONLY) - (01/13/2025 10:27 AM EDT) Pathologist [facility] Specific [place], UA >=1.030(A) 1.005 - 1.030 [facility] [...] EDT 01/13/2025 Comment:Urine Release to pat i [facility] ([facility]) - 01/15/2025 6:06 AM EDT Performed at: - [address] [id number] Mobile Home Installer: Zeeshan Gentile PhD, Phone: [phone] Marcelino Cueva MD URINE ORDERABLES Final Result Performing Organization Address City/[facility]/ZIP Co de Phone Number [facility] [address] [place] [address], [facility] [address] [place] [address], * Microscopic Examination - (01/13/2025 10:27 AM EDT) WBC, UA 0-5 0 - 5 /hpf [facility] RBC, UA 0-2 0 - 2 /hpf [facility] Epithelial Cells (non renal) 0-10 0 - 10 /hpf [facility] Casts None seen None seen /lpf [facility] Bacteria, UA None seen None seen/Few [facility] 01/13/2025 10:2 7 AM EDT 01/13/2025 Comment:Urine Release to [facility] (AMBULATORY) - 01/15/2025 6:06 AM EDT Performed at: 01 - [facility] [address] [place] [id number] Mobile Home Installer: Zeeshan Gentile PhD, Phone: [phone] Marcelino Cueva MD URINE ORDERABLES Final Result Performing Organization Address [facility] Co de Phone Number [facility] (AMBULATORY) [address] [place] [address], [facility] [address] [place] [address], * (ABNORMAL) Vitamin D,25-Hydroxy (01/13/2025 10:27 AM EDT) 25 Hydroxy, Vitamin D 23.2(L) 30.0 - 100.0 ng/mL [facility] Comment: Vitamin D deficiency has been defined by the [place] of Medicine and an Endocrine Society practice guideline as a level of serum 25-OH vitamin D less than 20 ng/mL (1,2). The Endocrine Society went on to further define vitamin D insufficiency as a level between 21 and 29 ng/mL (2). 1. IOM ([place] of Medicine). 2010. Dietary reference intakes for calcium and D. [place]: The National Academies Press. 2. Julio MF, Cecilia VILLANUEVA, Marianela KAISER, et al. Evaluation, treatment, and prevention of vitamin D deficiency: an Endocrine Society clinical practice guideline. JCEM. 2010; 96(7):1911-30. Blood Structure of right upper limb / Unknown 01/13/2025 10:27 AM EDT 01/13/2025 Comment:Blood Release to lilian Jerome [facility] (AMBULATORY) - 01/14/2025 11:07 AM EDT Performed at: 01 - [address] [id number] Mobile Home Installer: Zeeshan Gentile PhD, Phone: [phone] us Marcelino Cueva MD LAB BLOOD ORDERABLES Final Res ult [facility] [address] [place] [address], [facility] [address] [place] [address], * (ABNORMAL) CBC & Differential (01/13/2025 10:27 [...] EDT 01/13/2025 Comment:Blood Release to lilian Jerome [facility] (AMBULATORY) - 01/14/2025 11:07 AM EDT Performed at: - [address] [id number] Mobile Home Installer: Zeeshan Gentile PhD, Phone: [phone] Marcelino Cueva MD LAB BLOOD ORDERABLES Final Res ult [facility] [address] [place] [address], [facility] [address] [place] [address], * (ABNORMAL) Lipid Panel (01/13/2025 10:27 AM [...] EDT 01/13/2025 Comment:Blood Release to lilian Jerome [facility] - 01/14/2025 11:07 AM EDT Performed at: 01 - [facility] [address] [place], [place] [id number] Mobile Home Installer: Zeeshan Gentile PhD, Phone: [phone] us Marcelino Cueva MD LAB BLOOD ORDERABLES Final Res ult [facility] [address] [place] [address], [place] [phone] [facility] [address] [place] [address], [place] [phone] * (ABNORMAL) Comprehensive Metabolic Panel (01/13/2025 10:27 [...] 01/13/2025 Comment:Blood Release to pat i Justus [facility] - 01/14/2025 11:07 AM EDT Performed at: 01 - [address] [id number] Mobile Home Installer: Zeeshan Gentile PhD, Phone: [phone] us Marcelino Cueva MD LAB BLOOD ORDERABLES Final Res ult [facility] [address] [place] [address], [place] [phone] [facility] [address] [place] [address], [place] [phone] * (ABNORMAL) POC Glucose, Blood (01/13/2025 10:21 AM EDT) Glucose 131(A) 70 - 130 mg/dL Lot Number [id number] Expiration Date 04/10/2025 Blood 01/13/2025 10:2 1 AM EDT us Marcelino Cueva MD POINT OF CARE TEST ORDERABLES Final Result * (ABNORMAL) POC Glycosylated Hemoglobin (Hb A1C) (01/13/2025 10:21 AM EDT) Hemoglobin A1C 5.9(A) 4.5 - 5.7 % [facility] Lot Number [id number] [facility] Expiration Date 09/25/2026 [facility] Blood 01/13/2025 10:2 1 AM EDT us Marcelino Cueva MD POINT OF CARE TEST ORDERABLES Final Result [facility]
[address] [place] [address], [place] [phone] * Colonoscopy, Scan (02/06/2017) us Marcelino Cueva [...] 3:[address] You Kerr MD. us Cary Lees CONSTRUCTION ESTIMATOR IMG CT ORDERABLES Final Re sult from Last 3 Months or Most Recently Relevant to Health Maintenance Insurance [facility] MEDICARE ADVANTAGE HMO Advance Directives * [...] Of Support Discussed With: Patient Care Teams Shell Mold Bonder Relationship Specialty Start Date End Date Marcelino Cueva MD [address] [place] [address] [place] [address] PCP - General Internal Medicine 03/31/22
--- OUTSIDE RECORDS SUMMARY | 2025-03-19 13:10 | XMS_ITS | Encounter Summary ---
Author Organization [facility] Address [address] [place] [address] Care Team Providers Care Glass Rolling Machine Operator Name Role Phone Marcelino Cueva MD Primary Care Provider [phone] Encounter Details Date Type Department Care Team (Late st Contact Info) Description 07/14/2017 External CPT II CIVIL CELEBRANT - [facility] Social History Tobacco Use Types Packs/Day Years Used Date Smoking Tobacco: Former Cigarettes 1 50 1 879 - 2008 Alcohol Use Standard Drinks/Week Comments [...] Description 07/15/2025 10:00 AM EST Office Visit [facility] [address] [place] [address] [place] [address] Marcelino Cueva MD [address] [place] [address] documented as of this encounter Visit Diagnoses Not on filedocumented in this encounter Additional Health Concerns Infection Onset Date Last Indicated Resolved Time COVID Screen (preop/placement) 12/31/2021 12/31/2021 12/31/2021 5:29 PM EDT documented as of this encounter Care Teams Glass Rolling Machine Operator Relationship Specialty Start Date End Date Marcelino Cueva MD [address] [place] [address] PCP - General Internal Medicine 03/31/22 documented as of this encounter
--- OUTSIDE RECORDS SUMMARY | 2025-03-19 13:10 | XMS_ITS | Encounter Summary ---
Author Organization [facility] Address [address] [place] [address] Care Team Providers Care Addictions Counselor Assistant Name Role Phone Marcelino Cueva MD Primary Care Provider [phone] Encounter Details Date Type Department Care Team (Late st Contact Info) Description 06/08/2018 External CPT II SALES PROMOTER - [facility] Social History Tobacco Use Types Packs/Day Years Used Date Smoking Tobacco: Former Cigarettes 1 50 1 069 - 2008 Alcohol Use Standard Drinks/Week Comments [...] 07/15/2025 10:00 AM EST Office Visit [facility] [address] [place] [address] [place] [address] Marcelino Cueva MD [address] [place] [address] documented as of this encounter Visit Diagnoses Not on filedocumented in this encounter Additional Health Concerns Infection Onset Date Last Indicated Resolved Time COVID Screen (preop/placement) 12/31/2021 12/31/2021 12/31/2021 5:29 PM EDT documented as of this encounter Care Teams Addictions Counselor Assistant Relationship Specialty Start Date End Date Marcelino Cueva MD [address] [place] [address] PCP - General Internal Medicine 03/31/22 documented as of this encounter
[2025-03-19 13:30] LABS: Hematocrit 42.8 % (42.0-52.0); Hemoglobin 13.8 g/dL (14.1-18.0); Immature Granulocytes % 0.4 %; Mean Corpuscular HGB Conc 32.2 g/dL (31.8-35.4); Mean Corpuscular Hemoglobin 30.5 pg (27.0-31.2); Mean Corpuscular Volume 94.5 fl (80-94); Nucleated Red Blood Cells % 0 %; Platelet Count 178 K/mm3 (142-424); Red Blood Count 4.53 M/mm3 (4.60-6.20); Red Cell Distribution Width-SD 49.1 fL; White Blood Count 17.3 K/mm3 (4.8-10.8)
[2025-03-19 13:31] LABS: Chloride 108 mmol/L (98-107)
[2025-03-19 13:32] LABS: Albumin Level 4.2 g/dl (3.5-5.0); Potassium 4.6 mmoL/L (3.5-5.1); Sodium 142 mmol/L (136-145)
[2025-03-19 13:34] LABS: Blood Urea Nitrogen 21 mg/dl (9-20); Creatinine,Serum 1.20 mg/dl (0.66-1.25); Estimated Glomerular Filt Rate 58 ml/min (>60); GFR (African American) 70 ML/MIN (>60)
[2025-03-19 13:35] LABS: Alanine Aminotransferase 20 U/L (12-78); Albumin/Globulin Ratio 1.6 (1.1-1.8); Alkaline Phosphatase 65 U/L (38-126); Anion Gap 14.6 mEq/L (5-15); Aspartate Amino Transferase 33 U/L (17-59); Bilirubin,Total 0.8 mg/dl (0.2-1.3); Calcium 8.7 mg/dl (8.4-10.2); Carbon Dioxide 24 mmol/L (22.0-30.0); Globulin 2.7 g/dL (1.3-3.2); Glucose 167 mg/dl (74-100); Total Protein,Serum 6.9 g/dl (6.3-8.2)
[2025-03-19 14:03] LABS: Total Cells Counted 100
[2025-03-19 14:05] LABS: RBC Morphology Normal
== END 2025-03-19 13:15 | disposition home or self-care (01) ==
LOC: INF 13:06
PROVIDERS: PCP Internal Medicine; Visit Provider Internal Medicine Medical Oncology
DX: C91.10 Chronic lymphocytic leukemia of B-cell type not having achieved remission (principal)
CPT/HCPCS: 36415; 80053; 85007; 85025; 85027